=== PATIENT | male | born 1940 | race Caucasian/White ===

== ENCOUNTER 2022-11-16 09:33 | Outpatient (OUT) | payer MEDICARE, SELFPAY ==
[2022-11-16 10:12] LABS: Estimated Average Glucose 171 mg/dL; Glycohemoglobin A1C 7.6 % (4.5-6.2)
== END 2022-11-16 09:34 | disposition home or self-care (01) ==
PROVIDERS: PCP Internal Medicine; Visit Provider Internal Medicine
DX: E11.65 Type 2 diabetes mellitus with hyperglycemia (principal)
CPT/HCPCS: 36415; 83036

== ENCOUNTER 2023-03-05 09:07 | Outpatient (OUT) | payer MEDICARE, SELFPAY ==
[2023-03-05 09:36] LABS: Basophils Absolute Auto 0.1 10^3/uL (0.0-0.1); Basophils Percent Auto 2.6 % (0.2-2.0); Eosinophils Absolute Auto 0.4 10^3/uL (0.0-0.7); Eosinophils Percent Auto 7.9 % (0.9-7.0); Hematocrit 38.5 % (42.0-54.0); Hemoglobin 12.9 g/dL (14.0-18.0); Immature Granulocytes Abs Auto 0.01 10^3/uL (0.00-0.03); Immature Granulocytes Pct Auto 0.2 % (0.0-0.5); Mean Corpuscular HGB Conc 33.5 g/dL (29.9-35.2); Mean Corpuscular Hemoglobin 31.7 pg (25.9-34.0); Mean Corpuscular Volume 94.6 fL (80.0-94.0); Mean Platelet Volume 9.8 fL (9.5-13.5); Monocytes Absolute Auto 0.4 10^3/uL (0.3-0.8); Monocytes Percent Auto 8.8 % (1.7-12.0); Neutrophils Absolute Auto 2.7 10^3/uL (1.4-6.5); Neutrophils Percent Auto 58.5 % (43.0-75.0); Platelet Count 264 10^3/uL (150-450); Red Blood Count 4.07 10^6/uL (4.70-6.10); White Blood Count 4.5 10^3/uL (4.0-11.0)
[2023-03-05 10:00] LABS: Estimated Average Glucose 189 mg/dL; Glycohemoglobin A1C 8.2 % (4.5-6.2)
[2023-03-05 10:31] LABS: Anion Gap 10.5; BUN Creatinine Ratio 14.1; Calcium 8.7 mg/dL (8.5-10.1); Carbon Dioxide 29.2 mmol/L (21.0-32.0); Chloride 103 mmol/L (98-107); Chol HDL Ratio 6.1; Cholesterol 256 mg/dL (<=200); Estimated GFR (African America >60 (>=60); Estimated GFR (Non-African Ame >60 (>=60); Glucose 185 mg/dL (74-106); HDL Cholesterol 42 mg/dL (40-60); Potassium 3.7 mmol/L (3.5-5.1); Sodium 139 mmol/L (136-145); Triglycerides 156 mg/dL (<=150); VLDL CHOLESTEROL 31.2 mg/dL
[2023-03-05 10:38] LABS: Prostate Specific Antigen Scrn 1.05 ng/mL (<=4.00)
[2023-03-05 11:07] LABS: Microalbumin Urine Random 6.3 mg/dL (<=30.0)
== END 2023-03-05 09:08 | disposition home or self-care (01) ==
LOC: LAB 09:07
PROVIDERS: PCP Internal Medicine; Visit Provider Internal Medicine
DX: E11.65 Type 2 diabetes mellitus with hyperglycemia (principal); E78.01 Familial hypercholesterolemia; I25.10 Atherosclerotic heart disease of native coronary artery without angina pectoris; Z12.5 Encounter for screening for malignant neoplasm of prostate; I10 Essential (primary) hypertension
CPT/HCPCS: 36415; 80048; 80061; 82043; 83036; 85025; G0103

== ENCOUNTER 2023-07-06 08:55 | Outpatient (OUT) | payer MEDICARE, SELFPAY ==
--- OUTSIDE RECORDS SUMMARY | 2023-07-06 09:02 | XMS_ITS | CCD ---
Author Organization [facility] Care Team Providers Care Biomedical Electronics Technician Name Role Phone PHYSICIAN, DEFAULT Unavailable Unavailable PHYSICIAN, DEFAULT Unavailable Unavailable ANGY, JED Unavailable Unavailable Mega Travis DO Primary Care Provider RIC ARGUELLO Referring Unavailable MEGA TRAVIS Primary Care Unavailable JAMARCUS SHRESTHA Admitting Unavailable JAMARCUS SHRESTHA Attending Unavailable GUSTAVO MORROW I Consulting Unavailable WU MILES Consulting Unavailable Mega Travis Unavailable Mega Travis Primary Care Unavailable Asaad, Imad Attending Unavailable Asaad, Imad Admitting Unavailable Asaad, Imad Unavailable MAE ., MELVIN Procedure Practitioner Unavailab jaiml TRAVIS, DR SAEED Primary Care Unavailable FLORENCE, DR ODILON Juarez Consulting Unavailabl e MAE ., MELVIN Attending Unavailable MAE ., MELVIN Admitting Unavailable FCO FRY Consulting Unavailable SAMSA ., VARSHA Consulting Unavailable CHING, KAMINI Consulting Unavailable SISTER, CARLITOS Consulting Unavailable AME ., MELVIN Consulting Unavailable ANGY, DR SAEED Consulting Unavailable ANGY, DR SAEED Attending Unavailable ANGY, DR SAEED Admitting Unavailable ANGY, DR SAEED Primary Care Unavailable ANGY, DR SAEED Primary Care Unavailable ANGY, DR SAEED Attending Unavailable ANGY, DR SAEED Admitting Unavailable ANGY, DR SAEED Primary Care Unavailable PAY ., DR BETTS Attending Unavailable PAY ., DR BETTS Admitting Unavailable Jose Matthews Consulting Unavailable PAY ., DR BETTS Consulting Unavailable ANGY, DR SAEED Primary Care Unavailable AFUA ., OLINDA Attending Unavailable AFUA ., OLNIDA Admitting Unavailable AFUA ., OLINDA Consulting Unavailable NURIA GUILLEN Consulting Unavailable CHANDA CHA Consulting Unavailable ANGY, DR SAEED Primary Care Unavailable MARKER ., DR MOLINA Attending Unavailable MARKER ., DR MOLINA Admitting Unavailable MARKER ., DR MOLINA Consulting Unavailable LILIA HERNANDEZ Consulting Unavailable ANGY, DR SAEED Primary Care Unavailable SHAIKH Lv PALMA Attending Unavailable CHIP ., DR GARCIA Consulting Unavailable SHAIKH Lv PALMA Admitting Unavailable Nuria Webb Consulting Unavailable RIC ARGUELLO Consulting Unavailable FCO FRY Consulting Unavailable NURIA CLINE Consulting Unavailable SHAIKH Lv PALMA Consulting Unavailable GUNNAR, DR DONA Zarate Attending Unavailable GUNNAR, DR DONA Zarate Admitting Unavailable Jose Matthews Consulting Unavailable ANGY, DR SAEED Primary Care Unavailable GUNNAR, DR DONA Zarate Consulting Unavailable RIC ARGUELLO Consulting Unavailable FCO FRY Consulting Unavailable ROSALIND AMIN Consulting Unavailable CRISTIAN GRIER Consulting Unavailable ANGY, DR SAEED Primary Care Unavailable GUNNAR, DR DONA Zarate Attending Unavailable GUNNAR, DR DONA Zarate Admitting Unavailable CAM, DR NELL Metz Consulting Unavailable GUNNAR, DR DONA Zarate Consulting Unavailable GILMA NICK Consulting Unavailable Medications Current Medications Medication Drug Class(es) Dates Sig (Normalized) Sig (Original) Acetaminophen (1 source) Start: 03-06-2022 acetaminophen (TYLENOL) tablet 650 mg Albuterol (20 sources) beta2-Adrenergic Agonist Start: 05-10-2022 take 90 ug by inhalation every four hours Albuterol Active 90 MCG INHALATION Q4H May 10, 2022 1:00am Start: 03-06-2022 albuterol (PRO VENTIL) nebulizer solution 2.5 mg Albuterol Sulfat e (2.5 MG/3ML) 0.083% 3 mL Inhalation every 4 hours as needed Not-Taking/PRN Albuterol Sulfat e (2.5 MG/3ML) 0.083% 3 mL Inhalation every 4 hours as needed Not-Taking take 2 puff(s) by in halation every four hours as needed Albuterol Sulfate HFA 108 (90 Base) MCG/ACT 2 puffs Inhalation every 4 hrs PRN Active albuterol 0.833 mg/ml / ipratropium bromide 0.167 mg/ml inhalation solution (20 sources) Anticholinergic, beta2-Adrenergic Agonist Start: 07-04-2023 take 1 mL by inhalation twice daily Ipratropium-Albuterol Active 3 ML INHALATION Twice daily 180 90 July 04, 2023 9:54am Start: 05-10-2022 End: 07-04-2023 take 1 mL by inhalation four times daily Ipratropium-Albuterol Discontinued 3 ML INHALATION Four times daily May 10, 2022 1:00am July 04, 2023 9:55am take 1 dose by inhal ation four times daily Ipratropium-Albuterol 0.5-2.5 (3) MG/3ML INHALE 1 VIAL VIA NEBULIZER 4 TIMES A DAY Active atorvastatin 40 mg oral tablet (2 sources) HMG-CoA Reductase Inhibitor Start: 03-06-2023 take 1 tablet by mouth every twenty-four hours Atorvastatin Calcium 40 MG 1 tablet Orally Once a day for 30 days replacing simvastatin Feb, Active Start: 08-11-2018 End: 05-10-2022 take 40 mg by mouth once daily in the evening Atorvastatin Discontinued 40 MG PO Every evening August 11, 2018 12:00am May 10, 2022 1:27pm azithromycin 250 mg oral tablet (1 source) Macrolide Antimicrobial Start: 03-07-2022 End: 03-12-2022 azithromycin (ZITHROMAX) 250 MG tablet Indications: Bronchiectasis without complication (HCC) Take 1 tablet by mouth See Admin Instructions for 5 days 500mg on day 1 followed by 250mg on days 2 - 5 6 tablet 0 03/07/2022 03/12/2022 Active budesonide 0.25 mg/ml inhalation suspension (19 sources) Corticosteroid Start: 01-29-2023 take 1 mL by inhalation twice daily Budesonide 0.5 MG/2ML 1 mL Inhalation Twice a day Jan, Active Start: 05-10-2022 take 1 mL by inhalat ion twice daily Budesonide 0.5 MG/2ML 1 mL Inhalation Twice a day Jan, Active Budesonide 0.5 M G/2ML 1 Nebule Inhalation Twice a day Active clopidogrel 75 mg oral tablet (20 sources) P2Y12 Platelet Inhibitor Start: 03-09-2022 take 75 mg by mouth every other day 75 mg, Oral, EVERY OTHER DAY, First dose on Sat03/09/22 at 0900, Until Discontinued Start: 08-11-2018 take 75 mg by mouth once daily Clopidogrel Active 75 MG PO Daily August 11, 2018 12:00am take 0.5 tablet by m outh every other day clopidogrel (PLAVIX) 75 MG tablet Take 75 mg by mouth every other day Half tab 0 Active Contour Next Test - (2 sources) Contour Next Makenzie t - Use to test home BS In Vitro daily for 30 days Active Contour Next Makenzie t - USE 1 STRIP DAILY for 50 Active 0.4 ml enoxaparin sodium 100 mg/ml prefilled syringe (1 source) Low Molecular Weight Heparin Start: 03-07-2022 enoxaparin (LOVENOX) injection 40 mg glucagon (rdna) 1 mg injection (1 source) Antihypoglycemic Agent Start: 03-06-2022 glucago n (rDNA) injection 1 mg 1000 ml glucose 100 mg/ml injection (3 sources) Start: 03-06-2022 dextrose 10 % infusion Start: 03-06-2022 dextrose bolus 10% 125 mL Start: 03-06-2022 glucose chewab le tablet 16 g glyBURIDE 1.25 mg oral tablet (20 sources) Sulfonylurea Start: 07-03-2023 take 1.25 mg by mouth once daily Glyburide Active 1.25 MG PO Daily July 03, 2023 12:00am Start: 05-08-2022 take 1 tablet by malia th every twenty-four hours glyBURIDE 1.25 MG 1 tablet with breakfast or the first main meal of the day Orally Once a day Apr, Active Start: 05-08-2022 glyBURIDE 1.25 MG 2 Orally 30 minutes prior to bkfst for 30 days Apr, Active insulin lispro 100 unt/ml injectable solution (2 sources) Insulin Analog Start: 03-06-2022 insulin lispro (HUMALOG) injection vial 0-4 Units 100 ml magnesium sulfate 10 mg/ml injection (1 source) Start: 03-06-2022 magnesium sulf ate 1000 mg in dextrose 5% 100 mL IVPB omeprazole 40 mg delayed release oral capsule (3 sources) Proton Pump Inhibitor Start: 07-03-2023 take 40 mg by mouth once daily Omeprazole Active 40 MG PO Daily July 03, 2023 12:00am Omeprazole 40 MG TAKE 1 CAPSULE BY MOUTH 30 MINUTES BEFORE MORNING MEAL EVERY DAY FOR 30 DAYS for 90 Active End: 03-07-2022 take 1 capsule by mouth once daily omeprazole (PRILOSEC) 20 MG delayed release capsule Take 20 mg by mouth daily 0 03/07/2022 Discontinued (Stop Taking at Discharge) ondansetron (ZOFRAN-ODT) disintegrating tablet 4 mg (1 source) Start: 03-06-2022 ondansetron (ZOFRAN-ODT) disintegrating tablet 4 mg One Touch Glucometer (1 source) Start: 04-04-2023 One Touch Glucometer use as directed for 365 days Mar, Active pantoprazole 40 mg delayed release oral tablet (1 source) Proton Pump Inhibitor Start: 03-07-2022 take 1 tablet by mouth once daily before breakfast pantoprazole (PROTONIX) 40 MG tablet Take 1 tablet by mouth every morning (before breakfast) 30 tablet 5 03/07/2022 Active pantoprazole (PROTONIX) 40 mg in sodium chloride (PF) 0.9 % 10 mL injection (1 source) Start: 03-06-2022 pantoprazole (PROTONIX) 40 mg in sodium chloride (PF) 0.9 % 10 mL injection polyethylene glycol 3350 16958 mg powder for oral solution (1 source) Osmotic Laxative Start: 03-06-2022 polyethylene glycol (GLYCOLAX) packet 17 g Potassium Chloride (1 source) Start: 03-06-2022 potassium chloride (KLOR-CON M) extended release tablet 40 mEq predniSONE 10 mg oral tablet (14 sources) take 1 tablet by mouth every twenty-four hours predniSONE 10 MG 1 tablet Orally Once a day 40 mg daily for 5 days, 30 mgs for 5 days, 20 mg for 5 days, 10 mg for 5 days Active simvastatin 20 mg oral tablet (20 sources) HMG-CoA Reductase Inhibitor Start: 05-10-2022 take 20 mg by mouth once daily Simvastatin Active 20 MG PO Daily May 10, 2022 1:00am Start: 03-09-2022 Please Note: S imvastatin 80 mg is limited to patients that have been taking this dose for >12 consecutive months without evidence of myopathy and are not currently taking or beginning to take a simvastatin dose-limiting or contraindicated interacting medication. 10 mg, Oral, EVERY OTHER DAY, First dose on Sat03/09/22 at 0900, Until Discontinued Please select a reason the therapeutic interchange was not accepted: Okay for Pharmacy to Substitute take 10 mg by mouth every other day simvastatin (ZOCOR) 20 MG tablet Take 10 mg by mouth every other day 0 Active triamcinolone acetonide 0.001 mg/mg topical ointment (12 sources) Corticosteroid Start: 07-24-2022 Triamcinolone Acetonide 0.1 % 1 application Externally Twice a day for 30 days July, Active Start: 06-26-2022 Triamcinolone Acetonide 0.1 % 1 application Externally twice daily as needed for 30 days Jun, Not-Taking/PRN Start: 06-26-2022 Triamcinolone Acetonide 0.1 % 1 application Externally twice daily as needed for 30 days Jun, Not-Taking Completed/Discontinued Medications Medication Drug Class(es) Dates Sig (Normalized) Sig (Original) aspirin 81 mg chewable tablet (1 source) Platelet Aggregation Inhibitor, Nonsteroidal Anti-inflammatory Drug Start: 08-10-2018 End: 08-11-2018 take 81 mg by mouth once daily Aspirin Discontinued 81 MG PO Daily August 10, 2018 12:00am August 11, 2018 1:09pm metFORMIN hydrochloride 500 mg oral tablet (1 source) Biguanide Start: 08-11-2018 End: 05-10-2022 take 500 mg by mouth twice daily at mealtime Metformin Discontinued 500 MG PO Twice daily with meals 60 August 11, 2018 12:00am May 10, 2022 1:52pm 1000 ml sodium chloride 9 mg/ml injection (5 sources) Start: 03-06-2022 sodium chloride flush 0.9 % injection 5-40 mL Start: 03-06-2022 End: 03-07-2022 0.9 % sodium chloride infusi on Problems Active Problems Problem Classification Problem Date Documented Da te Episodic/Chronic Abdominal pain (14 sources) Epigastric pain; Translations: [Epigastric pain] Episodic Acute cerebrovascular disease (1 source) Ischemic stroke; Translations: [Cerebral infarction, unspecified] 02-27-2023 Chronic Anxiety disorders (2 sources) Generalized anxiety disorder; Translations: [Anxiety disorder, unspecified] Onset: 2 Chronic Asthma (1 source) Unspecified asthma, uncomplicated; Translations: [UNSPECIFIED ASTHMA UNCOMPLICATED] Onset: 2 Chronic Chronic obstructive pulmonary disease and bronchiectasis (20 sources) Bronchiectasis; Translations: [Bronchiectasis, uncomplicated] Onset: 2 Chronic Congestive heart failure; nonhypertensive (1 source) Heart failure, unspecified; Translations: [HEART FAILURE UNSPECIFIED] Onset: 2 Chronic Coronary atherosclerosis and other heart disease (20 sources) Coronary atherosclerosis; Translations: [Atherosclerotic heart disease of [place] coronary artery without angina pectoris] Onset: 2 Chronic Deficiency and other anemia (19 sources) Anemia of chronic disease; Translations: [Anemia in other chronic diseases classified elsewhere] Chronic Deficiency and other anemia (1 source) Anemia in other chronic diseases classified elsewhere Chronic Deficiency and other anemia (2 sources) Normocytic normochromic anemia; Translations: [Anemia, unspecified] Onset: 2 Episodic Delirium, dementia, and amnestic and other cognitive disorders (20 sources) Senile dementia; 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 Diabetes mellitus with complications (20 sources) Hyperglycemia due to type 2 diabetes mellitus; Translations: [Type 2 diabetes mellitus with hyperglycemia] Onset: 2 Chronic Diabetes mellitus without complication (3 sources) Type 2 diabetes mellitus without complication; Translations: [Type 2 diabetes mellitus without complications] Onset: 2 Chronic Diseases of white blood cells (1 source) Elevated white blood cell count, unspecified; Translations: [ELEVATED WHITE BLOOD CELL COUNT UNS] Onset: 2 Chronic Disorders of lipid metabolism (20 sources) Pure hypercholesterolemia; Translations: [Familial hypercholesterolemia] Onset: 2 Chronic Esophageal disorders (20 sources) Stricture of esophagus; Translations: [Esophageal obstruction] Onset: 2 Chronic Essential hypertension (20 sources) Essential hypertension; Translations: [Essential (primary) hypertension] Chronic Hyperplasia of prostate (20 sources) Lower urinary tract symptoms due to benign prostatic hypertrophy; Translations: [Benign prostatic hyperplasia with lower urinary tract symptoms] Onset: 2 07-03-2023 Chronic Hypertension with complications and secondary hypertension (1 source) Hypertensive heart disease with heart failure; Translations: [HTN HEART DISEASE W/HEART FAIL] Onset: 2 Chronic Mycoses (14 sources) Candidiasis of mouth; Translations: [Candidal stomatitis] Episodic Other and ill-defined cerebrovascular disease (20 sources) Cerebral atherosclerosis; Translations: [Cerebral atherosclerosis] 07-03-2023 Chronic Other and ill-defined cerebrovascular disease (1 source) Cerebral atherosclerosis; Translations: [Cerebral atherosclerosis] 07-04-2023 Chronic Other diseases of veins and lymphatics (20 sources) Peripheral venous insufficiency; Translations: [Venous insufficiency (chronic) (peripheral)] 07-03-2023 Episodic Other diseases of veins and lymphatics (3 sources) Venous insufficiency (chronic) (peripheral) Episodic Other diseases of veins and lymphatics (7 sources) Stasis dermatitis; Translations: [Venous insufficiency (chronic) (peripheral)] Episodic Other gastrointestinal disorders (14 sources) Dysphagia; Translations: [Dysphagia, unspecified] Episodic Other gastrointestinal disorders (14 sources) H/O: gastrointestinal disease; Translations: [Personal history of other diseases of the digestive system] Episodic Other hereditary and degenerative nervous system conditions (14 sources) Mild cognitive disorder ; Translations: [Mild cognitive impairment, so stated] Chronic Other hereditary and degenerative nervous system conditions (1 source) Impaired cognition; Translations: [Mild cognitive impairment, so stated] 07-03-2023 Chronic Other hereditary and degenerative nervous system conditions (1 source) Mild cognitive impairment, so stated; Translations: [Mild cognitive impairment, so stated] 07-04-2023 Chronic Other infections; including parasitic (2 sources) Personal history of other infectious and parasitic diseases; Translations: [History of COVID-19] Onset: 2 Episodic Other lower respiratory disease (3 sources) Pulmonary granuloma; Translations: [Pulmonary fibrosis, unspecified] Onset: 2 Chronic Other lower respiratory disease (1 source) Pulmonary fibrosis, unspecified; Translations: [Pulmonary fibrosis, unspecified] Onset: 2 Chronic Other lower respiratory disease (3 sources) Nodule of lung; Translations: [Solitary pulmonary nodule] Onset: 2 Episodic Other lower respiratory disease (14 sources) Hypoxemia; Translations: [Hypoxemia] Episodic Other lower respiratory disease (14 sources) Lung field abnormal; Translations: [Other nonspecific abnormal finding of lung field] Episodic Other lower respiratory disease (19 sources) Solitary nodule of lung; Translations: [Solitary pulmonary nodule] Episodic Other nervous system disorders (1 source) Numbness; Translations: [Anesthesia of skin] 02-27-2023 Episodic Other upper respiratory disease (1 source) Chronic rhinitis; Translations: [CHRONIC RHINITIS] Onset: 3 Chronic Other upper respiratory infections (1 source) Chronic sinusitis, unspecified; Translations: [CHRONIC SINUSITIS UNSPECIFIED] Onset: 2 Chronic Residual codes; unclassified (20 sources) Obstructive sleep apnea syndrome; Translations: [Obstructive sleep apnea (adult) (pediatric)] 07-03-2023 Chronic Residual codes; unclassified (8 sources) Obstructive sleep apnea (adult) (pediatric); Translations: [Obstructive sleep apnea (adult)(pediatric)] Onset: 3 Chronic Respiratory failure; insufficiency; arrest (adult) (2 sources) Chronic respiratory failure with hypoxia; Translations: [Dependence on supplemental oxygen] Onset: 3 Chronic Screening and history of mental health and substance abuse codes (20 sources) History of tobacco use; Translations: [Personal history of nicotine dependence] Onset: 3 Episodic Spondylosis; intervertebral disc disorders; other back problems (20 sources) Lumbosacral spondylosis with radiculopathy; Translations: [Other spondylosis with radiculopathy, lumbosacral region] Onset: 2 Chronic Unclassified (1 source) UNS DEMENTIA UNS SEVERITY W/ANXIETY; Translations: [UNS DEMENTIA UNS SEVERITY W/ANXIETY] Onset: 3 Unclassified (1 source) PT NONCOMP OTH MED TX/REG OTH REASN; Translations: [PT NONCOMP OTH MED TX/REG OTH REASN] Onset: 3 Unclassified (1 source) CONTACT W/AND (SUSP) EXPOS COVID-19; Translations: [CONTACT W/AND (SUSP) EXPOS COVID-19] Onset: 3 Unclassified (1 source) PERSONAL HISTORY OF COVID-19; Translations: [PERSONAL HISTORY OF COVID-19] Onset: 2 Unclassified (2 sources) COUGH, UNSPECIFIED; Translations: [COUGH, UNSPECIFIED] Onset: 2 Unclassified (1 source) POST COVID-19 CONDITION UNSPECIFIED; Translations: [POST COVID-19 CONDITION UNSPECIFIED] Onset: 2 Viral infection (1 source) COVID-19; Translations: [COVID-19] Onset: 2 Past or Other Problems Problem Classification Problem Date Documented Da te Episodic/Chronic Esophageal disorders (20 sources) Esophageal disorders; Translations: [Gastro-esophageal reflux disease with esophagitis, without bleeding] Onset: 05-10-2022 Fluid and electrolyte disorders (1 source) Dehydration; Translations: [DEHYDRATION] Onset: 01-11-2022 Episodic Inflammation; infection of eye (except that caused by tuberculosis or sexually transmitteddisease) (1 source) Unspecified conjunctivitis; Translations: [UNSPECIFIED CONJUNCTIVITIS] Onset: 04-03-2022 Episodic Malaise and fatigue (2 sources) Weakness; Translations: [Other malaise] Onset: 01-11-2022 Episodic Nausea and vomiting (4 sources) Nausea with vomiting, unspecified; Translations: [NAUSEA WITH VOMITING UNSPECIFIED] Onset: 12-11-2021 Episodic Other aftercare (1 source) buttermaker (current) use of antithrombotics/ant iplatelets; Translations: [PUMPMAN ANTITHROMBOT/ANTIPL ATLETS] Onset: 04-03-2022 Episodic Other aftercare (1 source) buttermaker (current) use of inhaled steroids; Translations: [ALF USE OF INHALED STEROIDS] Onset: 04-03-2022 Episodic Other aftercare (1 source) buttermaker (current) use of oral hypoglycemic drugs; Translations: [PUMPMAN USE ORAL HYPOGLYCEMIC DX] Onset: 04-03-2022 Episodic Other aftercare (1 source) Other terminal make up operator (current) drug therapy; Translations: [OTH PUMPMAN CURRENT DRUG THERAPY] Onset: 04-03-2022 Episodic Other aftercare (1 source) snf (current) use of insulin; Translations: [ALF CURRENT USE OF INSULIN] Onset: 03-13-2022 Episodic Other aftercare (1 source) buttermaker (current) use of aspirin; Translations: [ALF CURRENT USE OF ASPIRIN] Onset: 12-19-2021 Episodic Other connective tissue disease (1 source) Myalgia, unspecified site; Translations: [MYALGIA UNSPECIFIED SITE] Onset: 01-11-2022 Episodic Other gastrointestinal disorders (4 sources) Dysphagia, unspecified; Translations: [DYSPHAGIA UNSPECIFIED] Onset: 03-06-2022 Episodic Other lower respiratory disease (7 sources) Solitary pulmonary nodule; Translations: [Solitary pulmonary nodule] Onset: 12-19-2021 Episodic Other lower respiratory disease (2 sources) Hypoxemia; Translations: [HYPOXEMIA] Onset: 03-13-2022 Episodic Other lower respiratory disease (1 source) Other nonspecific abnormal finding of lung field; Translations: [OTH NONSPECIFIC ABN FIND LNG FIELD] Onset: 04-03-2022 Episodic Other lower respiratory disease (4 sources) Other forms of dyspnea; Translations: [OTHER FORMS OF DYSPNEA] Onset: 02-12-2022 Episodic Other lower respiratory disease (1 source) Dyspnea, unspecified; Translations: [DYSPNEA UNSPECIFIED] Onset: 01-11-2022 Episodic Other lower respiratory disease (4 sources) Shortness of breath; Translations: [SHORTNESS OF BREATH] Onset: 12-16-2021 Episodic Other upper respiratory infections (2 sources) Acute upper respiratory infection, unspecified; Translations: [ACUTE UP RESPIRATORY INFECTION UNS] Onset: 12-13-2021 Episodic Pneumonia (except that caused by tuberculosis or sexually transmitted disease) (1 source) Pneumonia, unspecified organism; Translations: [PNEUMONIA UNSPECIFIED ORGANISM] Onset: 12-19-2021 Episodic Residual codes; unclassified (1 source) Family history of diabetes mellitus; Translations: [FAMILY HISTORY OF DIABETES MELLITUS] Onset: 04-03-2022 Episodic Residual codes; unclassified (1 source) Family history of ischemic heart disease and other diseases of the circulatory system; Translations: [FAM HX ISCHEMIC HRT DZ OTH DZ CIRC] Onset: 04-03-2022 Episodic Respiratory failure; insufficiency; arrest (adult) (1 source) Acute respiratory failure with hypoxia; Translations: [ACUTE RESPIRATORY FAIL W/HYPOXIA] Onset: 01-18-2022 Episodic Unclassified (1 source) COUGH, UNSPECIFIED; Translations: [COUGH, UNSPECIFIED] Onset: 12-29-2021 Results Test Name Value Interpretation Reference Range Facility [facility] 05-10-2022 -- ---- Specimen: [id number] Received: 05/10/22 Status: KARAN Galeano Num: [id number] Spec Type: Surgical Subm Dr: Cara Hayden MD Tissues: A Esophagus Biopsy (ESOPHAGEAL NODULE BX) Procedures: HE/2, Gross/Micro L4 ---- Age/ Patient Sex Location Account Attending Physician ---- Tammy Millard 81/[facility] [id number] Cara Hayden MD ---- SPEC NUM: [id number] RECD: 05/10/22 STATUS: KARAN GALEANO NUM: [id number] DIONNE: 05/10/22- [facility] DR: Cara Hayden MD ENTERED: 05/10/[address] [facility] [address]: EDUAR TYPE: Surgical DEPT: S ORDERED: HE/2, Gross/Micro L4 ORDERED: HE/2, Gross/Micro L4 Pathological Diagnosis Esophagus, nodule in hiatal hernia, biopsy: - Polypoid gastric mucosa with inactive chronic inflammation and hyperplastic change. - Negative for intestinal metaplasia, dysplasia or malignancy. Clinical Information Dysphagia Gross Description Received in formalin labeled with the patient's name, number and esophageal nodule in hiatal hernia biopsy is one fragment of soft cardona tissue measuring 0.3 cm. Entirely submitted in one cassette labeled A1. Microscopic Description Two glass slides with H E stained material have been examined. The microscopic findings support the above pathologic diagnosis. CPT Codes 98668 ---- ---- Specimen: [id number] Received: 05/10/22 Status: KARAN Galeano Num: [id number] Spec Type: Surgical Subm Dr: Cara Hayden MD Tissues: A Esophagus Biopsy (ESOPHAGEAL NODULE BX) Procedures: HE/2, Gross/Micro L4 ---- Patient: Tammy Millard [id number] (Continued) ---- Signed (signature on file) Carmen Welch MD 05/11/22 1509 [facility] CBC AUTO DIFFon 03-30-2022 BASO # 0.0 103/ul Normal 0.0-0.1 [facility] Comment on above: Performed By: #### C GREG #### [facility] [address] [address] [address] Avni Aguillon Basophils/100 WBC (Bld) 0.1 % Critically low 0.2-2.0 [facility] Comment on above: Performed By: #### C GREG #### [facility] [address] [address] [address] Avni Aguillon EO # 0.0 103/ul Normal 0.0-0.7 [facility] Comment on above: Performed By: #### C GREG #### [facility] [address] [place] [address] Dr. Avni Aguillon Eosinophils/100 WBC (Bld) 0.0 % Critically low 0.9-7.0 [facility] Comment on above: Performed By: #### C GREG #### [facility] [address] [place] [address] Dr. Avni Aguillon Erythrocyte distribution width (RBC) [Ratio] 13.2 % Normal 11.0-15.0 [facility] Comment on above: Performed By: #### C GREG #### [facility] [address] [place] [address] Dr. Avni Aguillon Hematocrit (Bld) [Volume fraction] 34.3 % Critically low 42.0-54.0 [facility] Comment on above: Performed By: #### C GREG #### [facility] [address] [place] [address] Dr. Avni Aguillon Hemoglobin (Bld) [Mass/Vol] 11.1 g/dL Critically low 14.0-18.0 [facility] Comment on above: Performed By: #### C GREG #### [facility] [address] [place] [address] Dr. Avni Aguillon IG # 0.03 10e3/ul Normal 0.00-0.03 [facility] Comment on above: Performed By: #### C GREG #### [facility] [address] [address] [address] Avni Aguillon IG % 0.3 % Normal 0.0-0.5 [facility] Comment on above: Performed By: #### C GREG #### [facility] [address] [address] [address] Avni Aguillon LYMPH # 0.4 103/ul Critically low 1.2-3.8 [facility] Comment on above: Performed By: #### C GREG #### [facility] [address] [address] [address] Avni Aguillon Lymphocytes/100 WBC (Bld) 4.0 % Critically low 20.5-60.0 [facility] Comment on above: Performed By: #### C GREG #### [facility] [address] [place] [address] Dr. Avni Aguillon MANUAL DIFF REQ NO Normal [facility] Comment on above: Performed By: #### C GREG #### [facility] [address] [place] [address] Dr. Avni Aguillon MCH (RBC) [Entitic mass] 32.6 pg Normal 25.9-34.0 [facility] Comment on above: Performed By: #### C GREG #### [facility] [address] [place] [address] Dr. Avni Aguillon MCHC (RBC) [Mass/Vol] 32.4 g/dL Normal 29.9-35.2 [facility] Comment on above: Performed By: #### C GREG #### [facility] [address] [place] [address] Dr. Avni Aguillon MCV (RBC) [Entitic vol] 100.6 fL Critically high 80.0-94.0 [facility] Comment on above: Performed By: #### C GREG #### [facility] [address] [address] [address] Avni Aguillon MONO # 0.4 103/ul Normal 0.3-0.8 [facility] Comment on above: Performed By: #### C GREG #### [facility] [address] [address] [address] Avni Aguillon Monocytes/100 WBC (Bld) 4.2 % Normal 1.7-12.0 [facility] Comment on above: Performed By: #### C GREG #### [facility] [address] [address] [address] Avni Aguillon NEUT # 9.2 103/ul Critically high 1.4-6.5 [facility] Comment on above: Performed By: #### C GREG #### [facility] [address] [place] [address] Dr. Avni Aguillon Neutrophils/100 WBC (Bld) 91.4 % Critically high 43.0-75.0 [facility] Comment on above: Performed By: #### C GREG #### [facility] [address] [place] [address] Dr. Avni Aguillon Platelet mean volume (Bld) [Entitic vol] 10.2 fL Normal 9.5-13.5 [facility] Comment on above: Performed By: #### C GREG #### [facility] [address] [address] [address] Avni Aguillon PLT 295 103/ul Normal 150-450 [facility] Comment on above: Performed By: #### C GREG #### [facility] [address] [place] [address] Dr. Avni Aguillon RBC 3.41 106/ul Critically low 4.70-6.10 [facility] Comment on above: Performed By: #### C GREG #### [facility] [address] [place] [address] Dr. Avni Aguillon WBC 10.1 103/ul Normal 4.0-11.0 [facility] Comment on above: Performed By: #### C GREG #### [facility] [address] [place] [address] Dr. Avni Aguillon ER URINE PROFILEon 3 Bilirubin Ql (U) Negative Normal NEGATIVE [facility] Comment on above: Performed By: #### P OCGLUC #### [facility] [address] [address] [address] Avni Aguillon Clarity (U) CLEAR Normal CLEAR [facility] Comment on above: Performed By: #### P OCGLUC #### [facility] [address] [place] [address] Dr. Avni Aguillon Color (U) LT. YELLOW Normal YELLOW [facility] Comment on above: Performed By: #### P OCGLUC #### [facility] [address] [place] [address] Dr. Avni GUERIN A micrscopic examination will be performed if indicated. Normal [facility] Comment on above: Performed By: #### P OCGLUC #### [facility] [address] [place] [address] Dr. Avni Aguillon Glucose Ql (U) >1000 Abnormal NEGATIVE [facility] Comment on above: Performed By: #### P OCGLUC #### [facility] [address] [place] [address] Dr. Avni Aguillon Hemoglobin Ql (U) Negative Normal NEGATIVE [facility] Comment on above: Performed By: #### P OCGLUC #### [facility] [address] [place] [address] Dr. Avni Aguillon Ketones Ql (U) 15 mg/dl Abnormal NEGATIVE [facility] Comment on above: Performed By: #### P OCGLUC #### [facility] [address] [place] [address] Dr. Avni Aguillon LEUKOCYTES Negative Normal NEGATIVE [facility] Comment on above: Performed By: #### P OCGLUC #### [facility] [address] [place] [address] Dr. Avni Aguillon Nitrite Ql (U) Negative Normal NEGATIVE [facility] Comment on above: Performed By: #### P OCGLUC #### [facility] [address] [place] [address] Dr. Avni Aguillon pH (U) 5.0 [pH] Normal 5-9 [facility] Comment on above: Performed By: #### P OCGLUC #### [facility] [address] [place] [address] Dr. Avni Aguillon SPEC GRAVITY 1.010 Normal 1.005-<=1.02 5 [facility] Comment on above: Performed By: #### P OCGLUC #### [facility] [address] [place] [address] Dr. Avni Aguillon UA PROTEIN Negative Normal NEGATIVE/ TRACE [facility] Comment on above: Performed By: #### P OCGLUC #### [facility] [address] [place] [address] Dr. Avni Aguillon UR MICRO IND NOT INDICATED Normal [facility] Comment on above: Performed By: #### P OCGLUC #### [facility] [address] [place] [address] Dr. Avni Aguillon Urobilinogen Qn (U) 0.2 {Kesha'U}/dL Normal 0.2 - 1. 0 [facility] Comment on above: Performed By: #### P OCGLUC #### [facility] [address] [place] [address] Dr. Avni Aguillon POINT OF CARE GLUCOSEon 03-18 Glucose [Mass/Vol] 316 mg/dL Critically high 74-106 [facility] Comment on above: Performed By: #### P OCGLUC #### [facility] [address] [place] [address] Dr. Avni Aguillon Glucose [Mass/Vol] 374 mg/dL Critically high 74-106 [facility] Comment on above: Performed By: #### U RCX #### [facility] [address] [place] [address] Dr. Avni Aguillon PROF 14(COMP METB)on 023 Albumin [Mass/Vol] 2.9 g/dL Critically low 3.4-5.0 [facility] Comment on above: Performed By: #### P OCGLUC #### [facility] [address] [place] [address] Dr. Avni Aguillon Albumin/Globulin [Mass ratio] 0.9 {ratio} Normal [facility] Comment on above: Performed By: #### P OCGLUC #### [facility] [address] [address] [address] Avni Aguillon ALP [Catalytic activity/Vol] 93 U/L Normal 46-116 [facility] Comment on above: Performed By: #### P OCGLUC #### [facility] [address] [address] [address] Avni Aguillon ALT [Catalytic activity/Vol] 21 U/L Normal 16-63 [facility] Comment on above: Performed By: #### P OCGLUC #### [facility] [address] [address] [address] Avni Aguillon Anion gap [Moles/Vol] 15.4 mmol/L Normal [facility] Comment on above: Performed By: #### P OCGLUC #### [facility] [address] [address] [address] Avni Aguillon AST [Catalytic activity/Vol] 17 U/L Normal 15-37 [facility] Comment on above: Performed By: #### P OCGLUC #### [facility] [address] [place] [address] Dr. Avni Aguillon Bilirubin [Mass/Vol] 0.9 mg/dL Normal 0.2-1.0 [facility] Comment on above: Performed By: #### P OCGLUC #### [facility] [address] [place] [address] Dr. Avni Aguillon Calcium [Mass/Vol] 8.9 mg/dL Normal 8.5-10.1 [facility] Comment on above: Performed By: #### P OCGLUC #### [facility] [address] [place] [address] Dr. Avni Aguillon Chloride [Moles/Vol] 100 mmol/L Normal 98-107 [facility] Comment on above: Performed By: #### P OCGLUC #### [facility] [address] [place] [address] Dr. Avni Aguillon CO2 [Moles/Vol] 23.8 mmol/L Normal 21.0-32.0 [facility] Comment on above: Performed By: #### P OCGLUC #### [facility] [address] [place] [address] Dr. Avni Aguillon Creatinine [Mass/Vol] 1.31 mg/dL Critically high 0.70-1.30 [facility] Comment on above: Performed By: #### P OCGLUC #### [facility] [address] [address] [address] Avni Aguillon EGFR-AF LEBANESE >60 Normal >=60 [facility] Comment on above: Performed By: #### P OCGLUC #### [facility] [address] [address] [address] Avni Aguillon EGFR-NON AF LEBANESE 53 mL/min/1.73m2 Critically low >=60 [facility] Comment on above: Performed By: #### P OCGLUC #### [facility] [address] [address] [address] Avni Aguillon Globulin (S) [Mass/Vol] 3.4 g/dL Normal [facility] Comment on above: Performed By: #### P OCGLUC #### [facility] [address] [address] [address] Avni Aguillon Glucose [Mass/Vol] 368 mg/dL Critically high 74-106 [facility] Comment on above: Performed By: #### P OCGLUC #### [facility] [address] [address] [address] Avni Aguillon Potassium [Moles/Vol] 3.2 mmol/L Critically low 3.5-5.1 [facility] Comment on above: Performed By: #### P OCGLUC #### [facility] [address] [address] [address] Avni Aguillon Protein [Mass/Vol] 6.3 g/dL Critically low 6.4-8.2 [facility] Comment on above: Performed By: #### P OCGLUC #### [facility] [address] [address] [address] Avni Aguillon Sodium [Moles/Vol] 136 mmol/L Normal 136-145 [facility] Comment on above: Performed By: #### P OCGLUC #### [facility] [address] [address] [address] Avni Aguillon Urea nitrogen [Mass/Vol] 17.0 mg/dL Normal 7.0-18.0 [facility] Comment on above: Performed By: #### P OCGLUC #### [facility] [address] [place] [address] Dr. Avni Aguillon Urea nitrogen/Creatinine [Mass ratio] 13.0 mg/mg Normal [facility] Comment on above: Performed By: #### P OCGLUC #### [facility] [address] [place] [address] Dr. Avni Aguillon BNPon 03-29-2022 Natriuretic peptide B (Bld) [Mass/Vol] 684.0 pg/mL Normal <=1,800.0 [facility] Comment on above: Performed By: #### C VDTBH #### [facility] [address] [place] [address] Dr. Avni Aguillon CARDIAC NELL 3-6on 3 CK [Catalytic activity/Vol] 111 U/L Normal 39-308 [facility] Comment on above: Performed By: #### U RCX #### [facility] [address] [place] [address] Dr. Avni Aguillon CK.MB [Mass/Vol] 1.95 ng/mL Normal <=3.60 [facility] Comment on above: Performed By: #### U RCX #### [facility] [address] [place] [address] Dr. Avni Aguillon HSTROP 29.5 pg/mL Normal 4.0-76.1 [facility] Comment on above: Result Comment: CUT- OFF POINTS HAVE BEEN ESTABLISHED BASED ON THE FOURTH UNIVERSAL DEFINITIONS OF MYOCARDIAL INFARCTION. THE UPPER REFERENCE LIMIT (URL) OF TROPONIN, DEFINED THE 99TH PERCENTILE OF cTnI DISTRIBUTION IN A REFERENCE POPULATION, HAS BEEN CONFIRMED THE DECISION THRESHOLD FOR [place] DIAGNOSIS. Performed By: #### U RCX #### [facility] [address] [place] [address] Dr. Avni Aguillon CK [Catalytic activity/Vol] 103 U/L Normal 39-308 [facility] Comment on above: Performed By: #### B LARRY CAR OPERATOR #### [facility] [address] [place] [address] Dr. Avni Aguillon CK.MB [Mass/Vol] 1.94 ng/mL Normal <=3.60 [facility] Comment on above: Performed By: #### B LARRY CAR OPERATOR #### [facility] [address] [place] [address] Dr. Avni Aguillon HSTROP 35.9 pg/mL Normal 4.0-76.1 [facility] Comment on above: Result Comment: CUT- OFF POINTS HAVE BEEN ESTABLISHED BASED ON THE FOURTH UNIVERSAL DEFINITIONS OF MYOCARDIAL INFARCTION. THE UPPER REFERENCE LIMIT (URL) OF TROPONIN, DEFINED THE 99TH PERCENTILE OF cTnI DISTRIBUTION IN A REFERENCE POPULATION, HAS BEEN CONFIRMED THE DECISION THRESHOLD FOR [place] DIAGNOSIS. Performed By: #### B LARRY CAR OPERATOR #### [facility] [address] [place] [address] Dr. Avni Aguillon CARDIAC NELL ADMITon 023 CK [Catalytic activity/Vol] 84 U/L Normal 39-308 [facility] Comment on above: Performed By: #### U RCX #### [facility] [address] [place] [address] Dr. Avni Aguillon CK.MB [Mass/Vol] 1.08 ng/mL Normal <=3.60 [facility] Comment on above: Performed By: #### U RCX #### [facility] [address] [place] [address] Dr. Avni Aguillon HSTROP 34.5 pg/mL Normal 4.0-76.1 [facility] Comment on above: Result Comment: CUT- OFF POINTS HAVE BEEN ESTABLISHED BASED ON THE FOURTH UNIVERSAL DEFINITIONS OF MYOCARDIAL INFARCTION. THE UPPER REFERENCE LIMIT (URL) OF TROPONIN, DEFINED THE 99TH PERCENTILE OF cTnI DISTRIBUTION IN A REFERENCE POPULATION, HAS BEEN CONFIRMED THE DECISION THRESHOLD FOR KS DIAGNOSIS. Performed By: #### U RCX #### [facility] [address] [place] [address] Dr. Avni Aguillon MORGAN 296 ng/mL Critically high 16-96 [facility] Comment on above: Performed By: #### U RCX #### [facility] [address] [place] [address] Dr. Avni Aguillon CBC W MANUAL DIFFon 03-29-19 23 ATYPICAL LYMPH # Normal [facility] Comment on above: Performed By: #### C VDTBH #### [facility] [address] [place] [address] Dr. Avni Aguillon ATYPICAL LYMPH % Normal [facility] Comment on above: Performed By: #### C VDTBH #### [facility] [address] [place] [address] Dr. Avni Aguillon BAND # Normal 0.0-0.3 [facility] Comment on above: Performed By: #### C VDTBH #### [facility] [address] [place] [address] Dr. Avni Aguillon BAND % Normal 0-5 [facility] Comment on above: Performed By: #### C VDTBH #### [facility] [address] [place] [address] Dr. Avni Aguillon BASOM # 0.09 103/ul Normal 0.00-0.10 [facility] Comment on above: Performed By: #### C VDTBH #### [facility] [address] [place] [address] Dr. Avni Aguillon BASOM % 1.0 % Normal 0.2-2.0 [facility] Comment on above: Performed By: #### C VDTBH #### [facility] [address] [place] [address] Dr. Avni Aguillon BLAST # Normal [facility] Comment on above: Performed By: #### C VDTBH #### [facility] [address] [place] [address] Dr. Avni Aguillon BLAST % Normal [facility] Comment on above: Performed By: #### C VDTBH #### [facility] [address] [place] [address] Dr. Avni Aguillon CORRECTED WBC Normal 4.0-11.0 [facility] Comment on above: Performed By: #### C VDTBH #### [facility] [address] [place] [address] Dr. Avni Aguillon EOS # 0.00 103/ul Normal 0.00-0.70 [facility] Comment on above: Performed By: #### C VDTBH #### [facility] [address] [address] [address] Avni Aguillon EOS% 0.0 % Critically low 0.9-7.0 [facility] Comment on above: Performed By: #### C VDTBH #### [facility] [address] [address] [address] Avni Aguillon HCT 38.7 % Critically low 42.0-54.0 [facility] Comment on above: Performed By: #### C VDTBH #### [facility] [address] [address] [address] Avni Aguillon HGB 12.8 g/dl Critically low 14.0-18.0 [facility] Comment on above: Performed By: #### C VDTBH #### [facility] [address] [address] [address] Avni Aguillon LYMPHM # 0.84 103/ul Critically low 1.20-3.80 [facility] Comment on above: Performed By: #### C VDTBH #### [facility] [address] [address] [address] Avni Aguillon LYMPHM% 9.0 % Critically low 20.5-60.0 [facility] Comment on above: Performed By: #### C VDTBH #### [facility] [address] [address] [address] Avni Aguillon MCH 32.7 pg Normal 25.9-34.0 [facility] Comment on above: Performed By: #### C VDTBH #### [facility] [address] [address] [address] Avni Aguillon MCHC 33.1 g/dl Normal 29.9-35.2 [facility] Comment on above: Performed By: #### C VDTBH #### [facility] [address] [address] [address] Avni Aguillon MCV 99.0 fL Critically high 80.0-94.0 [facility] Comment on above: Performed By: #### C VDTBH #### [facility] [address] [place] [address] Dr. Avni Aguillon METAMYELOCYTE # Normal [facility] Comment on above: Performed By: #### C VDTBH #### [facility] [address] [place] [address] Dr. Anvi Aguillon METAMYELOCYTE % Normal [facility] Comment on above: Performed By: #### C VDTBH #### [facility] [address] [place] [address] Dr. Avni Aguillon MONOM# 0.56 103/ul Normal 0.30-0.80 [facility] Comment on above: Performed By: #### C VDTBH #### [facility] [address] [place] [address] Dr. Avni Aguillon MONOM% 6.0 % Normal 1.7-12.0 [facility] Comment on above: Performed By: #### C VDTBH #### [facility] [address] [place] [address] Dr. Avni Aguillon MPV 9.9 fL Normal 9.5-13.5 [facility] Comment on above: Performed By: #### C VDTBH #### [facility] [address] [place] [address] Dr. Avni Aguillon MYELOCYTE # Normal [facility] Comment on above: Performed By: #### C VDTBH #### [facility] [address] [place] [address] Dr. Avni Aguillon MYELOCYTE % Normal [facility] Comment on above: Performed By: #### C VDTBH #### [facility] [address] [place] [address] Dr. Avni Aguillon NRBC Normal [facility] Comment on above: Performed By: #### C VDTBH #### [facility] [address] [place] [address] Dr. Avni Aguillon PLT 301 103/ul Normal 150-450 [facility] Comment on above: Performed By: #### C VDTBH #### [facility] [address] [address] [address] Avni Aguillon RBC 3.91 106/ul Critically low 4.70-6.10 [facility] Comment on above: Performed By: #### C VDTBH #### [facility] [address] [place] [address] Dr. Avni Aguillon RDW 13.3 % Normal 11.0-15.0 [facility] Comment on above: Performed By: #### C VDTBH #### [facility] [address] [place] [address] Dr. Avni Aguillon SEG # 7.81 103/ul Critically high 1.40-6.50 [facility] Comment on above: Performed By: #### C VDTBH #### [facility] [address] [place] [address] Dr. Avni Aguillon SEG % 84.0 % Critically high 43.0-75.0 [facility] Comment on above: Performed By: #### C VDTBH #### [facility] [address] [place] [address] Dr. Avni Aguillon WBC 9.3 103/ul Normal 4.0-11.0 [facility] Comment on above: Performed By: #### C VDTBH #### [facility] [address] [place] [address] Dr. Avni Aguillon CULTURE SPUTUMon 03-29-2022 CULTURE SPUTUM Isolate 1 Haemophilus influenzae Moderate growth of Normal [facility] Comment on above: Result Comment: Beta Lactamase Negative Performed By: #### S PUTCX #### [facility] [address] [place] [address] Dr. Avni Aguillon Covid-19 PCR ([facility])on 03-18 SARS-CoV-2 (COVID-19) RNA DANILO+probe Ql (Unsp spec) Not detected Normal NOT DETECTED [facility] Comment on above: Result Comment: When diagnostic testing is negative, the possibility of a false negative should be considered in the context of a patient's recent exposures and the presence of clinical signs and symptoms consistent with SARS-CoV-2. This test is not yet approved or cleared by the [place] FDA. When there are no FDA-approved or cleared tests available, and other criteria are met, FDA can make tests available under an emergency access mechanism called an Emergency Use Authorization (EUA). The EUA for this test is supported by the [place] of Health and Human Service's declaration that circumstances exist to justify the emergency use of in vitro diagnostics for the detection and/or diagnosis of the virus that causes COVID-19. This EUA will remain in effect for the duration of the COVID-19 declaration justifying emergency of IVDs, unless it is terminated or revoked by the FDA (after which the test may no longer be used). Performed By: #### S PUTCX #### [facility] [address] [place] [address] Dr. Avni Aguillon LACTATE/LACTIC ACIDon 2022 Lactate [Moles/Vol] 1.4 mmol/L Normal 0.4-1.9 [facility] Comment on above: Performed By: #### B LARRY CAR OPERATOR #### [facility] [address] [place] [address] Dr. Avni Aguillon POINT OF CARE GLUCOSEon 03-18 Glucose [Mass/Vol] 388 mg/dL Critically high 74-106 [facility] Comment on above: Performed By: #### P OCGLUC #### [facility] [address] [place] [address] Dr. Avni Aguillon PROF CHEM 8 (BAS METB)on Anion gap [Moles/Vol] 11.4 mmol/L Normal [facility] Comment on above: Performed By: #### U RCX #### [facility] [address] [place] [address] Dr. Avni Aguillon Calcium [Mass/Vol] 8.9 mg/dL Normal 8.5-10.1 [facility] Comment on above: Performed By: #### U RCX #### [facility] [address] [place] [address] Dr. Avni Aguillon Chloride [Moles/Vol] 100 mmol/L Normal 98-107 [facility] Comment on above: Performed By: #### U RCX #### [facility] [address] [address] [address] Avni Aguillon CO2 [Moles/Vol] 27.2 mmol/L Normal 21.0-32.0 [facility] Comment on above: Performed By: #### U RCX #### [facility] [address] [address] [address] Avni Aguillon Creatinine [Mass/Vol] 1.09 mg/dL Normal 0.70-1.30 [facility] Comment on above: Performed By: #### U RCX #### [facility] [address] [address] [address] Avni Aguillon EGFR-AF LEBANESE >60 Normal >=60 [facility] Comment on above: Performed By: #### U RCX #### [facility] [address] [place] [address] Dr. Avni Aguillon EGFR-NON AF LEBANESE >60 Normal >=60 [facility] Comment on above: Performed By: #### U RCX #### [facility] [facility] [address] [address] [address] Avni Aguillon Glucose [Mass/Vol] 221 mg/dL Critically high 74-106 [facility] Comment on above: Performed By: #### U RCX #### [facility] [address] [address] [address] Avni Aguillon Potassium [Moles/Vol] 3.6 mmol/L Normal 3.5-5.1 [facility] Comment on above: Performed By: #### U RCX #### [facility] [address] [address] [address] Avni Aguillon Sodium [Moles/Vol] 135 mmol/L Critically low 136-145 [facility] Comment on above: Performed By: #### U RCX #### [facility] [address] [address] [address] Avni Aguillon Urea nitrogen [Mass/Vol] 14.0 mg/dL Normal 7.0-18.0 [facility] Comment on above: Performed By: #### U RCX #### [facility] [address] [address] [address] Avni Aguillon Urea nitrogen/Creatinine [Mass ratio] 12.8 mg/mg Normal [facility] Comment on above: Performed By: #### U RCX #### [facility] [address] [place] [address] Dr. Avni Aguillon SPUTUM GRAM STAINon 03-29-19 COMMENTS Normal [facility] Comment on above: Performed By: #### C BC #### [facility] [address] [place] [address] Dr. Avni Aguillon DIPHTHEROIDS Normal [facility] Comment on above: Performed By: #### C BC #### [facility] [address] [place] [address] Dr. Avni Augillon EPITHELIALS <25 [facility] Comment on above: Performed By: #### C BC #### [facility] [address] [place] [address] Dr. Avni Aguillon FUNGAL ELEMENTS Normal [facility] Comment on above: Performed By: #### C BC #### [facility] [address] [place] [address] Dr. Avni Aguillon GRAM NEG BACILLI [facility] Comment on above: Performed By: #### C BC #### [facility] [address] [place] [address] Dr. Avni Aguillon GRAM NEG DIPPLOCOCCI [facility] Comment on above: Performed By: #### C BC #### [facility] [address] [place] [address] Dr. Avni Aguillon GRAM POS BACILLI [facility] Comment on above: Performed By: #### C BC #### [facility] [address] [place] [address] Dr. Avni Aguillon GRAM POSITIVE COCCI MODERATE Normal [facility] Comment on above: Performed By: #### C BC #### [facility] [address] [place] [address] Dr. Avni Aguillon WBC (Bld) [#/Vol] 10*3/uL Normal [facility] Comment on above: Performed By: #### C BC #### [facility] [address], [place] [address] Dr. Avni Aguillon TROPONIN, HIGH SENSITIVITYon 03-29-2022 HSTROP 23.5 pg/mL Normal 4.0-76.1 [facility] Comment on above: Result Comment: CUT- OFF POINTS HAVE BEEN ESTABLISHED BASED ON THE FOURTH UNIVERSAL DEFINITIONS OF MYOCARDIAL INFARCTION. THE UPPER REFERENCE LIMIT (URL) OF TROPONIN, DEFINED THE 99TH PERCENTILE OF cTnI DISTRIBUTION IN A REFERENCE POPULATION, HAS BEEN CONFIRMED THE DECISION THRESHOLD FOR [place] DIAGNOSIS. Performed By: #### S PUTCX #### [facility] [address], [place] [address] Dr. Avni Aguillon XR CHEST 1 Von 03-29-2022 XR CHEST 1 V EXAM: XR CHEST 1 V, 03/29/2022 HISTORY: SHORTNESS OF BREATH COMPARISON: CT scan chest from 03/07/2022 TECHNIQUE: Portable AP upright x-ray of the chest. FINDINGS: Bilateral mild emphysema with chronic scarring in the upper lobes, left more than right, with architectural distortion. No focal consolidation pulmonary edema. Heart size within normal limits. No acute osseous findings. Costophrenic angles are clear. IMPRESSION: Mild COPD with chronic scarring. No focal consolidation or pulmonary edema. Electronically authenticated by: KAMINI CHING Date: 2022-03-29 07:07 Normal [facility] CT CHEST WO CONTRASTon 03-08 CT CHEST WO CONTRAST EXAMINATION: CT OF THE CHEST WITHOUT CONTRAST 03/07/2022 8:28 am TECHNIQUE: CT of the chest was performed without the administration of intravenous contrast. Multiplanar reformatted images are provided for review. Automated exposure control, iterative reconstruction, and/or weight based adjustment of the mA/kV was utilized to reduce the radiation dose to as low as reasonably achievable. COMPARISON: Chest x-ray from the same day. HISTORY: ORDERING SYSTEM PROVIDED HISTORY: pre-op; poss interstitial lung disease TECHNOLOGIST PROVIDED HISTORY: Pre-op; poss interstitial lung disease FINDINGS: Mediastinum: Cardiac chambers WNL in size/configuration; moderate 3-vessel coronary artery calcifications. Small mostly anterior pericardial effusion. Main PA caliber WNL. No acute abnormality thoracic aorta. Heavily calcified subcarinal/left hilar nodes; no pathologically enlarged nodes. Esophageal mural prominence. Unremarkable thyroid. Lungs/pleura: Justine/suprahilar predominant linear and ground-glass opacities extending to the pleural surface with mild cylindrical/traction bronchiectasis and mild bronchial wall thickening; mild pleural thickening also noted bilaterally. Localized JESSICA confluent density identified, along the major fissure with associated traction bronchiectasis and some bronchial narrowing. Scattered irregular peripheral and pleural based densities, best seen RLL near the diaphragm with a somewhat tree-in-bud pattern. Some mucus or other debris within bronchi noted, best appreciated RLL (slice 55, series 4). No consolidation, sizable pleural effusion, pneumothorax or pulmonary edema. Tiny tracheal diverticulum superiorly on the right 4 mm bronchial nodule bronchus intermedius distally. Upper Abdomen: Multiple hepatic and splenic calcifications. Surgical absence of gallbladder. Somewhat heterogeneous hepatic attenuation. Colonic diverticula with some residual high density within large bowel. Small hiatus hernia. Soft Tissues/Bones: Mild kyphoscoliosis, osteopenia and DJD thoracic spine. No acute bony or soft tissue abnormality. IMPRESSION: Perihilar predominant pleural-parenchymal abnormalities, including evidence of prior granulomatous disease, mild cylindrical/traction bronchiectasis, ground-glass/interstit ial opacities, scattered mucus plugging, and bronchitis/bronchiolit is. Right bronchus intermedius mural based endoluminal nodule (or mucous), left bronchial narrowing and JESSICA confluent opacity. Differential includes prior infectious granulomatous diseases, granulomatous reactions to occupational exposures, atypical sarcoidosis, other infections, connective tissue diseases, vasculitides and other causes. Additional findings, as above. RECOMMENDATIONS: Consider bronchoscopy for further assessment and diagnosis. Interpreted by: Greg Jacinto MD Signed by: Greg Jacinto MD 03/08/[address] [facility] CBC with Auto Differentialon 03-07-2022 Absolute Eos # 0.00 [facility] Absolute Immature Granulocyte 0.00 [facility] Absolute Lymph # 0.52 Low [facility] Absolute Lawrence # 0.26 [facility] Basophils (Bld) [#/Vol] 0.00 10*3/uL [facility] Basophils/100 WBC (Bld) 0 % 0 - 2 % [facility] Eosinophils/100 WBC (Bld) 0 % Low 1 - 4 % [facility] Hematocrit (Bld) [Volume fraction] 32.5 % Low 40.7 - 50.3 % [facility] Hemoglobin (Bld) [Mass/Vol] 10.8 g/dL Low 13.0 - 17.0 g/dL [facility] Immature granulocytes/100 WBC (Bld) 0 % 0 [facility] Interpretation and review of laboratory results Abnormal [facility] Lymphocytes/100 WBC (Bld) 4 % Low 24 - 43 % [facility] MCH (RBC) [Entitic mass] 32.9 pg 25.2 - 33.5 pg [facility] MCHC (RBC) [Mass/Vol] 33.2 g/dL 28.4 - 34.8 g/dL [facility] MCV (RBC) [Entitic vol] 99.1 fL 82.6 - 102.9 fL [facility] Monocytes/100 WBC (Bld) 2 % Low 3 - 12 % [facility] Morphology Missael (Bld) [Interp] Normal [facility] NRBC Automated 0.0 0.0 per 100 WBC [facility] Platelet distribution width (Bld) [Ratio] 13.4 % 11.8 - 14.4 % [facility] Platelet mean volume (Bld) [Entitic vol] 10.0 fL 8.1 - 13.5 fL [facility] Platelets (Bld) [#/Vol] 421 10*3/uL [facility] RBC (Bld) [#/Vol] 3.28 10*6/uL Low 4.21 - 5.7 7 m/uL [facility] Segmented neutrophils/100 WBC (Bld) 94 % High 36 - 65 % [facility] Segs Absolute 12.12 High [facility] WBC (Bld) [#/Vol] 12.9 10*3/uL High [facility] CBC with Diffon 03-07-2022 Abs. Basophil 0.00 k/uL Normal 0.00-0.[address] [facility] Comment on above: Performed By: #### C DP #### [id number] Realtime Court Reporter: Raheem Hardin MD Abs.Imm.Granulocyte 0.00 k/uL Normal 0.00-0.[address] [facility] Comment on above: Performed By: #### C DP #### [address] [address] [address] Reporter: Raheem Hardin MD Abs.Neutrophil (Seg) 12.12 k/uL High 1.50-8.[address] [facility] Comment on above: Performed By: #### C DP #### [address] [address] [address] Reporter: Raheem Hardin MD Basophils/100 WBC (Bld) 0 % Normal 0-[address] [facility] Comment on above: Performed By: #### C DP #### [place] [address] Reporter: Raheem Hardin MD Eosinophils (Bld) [#/Vol] 0.00 10*3/uL Normal 0.00-0.[address] [facility] Comment on above: Performed By: #### C DP #### [place] [address] Reporter: Raheem Hardin MD Eosinophils/100 WBC (Bld) 0 % Low 1-[address] [facility] Comment on above: Performed By: #### C DP #### [place] [address] [address] Reporter: Raheem Hardin MD Immature granulocytes/100 WBC (Bld) 0 % Normal [address] [facility] Comment on above: Performed By: #### C DP #### [address] [address] [address] Reporter: Raheem Hardin MD Lymphocytes (Bld) [#/Vol] 0.52 10*3/uL Low 1.10-3.[address] [facility] Comment on above: Performed By: #### C DP #### [address] [address] [address] Reporter: Raheem Hardin MD Lymphocytes/100 WBC (Bld) 4 % Low 24-[address] [facility] Comment on above: Performed By: #### C DP #### [address] [address] [address] Reporter: Raheem Hardin MD Monocytes (Bld) [#/Vol] 0.26 10*3/uL Normal 0.10-1.[address] [facility] Comment on above: Performed By: #### C DP #### [address] [address] [address] Reporter: Raheem Hardin MD Monocytes/100 WBC (Bld) 2 % Low 3-[address] [facility] Comment on above: Performed By: #### C DP #### [address] [address] [address] Reporter: Raheem Hardin MD Morphology Missael (Bld) [Interp] Normal Normal [facility] Comment on above: Performed By: #### C DP #### [address] [address] [address] Reporter: Raheem Hardin MD Neutrophil (Seg) 94 % High 36-65 [facility] Comment on above: Performed By: #### C DP #### [address] [address] [address] Reporter: Raheem Hardin MD Erythrocyte distribution width (RBC) [Ratio] 13.4 % Normal 11.8-14.[address] [facility] Comment on above: Performed By: #### C DP #### [address] [address] [address] Reporter: Raheem Hardin MD Hematocrit (Bld) [Volume fraction] 32.5 % Low 40.7-50.[address] [facility] Comment on above: Performed By: #### C DP #### [address] [address] [address] Reporter: Raheem Hardin MD Hemoglobin (Bld) [Mass/Vol] 10.8 g/dL Low 13.0-17.[address] [facility] Comment on above: Performed By: #### C DP #### [place] [address] Reporter: Raheem Hardin MD MCH (RBC) [Entitic mass] 32.9 pg Normal 25.2-33.[address] [facility] Comment on above: Performed By: #### C DP #### [place] [address] [address] Reporter: Raheem Hardin MD MCHC (RBC) [Mass/Vol] 33.2 g/dL Normal 28.4-34.[address] [facility] Comment on above: Performed By: #### C DP #### [place] [address] [address] Reporter: Raheem Hardin MD MCV (RBC) [Entitic vol] 99.1 fL Normal 82.6-102.[address] [facility] Comment on above: Performed By: #### C DP #### [place] [address] [address] Reporter: Raheem Hardin MD NRBC Automated 0.0 per [address] WBC Normal [address] [facility] Comment on above: Performed By: #### C DP #### [place] [address] [address] Reporter: Raheem Hardin MD Platelet mean volume (Bld) [Entitic vol] 10.0 fL Normal 8.1-13.[address] [facility] Comment on above: Performed By: #### C DP #### [place] [address] [address] Reporter: Raheem Hardin MD Platelets (Bld) [#/Vol] 421 10*3/uL Normal 138-[address] [facility] Comment on above: Performed By: #### C DP #### [address] [address] [address] Reporter: Raheem Hardin MD RBC (Bld) [#/Vol] 3.28 10*6/uL Low 4.21-5.[address] [facility] Comment on above: Performed By: #### C DP #### [address] [address] [address] Reporter: Raheem Hardin MD WBC (Bld) [#/Vol] 12.9 10*3/uL High 3.5-11.[address] [facility] Comment on above: Performed By: #### C DP #### [address] [address] [address] Reporter: Raheem Hardin MD Comp Metabolic Pr/rfx MGon 1 05-08-2021 Albumin [Mass/Vol] 3.5 g/dL Normal 3.5-5.[address] [facility] Comment on above: Performed By: #### C MPX, GLYHGB, LIP, DANE #### [address] [address] [address] Reporter: Raheem Hardin MD Albumin/Glob Ratio 1.3 Normal 1.0-2.[address] [facility] Comment on above: Performed By: #### C MPX, GLYHGB, LIP, DANE #### [address] [address] [address] Reporter: Raheem Hardin MD Alkaline Phos 97 U/L Normal 40-[address] [facility] Comment on above: Performed By: #### C MPX, GLYHGB, LIP, DANE #### [address] [address] [address] Reporter: Raheem Hardin MD ALT [Catalytic activity/Vol] 17 U/L Normal 5-[address] [facility] Comment on above: Performed By: #### C MPX, GLYHGB, LIP, DANE #### [facility] [address] [place] [address] [address] Reporter: Raheem Hardin MD Anion gap [Moles/Vol] 11 mmol/L Normal 9-[address] [facility] Comment on above: Performed By: #### C MPX, GLYHGB, LIP, DANE #### [facility] [address] [place] [address] [address] Reporter: Raheem Hardin MD AST [Catalytic activity/Vol] 20 U/L Normal <[address] [facility] Comment on above: Performed By: #### C MPX, GLYHGB, LIP, DANE #### [facility] [address] [place] [address] [address] Reporter: Raheem Hardin MD Bilirubin [Mass/Vol] 0.5 mg/dL Normal 0.3-1.[address] [facility] Comment on above: Performed By: #### C MPX, GLYHGB, LIP, DANE #### [facility] [address] [place] [address] [address] Reporter: Raheem Hardin MD Calcium [Mass/Vol] 8.9 mg/dL Normal 8.6-10.[address] [facility] Comment on above: Performed By: #### C MPX, GLYHGB, LIP, DANE #### [facility] [address] [place] [address] [address] Reporter: Raheem Hardin MD Chloride [Moles/Vol] 107 mmol/L Normal 98-[address] [facility] Comment on above: Performed By: #### C MPX, GLYHGB, LIP, DANE #### [facility] [address] [place] [address] [id number] Reporter: Raheem Hardin MD CO2 [Moles/Vol] 23 mmol/L Normal 20-[address] [facility] Comment on above: Performed By: #### C MPX, GLYHGB, LIP, DANE #### [address] [address] [address] Reporter: Raheem Hardin MD Creatinine [Mass/Vol] 0.82 mg/dL Normal 0.70-1.[address] [facility] Comment on above: Performed By: #### C MPX, GLYHGB, LIP, DANE #### [address] [address] [address] Reporter: Raheem Hardin MD GFR/1.73 sq M.predicted among non-blacks MDRD (S/P/Bld) [Vol rate/Area] mL/min/{1.73_m2} Normal >[address] [facility] Comment on above: Result Comment: Effective Dec 18, 2021 These results are not intended for use in patients <18 years of age. eGFR results are calculated without a race factor using the 2020 CKD-EPI equation. Careful clinical correlation is recommended, particularly when comparing to results calculated using previous equations. The CKD-EPI equation is less accurate in patients with extremes of muscle mass, extra-renal metabolism of creatine, excessive creatine ingestion, or following therapy that affects renal tubular secretion. Performed By: #### C MPX, GLYHGB, LIP, DANE #### [address] [address] [address] Reporter: Raheem Hardin MD Glucose [Mass/Vol] 147 mg/dL High 70-[address] [facility] Comment on above: Performed By: #### C MPX, GLYHGB, LIP, DANE #### [address] [address] [address] Reporter: Raheem Hardin MD Potassium [Moles/Vol] 4.1 mmol/L Normal 3.7-5.[address] [facility] Comment on above: Performed By: #### C MPX, GLYHGB, LIP, DANE #### [facility] [address] [place], [place] [id number] Realtime Court Reporter: Raheem Hardin MD Protein [Mass/Vol] 6.3 g/dL Low 6.4-8.[address] [facility] Comment on above: Performed By: #### C MPX, GLYHGB, LIP, DANE #### [facility] [address] [place] [address] [place], [place] [id number] Realtime Court Reporter: Raheem Hardin MD Sodium [Moles/Vol] 141 mmol/L Normal 135-[address] [facility] Comment on above: Performed By: #### C MPX, GLYHGB, LIP, DANE #### [facility] [address] [place], [place] [id number] Realtime Court Reporter: Raheem Hardin MD Urea nitrogen [Mass/Vol] 14 mg/dL Normal 8-[address] [facility] Comment on above: Performed By: #### C MPX, GLYHGB, LIP, DANE #### [facility] [address] [place] [address] [place], [place] [phone] Realtime Court Reporter: Raheem Hardin MD Comprehensive Metabolic Pane l w/ Reflex to MGon 03-07-2022 Albumin [Mass/Vol] 3.5 g/dL 3.5 - 5.2 g/dL [facility] Albumin/Globulin [Mass ratio] 1.3 {ratio} 1.0 - 2.5 [facility] ALP (Bld) [Catalytic activity/Vol] 97 U/L 40 - 129 U/L [facility] ALT [Catalytic activity/Vol] 17 U/L 5 - 41 U/L [facility] Anion gap [Moles/Vol] 11 mmol/L 9 - 17 mmol/L [facility] AST [Catalytic activity/Vol] 20 U/L NINF - 40 U/L [facility] Bilirubin [Mass/Vol] 0.5 mg/dL 0.3 - 1.2 mg/dL [facility] Calcium [Mass/Vol] 8.9 mg/dL 8.6 - 10. 4 mg/dL [facility] Chloride [Moles/Vol] 107 mmol/L 98 - 107 mmol/L [facility] CO2 [Moles/Vol] 23 mmol/L 20 - 31 mmol/L [facility] Creatinine [Mass/Vol] 0.82 mg/dL 0.70 - 1.20 mg/dL [facility] GFR/1.73 sq M.predicted MDRD (S/P/Bld) [Vol rate/Area] - PINF [facility] Comment on above: Effective Dec 18, 2021 These results are not intended for use in patients <18 years of age. eGFR results are calculated without a race factor using the 2020 CKD-EPI equation. Careful clinical correlation is recommended, particularly when comparing to results calculated using previous equations. The CKD-EPI equation is less accurate in patients with extremes of muscle mass, extra-renal metabolism of creatine, excessive creatine ingestion, or following therapy that affects renal tubular secretion. Glucose [Mass/Vol] 147 mg/dL High 70 - 99 mg/dL [facility] [employer] Potassium [Moles/Vol] 4.1 mmol/L 3.7 - 5.3 mmol/L [facility] [employer] Protein [Mass/Vol] 6.3 g/dL Low 6.4 - 8.3 g/dL [facility] Sodium [Moles/Vol] 141 mmol/L 135 - 144 mmol/L [facility] Urea nitrogen (BldV) [Mass/Vol] 14 mg/dL 8 - 23 mg/dL [facility] EKG 12 LeadOrdered By: Deep Mcguire on 03-07-2022 Atrial Rate 98 BPM [facility] [employer] Work Phone: P [place] 69 degrees [facility] [employer] Work Phone: P-R Interval 160 ms [facility] [employer] Work Phone: Q-T Interval 416 ms [facility] [employer] Work Phone: QRS Duration 138 ms [facility] [employer] Work Phone: QTc Calculation (Bazett) 531 ms [facility] [employer] Work Phone: R [place] -26 degrees [employer] Work Phone: T [place] 121 degrees [facility] Work Phone: Ventricular Rate 98 BPM [facility] RE[facility] [employer] Work Phone: [facility] [employer] Work Phone: EKG 12 Leadon 03-07-2022 Normal sinus rhythm Left bundle branch block Abnormal ECG No previous ECGs available [facility] eYsika Bassett MD - 03/07/2022 Normal sinus rhythm Left bundle branch block Abnormal ECG No previous ECGs available [facility] [employer] Work Phone: Hemoglobin A1Con 03-07-2022 Glucose [Mass/Vol] 192 mg/dL Normal [facility] Comment on above: Result Comment: The ADA and AACC recommend providing the estimated average glucose result to permit better patient understanding of their HBA1c result. Performed By: #### C MPX, GLYHGB, LIP, DANE #### [facility] [address] [place], [place] [id number] Realtime Court Reporter: Raheem Hardin MD HbA1c (Bld) [Mass fraction] 8.3 % High 4.0-6.[address] [facility] Comment on above: Performed By: #### C MPX, GLYHGB, LIP, DANE #### [facility] [address] [place], [place] [id number] Realtime Court Reporter: Raheem Hardin MD Hemoglobin A1con 03-07-2022 Glucose [Mass/Vol] 192 mg/dL [facility] [employer] Comment on above: The ADA and AACC rec ommend providing the estimated average glucose result to permit better patient understanding of their HBA1c result. HbA1c (Bld) [Mass fraction] 8.3 % High 4.0 - 6.0 % [facility] Interpretation and review of laboratory results Abnormal [facility] [employer] Lipaseon 12-21-2022 Lipase [Catalytic activity/Vol] 8 U/L Low 13-[address] [facility] Comment on above: Performed By: #### C MPX, GLYHGB, LIP, DANE #### [employer] [address] [place], [place] [id number] Realtime Court Reporter: Raheem Hardin MD Lipase [Catalytic activity/Vol] 8 U/L Low 13 - 60 U/L [facility] No Panel Informationon 03-07 Interpretation and review of laboratory results Abnormal [facility] POC Glucose Fingerstickon Glucose [Mass/Vol] 124 mg/dL High 75 - 110 mg/dL [facility] Interpretation and review of laboratory results Abnormal [facility] Glucose [Mass/Vol] 158 mg/dL High 75 - 110 mg/dL [facility] Interpretation and review of laboratory results Abnormal [facility] Glucose [Mass/Vol] 131 mg/dL High 75 - 110 mg/dL [facility] Interpretation and review of laboratory results Abnormal [facility] Phosphoruson 03-07-2022 Phosphate [Mass/Vol] 1.8 mg/dL Low 2.5 - 4.5 mg/dL [facility] Phosphorus, Inorg.on 022 Phosphorus, Inorg. 1.8 mg/dL Low 2.5-4.[address] [facility] Comment on above: Performed By: #### C MPX, GLYHGB, LIP, DANE #### [employer] [address] [place], [place] [id number] Realtime Court Reporter: Raheem Hardin MD TSH w/reflex to FT4on 2021 Thyroid Stim. Horm. 1.16 uIU/mL Normal 0.30-5.00 [facility] Comment on above: Performed By: #### T SHX #### [employer] [address] [place], [place] [id number] Realtime Court Reporter: Raheem Hardin MD TSH with Reflexon 03-07-2022 TSH Qn 1.16 m[IU]/L [facility] TYPE AND SCREENon 03-07-2022 ABO/Rh Positive [facility] Arm Band Number [id number] [facility] Expiration Date 03/10/2022,2359 [facility] HEALTH Type + Screenon 03-07-2022 Type + Screen Sample Expiration 03/10/2022,2359 Arm Band Number [id number] ABO/Rh(D) B POSITIVE Antibody Screen NEGATIVE Normal [facility] Comment on above: Performed By: #### T YS #### [employer] [address] [place] [address] [address] Reporter: Raheem Hardin MD XR CHEST PORTABLEon 03-07-20 XR CHEST PORTABLE EXAMINATION: ONE XRAY VIEW OF THE CHEST 03/07/2022 3:34 am COMPARISON: None. HISTORY: ORDERING SYSTEM PROVIDED HISTORY: pre op TECHNOLOGIST PROVIDED HISTORY: pre op Reason for Exam: upr,pre op,hx esoph stricture FINDINGS: Heart size is normal. Pulmonary vasculature appears normal. There is diffuse interstitial prominence and tenting of the left hemidiaphragm. There may be mild airspace opacity at the left suprahilar region. No pneumothorax or pleural effusion. Surrounding structures are unremarkable. IMPRESSION: Possible chronic interstitial lung disease. Follow-up noncontrast chest CT recommended for further evaluation preop. Interpreted by: Dawood Solano MD Signed by: Dawood Solano MD 03/07/[address] [facility] EXAMINATION: ONE XRAY VIEW OF THE CHEST 03/07/2022 3:34 am COMPARISON: None. HISTORY: ORDERING SYSTEM PROVIDED HISTORY: pre op TECHNOLOGIST PROVIDED HISTORY: pre op Reason for Exam: upr,pre op,hx esoph stricture FINDINGS: Heart size is normal. Pulmonary vasculature appears normal. There is diffuse interstitial prominence and tenting of the left hemidiaphragm. There may be mild airspace opacity at the left suprahilar region. No pneumothorax or pleural effusion. Surrounding structures are unremarkable. [facility] RIS CONSOLIDATED Dawood Solano MD - 03/07/2022 EXAMINATION: ONE XRAY VIEW OF THE CHEST 03/07/2022 3:34 am COMPARISON: None. HISTORY: ORDERING SYSTEM PROVIDED HISTORY: pre op TECHNOLOGIST PROVIDED HISTORY: pre op Reason for Exam: upr,pre op,hx esoph stricture FINDINGS: Heart size is normal. Pulmonary vasculature appears normal. There is diffuse interstitial prominence and tenting of the left hemidiaphragm. There may be mild airspace opacity at the left suprahilar region. No pneumothorax or pleural effusion. Surrounding structures are unremarkable. IMPRESSION: Possible chronic interstitial lung disease. Follow-up noncontrast chest CT recommended for further evaluation preop. [employer] Phone: Radiology Study observation (narrative) [employer] Phone: XR CHEST PORTABLEOrdered By: Dawood Solano on 03-07-2022 [facility]StreamSpec Phone: CBC AUTO DIFFon 03-06-2022 BASO # 0.1 103/ul Normal 0.0-0.1 [facility] Comment on above: Performed By: #### P OCGLUC #### [facility] [address] [address] [address] Avni Aguillon Basophils/100 WBC (Bld) 2.2 % Critically high 0.2-2.0 [facility] Comment on above: Performed By: #### P OCGLUC #### [facility] [address] [address] [address] Avni Aguillon EO # 0.4 103/ul Normal 0.0-0.7 [facility] Comment on above: Performed By: #### P OCGLUC #### [facility] [address] [address] [address] Avni Aguillon Eosinophils/100 WBC (Bld) 5.9 % Normal 0.9-7.0 [facility] Comment on above: Performed By: #### P OCGLUC #### [facility] [address] [place] [address] Dr. Avni Aguillon Erythrocyte distribution width (RBC) [Ratio] 13.3 % Normal 11.0-15.0 [facility] Comment on above: Performed By: #### P OCGLUC #### [facility] [address] [address] [address] Avni Aguillon Hematocrit (Bld) [Volume fraction] 32.5 % Critically low 42.0-54.0 [facility] Comment on above: Performed By: #### P OCGLUC #### [facility] [address] [address] [address] Avni Aguillon Hemoglobin (Bld) [Mass/Vol] 11.1 g/dL Critically low 14.0-18.0 [facility] Comment on above: Performed By: #### P OCGLUC #### [facility] [address] [place] [address] Dr. Avni Aguillon IG # 0.01 10e3/ul Normal 0.00-0.03 [facility] Comment on above: Performed By: #### P OCGLUC #### [facility] [address] [place] [address] Dr. Avni Aguillon IG % 0.2 % Normal 0.0-0.5 [facility] Comment on above: Performed By: #### P OCGLUC #### [facility] [address] [place] [address] Dr. Avni Aguillon LYMPH # 0.7 103/ul Critically low 1.2-3.8 [facility] Comment on above: Performed By: #### P OCGLUC #### [facility] [address] [place] [address] Dr. Avni Aguillon Lymphocytes/100 WBC (Bld) 12.1 % Critically low 20.5-60.0 [facility] Comment on above: Performed By: #### P OCGLUC #### [facility] [address] [place] [address] Dr. Avni Aguillon MANUAL DIFF REQ NO Normal [facility] Comment on above: Performed By: #### P OCGLUC #### [facility] [address] [place] [address] Dr. Avni Aguillon MCH (RBC) [Entitic mass] 32.8 pg Normal 25.9-34.0 [facility] Comment on above: Performed By: #### P OCGLUC #### [facility] [address] [address] [address] Avni Aguillon MCHC (RBC) [Mass/Vol] 34.2 g/dL Normal 29.9-35.2 [facility] Comment on above: Performed By: #### P OCGLUC #### [facility] [address] [address] [address] Avni Aguillon MCV (RBC) [Entitic vol] 96.2 fL Critically high 80.0-94.0 [facility] Comment on above: Performed By: #### P OCGLUC #### [facility] [address] [place] [address] Dr. Avni Aguillon MONO # 0.6 103/ul Normal 0.3-0.8 [facility] Comment on above: Performed By: #### P OCGLUC #### [facility] [address] [place] [address] Dr. Avni Aguillon Monocytes/100 WBC (Bld) 9.9 % Normal 1.7-12.0 [facility] Comment on above: Performed By: #### P OCGLUC #### [facility] [address] [place] [address] Dr. Avni Aguillon NEUT # 4.1 103/ul Normal 1.4-6.5 [facility] Comment on above: Performed By: #### P OCGLUC #### [facility] [address] [place] [address] Dr. Avni Aguillon Neutrophils/100 WBC (Bld) 69.7 % Normal 43.0-75.0 [facility] Comment on above: Performed By: #### P OCGLUC #### [facility] [address] [place] [address] Dr. Avni Aguillon Platelet mean volume (Bld) [Entitic vol] 9.8 fL Normal 9.5-13.5 [facility] Comment on above: Performed By: #### P OCGLUC #### [facility] [address] [place] [address] Dr. Avni Aguillon PLT 318 103/ul Normal 150-450 [facility] Comment on above: Performed By: #### P OCGLUC #### [facility] [address] [address] [address] Avni Aguillon RBC 3.38 106/ul Critically low 4.70-6.10 [facility] Comment on above: Performed By: #### P OCGLUC #### [facility] [address] [address] [address] Avni Aguillon WBC 5.9 103/ul Normal 4.0-11.0 [facility] Comment on above: Performed By: #### P OCGLUC #### [facility] [address] [address] [address] Avni Aguillon MAGNESIUMon 03-06-2022 Magnesium [Mass/Vol] 1.6 mg/dL Critically low 1.8-2.4 [facility] Comment on above: Performed By: #### U RCX #### [facility] [address] [address] [address] Avni Aguillon POC Glucose Fingerstickon Glucose [Mass/Vol] 131 mg/dL High 75 - 110 mg/dL [facility] Interpretation and review of laboratory results Abnormal [facility] POINT OF CARE GLUCOSEon 02-16 Glucose [Mass/Vol] 183 mg/dL Critically high 74-106 [facility] Comment on above: Performed By: #### P OCGLUC #### [facility] [address] [address] [address] Avni Aguillon Glucose [Mass/Vol] 252 mg/dL Critically high 74-106 [facility] Comment on above: Performed By: #### C BC #### [facility] [address] [address] [address] Avni Aguillon Glucose [Mass/Vol] 153 mg/dL Critically high 74-106 [facility] Comment on above: Performed By: #### B LARRY CAR OPERATOR #### [facility] [address] [address] [address] Avni Aguillon Glucose [Mass/Vol] 101 mg/dL Normal 74-106 [facility] Comment on above: Performed By: #### P OCGLUC #### [facility] [address] [address] [address] Avni Aguillon PROF CHEM 8 (BAS METB)on Anion gap [Moles/Vol] 13.7 mmol/L Normal [facility] Comment on above: Performed By: #### U RCX #### [facility] [address] [place] [address] Dr. Avni Aguillon Calcium [Mass/Vol] 8.6 mg/dL Normal 8.5-10.1 [facility] Comment on above: Performed By: #### U RCX #### [facility] [address] [place] [address] Dr. Avni Aguillon Chloride [Moles/Vol] 104 mmol/L Normal 98-107 [facility] Comment on above: Performed By: #### U RCX #### [facility] [address] [place] [address] Dr. Avni Aguillon CO2 [Moles/Vol] 24.9 mmol/L Normal 21.0-32.0 [facility] Comment on above: Performed By: #### U RCX #### [facility] [address] [place] [address] Dr. Avni Aguillon Creatinine [Mass/Vol] 0.97 mg/dL Normal 0.70-1.30 [facility] Comment on above: Performed By: #### U RCX #### [facility] [address] [place] [address] Dr. Avni Aguillon EGFR-AF LEBANESE >60 Normal >=60 [facility] Comment on above: Performed By: #### U RCX #### [facility] [address] [place] [address] Dr. Avni Aguillon EGFR-NON AF LEBANESE >60 Normal >=60 [facility] Comment on above: Performed By: #### U RCX #### [facility] [address] [place] [address] Dr. Avni Aguillon Glucose [Mass/Vol] 180 mg/dL Critically high 74-106 [facility] Comment on above: Performed By: #### U RCX #### [facility] [address] [address] [address] Avni Aguillon Potassium [Moles/Vol] 3.6 mmol/L Normal 3.5-5.1 [facility] Comment on above: Performed By: #### U RCX #### [facility] [address] [address] [address] Avni Aguillon Sodium [Moles/Vol] 139 mmol/L Normal 136-145 [facility] Comment on above: Performed By: #### U RCX #### [facility] [address] [place] [address] Dr. Avni Aguillon Urea nitrogen [Mass/Vol] 12.0 mg/dL Normal 7.0-18.0 [facility] Comment on above: Performed By: #### U RCX #### [facility] [address] [place] [address] Dr. Avni Aguillon Urea nitrogen/Creatinine [Mass ratio] 12.4 mg/mg Normal [facility] Comment on above: Performed By: #### U RCX #### [facility] [address] [place] [address] Dr. Avni Aguillon CBC AUTO DIFFon 03-05-2022 BASO # 0.1 103/ul Normal 0.0-0.1 [facility] Comment on above: Performed By: #### S PUTCX #### [facility] [address] [place] [address] Dr. Avni Aguillon Basophils/100 WBC (Bld) 1.4 % Normal 0.2-2.0 [facility] Comment on above: Performed By: #### S PUTCX #### [facility] [address] [place] [address] Dr. Avni Aguillon EO # 0.4 103/ul Normal 0.0-0.7 [facility] Comment on above: Performed By: #### S PUTCX #### [facility] [address] [place] [address] Dr. Avni Aguillon Eosinophils/100 WBC (Bld) 5.2 % Normal 0.9-7.0 [facility] Comment on above: Performed By: #### S PUTCX #### [facility] [address] [place] [address] Dr. Avni Aguillon Erythrocyte distribution width (RBC) [Ratio] 13.3 % Normal 11.0-15.0 [facility] Comment on above: Performed By: #### S PUTCX #### [facility] [address] [place] [address] Dr. Avni Aguillon Hematocrit (Bld) [Volume fraction] 36.1 % Critically low 42.0-54.0 [facility] Comment on above: Performed By: #### S PUTCX #### [facility] [address] [place] [address] Dr. Avni Aguillon Hemoglobin (Bld) [Mass/Vol] 12.3 g/dL Critically low 14.0-18.0 [facility] Comment on above: Performed By: #### S PUTCX #### [facility] [address] [place] [address] Dr. Avni Aguillon IG # 0.03 10e3/ul Normal 0.00-0.03 [facility] Comment on above: Performed By: #### S PUTCX #### [facility] [address] [place] [address] Dr. Avni Aguillon IG % 0.4 % Normal 0.0-0.5 [facility] Comment on above: Performed By: #### S PUTCX #### [facility] [address] [place] [address] Dr. Avni Aguillon LYMPH # 1.2 103/ul Normal 1.2-3.8 [facility] Comment on above: Performed By: #### S PUTCX #### [facility] [address] [place] [address] Dr. Avni Aguillon Lymphocytes/100 WBC (Bld) 14.5 % Critically low 20.5-60.0 [facility] Comment on above: Performed By: #### S PUTCX #### [facility] [address] [place] [address] Dr. Avni Aguillon MANUAL DIFF REQ NO Normal [facility] Comment on above: Performed By: #### S PUTCX #### [facility] [address] [place] [address] Dr. Avni Aguillon MCH (RBC) [Entitic mass] 32.2 pg Normal 25.9-34.0 [facility] Comment on above: Performed By: #### S PUTCX #### [facility] [address] [place] [address] Dr. Avni Aguillon MCHC (RBC) [Mass/Vol] 34.1 g/dL Normal 29.9-35.2 [facility] Comment on above: Performed By: #### S PUTCX #### [facility] [address] [place] [address] Dr. Avni Aguillon MCV (RBC) [Entitic vol] 94.5 fL Critically high 80.0-94.0 [facility] Comment on above: Performed By: #### S PUTCX #### [facility] [address] [place] [address] Dr. Avni Aguillon MONO # 0.7 103/ul Normal 0.3-0.8 [facility] Comment on above: Performed By: #### S PUTCX #### [facility] [address] [place] [address] Dr. Avni Aguillon Monocytes/100 WBC (Bld) 8.8 % Normal 1.7-12.0 [facility] Comment on above: Performed By: #### S PUTCX #### [facility] [address] [place] [address] Dr. Avni Aguillon NEUT # 5.9 103/ul Normal 1.4-6.5 [facility] Comment on above: Performed By: #### S PUTCX #### [facility] [address] [place] [address] Dr. Avni Aguillon Neutrophils/100 WBC (Bld) 69.7 % Normal 43.0-75.0 [facility] Comment on above: Performed By: #### S PUTCX #### [facility] [address] [place] [address] Dr. Avni Aguillon Platelet mean volume (Bld) [Entitic vol] 9.2 fL Critically low 9.5-13.5 [facility] Comment on above: Performed By: #### S PUTCX #### [facility] [address] [place] [address] Dr. Avni Aguillon PLT 430 103/ul Normal 150-450 [facility] Comment on above: Performed By: #### S PUTCX #### [facility] [address] [address] [address] Avni Aguillon RBC 3.82 106/ul Critically low 4.70-6.10 [facility] Comment on above: Performed By: #### S PUTCX #### [facility] [address] [place] [address] Dr. Avni Aguillon WBC 8.4 103/ul Normal 4.0-11.0 [facility] Comment on above: Performed By: #### S PUTCX #### [facility] [address] [place] [address] ABD/PELV W CONon 03-05-20 CT ABD/PELV W CON EXAMINATION: CT ABD/PELV W CON HISTORY: UNSPECIFIED ABDOMINAL PAIN COMPARISON: No relevant comparison available. TECHNIQUE: Axial, Coronal, and Sagittal images were obtained without and/or with IV contrast as indicated by examination type. Dose reduction techniques were achieved by using automated exposure control and/or adjustment of mA and/or kV according to patient size and/or use of iterative reconstruction technique. FINDINGS: LUNG BASES: No visible pulmonary or pleural disease. LIVER: No enlargement, atrophy, suspicious density, or significant focal lesion. BILIARY: Cholecystectomy. PANCREAS: No lesion, fluid collection, or abnormal duct dilatation. SPLEEN: No enlargement or focal lesion. ADRENALS: No mass or enlargement. KIDNEYS: Several tiny hypodensities within both kidneys, too small to characterize but favoring cysts. No mass, obstruction, or calcification. BOWEL/MESENTERY: Food or fluid within distal esophagus. Mild diverticulosis of the colon. No visible mass, obstruction, or bowel wall thickening. AORTA/VASCULAR: No aneurysm or dissection. RETROPERITONEUM: No mass or adenopathy. LYMPH NODES: No adenopathy. URINARY BLADDER: No visible focal wall thickening, lesion, or calculus. PELVIC ORGANS: Slightly prominent, heterogeneous prostate. ABDOMINAL WALL: Tiny fat filled umbilical hernia without strangulation. BONES: Degenerative disc disease of lumbar spine. Sclerotic focus within L3 favors a bone island. No bony lesion or fracture. OTHER: Negative. IMPRESSION: 1. No acute or suspicious findings to account for patient's symptoms. Electronically authenticated by: JOSE MATTHEWS Date: 2022-03-05 16:40 Normal [facility] CT CHEST W CONon 03-05-2022 CT CHEST W CON EXAMINATION: CT CHES T W CON HISTORY: UNSPECIFIED ABDOMINAL PAIN COMPARISON: 12/29/2021 TECHNIQUE: CT examination of the chest following the administration of intravenous contrast. Coronal and sagittal reformations were performed. Dose reduction techniques were achieved by using automated exposure control and/or adjustment of mA and/or kV according to patient size and/or use of iterative reconstruction technique. CHEST FINDINGS: Lungs/Pleura: Moderate emphysematous disease is present. There are perihilar reticular opacities present with associated volume loss and traction bronchiectasis in the lungs bilaterally. There is a patchy consolidation present in the left upper lobe with volume loss and increased traction bronchiectasis which appears stable from the previous exam. Scattered debris is noted in distal bronchials. No pleural effusion or pneumothorax. Cardiovascular: The heart is normal in size. The aorta and pulmonary arteries are unremarkable. Pericardium: No effusion. Mediastinum: Fluid is present throughout the esophagus. Lymph Nodes: No lymph node enlargement by CT size criteria. A few calcified mediastinal and hilar lymph nodes are present, likely due to remote granulomatous disease. Bones: No acute osseous abnormality. Soft tissues: Unremarkable. Upper Abdomen: Prior cholecystectomy. Multiple calcifications in the spleen are likely due to remote granulomatous disease. IMPRESSION: 1. Moderate emphysematous disease with chronic central fibrotic changes with associated bronchiectasis. 2. Stable consolidative opacity in the left upper lobe, likely due to scarring. 3. Scattered debris present throughout the distal bronchials, possibly due to mucus or aspiration. 4. Fluid throughout the esophagus, possibly due to dysmotility or reflux. Electronically authenticated by: ROSALIND AMIN Date: 2022-03-05 16:33 Normal [facility] Covid-19 PCR (CVDTBH)on 02-15 SARS-CoV-2 (COVID-19) RNA DANILO+probe Ql (Unsp spec) Not detected Normal NOT DETECTED [facility] Comment on above: Result Comment: When diagnostic testing is negative, the possibility of a false negative should be considered in the context of a patient's recent exposures and the presence of clinical signs and symptoms consistent with SARS-CoV-2. This test is not yet approved or cleared by the [place] FDA. When there are no FDA-approved or cleared tests available, and other criteria are met, FDA can make tests available under an emergency access mechanism called an Emergency Use Authorization (EUA). The EUA for this test is supported by the Seating [employer] Mobility Technologist of Health and Human Service's declaration that circumstances exist to justify the emergency use of in vitro diagnostics for the detection and/or diagnosis of the virus that causes COVID-19. This EUA will remain in effect for the duration of the COVID-19 declaration justifying emergency of IVDs, unless it is terminated or revoked by the FDA (after which the test may no longer be used). Performed By: #### C BC #### [facility] [address] [place] [address] Dr. Avni Aguillon PROF CHEM 8 (BAS METB)on Anion gap [Moles/Vol] 12.2 mmol/L Normal [facility] Comment on above: Performed By: #### P OCGLUC #### [facility] [address] [place] [address] Dr. Avni Aguillon Calcium [Mass/Vol] 9.3 mg/dL Normal 8.5-10.1 [facility] Comment on above: Performed By: #### P OCGLUC #### [facility] [address] [place] [address] Dr. Avni Aguillon Chloride [Moles/Vol] 103 mmol/L Normal 98-107 [facility] Comment on above: Performed By: #### P OCGLUC #### [facility] [address] [place] [address] Dr. Avni Aguillon CO2 [Moles/Vol] 28.4 mmol/L Normal 21.0-32.0 [facility] Comment on above: Performed By: #### P OCGLUC #### [facility] [address] [address] [address] Avni Aguillon Creatinine [Mass/Vol] 0.85 mg/dL Normal 0.70-1.30 [facility] Comment on above: Performed By: #### P OCGLUC #### [facility] [address] [address] [address] Avni Aguillon EGFR-AF LEBANESE >60 Normal >=60 [facility] Comment on above: Performed By: #### P OCGLUC #### [facility] [address] [address] [address] Avni Aguillon EGFR-NON AF LEBANESE >60 Normal >=60 [facility] Comment on above: Performed By: #### P OCGLUC #### [facility] [address] [address] [address] Avni Aguillon Glucose [Mass/Vol] 100 mg/dL Normal 74-106 [facility] Comment on above: Performed By: #### P OCGLUC #### [facility] [address] [address] [address] Avni Aguillon Potassium [Moles/Vol] 3.6 mmol/L Normal 3.5-5.1 [facility] Comment on above: Performed By: #### P OCGLUC #### [facility] [address] [address] [address] Avni Aguillon Sodium [Moles/Vol] 140 mmol/L Normal 136-145 [facility] Comment on above: Performed By: #### P OCGLUC #### [facility] [address] [address] [address] Avni Aguillon Urea nitrogen [Mass/Vol] 13.0 mg/dL Normal 7.0-18.0 [facility] Comment on above: Performed By: #### P OCGLUC #### [facility] [address] [address] [address] Avni Aguillon Urea nitrogen/Creatinine [Mass ratio] 15.3 mg/mg Normal [facility] Comment on above: Performed By: #### P OCGLUC #### [facility] [address] [address] [address] Avni Aguillon BNPon 02-12-2022 Natriuretic peptide B (Bld) [Mass/Vol] 385.0 pg/mL Normal <=1,800.0 [facility] Comment on above: Performed By: #### U RCX #### [facility] [address] [place] [address] Dr. Avni Aguillon CBC AUTO DIFFon 02-12-2022 BASO # 0.0 103/ul Normal 0.0-0.1 [facility] Comment on above: Performed By: #### C BCMAN #### [facility] [address] [place] [address] Dr. Avni Aguillon Basophils/100 WBC (Bld) 0.3 % Normal 0.2-2.0 [facility] Comment on above: Performed By: #### C BCMAN #### [facility] [address] [place] [address] Dr. Avni Aguillon EO # 0.1 103/ul Normal 0.0-0.7 [facility] Comment on above: Performed By: #### C BCMAN #### [facility] [address] [place] [address] Dr. Avni Aguillon Eosinophils/100 WBC (Bld) 1.3 % Normal 0.9-7.0 [facility] Comment on above: Performed By: #### C BCMAN #### [facility] [address] [place] [address] Dr. Avni Aguillon Erythrocyte distribution width (RBC) [Ratio] 13.3 % Normal 11.0-15.0 [facility] Comment on above: Performed By: #### C BCMAN #### [facility] [address] [place] [address] Dr. Avni Aguillon Hematocrit (Bld) [Volume fraction] 37.5 % Critically low 42.0-54.0 [facility] Comment on above: Performed By: #### C BCMAN #### [facility] [address] [place] [address] Dr. Avni Aguillon Hemoglobin (Bld) [Mass/Vol] 12.8 g/dL Critically low 14.0-18.0 [facility] Comment on above: Performed By: #### C BCMAN #### [facility] [address] [address] [address] Avni Aguillon IG # 0.12 10e3/ul Critically high 0.00-0.03 [facility] Comment on above: Performed By: #### C GREG #### [facility] [address] [address] [address] Avni Aguillon IG % 1.1 % Critically high 0.0-0.5 [facility] Comment on above: Performed By: #### C BCRAUL #### [facility] [address] [address] [address] Avni Aguillon LYMPH # 1.4 103/ul Normal 1.2-3.8 [facility] Comment on above: Performed By: #### C GREG #### [facility] [address] [address] [address] Avni Aguillon Lymphocytes/100 WBC (Bld) 13.2 % Critically low 20.5-60.0 [facility] Comment on above: Performed By: #### C GREG #### [facility] [address] [address] [address] Avni Aguillon MANUAL DIFF REQ NO Normal [facility] Comment on above: Performed By: #### C BCRAUL #### [facility] [address] [address] [address] Avni Aguillon MCH (RBC) [Entitic mass] 31.8 pg Normal 25.9-34.0 [facility] Comment on above: Performed By: #### C BCRAUL #### [facility] [address] [address] [address] Avni Aguillon MCHC (RBC) [Mass/Vol] 34.1 g/dL Normal 29.9-35.2 [facility] Comment on above: Performed By: #### C BCRAUL #### [facility] [address] [address] [address] Avni Aguillon MCV (RBC) [Entitic vol] 93.1 fL Normal 80.0-94.0 [facility] Comment on above: Performed By: #### C GREG #### [facility] [address] [address] [address] Avni Aguillon MONO # 0.9 103/ul Critically high 0.3-0.8 [facility] Comment on above: Performed By: #### C GREG #### [facility] [address] [address] [address] Avni Aguillon Monocytes/100 WBC (Bld) 8.8 % Normal 1.7-12.0 [facility] Comment on above: Performed By: #### C GREG #### [facility] [address] [address] [address] Avni Aguillon NEUT # 7.9 103/ul Critically high 1.4-6.5 [facility] Comment on above: Performed By: #### C GREG #### [facility] [address] [place] [address] Dr. Avni Aguillon Neutrophils/100 WBC (Bld) 75.3 % Critically high 43.0-75.0 [facility] Comment on above: Performed By: #### C GREG #### [facility] [address] [address] [address] Avni Aguillon Platelet mean volume (Bld) [Entitic vol] 9.5 fL Normal 9.5-13.5 [facility] Comment on above: Performed By: #### C GREG #### [facility] [address] [address] [address] Avni Aguillon PLT 305 103/ul Normal 150-450 [facility] Comment on above: Performed By: #### C GREG #### [facility] [address] [address] [address] Avni Aguillon RBC 4.03 106/ul Critically low 4.70-6.10 [facility] Comment on above: Performed By: #### C GREG #### [facility] [address] [address] [address] Avni Aguillon WBC 10.5 103/ul Normal 4.0-11.0 [facility] Comment on above: Performed By: #### C [facility] #### [facility] [address] [address] [address] Avni Aguillon ECHOCARDIO M/2D COMPLETEon 1 04-14-2021 ECHOCARDIO M/2D COMPLETE Patient: TAMMY MILLARD Exam Date: 02/12/2022 : 1940 Gender:M Ordering : DR MEGA TRAVIS D.O. Admission #: [id number] Family : Order #: [id number] CLICK HERE TO VIEW EXAM ECHOCARDIOGRAM REPORT PROCEDURE: CARDIO PULMONARY ECHOCARDIO M/2D COMP INDICATIONS: ASHD, CIFUENTES, Hypoxemia COMPARISON: None. DESCRIPTION: COMPLETE ECHOCARDIOGRAM Real-time transthoracic echocardiography with 2D, M-mode, spectral and color flow Doppler performed. QUALITY: Technical quality was good. LEFT VENTRICLE: Normal chamber size. Mild concentric left ventricular hypertrophy. LV EF: Global left ventricular systolic function is normal. Calculated left ventricular ejection fraction is 58%. DIASTOLIC: Normal diastolic function. ATRIAL SEPTUM: Inadequately seen. LEFT ATRIUM: Normal chamber size. RIGHT ATRIUM: Normal chamber size. RIGHT VENTRICLE: Normal chamber size. Normal right ventricular systolic function. TRICUSPID VALVE: Normal mobility and thickness. No stenosis with mild regurgitation. No evidence of pulmonary hypertension. RVSP 34mmHg MITRAL VALVE: Normal mobility and thickness. No mitral valve prolapse. No evidence of mitral valve stenosis. There is no mitral annular calcification. Mild mitral regurgitation. AORTIC VALVE: Normal trileaflet appearance. Thickened aortic valve. Normal leaflet mobility. No evidence of aortic valve stenosis. Mild aortic regurgitation. AORTIC ROOT: Normal diameter and appearance. PULMONIC VALVE: Normal thickness and mobility. No stenosis. No regurgitation. PERICARDIUM: Anterior free space; trivial effusion versus fat pad. IVC: Collapses with inspirations. Normal size. CONCLUSION: Global left ventricular systolic function is normal; visually estimated ejection fraction is 55 to 60%. Mild left ventricular hypertrophy. Normal diastolic function. The right ventricle is normal in size and systolic function. Mild tricuspid regurgitation. Mild mitral regurgitation. Mild aortic regurgitation. Anterior free space; trivial effusion versus fat pad. Adult Echocardiography Procedure Report Left Ventricle LVEDD (3.7 - 5.6 cm): 4.35 cm LVESD (2.2 - 4.0 cm): 3.19 cm LVIVS thickness (0.6 - 1.2 cm): 1.29 cm LVPW thickness (0.5 - 1.0 cm): 1.12 cm e': 0.06 m/s E - e': 10.65 LVOT Max Gradient: 2.74 mm[Hg] Peak Velocity (LVOT): 0.83 m/s Mean Velocity (LVOT): 0.55 m/s LVOT Diameter 2.10 cm Left Ventricular Ejection Fraction: 52.42 %, 52.42 % Left Atrium LA Volume Index (2D A2C): 57.27 ml, 57.27 ml Left Atrium Systolic Dimension: 3.20 cm Mitral Valve MV E to A Ratio: 0.46 Mitral Valve A-Wave Peak Velocity: 1.30 m/s Mitral Valve E-Wave Peak Velocity: 0.60 m/s Right Ventricle RV Internal Diastolic Dimension: 2.95 cm Aorta AO Root Diam: 3.16 cm Ascending Ao Diam: 3.01 cm Aortic Valve AoV Area (Peak Yimi): 1.87 cm2, 1.87 cm2 AoV Area (VTI): 1.81 cm2, 1.81 cm2 Deceleration [place]: 1.18 m/s2 Pressure Half-Time: 697.88 ms Peak Velocity(Antegrade Flow): 1.53 m/s Peak Gradient(Antegrade Flow): 9.33 mm[Hg] Mean Velocity(Antegrade Flow): 1.00 m/s Mean Gradient(Antegrade Flow): 4.67 mm[Hg] Velocity Time Integral: 32.63 cm Tricuspid Valve Peak Velocity (Regurgitant Flow): 2.32 m/s, 2.43 m/s, 2.78 m/s Pulmonic Valve Mean Gradient: 2.50 mm[Hg], 2.21 mm[Hg] Mean Velocity: 0.75 m/s, 0.66 m/s Peak Velocity: 1.05 m/s, 1.09 m/s Peak Gradient: 4.39 mm[Hg], 4.78 mm[Hg] Right Atrium Right Atrium Systolic Pressure: 44.23 ml, 44.23 ml Dictated by: Harman Mejia M.D. on 02/14/2022 at 13:46 Approved by: Harman Mejia M.D. on 02/14/2022 at 13:49 Normal [facility] PROF CHEM 8 (BAS METB)on Anion gap [Moles/Vol] 8.6 mmol/L Normal [facility] Comment on above: Performed By: #### C BC #### [facility] [address] [address] [address] Avni Aguillon Calcium [Mass/Vol] 8.9 mg/dL Normal 8.5-10.1 [facility] Comment on above: Performed By: #### C BC #### [facility] [address] [address] [address] Avni Aguillon Chloride [Moles/Vol] 101 mmol/L Normal 98-107 [facility] Comment on above: Performed By: #### C BC #### [facility] [address] [place] [address] Dr. Avni Aguillon CO2 [Moles/Vol] 33.7 mmol/L Critically high 21.0-32.0 [facility] Comment on above: Performed By: #### C BC #### [facility] [address] [place] [address] Dr. Avni Aguillon Creatinine [Mass/Vol] 1.00 mg/dL Normal 0.70-1.30 [facility] Comment on above: Performed By: #### C BC #### [facility] [address] [place] [address] Dr. Avni Aguillon EGFR-AF LEBANESE >60 Normal >=60 [facility] Comment on above: Performed By: #### C BC #### [facility] [address] [place] [address] Dr. Avni Aguillon EGFR-NON AF LEBANESE >60 Normal >=60 [facility] Comment on above: Performed By: #### C BC #### [facility] [address] [place] [address] Dr. Avni Aguillon Glucose [Mass/Vol] 245 mg/dL Critically high 74-106 [facility] Comment on above: Performed By: #### C BC #### [facility] [address] [place] [address] Dr. Avni Aguillon Potassium [Moles/Vol] 3.3 mmol/L Critically low 3.5-5.1 [facility] Comment on above: Performed By: #### C BC #### [facility] [address] [address] [address] Avni Aguillon Sodium [Moles/Vol] 140 mmol/L Normal 136-145 [facility] Comment on above: Performed By: #### C BC #### [facility] [address] [place] [address] Dr. Avni Aguillon Urea nitrogen [Mass/Vol] 25.0 mg/dL Critically high 7.0-18.0 [facility] Comment on above: Performed By: #### C BC #### [facility] [address] [place] [address] Dr. Avni Aguillon Urea nitrogen/Creatinine [Mass ratio] 25.0 mg/mg Normal [facility] Comment on above: Performed By: #### C BC #### [facility] [address] [place] [address] Dr. Avni Aguillon TSHon 02-12-2022 TSH 1.826 uIU/mL Normal 0.358-3.740 [facility] Comment on above: Performed By: #### U RCX #### [facility] [address] [place] [address] Dr. Avni Aguillon CBC W MANUAL DIFFon 01-17-20 22 ATYPICAL LYMPH # Normal [facility] Comment on above: Performed By: #### C BCMAN #### [facility] [address] [place] [address] Dr. Avni Aguillon ATYPICAL LYMPH % Normal [facility] Comment on above: Performed By: #### C BCMAN #### [facility] [address] [place] [address] Dr. Avni Aguillon BAND # 0.0 103/ul Normal 0.0-0.3 [facility] Comment on above: Performed By: #### C BCMAN #### [facility] [address] [place] [address] Dr. Avni Aguillon BAND % 0 % Normal 0-5 [facility] Comment on above: Performed By: #### C BCMAN #### [facility] [address] [address] [address] Avni Aguillon BASOM # 0.00 103/ul Normal 0.00-0.10 [facility] Comment on above: Performed By: #### C BCRAUL #### [facility] [address] [address] [address] Avni Aguillon BASOM % 0.0 % Critically low 0.2-2.0 [facility] Comment on above: Performed By: #### C BCMAN #### [facility] [address] [address] [address] Avni Aguillon BLAST # Normal [facility] Comment on above: Performed By: #### C GREG #### [facility] [address] [place] [address] Dr. Avni Aguillon BLAST % Normal [facility] Comment on above: Performed By: #### C GREG #### [facility] [address] [place] [address] Dr. Avni Aguillon CORRECTED WBC Normal 4.0-11.0 [facility] Comment on above: Performed By: #### C GREG #### [facility] [address] [place] [address] Dr. Avni Aguillon EOS # 0.00 103/ul Normal 0.00-0.70 [facility] Comment on above: Performed By: #### C GREG #### [facility] [address] [place] [address] Dr. Avni Aguillon EOS% 0.0 % Critically low 0.9-7.0 [facility] Comment on above: Performed By: #### C BCRAUL #### [facility] [address] [place] [address] Dr. Avni Aguillon HCT 35.0 % Critically low 42.0-54.0 [facility] Comment on above: Performed By: #### C GREG #### [facility] [address] [place] [address] Dr. Avni Aguillon HGB 11.8 g/dl Critically low 14.0-18.0 [facility] Comment on above: Performed By: #### C RGEG #### [facility] [address] [address] [address] Avni Aguillon LYMPHM # 0.00 103/ul Critically low 1.20-3.80 [facility] Comment on above: Performed By: #### C GREG #### [facility] [address] [address] [address] Avni Aguillon LYMPHM% 0.0 % Critically low 20.5-60.0 [facility] Comment on above: Performed By: #### C GREG #### [facility] [address] [address] [address] Avni Aguillon MCH 32.2 pg Normal 25.9-34.0 [facility] Comment on above: Performed By: #### C GREG #### [facility] [address] [place] [address] Dr. Avni Aguillon MCHC 33.7 g/dl Normal 29.9-35.2 [facility] Comment on above: Performed By: #### C GREG #### [facility] [address] [address] [address] Avni Aguillon MCV 95.4 fL Critically high 80.0-94.0 [facility] Comment on above: Performed By: #### C GREG #### [facility] [address] [place] [address] Dr. Avni Aguillon METAMYELOCYTE # Normal [facility] Comment on above: Performed By: #### C GREG #### [facility] [address] [address] [address] Avni Aguillon METAMYELOCYTE % Normal [facility] Comment on above: Performed By: #### C GREG #### [facility] [address] [address] [address] Avni Aguillon MONOM# 0.00 103/ul Critically low 0.30-0.80 [facility] Comment on above: Performed By: #### C GREG #### [facility] [address] [address] [address] Avni Aguillon MONOM% 0.0 % Critically low 1.7-12.0 [facility] Comment on above: Performed By: #### C GREG #### [facility] [address] [address] [address] Avni Aguillon MPV 9.6 fL Normal 9.5-13.5 [facility] Comment on above: Performed By: #### C GREG #### [facility] [address] [address] [address] Avni Aguillon MYELOCYTE # Normal [facility] Comment on above: Performed By: #### C GREG #### [facility] [address] [address] [address] Avni Aguillon MYELOCYTE % Normal [facility] Comment on above: Performed By: #### C GREG #### [facility] [address] [place] [address] Dr. Avni Aguillon NRBC Normal [facility] Comment on above: Performed By: #### C GREG #### [facility] [address] [address] [address] Avni Aguillon PLT 296 103/ul Normal 150-450 [facility] Comment on above: Performed By: #### C GREG #### [facility] [address] [place] [address] Dr. Avni Aguillon RBC 3.67 106/ul Critically low 4.70-6.10 [facility] Comment on above: Performed By: #### C GREG #### [facility] [address] [place] [address] Dr. Avni Aguillon RDW 13.5 % Normal 11.0-15.0 [facility] Comment on above: Performed By: #### C GREG #### [facility] [address] [address] [address] Avni Aguillon SEG # 18.70 103/ul Critically high 1.40-6.50 [facility] Comment on above: Performed By: #### C GREG #### [facility] [address] [place] [address] Dr. Avni Aguillon SEG % 100.0 % Critically high 43.0-75.0 [facility] Comment on above: Performed By: #### C BCMAN #### [facility] [address] [address] [address] Avni Aguillon WBC 18.7 103/ul Critically high 4.0-11.0 [facility] Comment on above: Performed By: #### C BCMAN #### [facility] [address] [place] [address] Dr. Avni Aguillon POINT OF CARE GLUCOSEon 110 Glucose [Mass/Vol] 186 mg/dL Critically high 74-106 [facility] Comment on above: Performed By: #### P OCGLUC #### [facility] [address] [place] [address] Dr. Avni Aguillon Glucose [Mass/Vol] 273 mg/dL Critically high 74-106 [facility] Comment on above: Performed By: #### C BC #### [facility] [address] [place] [address] Dr. Avni Aguillon PROF CHEM 8 (BAS METB)on Anion gap [Moles/Vol] 14.2 mmol/L Normal [facility] Comment on above: Performed By: #### S PUTCX #### [facility] [address] [place] [address] Dr. Avni Aguillon Calcium [Mass/Vol] 9.0 mg/dL Normal 8.5-10.1 [facility] Comment on above: Performed By: #### S PUTCX #### [facility] [address] [place] [address] Dr. Avni Aguillon Chloride [Moles/Vol] 100 mmol/L Normal 98-107 [facility] Comment on above: Performed By: #### S PUTCX #### [facility] [address] [place] [address] Dr. Avni Aguillon CO2 [Moles/Vol] 22.3 mmol/L Normal 21.0-32.0 [facility] Comment on above: Performed By: #### S PUTCX #### [facility] [address] [place] [address] Dr. Avni Aguillon Creatinine [Mass/Vol] 1.16 mg/dL Normal 0.70-1.30 [facility] Comment on above: Performed By: #### S PUTCX #### [facility] [address] [place] [address] Dr. Avni Aguillon EGFR-AF LEBANESE >60 Normal >=60 [facility] Comment on above: Performed By: #### S PUTCX #### [facility] [address] [place] [address] Dr. Avni Aguillon EGFR-NON AF LEBANESE >60 Normal >=60 [facility] Comment on above: Performed By: #### S PUTCX #### [facility] [address] [place] [address] Dr. Avni Aguillon Glucose [Mass/Vol] 233 mg/dL Critically high 74-106 [facility] Comment on above: Performed By: #### S PUTCX #### [facility] [address] [place] [address] Dr. Avni Aguillon Potassium [Moles/Vol] 3.5 mmol/L Normal 3.5-5.1 [facility] Comment on above: Performed By: #### S PUTCX #### [facility] [address] [place] [address] Dr. Avni Aguillon Sodium [Moles/Vol] 133 mmol/L Critically low 136-145 [facility] Comment on above: Performed By: #### S PUTCX #### [facility] [address] [place] [address] Dr. Avni Aguillon Urea nitrogen [Mass/Vol] 22.0 mg/dL Critically high 7.0-18.0 [facility] Comment on above: Performed By: #### S PUTCX #### [facility] [address] [place] [address] Dr. Avni Aguillon Urea nitrogen/Creatinine [Mass ratio] 19.0 mg/mg Normal [facility] Comment on above: Performed By: #### S PUTCX #### [facility] [address] [place] [address] Dr. Avni Aguillon BNPon 01-15-2022 Natriuretic peptide B (Bld) [Mass/Vol] 125.0 pg/mL Normal <=1,800.0 [facility] Comment on above: Performed By: #### B LARRY CAR OPERATOR #### [facility] [address] [place] [address] Dr. Avni Aguillon CBC AUTO DIFFon 01-15-2022 BASO # 0.1 103/ul Normal 0.0-0.1 [facility] Comment on above: Performed By: #### U RCX #### [facility] [address] [place] [address] Dr. Avni Aguillon Basophils/100 WBC (Bld) 1.3 % Normal 0.2-2.0 [facility] Comment on above: Performed By: #### U RCX #### [facility] [address] [place] [address] Dr. Avni Aguillon EO # 0.7 103/ul Normal 0.0-0.7 [facility] Comment on above: Performed By: #### U RCX #### [facility] [address] [place] [address] Dr. Avni Aguillon Eosinophils/100 WBC (Bld) 6.6 % Normal 0.9-7.0 [facility] Comment on above: Performed By: #### U RCX #### [facility] [address] [place] [address] Dr. Avni Aguillon Erythrocyte distribution width (RBC) [Ratio] 13.7 % Normal 11.0-15.0 [facility] Comment on above: Performed By: #### U RCX #### [facility] [address] [place] [address] Dr. Avni Aguillon Hematocrit (Bld) [Volume fraction] 41.2 % Critically low 42.0-54.0 [facility] Comment on above: Performed By: #### U RCX #### [facility] [address] [place] [address] Dr. Avni Aguillon Hemoglobin (Bld) [Mass/Vol] 13.7 g/dL Critically low 14.0-18.0 [facility] Comment on above: Performed By: #### U RCX #### [facility] [address] [address] [address] Avni Aguillon IG # 0.04 10e3/ul Critically high 0.00-0.03 [facility] Comment on above: Performed By: #### U RCX #### [facility] [address] [address] [address] Avni Aguillon IG % 0.4 % Normal 0.0-0.5 [facility] Comment on above: Performed By: #### U RCX #### [facility] [address] [address] [address] Avni Aguillon LYMPH # 3.3 103/ul Normal 1.2-3.8 [facility] Comment on above: Performed By: #### U RCX #### [facility] [address] [place] [address] Dr. Avni Aguillon Lymphocytes/100 WBC (Bld) 32.5 % Normal 20.5-60.0 [facility] Comment on above: Performed By: #### U RCX #### [facility] [address] [address] [address] Avni Aguillon MANUAL DIFF REQ NO Normal [facility] Comment on above: Performed By: #### U RCX #### [facility] [address] [place] [address] Dr. Avni Aguillon MCH (RBC) [Entitic mass] 32.5 pg Normal 25.9-34.0 [facility] Comment on above: Performed By: #### U RCX #### [facility] [address] [address] [address] Avni Aguillon MCHC (RBC) [Mass/Vol] 33.3 g/dL Normal 29.9-35.2 [facility] Comment on above: Performed By: #### U RCX #### [facility] [address] [place] [address] Dr. Avni Aguillon MCV (RBC) [Entitic vol] 97.9 fL Critically high 80.0-94.0 [facility] Comment on above: Performed By: #### U RCX #### [facility] [address] [address] [address] Avni Aguillon MONO # 1.1 103/ul Critically high 0.3-0.8 [facility] Comment on above: Performed By: #### U RCX #### [facility] [address] [address] [address] Avni Aguillon Monocytes/100 WBC (Bld) 10.9 % Normal 1.7-12.0 [facility] Comment on above: Performed By: #### U RCX #### [facility] [address] [address] [address] Avni Aguillon NEUT # 4.9 103/ul Normal 1.4-6.5 [facility] Comment on above: Performed By: #### U RCX #### [facility] [address] [place] [address] Dr. Avni Aguillon Neutrophils/100 WBC (Bld) 48.3 % Normal 43.0-75.0 [facility] Comment on above: Performed By: #### U RCX #### [facility] [address] [place] [address] Dr. Avni Aguillon Platelet mean volume (Bld) [Entitic vol] 9.8 fL Normal 9.5-13.5 [facility] Comment on above: Performed By: #### U RCX #### [facility] [address] [place] [address] Dr. Avni Aguillon PLT 371 103/ul Normal 150-450 [facility] Comment on above: Performed By: #### U RCX #### [facility] [address] [place] [address] Dr. Avni Aguillon RBC 4.21 106/ul Critically low 4.70-6.10 [facility] Comment on above: Performed By: #### U RCX #### [facility] [address] [place] [address] Dr. Avni Aguillon WBC 10.0 103/ul Normal 4.0-11.0 [facility] Comment on above: Performed By: #### U RCX #### [facility] [address] [place] [address] Dr. Avni Aguillon CULTURE SPUTUMon 01-15-2022 CULTURE SPUTUM Culture Observations : NORMAL RESPIRATORY ALLISON. Normal [facility] Comment on above: Performed By: #### C VDTBH #### [facility] [address] [place] [address] Dr. Avni Aguillon Covid-19 PCR ([facility])on 12-18 SARS-CoV-2 (COVID-19) RNA DANILO+probe Ql (Unsp spec) Not detected Normal NOT DETECTED [facility] Comment on above: Result Comment: When diagnostic testing is negative, the possibility of a false negative should be considered in the context of a patient's recent exposures and the presence of clinical signs and symptoms consistent with SARS-CoV-2. This test is not yet approved or cleared by the [place] FDA. When there are no FDA-approved or cleared tests available, and other criteria are met, FDA can make tests available under an emergency access mechanism called an Emergency Use Authorization (EUA). The EUA for this test is supported by the Seating And Mobility Technologist of Health and Human Service's declaration that circumstances exist to justify the emergency use of in vitro diagnostics for the detection and/or diagnosis of the virus that causes COVID-19. This EUA will remain in effect for the duration of the COVID-19 declaration justifying emergency of IVDs, unless it is terminated or revoked by the FDA (after which the test may no longer be used). Performed By: #### B LARRY CAR OPERATOR #### [facility] [address] [place] [address] Dr. Avni Aguillon POINT OF CARE GLUCOSEon 12-18 Glucose [Mass/Vol] 263 mg/dL Critically high 74-106 [facility] [place] Comment on above: Performed By: #### P OCGLUC #### [facility] [address] [place] [address] Dr. Avni Aguillon Glucose [Mass/Vol] 295 mg/dL Critically high 74-106 [facility] [place] Comment on above: Performed By: #### C BC #### [facility] [address] [place] [address] Dr. Avni Aguillon Glucose [Mass/Vol] 234 mg/dL Critically high 74-106 [facility] Comment on above: Performed By: #### C VDTB #### [facility] [address] [address] [address] Avni Aguillon PROF 14(COMP METB)on 022 Albumin [Mass/Vol] 3.7 g/dL Normal 3.4-5.0 [facility] Comment on above: Performed By: #### B LARRY CAR OPERATOR #### [facility] [address] [place] [address] Dr. Avni Aguillon Albumin/Globulin [Mass ratio] 1.1 {ratio} Normal [facility] Comment on above: Performed By: #### B LARRY CAR OPERATOR #### [facility] [address] [place] [address] Dr. Avni Aguillon ALP [Catalytic activity/Vol] 129 U/L Critically high 46-116 [facility] Comment on above: Performed By: #### B LARRY CAR OPERATOR #### [facility] [address] [place] [address] Dr. Avni Aguillon ALT [Catalytic activity/Vol] 30 U/L Normal 16-63 [facility] Comment on above: Performed By: #### B LARRY CAR OPERATOR #### [facility] [address] [place] [address] Dr. Avni Aguillon Anion gap [Moles/Vol] 11.0 mmol/L Normal [facility] Comment on above: Performed By: #### B LARRY CAR OPERATOR #### [facility] [address] [place] [address] Dr. Avni Aguillon AST [Catalytic activity/Vol] 24 U/L Normal 15-37 [facility] Comment on above: Performed By: #### B LARRY CAR OPERATOR #### [facility] [address] [place] [address] Dr. Avni Aguillon Bilirubin [Mass/Vol] 0.6 mg/dL Normal 0.2-1.0 [facility] Comment on above: Performed By: #### B LARRY CAR OPERATOR #### [facility] [address] [place] [address] Dr. Avni Aguillon Calcium [Mass/Vol] 8.9 mg/dL Normal 8.5-10.1 [facility] Comment on above: Performed By: #### B LARRY CAR OPERATOR #### [facility] [address] [address] [address] Avni Aguillon Chloride [Moles/Vol] 106 mmol/L Normal 98-107 [facility] Comment on above: Performed By: #### B LARRY CAR OPERATOR #### [facility] [address] [address] [address] Avni Aguillon CO2 [Moles/Vol] 27.6 mmol/L Normal 21.0-32.0 [facility] Comment on above: Performed By: #### B LARRY CAR OPERATOR #### [facility] [address] [place] [address] Dr. Avni Aguillon Creatinine [Mass/Vol] 1.16 mg/dL Normal 0.70-1.30 [facility] Comment on above: Performed By: #### B LARRY CAR OPERATOR #### [facility] [address] [place] [address] Dr. Avni Aguillon EGFR-AF LEBANESE >60 Normal >=60 [facility] Comment on above: Performed By: #### B LARRY CAR OPERATOR #### [facility] [address] [place] [address] Dr. Avni Aguillon EGFR-NON AF LEBANESE >60 Normal >=60 [facility] Comment on above: Performed By: #### B LARRY CAR OPERATOR #### [facility] [address] [place] [address] Dr. Avni Aguillon Globulin (S) [Mass/Vol] 3.5 g/dL Normal [facility] Comment on above: Performed By: #### B LARRY CAR OPERATOR #### [facility] [address] [place] [address] Dr. Avni Aguillon Glucose [Mass/Vol] 180 mg/dL Critically high 74-106 [facility] [place] Comment on above: Performed By: #### B LARRY CAR OPERATOR #### [facility] [address] [place] [address] Dr. Avni Aguillon Potassium [Moles/Vol] 3.6 mmol/L Normal 3.5-5.1 [facility] Comment on above: Performed By: #### B LARRY CAR OPERATOR #### [facility] [address] [address] [address] Avni Aguillon Protein [Mass/Vol] 7.2 g/dL Normal 6.4-8.2 [facility] Comment on above: Performed By: #### B LARRY CAR OPERATOR #### [facility] [address] [address] [address] Avni Aguillon Sodium [Moles/Vol] 141 mmol/L Normal 136-145 [facility] Comment on above: Performed By: #### B LARRY CAR OPERATOR #### [facility] [address] [address] [address] Avni Aguillon Urea nitrogen [Mass/Vol] 15.0 mg/dL Normal 7.0-18.0 [facility] Comment on above: Performed By: #### B LARRY CAR OPERATOR #### [facility] [address] [place] [address] Dr. Avni Aguillon Urea nitrogen/Creatinine [Mass ratio] 12.9 mg/mg Normal [facility] Comment on above: Performed By: #### B LARRY CAR OPERATOR #### [facility] [address] [address] [address] Avni Aguillon SPUTUM GRAM STAINon 01-16-20 COMMENTS Normal [facility] Comment on above: Performed By: #### B LARRY CAR OPERATOR #### [facility] [address] [place] [address] Dr. Avni Aguillon DIPHTHEROIDS Normal [facility] Comment on above: Performed By: #### B LARRY CAR OPERATOR #### [facility] [address] [address] [address] Avni Aguillon EPITHELIALS <25 Normal [facility] Comment on above: Performed By: #### B LARRY CAR OPERATOR #### [facility] [address] [address] [address] Avni Aguillon FUNGAL ELEMENTS Normal [facility] Comment on above: Performed By: #### B LARRY CAR OPERATOR #### [facility] [address] [place] [address] Dr. Avni Aguillon GRAM NEG BACILLI Normal [facility] Comment on above: Performed By: #### B LARRY CAR OPERATOR #### [facility] [address] [place] [address] Dr. Avni Aguillon GRAM NEG DIPPLOCOCCI Normal [facility] Comment on above: Performed By: #### B LARRY CAR OPERATOR #### [facility] [address] [address] [address] Avni Aguillon GRAM POS BACILLI FEW Normal [facility] Comment on above: Performed By: #### B LARRY CAR OPERATOR #### [facility] [address] [address] [address] Avni Aguillon GRAM POSITIVE COCCI RARE Normal [facility] Comment on above: Performed By: #### B LARRY CAR OPERATOR #### [facility] [address] [address] [address] Avni Aguillon WBC (Bld) [#/Vol] 10*3/uL Normal [facility] Comment on above: Performed By: #### B LARRY CAR OPERATOR #### [facility] [address] [place] [address] Dr. Avni Aguillon TROPONIN, HIGH SENSITIVITYon 01-15-2022 HSTROP 13.8 pg/mL Normal 4.0-76.1 [facility] Comment on above: Result Comment: CUT- OFF POINTS HAVE BEEN ESTABLISHED BASED ON THE FOURTH UNIVERSAL DEFINITIONS OF MYOCARDIAL INFARCTION. THE UPPER REFERENCE LIMIT (URL) OF TROPONIN, DEFINED THE 99TH PERCENTILE OF cTnI DISTRIBUTION IN A REFERENCE POPULATION, HAS BEEN CONFIRMED THE DECISION THRESHOLD FOR [place] DIAGNOSIS. Performed By: #### B LARRY CAR OPERATOR #### [facility] [address] [place] [address] Dr. Avni Aguillon XR CHEST 1 Von 01-15-2022 XR CHEST 1 V EXAM: XR CHEST 1 V HISTORY: SHORTNESS OF BREATH COMPARISON: Patient had a chest CT and radiograph on 12/29/2021. TECHNIQUE: Portable view of the chest obtained FINDINGS: Normal heart size. Increasing vascular cephalization. Chronic upper lobe predominant fibrosis left greater than right. No large effusion. No acute bony abnormality. IMPRESSION: 1. Worsening congestive pattern. 2. Chronic biapical fibrosis. Please see recent CT report. Electronically authenticated by: GILMA NICK Date: 2022-01-15 02:57 Normal [facility] CBC W MANUAL DIFFon 12-31-19 22 ATYPICAL LYMPH # Normal [facility] Comment on above: Performed By: #### C VDTBH #### [facility] [address] [place] [address] Dr. Avni Aguillon ATYPICAL LYMPH % Normal [facility] Comment on above: Performed By: #### C VDTBH #### [facility] [address] [place] [address] Dr. Avni Aguillon BAND # 0.0 103/ul Normal 0.0-0.3 [facility] Comment on above: Performed By: #### C VDTBH #### [facility] [address] [place] [address] Dr. Avni Aguillon BAND % 0 % Normal 0-5 [facility] Comment on above: Performed By: #### C VDTBH #### [facility] [address] [place] [address] Dr. Avni Aguillon BASOM # 0.00 103/ul Normal 0.00-0.10 [facility] Comment on above: Performed By: #### C VDTBH #### [facility] [address] [place] [address] Dr. Avni Aguillon BASOM % 0.0 % Critically low 0.2-2.0 [facility] Comment on above: Performed By: #### C VDTBH #### [facility] [address] [place] [address] Dr. Avni Aguillon BLAST # Normal [facility] Comment on above: Performed By: #### C VDTBH #### [facility] [address] [place] [address] Dr. Avni Aguillon BLAST % Normal [facility] Comment on above: Performed By: #### C VDTBH #### [facility] [address] [place] [address] Dr. Avni Aguillon CORRECTED WBC Normal 4.0-11.0 [facility] Comment on above: Performed By: #### C VDTBH #### [facility] [address] [place] [address] Dr. Avni Aguillon EOS # 0.00 103/ul Normal 0.00-0.70 [facility] Comment on above: Performed By: #### C VDTBH #### [facility] [address] [address] [address] Avni Aguillon EOS% 0.0 % Critically low 0.9-7.0 [facility] Comment on above: Performed By: #### C VDTBH #### [facility] [address] [address] [address] Avni Aguillon HCT 37.2 % Critically low 42.0-54.0 [facility] Comment on above: Performed By: #### C VDTBH #### [facility] [address] [address] [address] Avni Aguillon HGB 12.6 g/dl Critically low 14.0-18.0 [facility] Comment on above: Performed By: #### C VDTBH #### [facility] [address] [address] [address] Avni Aguillon LYMPHM # 0.39 103/ul Critically low 1.20-3.80 [facility] Comment on above: Performed By: #### C VDTBH #### [facility] [address] [address] [address] Avni Aguillon LYMPHM% 2.0 % Critically low 20.5-60.0 [facility] Comment on above: Performed By: #### C VDTBH #### [facility] [address] [address] [address] Avni Aguillon MCH 32.1 pg Normal 25.9-34.0 [facility] Comment on above: Performed By: #### C VDTBH #### [facility] [address] [address] [address] Avni Aguillon MCHC 33.9 g/dl Normal 29.9-35.2 [facility] Comment on above: Performed By: #### C VDTBH #### [facility] [address] [address] [address] Avni Aguillon MCV 94.9 fL Critically high 80.0-94.0 [facility] Comment on above: Performed By: #### C VDTBH #### [facility] [address] [place] [address] Dr. Avni Aguillon METAMYELOCYTE # Normal [facility] Comment on above: Performed By: #### C VDTBH #### [facility] [address] [place] [address] Dr. Avni Aguillon METAMYELOCYTE % Normal [facility] Comment on above: Performed By: #### C VDTBH #### [facility] [address] [place] [address] Dr. Avni Aguillon MONOM# 0.20 103/ul Critically low 0.30-0.80 [facility] Comment on above: Performed By: #### C VDTBH #### [facility] [address] [place] [address] Dr. Avni Aguillon MONOM% 1.0 % Critically low 1.7-12.0 [facility] Comment on above: Performed By: #### C VDTBH #### [facility] [address] [place] [address] Dr. Avni Aguillon MPV 9.5 fL Normal 9.5-13.5 [facility] Comment on above: Performed By: #### C VDTBH #### [facility] [address] [place] [address] Dr. Avni Aguillon MYELOCYTE # Normal [facility] Comment on above: Performed By: #### C VDTBH #### [facility] [address] [place] [address] Dr. Avni gAuillon MYELOCYTE % Normal [facility] Comment on above: Performed By: #### C VDTBH #### [facility] [address] [place] [address] Dr. Avni Aguillon NRBC Normal [facility] Comment on above: Performed By: #### C VDTBH #### [facility] [address] [place] [address] Dr. Avni Aguillon PLT 236 103/ul Normal 150-450 [facility] Comment on above: Performed By: #### C VDTBH #### [facility] [address] [place] [address] Dr. Avni Aguillon RBC 3.92 106/ul Critically low 4.70-6.10 [facility] Comment on above: Performed By: #### C VDTBH #### [facility] [address] [address] [address] Avni Aguillon RDW 13.6 % Normal 11.0-15.0 [facility] Comment on above: Performed By: #### C VDTBH #### [facility] [address] [address] [address] Avni Aguillon SEG # 18.91 103/ul Critically high 1.40-6.50 [facility] Comment on above: Performed By: #### C VDTBH #### [facility] [address] [address] [address] Avni Aguillon SEG % 97.0 % Critically high 43.0-75.0 [facility] Comment on above: Performed By: #### C VDTBH #### [facility] [address] [address] [address] Avni Aguillon WBC 19.5 103/ul Critically high 4.0-11.0 [facility] Comment on above: Performed By: #### C VDTBH #### [facility] [address] [place] [address] Dr. Avni Aguillon CULTURE URINEon 12-30-2021 CULTURE URINE Culture Observations : NO GROWTH. Normal [facility] Comment on above: Performed By: #### U RCX #### [facility] [address] [place] [address] Dr. Avni Aguillon PROF 14(COMP METB)on 022 Albumin [Mass/Vol] 3.1 g/dL Critically low 3.4-5.0 [facility] Comment on above: Performed By: #### P OCGLUC #### [facility] [address] [place] [address] Dr. Avni Aguillon Albumin/Globulin [Mass ratio] 1.0 {ratio} Normal [facility] Comment on above: Performed By: #### P OCGLUC #### [facility] [address] [place] [address] Dr. Avni Aguillon ALP [Catalytic activity/Vol] 94 U/L Normal 46-116 [facility] Comment on above: Performed By: #### P OCGLUC #### [facility] [address] [address] [address] Avni Aguillon ALT [Catalytic activity/Vol] 43 U/L Normal 16-63 [facility] Comment on above: Performed By: #### P OCGLUC #### [facility] [address] [address] [address] Avni Aguillon Anion gap [Moles/Vol] 12.4 mmol/L Normal [facility] Comment on above: Performed By: #### P OCGLUC #### [facility] [address] [address] [address] Avni Aguillon AST [Catalytic activity/Vol] 21 U/L Normal 15-37 [facility] Comment on above: Performed By: #### P OCGLUC #### [facility] [address] [address] [address] Avni Aguillon Bilirubin [Mass/Vol] 1.0 mg/dL Normal 0.2-1.0 [facility] Comment on above: Performed By: #### P OCGLUC #### [facility] [address] [address] [address] Avni Aguillon Calcium [Mass/Vol] 8.8 mg/dL Normal 8.5-10.1 [facility] Comment on above: Performed By: #### P OCGLUC #### [facility] [address] [address] [address] Avni Aguillon Chloride [Moles/Vol] 104 mmol/L Normal 98-107 [facility] Comment on above: Performed By: #### P OCGLUC #### [facility] [address] [address] [address] Avni Aguillon CO2 [Moles/Vol] 23.7 mmol/L Normal 21.0-32.0 [facility] Comment on above: Performed By: #### P OCGLUC #### [facility] [address] [address] [address] Avni Aguillon Creatinine [Mass/Vol] 0.90 mg/dL Normal 0.70-1.30 [facility] Comment on above: Performed By: #### P OCGLUC #### [facility] [address] [address] [address] Avni Aguillon EGFR-AF LEBANESE >60 Normal >=60 [facility] Comment on above: Performed By: #### P OCGLUC #### [facility] [address] [address] [address] Avni Aguillon EGFR-NON AF LEBANESE >60 Normal >=60 [facility] Comment on above: Performed By: #### P OCGLUC #### [facility] [address] [address] [address] Avni Aguillon Globulin (S) [Mass/Vol] 3.1 g/dL Normal [facility] Comment on above: Performed By: #### P OCGLUC #### [facility] [address] [address] [address] Avni Aguillon Glucose [Mass/Vol] 234 mg/dL Critically high 74-106 [facility] [place] Comment on above: Performed By: #### P OCGLUC #### [facility] [address] [address] [address] Avni Aguillon Potassium [Moles/Vol] 4.1 mmol/L Normal 3.5-5.1 [facility] Comment on above: Performed By: #### P OCGLUC #### [facility] [address] [address] [address] Avni Aguillon Protein [Mass/Vol] 6.2 g/dL Critically low 6.4-8.2 [facility] Comment on above: Performed By: #### P OCGLUC #### [facility] [address] [address] [address] Avni Aguillon Sodium [Moles/Vol] 136 mmol/L Normal 136-145 [facility] Comment on above: Performed By: #### P OCGLUC #### [facility] [address] [address] [address] Avni Aguillon Urea nitrogen [Mass/Vol] 15.0 mg/dL Normal 7.0-18.0 [facility] Comment on above: Performed By: #### P OCGLUC #### [facility] [address] [place] [address] Dr. Avni Aguillon Urea nitrogen/Creatinine [Mass ratio] 16.7 mg/mg Normal [facility] Comment on above: Performed By: #### P OCGLUC #### [facility] [address] [place] [address] Dr. Avni Aguillon UA RANDOM W/MICROSCOPICon BACTERIA NONE SEEN Normal NONE SEEN [facility] Comment on above: Performed By: #### C VDTBH #### [facility] [address] [place] [address] Dr. Avni Aguillon Bilirubin Ql (U) Negative Normal NEGATIVE [facility] Comment on above: Performed By: #### C VDTBH #### [facility] [address] [place] [address] Dr. Avni Aguillon CAST NONE SEEN Normal NONE SEEN [facility] Comment on above: Performed By: #### C VDTBH #### [facility] [address] [place] [address] Dr. Avni Aguillon Clarity (U) CLEAR Normal CLEAR [facility] Comment on above: Performed By: #### C VDTBH #### [facility] [address] [place] [address] Dr. Avni Aguillon Color (U) LT. YELLOW Normal YELLOW [facility] Comment on above: Performed By: #### C VDTBH #### [facility] [address] [place] [address] Dr. Avni Aguillon Crystals LM Nom (Urine sed) NONE SEEN Normal NONE SEEN [facility] Comment on above: Performed By: #### C VDTBH #### [facility] [address] [place] [address] Dr. Avni Aguillon Epithelial cells LM Ql (Urine sed) RARE Normal NONE SEEN /RARE [facility] Comment on above: Performed By: #### C VDTBH #### [facility] [address] [place] [address] Dr. Avni Aguillon Glucose Ql (U) 250 mg/dl Abnormal NEGATIVE [facility] Comment on above: Performed By: #### C VDTBH #### [facility] [address] [place] [address] Dr. Avni Aguillon Hemoglobin Ql (U) Negative Normal NEGATIVE [facility] Comment on above: Performed By: #### C VDTBH #### [facility] [address] [place] [address] Dr. Avni Aguillon Ketones Ql (U) 15 mg/dl Abnormal NEGATIVE [facility] Comment on above: Performed By: #### C VDTBH #### [facility] [address] [place] [address] Dr. Avni Aguillon LEUKOCYTES Negative Normal NEGATIVE [facility] Comment on above: Performed By: #### C VDTBH #### [facility] [address] [place] [address] Dr. Avni Aguillon MUCOUS NONE SEEN Normal NONE SEEN [facility] Comment on above: Performed By: #### C VDTBH #### [facility] [address] [place] [address] Dr. Avni Aguillon Nitrite Ql (U) Negative Normal NEGATIVE [facility] Comment on above: Performed By: #### C VDTBH #### [facility] [address] [place] [address] Dr. Avni Aguillon pH (U) 6.5 [pH] Normal 5-9 [facility] Comment on above: Performed By: #### C VDTBH #### [facility] [address] [place] [address] Dr. Avni Aguillon RBC 0-2 Normal 0-2 [facility] Comment on above: Performed By: #### C VDTBH #### [facility] [address] [place] [address] Dr. Avni Aguillon SPEC GRAVITY 1.020 Normal 1.005-<=1.02 5 [facility] Comment on above: Performed By: #### C VDTBH #### [facility] [address] [place] [address] Dr. Avni Aguillon UA PROTEIN Negative Normal NEGATIVE/ TRACE [facility] Comment on above: Performed By: #### C VDTBH #### [facility] [address] [place] [address] Dr. Avni Aguillon Urobilinogen Qn (U) 0.2 {Kesha'U}/dL Normal 0.2 - 1. 0 [facility] Comment on above: Performed By: #### C VDTBH #### [facility] [address] [place] [address] Dr. Avni Aguillon WBC 0-2 Abnormal NONE SEEN [facility] Comment on above: Performed By: #### C VDTBH #### [facility] [address] [place] [address] Dr. Avni Aguillon BNPon 12-29-2021 Natriuretic peptide B (Bld) [Mass/Vol] 434.0 pg/mL Normal <=1,800.0 [facility] Comment on above: Performed By: #### P OCGLUC #### [facility] [address] [place] [address] Dr. Avni Aguillon CBC AUTO DIFFon 12-29-2021 BASO # 0.1 103/ul Normal 0.0-0.1 [facility] Comment on above: Performed By: #### B LARRY CAR OPERATOR #### [facility] [address] [place] [address] Dr. Avni Aguillon Basophils/100 WBC (Bld) 1.0 % Normal 0.2-2.0 [facility] Comment on above: Performed By: #### B LARRY CAR OPERATOR #### [facility] [address] [place] [address] Dr. Avni Aguillon EO # 0.5 103/ul Normal 0.0-0.7 [facility] Comment on above: Performed By: #### B LARRY CAR OPERATOR #### [facility] [address] [place] [address] Dr. Avni Aguillon Eosinophils/100 WBC (Bld) 5.9 % Normal 0.9-7.0 [facility] Comment on above: Performed By: #### B LARRY CAR OPERATOR #### [facility] [address] [place] [address] Dr. Avni Aguillon Erythrocyte distribution width (RBC) [Ratio] 14.1 % Normal 11.0-15.0 [facility] Comment on above: Performed By: #### B LARRY CAR OPERATOR #### [facility] [address] [place] [address] Dr. Avni Aguillon Hematocrit (Bld) [Volume fraction] 37.5 % Critically low 42.0-54.0 [facility] Comment on above: Performed By: #### B LARRY CAR OPERATOR #### [facility] [address] [place] [address] Dr. Avni Aguillon Hemoglobin (Bld) [Mass/Vol] 12.5 g/dL Critically low 14.0-18.0 [facility] Comment on above: Performed By: #### B LARRY CAR OPERATOR #### [facility] [address] [place] [address] Dr. Avni Aguillon IG # 0.02 10e3/ul Normal 0.00-0.03 [facility] Comment on above: Performed By: #### B LARRY CAR OPERATOR #### [facility] [address] [place] [address] Dr. Avni Aguillon IG % 0.2 % Normal 0.0-0.5 [facility] Comment on above: Performed By: #### B LARRY CAR OPERATOR #### [facility] [address] [place] [address] Dr. Avni Aguillon LYMPH # 0.9 103/ul Critically low 1.2-3.8 [facility] Comment on above: Performed By: #### B LARRY CAR OPERATOR #### [facility] [address] [place] [address] Dr. Avni Aguillon Lymphocytes/100 WBC (Bld) 11.6 % Critically low 20.5-60.0 [facility] Comment on above: Performed By: #### B LARRY CAR OPERATOR #### [facility] [address] [place] [address] Dr. Avni Aguillon MANUAL DIFF REQ NO Normal [facility] Comment on above: Performed By: #### B LARRY CAR OPERATOR #### [facility] [address] [place] [address] Dr. Avni Aguillon MCH (RBC) [Entitic mass] 32.6 pg Normal 25.9-34.0 [facility] Comment on above: Performed By: #### B LARRY CAR OPERATOR #### [facility] [address] [place] [address] Dr. Avni Aguillon MCHC (RBC) [Mass/Vol] 33.3 g/dL Normal 29.9-35.2 [facility] Comment on above: Performed By: #### B LARRY CAR OPERATOR #### [facility] [address] [place] [address] Dr. Avni Aguillon MCV (RBC) [Entitic vol] 97.7 fL Critically high 80.0-94.0 [facility] Comment on above: Performed By: #### B LARRY CAR OPERATOR #### [facility] [address] [place] [address] Dr. Avni Aguillon MONO # 0.4 103/ul Normal 0.3-0.8 [facility] Comment on above: Performed By: #### B LARRY CAR OPERATOR #### [facility] [address] [place] [address] Dr. Avni Aguillon Monocytes/100 WBC (Bld) 5.2 % Normal 1.7-12.0 [facility] Comment on above: Performed By: #### B LARRY CAR OPERATOR #### [facility] [address] [place] [address] Dr. Avni Aguillon NEUT # 6.1 103/ul Normal 1.4-6.5 [facility] Comment on above: Performed By: #### B LARRY CAR OPERATOR #### [facility] [address] [place] [address] Dr. Avni Aguillon Neutrophils/100 WBC (Bld) 76.1 % Critically high 43.0-75.0 [facility] Comment on above: Performed By: #### B LARRY CAR OPERATOR #### [facility] [address] [place] [address] Dr. Avni Aguillon Platelet mean volume (Bld) [Entitic vol] 9.6 fL Normal 9.5-13.5 [facility] Comment on above: Performed By: #### B LARRY CAR OPERATOR #### [facility] [address] [place] [address] Dr. Avni Aguillon PLT 244 103/ul Normal 150-450 [facility] Comment on above: Performed By: #### B LARRY CAR OPERATOR #### [facility] [address], [place] [address] Dr. Avni Aguillon RBC 3.84 106/ul Critically low 4.70-6.10 [facility] Comment on above: Performed By: #### B LARRY CAR OPERATOR #### [facility] [address], [place] [address] Dr. Avni Aguillon WBC 8.1 103/ul Normal 4.0-11.0 [facility] Comment on above: Performed By: #### B LARRY CAR OPERATOR #### [facility] [address], [place] [address] Dr. Avni Aguillon CTA CHEST WO W CONon 022 CTA CHEST WO W CON EXAMINATION: CTA CHAYO ST WO W CON HISTORY: SHORTNESS OF BREATH , cough COMPARISON: 12/16/2021 TECHNIQUE: Axial, Coronal, and Sagittal images were created without and with IV contrast. Dose reduction techniques were achieved by using automated exposure control and/or adjustment of mA and/or kV according to patient size and/or use of iterative reconstruction technique. FINDINGS: LUNGS: Again demonstrated is a 3.1 x 1.2 cm area of soft tissue attenuation in the left upper lobe axial image 30 and 31, stable. Upper lobe bronchiectasis with mild peribronchial thickening, stable. Additional scattered patchy opacities with increase in interstitial lung markings posterior aspects of both upper lung zones, stable. No significant pulmonary nodule or mass is observed PLEURA: No mass, effusion, or pneumothorax. VASCULATURE: No filling defects demonstrated within the central pulmonary arterial tree JACLYN: Bilateral calcified hilar lymph nodes MEDIASTINUM: Calcified subcarinal lymph nodes CARDIAC: No enlargement or pericardial effusion. Heavy coronary atherosclerosis AORTA: No aneurysm or dissection. CHEST WALL: No mass or axillary adenopathy. BONES: No bone lesion or fracture. LIMITED ABDOMEN: Punctate liver and spleen calcifications, prior granulomatous process. Surgical clips from cholecystectomy OTHER: Negative. IMPRESSION: No central pulmonary thromboembolic disease Chronic interstitial changes Stable indeterminate 3 cm focal masslike density/infiltrate in the left upper lung zone Electronically authenticated by: NURIA WEBB Date: 2021-12-29 09:30 Normal [facility] Covid-19 PCR (CVDTBH)on 12-16 SARS-CoV-2 (COVID-19) RNA DANILO+probe Ql (Unsp spec) Detected Critically abnormal NOT DETECTED [facility] Comment on above: Result Comment: This test is not yet approved or cleared by the [place] FDA. When there are no FDA-approved or cleared tests available, and other criteria are met, FDA can make tests available under an emergency access mechanism called an Emergency Use Authorization (EUA). The EUA for this test is supported by the Seating [employer] Mobility Technologist of Health and Human Service's declaration that circumstances exist to justify the emergency use of in vitro diagnostics for the detection and/or diagnosis of the virus that causes COVID-19. This EUA will remain in effect for the duration of the COVID-19 declaration justifying emergency of IVDs, unless it is terminated or revoked by the FDA (after which the test may no longer be used). Performed By: #### C BC #### [facility] [address] [place] [address] Dr. Avni Aguillon PROF CHEM 8 (BAS METB)on Anion gap [Moles/Vol] 10.5 mmol/L Normal [facility] Comment on above: Performed By: #### P OCGLUC #### [facility] [address] [place] [address] Dr. Avni Aguillon Calcium [Mass/Vol] 8.1 mg/dL Critically low 8.5-10.1 [facility] Comment on above: Performed By: #### P OCGLUC #### [facility] [address] [place] [address] Dr. Avni Aguillon Chloride [Moles/Vol] 106 mmol/L Normal 98-107 [facility] Comment on above: Performed By: #### P OCGLUC #### [facility] [address] [place] [address] Dr. Avni Aguillon CO2 [Moles/Vol] 26.1 mmol/L Normal 21.0-32.0 [facility] Comment on above: Performed By: #### P OCGLUC #### [facility] [address] [place] [address] Dr. Avni Aguillon Creatinine [Mass/Vol] 0.95 mg/dL Normal 0.70-1.30 [facility] Comment on above: Performed By: #### P OCGLUC #### [facility] [address] [place] [address] [address] Avni Aguillon EGFR-AF LEBANESE >60 Normal >=60 [facility] Comment on above: Performed By: #### P OCGLUC #### [facility] [address] [place] [address] [address] Avni Aguillon EGFR-NON AF LEBANESE >60 Normal >=60 [facility] Comment on above: Performed By: #### P OCGLUC #### [facility] [address] [place] [address] [address] Avni Aguillon Glucose [Mass/Vol] 193 mg/dL Critically high 74-106 [facility] Comment on above: Performed By: #### P OCGLUC #### [facility] [address] [place] [address] [address] Avni Aguillon Potassium [Moles/Vol] 3.6 mmol/L Normal 3.5-5.1 [facility] Comment on above: Performed By: #### P OCGLUC #### [facility] [address] [place] [address] [address] Avni Aguillon Sodium [Moles/Vol] 139 mmol/L Normal 136-145 [facility] Comment on above: Performed By: #### P OCGLUC #### [facility] [address] [place] [address] [address] Avni Aguillon Urea nitrogen [Mass/Vol] 12.0 mg/dL Normal 7.0-18.0 [facility] Comment on above: Performed By: #### P OCGLUC #### [facility] [address] [place] [address] [address] Avni Aguillon Urea nitrogen/Creatinine [Mass ratio] 12.6 mg/mg Normal [facility] Comment on above: Performed By: #### P OCGLUC #### [facility] [address] [place] [address] [address] Avni Aguillon TROPONIN, HIGH SENSITIVITYon 12-29-2021 HSTROP 38.0 pg/mL Normal 4.0-76.1 [facility] Comment on above: Result Comment: CUT- OFF POINTS HAVE BEEN ESTABLISHED BASED ON THE FOURTH UNIVERSAL DEFINITIONS OF MYOCARDIAL INFARCTION. THE UPPER REFERENCE LIMIT (URL) OF TROPONIN, DEFINED THE 99TH PERCENTILE OF cTnI DISTRIBUTION IN A REFERENCE POPULATION, HAS BEEN CONFIRMED THE DECISION THRESHOLD FOR [place] DIAGNOSIS. Performed By: #### P OCGLUC #### [facility] [address] [place] [address] Dr. Avni Aguillon XR CHEST 1 Von 12-29-2021 XR CHEST 1 V EXAM: Chest x-ray. HISTORY: . SHORTNESS OF BREATH . COMPARISON: None. TECHNIQUE: Single view of the chest FINDINGS: Heart and vascularity are unremarkable. Lungs are free of focal infiltrates. The previously noted prominent interstitial markings in the mid lung mulligan has improved. EKG leads overlie the chest. IMPRESSION: Interval improvement in the prominent interstitial markings in both midlung mulligan. No consolidation noted. Electronically authenticated by: NURIA CLINE Date: 2021-12-29 07:54 Normal [facility] BNPon 12-27-2021 Natriuretic peptide B (Bld) [Mass/Vol] 94.0 pg/mL Normal <=1,800.0 [facility] Comment on above: Performed By: #### S PUTCX #### [facility] [address] [place] [address] Dr. Avni Aguillon CBC AUTO DIFFon 12-27-2021 BASO # 0.1 103/ul Normal 0.0-0.1 [facility] Comment on above: Performed By: #### C BC #### [facility] [address] [place] [address] Dr. Avni Aguillon Basophils/100 WBC (Bld) 0.8 % Normal 0.2-2.0 [facility] Comment on above: Performed By: #### C BC #### [facility] [address] [place] [address] Dr. Avni Aguillon EO # 1.0 103/ul Critically high 0.0-0.7 [facility] Comment on above: Performed By: #### C BC #### [facility] [address] [place] [address] Dr. Avni Aguillon Eosinophils/100 WBC (Bld) 12.3 % Critically high 0.9-7.0 [facility] Comment on above: Performed By: #### C BC #### [facility] [address] [place] [address] Dr. Avni Aguillon Erythrocyte distribution width (RBC) [Ratio] 13.5 % Normal 11.0-15.0 [facility] Comment on above: Performed By: #### C BC #### [facility] [address] [place] [address] Dr. Avni Aguillon Hematocrit (Bld) [Volume fraction] 39.2 % Critically low 42.0-54.0 [facility] Comment on above: Performed By: #### C BC #### [facility] [address] [place] [address] Dr. Avni Aguillon Hemoglobin (Bld) [Mass/Vol] 13.1 g/dL Critically low 14.0-18.0 [facility] Comment on above: Performed By: #### C BC #### [facility] [address] [place] [address] Dr. Avni Aguillon IG # 0.03 10e3/ul Normal 0.00-0.03 [facility] Comment on above: Performed By: #### C BC #### [facility] [address] [place] [address] Dr. Avni Aguillon IG % 0.4 % Normal 0.0-0.5 [facility] Comment on above: Performed By: #### C BC #### [facility] [address] [place] [address] Dr. Avni Aguillon LYMPH # 1.2 103/ul Normal 1.2-3.8 [facility] Comment on above: Performed By: #### C BC #### [facility] [address] [place] [address] Dr. Avni Aguillon Lymphocytes/100 WBC (Bld) 15.7 % Critically low 20.5-60.0 [facility] Comment on above: Performed By: #### C BC #### [facility] [address] [place] [address] Dr. Avni Aguillon MANUAL DIFF REQ NO Normal [facility] Comment on above: Performed By: #### C BC #### [facility] [address] [place] [address] Dr. Avni Aguillon MCH (RBC) [Entitic mass] 32.7 pg Normal 25.9-34.0 [facility] Comment on above: Performed By: #### C BC #### [facility] [address] [place] [address] Dr. Avni Aguillon MCHC (RBC) [Mass/Vol] 33.4 g/dL Normal 29.9-35.2 [facility] Comment on above: Performed By: #### C BC #### [facility] [address] [place] [address] Dr. Avni Aguillon MCV (RBC) [Entitic vol] 97.8 fL Critically high 80.0-94.0 [facility] Comment on above: Performed By: #### C BC #### [facility] [address] [place] [address] Dr. Avni Aguillon MONO # 0.6 103/ul Normal 0.3-0.8 [facility] Comment on above: Performed By: #### C BC #### [facility] [address] [place] [address] Dr. Avni Aguillon Monocytes/100 WBC (Bld) 7.8 % Normal 1.7-12.0 [facility] Comment on above: Performed By: #### C BC #### [facility] [address] [place] [address] Dr. Avni Aguillon NEUT # 4.9 103/ul Normal 1.4-6.5 [facility] Comment on above: Performed By: #### C BC #### [facility] [address] [place] [address] Dr. Avni Aguillon Neutrophils/100 WBC (Bld) 63.0 % Normal 43.0-75.0 [facility] Comment on above: Performed By: #### C BC #### [facility] [address] [place] [address] Dr. Avni Aguillon Platelet mean volume (Bld) [Entitic vol] 9.5 fL Normal 9.5-13.5 [facility] Comment on above: Performed By: #### C BC #### [facility] [address] [place] [address] Dr. Avni Aguillon PLT 273 103/ul Normal 150-450 [facility] Comment on above: Performed By: #### C BC #### [facility] [address] [place] [address] [address] Avni Aguillon RBC 4.01 106/ul Critically low 4.70-6.10 [facility] Comment on above: Performed By: #### C BC #### [facility] [address] [place] [address] Dr. Avni Aguillon WBC 7.8 103/ul Normal 4.0-11.0 [facility] Comment on above: Performed By: #### C BC #### [facility] [address] [place] [address] Dr. Avni Aguillon D-DIMERon 12-27-2021 D-DIMER 1.03 mg/L FEU Critically high <=0.59 [facility] Comment on above: Performed By: #### P OCGLUC #### [facility] [address] [place] [address] Dr. Avni Aguillon D-DIMER COMMENTS SEE BELOW Normal [facility] Comment on above: Result Comment: Incr eases in D-Dimer concentration observed with thromboembolic events can be variable due to localization, size, and age of the thrombus. Therefore, a thromboembolic event cannot be diagnosed with certainty on the basis of the reference range. D-Dimers may also be elevated for a variety of disorders including: advanced age, , coronary disease, cancer, liver disease, infection, inflammation, hematoma, DIC, trauma, post-surgery, diabetes, thrombolytic or anticoagulant therapy, stress, and generalized hospitalization. Performed By: #### P OCGLUC #### [facility] [address] [place] [address] Dr. Avni Aguillon LACTATE/LACTIC ACIDon 2021 Lactate [Moles/Vol] 1.3 mmol/L Normal 0.4-1.9 [facility] Comment on above: Performed By: #### P OCGLUC #### [facility] [address] [place] [address] [address] Avni Aguillon PROF 14(COMP METB)on 022 Albumin [Mass/Vol] 3.4 g/dL Normal 3.4-5.0 [facility] Comment on above: Performed By: #### S PUTCX #### [facility] [address] [place] [address] [address] Avni Aguillon Albumin/Globulin [Mass ratio] 1.0 {ratio} Normal [facility] Comment on above: Performed By: #### S PUTCX #### [facility] [address] [place] [address] [address] Avni Aguillon ALP [Catalytic activity/Vol] 101 U/L Normal 46-116 [facility] Comment on above: Performed By: #### S PUTCX #### [facility] [address] [place] [address] Dr. Avni Aguillon ALT [Catalytic activity/Vol] 36 U/L Normal 16-63 [facility] Comment on above: Performed By: #### S PUTCX #### [facility] [address] [place] [address] [address] Avni Aguillon Anion gap [Moles/Vol] 10.1 mmol/L Normal [facility] Comment on above: Performed By: #### S PUTCX #### [facility] [address] [place] [address] [address] Avni Aguillon AST [Catalytic activity/Vol] 19 U/L Normal 15-37 [facility] Comment on above: Performed By: #### S PUTCX #### [facility] [address] [place] [address] [address] Avni Aguillon Bilirubin [Mass/Vol] 0.8 mg/dL Normal 0.2-1.0 [facility] Comment on above: Performed By: #### S PUTCX #### [facility] [address] [place] [address] [address] Avni Aguillon Calcium [Mass/Vol] 8.4 mg/dL Critically low 8.5-10.1 [facility] Comment on above: Performed By: #### S PUTCX #### [facility] [address] [place] [address] [address] Avni Aguillon Chloride [Moles/Vol] 106 mmol/L Normal 98-107 [facility] Comment on above: Performed By: #### S PUTCX #### [facility] [address] [place] [address] [address] Avni Aguillon CO2 [Moles/Vol] 27.3 mmol/L Normal 21.0-32.0 [facility] Comment on above: Performed By: #### S PUTCX #### [facility] [address] [place] [address] [address] Avni Aguillon Creatinine [Mass/Vol] 1.04 mg/dL Normal 0.70-1.30 [facility] Comment on above: Performed By: #### S PUTCX #### [facility] [address] [place] [address] [address] Avni Aguillon EGFR-AF LEBANESE >60 Normal >=60 [facility] Comment on above: Performed By: #### S PUTCX #### [facility] [address] [place] [address] [address] Avni Aguillon EGFR-NON AF LEBANESE >60 Normal >=60 [facility] Comment on above: Performed By: #### S PUTCX #### [facility] [address] [place] [address] [address] Avni Aguillon Globulin (S) [Mass/Vol] 3.4 g/dL Normal [facility] Comment on above: Performed By: #### S PUTCX #### [facility] [address] [place] [address] [address] Avni Aguillon Glucose [Mass/Vol] 175 mg/dL Critically high 74-106 [facility] [place] Comment on above: Performed By: #### S PUTCX #### [facility] [address] [place] [address] [address] Avni Aguillon Potassium [Moles/Vol] 3.4 mmol/L Critically low 3.5-5.1 [facility] Comment on above: Performed By: #### S PUTCX #### [facility] [address] [place] [address] Dr. Avni Aguillon Protein [Mass/Vol] 6.8 g/dL Normal 6.4-8.2 [facility] Comment on above: Performed By: #### S PUTCX #### [facility] [address] [place] [address] Dr. Avni Aguillon Sodium [Moles/Vol] 140 mmol/L Normal 136-145 [facility] Comment on above: Performed By: #### S PUTCX #### [facility] [address] [place] [address] Dr. Avni Aguillon Urea nitrogen [Mass/Vol] 15.0 mg/dL Normal 7.0-18.0 [facility] Comment on above: Performed By: #### S PUTCX #### [facility] [address] [place] [address] Dr. Avni Aguillon Urea nitrogen/Creatinine [Mass ratio] 14.4 mg/mg Normal [facility] Comment on above: Performed By: #### S PUTCX #### [facility] [address] [place] [address] Dr. Avni Aguillon RESPIRATORY PANEL PLUSon Adenovirus Not detected Normal NOT DETECTED [facility] Comment on above: Performed By: #### C BC #### [facility] [address] [place] [address] Dr. Avni Aguillon B. Parapertusis Not detected Normal NOT DETECTED [facility] Comment on above: Performed By: #### C BC #### [facility] [address] [place] [address] Dr. Avni Aguillon B. Pertussis Not detected Normal NOT DETECTED [facility] Comment on above: Performed By: #### C BC #### [facility] [address] [place] [address] Dr. Avni Aguillon Chlamydia Pneumoniae Not detected Normal NOT DETECTED [facility] Comment on above: Performed By: #### C BC #### [facility] [address] [place] [address] Dr. Avni Aguillon Coronavirus 229E Not detected Normal NOT DETECTED [facility] Comment on above: Performed By: #### C BC #### [facility] [address] [place] [address] Dr. Avni Aguillon Coronavirus HKU1 Not detected Normal NOT DETECTED [facility] Comment on above: Performed By: #### C BC #### [facility] [address] [place] [address] Dr. Avni Aguillon Coronavirus NL63 Not detected Normal NOT DETECTED [facility] Comment on above: Performed By: #### C BC #### [facility] [address] [place] [address] Dr. Avni Aguillon Coronavirus OC43 Not detected Normal NOT DETECTED [facility] Comment on above: Performed By: #### C BC #### [facility] [address] [place] [address] Dr. Avni Aguillon Influenza A H1 2009 Not detected Normal NOT DETECTED [facility] [place] Comment on above: Performed By: #### C BC #### [facility] [address] [place] [address] Dr. Avni Aguillon Influenza A H3 Not detected Normal NOT DETECTED [facility] Comment on above: Performed By: #### C BC #### [facility] [address] [place] [address] Dr. Avni Aguillon Influenza B Not detected Normal NOT DETECTED [facility] Comment on above: Performed By: #### C BC #### [facility] [address] [place] [address] Dr. Avni Aguillon Metapneumovirus Not detected Normal NOT DETECTED [facility] Comment on above: Performed By: #### C BC #### [facility] [address] [place] [address] Dr. Avni Aguillon Mycoplas. Pneumoniae Not detected Normal NOT DETECTED [facility] Comment on above: Performed By: #### C BC #### [facility] [address] [place] [address] Dr. Avni Aguillon Parainfluenza 1 Not detected Normal NOT DETECTED [facility] Comment on above: Performed By: #### C BC #### [facility] [address] [place] [address] Dr. Avni Aguillon Parainfluenza 2 Not detected Normal NOT DETECTED [facility] Comment on above: Performed By: #### C BC #### [facility] [address] [place] [address] Dr. Avni Aguillon Parainfluenza 3 Not detected Normal NOT DETECTED [facility] Comment on above: Performed By: #### C BC #### [facility] [address] [place] [address] Dr. Avni Aguillon Parainfluenza 4 Not detected Normal NOT DETECTED [facility] Comment on above: Performed By: #### C BC #### [facility] [address] [place] [address] Dr. Avni Aguillon Rhino/Enterovirus Not detected Normal NOT DETECTED [facility] Comment on above: Performed By: #### C BC #### [facility] [address] [place] [address] Dr. Avni Aguillon RP2 Header 1 RESPIRATORY PANEL: VIRUSES Normal [facility] Comment on above: Performed By: #### C BC #### [facility] [facility] [address] [place] [address] Dr. Avni Aguillon RP2 Header 2 RESPIRATORY PANEL: BACTERIA Normal [facility] Comment on above: Performed By: #### C BC #### [facility] [address] [place] [address] Dr. Avni Aguillon RSV Not detected Normal NOT DETECTED [facility] Comment on above: Performed By: #### C BC #### [facility] [address] [place] [address] Dr. Avni Aguillon SARS-CoV-2 (COVID-19) RNA DANILO+probe Ql (Unsp spec) Detected Critically abnormal NOT DETECTED [facility] Comment on above: Performed By: #### C BC #### [facility] [address] [place] [address] Dr. Avni Aguillon TROPONIN, HIGH SENSITIVITYon 12-27-2021 HSTROP 12.5 pg/mL Normal 4.0-76.1 [facility] Comment on above: Result Comment: CUT- OFF POINTS HAVE BEEN ESTABLISHED BASED ON THE FOURTH UNIVERSAL DEFINITIONS OF MYOCARDIAL INFARCTION. THE UPPER REFERENCE LIMIT (URL) OF TROPONIN, DEFINED THE 99TH PERCENTILE OF cTnI DISTRIBUTION IN A REFERENCE POPULATION, HAS BEEN CONFIRMED THE DECISION THRESHOLD FOR [place] DIAGNOSIS. Performed By: #### S PUTCX #### [facility] [address] [address] [address] Avni Aguillon XR CHEST 1 Von 12-27-2021 XR CHEST 1 V EXAM: XR CHEST 1 V HISTORY: SHORTNESS OF BREATH COMPARISON: CT chest 12/16/2021 TECHNIQUE: Single frontal view chest x-ray FINDINGS: Moderate left greater than right perihilar lung opacities with architectural distortion, slightly increased compared to prior exam no large pleural effusions, pneumothorax, or acute bony abnormality. Cardiac size is unremarkable. IMPRESSION: Moderate left greater than right perihilar lung opacities with architectural distortion. This finding is slightly increased compared to prior exam and could reflect sequela of progressive massive fibrosis/scar or other underlying lung infiltrates. Correlate clinically. Electronically authenticated by: LILIA HERNANDEZ Date: 2021-12-27 05:28 Normal [facility] BNPon 12-16-2021 Natriuretic peptide B (Bld) [Mass/Vol] 62.0 pg/mL Normal <=1,800.0 [facility] Comment on above: Performed By: #### C BC #### [facility] [address] [place] [address] Dr. Avni Aguillon CARDIAC NELL ADMITon 022 CK [Catalytic activity/Vol] 80 U/L Normal 39-308 [facility] Comment on above: Performed By: #### C BC #### [facility] [address] [address] [address] Avni Aguillon CK.MB [Mass/Vol] 2.95 ng/mL Normal <=3.60 [facility] Comment on above: Performed By: #### C BC #### [facility] [address] [place] [address] Dr. Avni Aguillon HSTROP 9.4 pg/mL Normal 4.0-76.1 [facility] Comment on above: Result Comment: CUT- OFF POINTS HAVE BEEN ESTABLISHED BASED ON THE FOURTH UNIVERSAL DEFINITIONS OF MYOCARDIAL INFARCTION. THE UPPER REFERENCE LIMIT (URL) OF TROPONIN, DEFINED THE 99TH PERCENTILE OF cTnI DISTRIBUTION IN A REFERENCE POPULATION, HAS BEEN CONFIRMED THE DECISION THRESHOLD FOR [place] DIAGNOSIS. Performed By: #### C BC #### [facility] [address] [address] [address] Avni Aguillon MORGAN 82 ng/mL Normal 16-96 [facility] Comment on above: Performed By: #### C BC #### [facility] [address] [address] [address] Avni Aguillon CBC AUTO DIFFon 12-16-2021 BASO # 0.1 103/ul Normal 0.0-0.1 [facility] Comment on above: Performed By: #### P OCGLUC #### [facility] [address] [place] [address] Dr. Avni Aguillon Basophils/100 WBC (Bld) 1.0 % Normal 0.2-2.0 [facility] Comment on above: Performed By: #### P OCGLUC #### [facility] [address] [place] [address] Dr. Avni Aguillon EO # 0.3 103/ul Normal 0.0-0.7 [facility] Comment on above: Performed By: #### P OCGLUC #### [facility] [address] [place] [address] Dr. Avni Aguillon Eosinophils/100 WBC (Bld) 3.5 % Normal 0.9-7.0 [facility] Comment on above: Performed By: #### P OCGLUC #### [facility] [address] [place] [address] Dr. Avni Aguillon Erythrocyte distribution width (RBC) [Ratio] 13.4 % Normal 11.0-15.0 [facility] Comment on above: Performed By: #### P OCGLUC #### [facility] [address] [place] [address] Dr. Avni Aguillon Hematocrit (Bld) [Volume fraction] 40.2 % Critically low 42.0-54.0 [facility] Comment on above: Performed By: #### P OCGLUC #### [facility] [address] [address] [address] Avni Aguillon Hemoglobin (Bld) [Mass/Vol] 13.4 g/dL Critically low 14.0-18.0 [facility] Comment on above: Performed By: #### P OCGLUC #### [facility] [address] [address] [address] Avni Aguillon IG # 0.02 10e3/ul Normal 0.00-0.03 [facility] Comment on above: Performed By: #### P OCGLUC #### [facility] [address] [address] [address] Avni Aguillon IG % 0.2 % Normal 0.0-0.5 [facility] Comment on above: Performed By: #### P OCGLUC #### [facility] [address] [place] [address] Dr. Avni Aguillon LYMPH # 1.0 103/ul Critically low 1.2-3.8 [facility] Comment on above: Performed By: #### P OCGLUC #### [facility] [address] [place] [address] Dr. Avni Aguillon Lymphocytes/100 WBC (Bld) 11.3 % Critically low 20.5-60.0 [facility] Comment on above: Performed By: #### P OCGLUC #### [facility] [address] [place] [address] Dr. Avni Aguillon MANUAL DIFF REQ NO Normal [facility] Comment on above: Performed By: #### P OCGLUC #### [facility] [address] [address] [address] Avni Aguillon MCH (RBC) [Entitic mass] 32.1 pg Normal 25.9-34.0 [facility] Comment on above: Performed By: #### P OCGLUC #### [facility] [address] [place] [address] Dr. Avni Aguillon MCHC (RBC) [Mass/Vol] 33.3 g/dL Normal 29.9-35.2 [facility] Comment on above: Performed By: #### P OCGLUC #### [facility] [address] [address] [address] Avni Aguillon MCV (RBC) [Entitic vol] 96.2 fL Critically high 80.0-94.0 [facility] Comment on above: Performed By: #### P OCGLUC #### [facility] [address] [address] [address] Avni Aguillon MONO # 0.7 103/ul Normal 0.3-0.8 [facility] Comment on above: Performed By: #### P OCGLUC #### [facility] [address] [place] [address] Dr. Avni Aguillon Monocytes/100 WBC (Bld) 7.9 % Normal 1.7-12.0 [facility] Comment on above: Performed By: #### P OCGLUC #### [facility] [address] [place] [address] Dr. Avni Aguillon NEUT # 6.4 103/ul Normal 1.4-6.5 [facility] Comment on above: Performed By: #### P OCGLUC #### [facility] [address] [place] [address] Dr. Avni Aguillon Neutrophils/100 WBC (Bld) 76.1 % Critically high 43.0-75.0 [facility] Comment on above: Performed By: #### P OCGLUC #### [facility] [address] [place] [address] Dr. Avni Aguillon Platelet mean volume (Bld) [Entitic vol] 9.9 fL Normal 9.5-13.5 [facility] Comment on above: Performed By: #### P OCGLUC #### [facility] [address] [place] [address] Dr. Avni Aguillon PLT 296 103/ul Normal 150-450 [facility] Comment on above: Performed By: #### P OCGLUC #### [facility] [address] [place] [address] Dr. Avni Aguillon RBC 4.18 106/ul Critically low 4.70-6.10 [facility] Comment on above: Performed By: #### P OCGLUC #### [facility] [address] [place], [place] [address] Dr. Avni Aguillon WBC 8.4 103/ul Normal 4.0-11.0 [facility] Comment on above: Performed By: #### P OCGLUC #### [facility] [address] [place], [place] [address] Dr. Avni Aguillon CTA CHEST WO W CONon 022 CTA CHEST WO W CON CTA CHEST WO W CON CLINICAL: Shortness of breath, cough and congestion. Covid positive. COMPARISON: 06/26/2021, 12/23/2020, 07/15/2020, 08/21/2018. TECHNIQUE: Thin section axial images were obtained from thoracic inlet to the diaphragms following the administration of intravenous contrast. CT angiographic reconstructions of the pulmonary arteries including multiple intensity projections in coronal and sagittal planes were performed. Dose reduction: mA and/or kV are were adjusted by automated exposure control software based upon patients height and weight. FINDINGS: Thoracic inlet and axillary structures are grossly intact. No mediastinal or hilar adenopathy by CT criteria. No pericardial effusion. Coronary artery calcifications are present. Heart size is normal. Pulmonary arterial tree is opacified and does not show filling defect to indicate pulmonary embolism. Limited upper abdominal images show no acute findings. Lung windows show a crescentic consolidative mass like opacity in the left upper lobe posteriorly at the suprahilar level measuring approximately 3 x 1.2 cm, not significantly changed dating back to 08/21/2018, with associated regional parenchymal stranding and surrounding interstitial prominence. Additional right perihilar interstitial thickening and peribronchial cuffing also remains stable. No new or enlarging pulmonary mass, effusion or pneumothorax. Hazy groundglass opacification in the peribronchovascular region in the right lower lobe is slightly improved compared to 06/26/2021. Central airways are grossly patent. Osseous structures appear intact. IMPRESSION: 1. No evidence of pulmonary embolism. 2. Stable 3.1 x 1.2 cm consolidative masslike airspace opacity left upper lobe with comparison dating back to 2018, indeterminate but likely post inflammatory sequela. 3. Stable peribronchial cuffing in the hilar regions with surrounding subtle interstitial infiltrates, also present dating back to 2019. Mild groundglass parenchymal opacity right lower lobe is improved compared to 06/26/2021, which may reflect sequela of prior infectious/inflammator y process in light of clinical history. No new consolidation or effusion. Electronically authenticated by: NURIA GUILLEN Date: 2021-12-16 11:04 Normal [facility] CULTURE BLOODon 12-16-2021 Microscopic examination of blood, culture Culture Observations: NO GROWTH AT 5 DAYS. Normal [facility] Comment on above: Performed By: #### C VDTBH #### [facility] [address] [place] [address] Dr. Avni Aguillon Microscopic examination of blood, culture Culture Observations: NO GROWTH AT 5 DAYS. Normal [facility] Comment on above: Performed By: #### B [id number] #### [facility] [address] [place] [address] Dr. Avni Aguillon Covid-19 PCR ([facility])on SARS-CoV-2 (COVID-19) RNA DANILO+probe Ql (Unsp spec) Detected Critically abnormal NOT DETECTED [facility] Comment on above: Result Comment: This test is not yet approved or cleared by the [place] FDA. When there are no FDA-approved or cleared tests available, and other criteria are met, FDA can make tests available under an emergency access mechanism called an Emergency Use Authorization (EUA). The EUA for this test is supported by the [place] of Health and Human Service's declaration that circumstances exist to justify the emergency use of in vitro diagnostics for the detection and/or diagnosis of the virus that causes COVID-19. This EUA will remain in effect for the duration of the COVID-19 declaration justifying emergency of IVDs, unless it is terminated or revoked by the FDA (after which the test may no longer be used). Performed By: #### C VDTBH #### [facility] [address] [place] [address] Dr. Avni Aguillon LACTATE/LACTIC ACIDon 2021 Lactate [Moles/Vol] 1.3 mmol/L Normal 0.4-1.9 [facility] Comment on above: Performed By: #### C BCMAN #### [facility] [address] [place], [place] [id number] Dr. Avni Aguillon PROF 14(COMP METB)on 022 Albumin [Mass/Vol] 3.5 g/dL Normal 3.4-5.0 [facility] Comment on above: Performed By: #### C GREG #### [facility] [address] [place] [address] Dr. Avni Aguillon Albumin/Globulin [Mass ratio] 1.0 {ratio} Normal [facility] Comment on above: Performed By: #### C GREG #### [facility] [address] [place] [address] Dr. Avni Aguillon ALP [Catalytic activity/Vol] 88 U/L Normal 46-116 [facility] Comment on above: Performed By: #### C GREG #### [facility] [address] [place] [address] Dr. Avni Aguillon ALT [Catalytic activity/Vol] 25 U/L Normal 16-63 [facility] Comment on above: Performed By: #### C GREG #### [facility] [address] [place] [address] Dr. Avni Aguillon Anion gap [Moles/Vol] 8.8 mmol/L Normal [facility] Comment on above: Performed By: #### C GREG #### [facility] [address] [place] [address] Dr. Avni Aguillon AST [Catalytic activity/Vol] 22 U/L Normal 15-37 [facility] Comment on above: Performed By: #### C GREG #### [facility] [address] [place] [address] Dr. Avni Aguillon Bilirubin [Mass/Vol] 0.8 mg/dL Normal 0.2-1.0 [facility] Comment on above: Performed By: #### C GREG #### [facility] [address] [place] [address] Dr. Avni Aguillon Calcium [Mass/Vol] 8.5 mg/dL Normal 8.5-10.1 [facility] Comment on above: Performed By: #### C GREG #### [facility] [address] [place] [address] Dr. Avni Aguillon Chloride [Moles/Vol] 101 mmol/L Normal 98-107 [facility] Comment on above: Performed By: #### C BCMAN #### [facility] [address] [address] [address] Avni Aguillon CO2 [Moles/Vol] 27.6 mmol/L Normal 21.0-32.0 [facility] Comment on above: Performed By: #### C BCMAN #### [facility] [address] [address] [address] Avni Aguillon Creatinine [Mass/Vol] 0.94 mg/dL Normal 0.70-1.30 [facility] Comment on above: Performed By: #### C BCRAUL #### [facility] [address] [place] [address] Dr. Avni Aguillon EGFR-AF LEBANESE >60 Normal >=60 [facility] Comment on above: Performed By: #### C BCRAUL #### [facility] [address] [address] [address] Avni Aguillon EGFR-NON AF LEBANESE >60 Normal >=60 [facility] Comment on above: Performed By: #### C BCMAN #### [facility] [address] [address] [address] Avni Aguillon Globulin (S) [Mass/Vol] 3.4 g/dL Normal [facility] Comment on above: Performed By: #### C BCMAN #### [facility] [address] [address] [address] Avni Aguillon Glucose [Mass/Vol] 133 mg/dL Critically high 74-106 [facility] [place] Comment on above: Performed By: #### C BCMAN #### [facility] [address] [address] [address] Avni Aguillon Potassium [Moles/Vol] 3.4 mmol/L Critically low 3.5-5.1 [facility] Comment on above: Performed By: #### C BCMAN #### [facility] [address] [address] [address] Avni Aguillon Protein [Mass/Vol] 6.9 g/dL Normal 6.4-8.2 [facility] Comment on above: Performed By: #### C AZMAN #### [facility] [address] [place] [address] Dr. Avni Aguillon Sodium [Moles/Vol] 134 mmol/L Critically low 136-145 [facility] Comment on above: Performed By: #### C AZMAN #### [facility] [address] [place] [address] Dr. Avni Aguillon Urea nitrogen [Mass/Vol] 18.0 mg/dL Normal 7.0-18.0 [facility] Comment on above: Performed By: #### C AZMAN #### [facility] [address] [place] [address] Dr. Avni Aguillon Urea nitrogen/Creatinine [Mass ratio] 19.1 mg/mg Normal [facility] Comment on above: Performed By: #### C GREG #### [facility] [address] [place] [address] Dr. Avni Aguillon PROTIMEon 12-16-2021 INR Coag (PPP) [Relative time] 1.01 {INR} Normal [facility] Comment on above: Performed By: #### C MARIZATBH #### [facility] [address] [place] [address] Dr. Avni Aguillon INR GUIDELINES SEE BELOW Normal [facility] Comment on above: Result Comment: SHELBIE RED INR: 2.0 - 3.0 CONDITIONS NOT LISTED BELOW 2.5 - 3.5 FOR PROSTHETIC HEART VALVE REPLACEMENT 2.5 - 3.5 RECURRENT THROMBOSIS Performed By: #### C MARIZATBH #### [facility] [address] [place] [address] Dr. Avni Aguillon PT Coag (PPP) [Time] 10.9 s Normal 9.0-11.6 [facility] Comment on above: Performed By: #### C VDTBH #### [facility] [address] [place] [address] Dr. Avni Aguillon PTTon 12-16-2021 aPTT Coag (Bld) [Time] 27.3 s Normal 22.3-36.2 [facility] Comment on above: Performed By: #### C VDTBH #### [facility] [address] [address] [address] Avni Aguillon XR CHEST 1 Von 12-16-2021 XR CHEST 1 V EXAM: XR CHEST 1 V INDICATION: SHORTNESS OF BREATH. COMPARISON: Chest radiograph 12/11/2021 and 03/06/2019. TECHNIQUE: Single frontal view of the chest FINDINGS: Normal sized heart. Bilateral hilar elevation with stable chronic reticular perihilar opacities bilaterally. No acute infiltrate process, pleural effusion, or pneumothorax. No acute osseous abnormality. IMPRESSION: Stable appearance of the chest. No acute process. Electronically authenticated by: CHANDA CHA Date: 2021-12-16 09:32 Normal [facility] BNPon 12-11-2021 Natriuretic peptide B (Bld) [Mass/Vol] 105.0 pg/mL Normal <=1,800.0 [facility] Comment on above: Performed By: #### B LARRY CAR OPERATOR #### [facility] [address] [place] [address] Dr. Avni Aguillon CARDIAC NELL ADMITon 022 CK [Catalytic activity/Vol] 132 U/L Normal 39-308 [facility] Comment on above: Performed By: #### P OCGLUC #### [facility] [address] [place] [address] Dr. Avni Aguillon CK.MB [Mass/Vol] 4.16 ng/mL Critically high <=3.60 [facility] Comment on above: Performed By: #### P OCGLUC #### [facility] [address] [address] [address] Avni Aguillon HSTROP 8.8 pg/mL Normal 4.0-76.1 [facility] Comment on above: Result Comment: CUT- OFF POINTS HAVE BEEN ESTABLISHED BASED ON THE FOURTH UNIVERSAL DEFINITIONS OF MYOCARDIAL INFARCTION. THE UPPER REFERENCE LIMIT (URL) OF TROPONIN, DEFINED THE 99TH PERCENTILE OF cTnI DISTRIBUTION IN A REFERENCE POPULATION, HAS BEEN CONFIRMED THE DECISION THRESHOLD FOR [place] DIAGNOSIS. Performed By: #### P OCGLUC #### [facility] [address] [place] [address] Dr. Avni Aguillon MORGAN 97 ng/mL Critically high 16-96 [facility] Comment on above: Performed By: #### P OCGLUC #### [facility] [address] [place] [address] Dr. Avni Aguillon CBC AUTO DIFFon 12-11-2021 BASO # 0.1 103/ul Normal 0.0-0.1 [facility] Comment on above: Performed By: #### B LARRY CAR OPERATOR #### [facility] [address] [place] [address] Dr. Avni Aguillon Basophils/100 WBC (Bld) 1.1 % Normal 0.2-2.0 [facility] Comment on above: Performed By: #### B LARRY CAR OPERATOR #### [facility] [address] [place] [address] Dr. Avni Aguillon EO # 0.3 103/ul Normal 0.0-0.7 [facility] Comment on above: Performed By: #### B LARRY CAR OPERATOR #### [facility] [address] [place] [address] Dr. Avni Aguillon Eosinophils/100 WBC (Bld) 4.1 % Normal 0.9-7.0 [facility] Comment on above: Performed By: #### B LARRY CAR OPERATOR #### [facility] [address] [place] [address] Dr. Avni Aguillon Erythrocyte distribution width (RBC) [Ratio] 13.7 % Normal 11.0-15.0 [facility] Comment on above: Performed By: #### B LARRY CAR OPERATOR #### [facility] [address] [place] [address] Dr. Avni Aguillon Hematocrit (Bld) [Volume fraction] 38.7 % Critically low 42.0-54.0 [facility] Comment on above: Performed By: #### B LARRY CAR OPERATOR #### [facility] [address] [place] [address] Dr. Avni Aguillon Hemoglobin (Bld) [Mass/Vol] 13.0 g/dL Critically low 14.0-18.0 [facility] Comment on above: Performed By: #### B LARRY CAR OPERATOR #### [facility] [address] [place] [address] Dr. Avni Aguillon IG # 0.02 10e3/ul Normal 0.00-0.03 [facility] Comment on above: Performed By: #### B LARRY CAR OPERATOR #### [facility] [address] [place] [address] Dr. Avni Aguillon IG % 0.3 % Normal 0.0-0.5 [facility] Comment on above: Performed By: #### B LARRY CAR OPERATOR #### [facility] [address] [address] [address] Avni Aguillon LYMPH # 1.0 103/ul Critically low 1.2-3.8 [facility] Comment on above: Performed By: #### B LARRY CAR OPERATOR #### [facility] [address] [place] [address] Dr. Avni Aguillon Lymphocytes/100 WBC (Bld) 16.9 % Critically low 20.5-60.0 [facility] Comment on above: Performed By: #### B LARRY CAR OPERATOR #### [facility] [address] [place] [address] Dr. Avni Aguillon MANUAL DIFF REQ NO Normal [facility] Comment on above: Performed By: #### B LARRY CAR OPERATOR #### [facility] [address] [place] [address] Dr. Avni Aguillon MCH (RBC) [Entitic mass] 32.6 pg Normal 25.9-34.0 [facility] Comment on above: Performed By: #### B LARRY CAR OPERATOR #### [facility] [address] [place] [address] Dr. Avni Aguillon MCHC (RBC) [Mass/Vol] 33.6 g/dL Normal 29.9-35.2 [facility] Comment on above: Performed By: #### B LARRY CAR OPERATOR #### [facility] [address] [place] [address] Dr. Avni Aguillon MCV (RBC) [Entitic vol] 97.0 fL Critically high 80.0-94.0 [facility] Comment on above: Performed By: #### B LARRY CAR OPERATOR #### [facility] [address] [place] [address] Dr. Avni Aguillon MONO # 0.6 103/ul Normal 0.3-0.8 [facility] Comment on above: Performed By: #### B LARRY CAR OPERATOR #### [facility] [address] [address] [address] Avni Aguillon Monocytes/100 WBC (Bld) 10.2 % Normal 1.7-12.0 [facility] Comment on above: Performed By: #### B LARRY CAR OPERATOR #### [facility] [address] [address] [address] Avni Aguillon NEUT # 4.2 103/ul Normal 1.4-6.5 [facility] Comment on above: Performed By: #### B LARRY CAR OPERATOR #### [facility] [address] [place] [address] Dr. Avni Aguillon Neutrophils/100 WBC (Bld) 67.4 % Normal 43.0-75.0 [facility] Comment on above: Performed By: #### B LARRY CAR OPERATOR #### [facility] [address] [place] [address] Dr. Avni Aguillon Platelet mean volume (Bld) [Entitic vol] 9.7 fL Normal 9.5-13.5 [facility] Comment on above: Performed By: #### B LARRY CAR OPERATOR #### [facility] [address] [place] [address] Dr. Avni Aguillon PLT 247 103/ul Normal 150-450 [facility] Comment on above: Performed By: #### B LARRY CAR OPERATOR #### [facility] [address] [place] [address] Dr. Avni Aguillon RBC 3.99 106/ul Critically low 4.70-6.10 [facility] Comment on above: Performed By: #### B LARRY CAR OPERATOR #### [facility] [address] [place] [address] Dr. Avni Aguillon WBC 6.2 103/ul Normal 4.0-11.0 [facility] Comment on above: Performed By: #### B LARRY CAR OPERATOR #### [facility] [address] [place] [address] Dr. Avni Aguillon Covid-19 PCR ([facility])on 11-17 SARS-CoV-2 (COVID-19) RNA DANILO+probe Ql (Unsp spec) Not detected Normal NOT DETECTED [facility] Comment on above: Result Comment: When diagnostic testing is negative, the possibility of a false negative should be considered in the context of a patient's recent exposures and the presence of clinical signs and symptoms consistent with SARS-CoV-2. This test is not yet approved or cleared by the [place] FDA. When there are no FDA-approved or cleared tests available, and other criteria are met, FDA can make tests available under an emergency access mechanism called an Emergency Use Authorization (EUA). The EUA for this test is supported by the Seating And Mobility Technologist of Health and Human Service's declaration that circumstances exist to justify the emergency use of in vitro diagnostics for the detection and/or diagnosis of the virus that causes COVID-19. This EUA will remain in effect for the duration of the COVID-19 declaration justifying emergency of IVDs, unless it is terminated or revoked by the FDA (after which the test may no longer be used). Performed By: #### U RCX #### [facility] [address] [place] [address] Dr. Avni Aguillon PROF 14(COMP METB)on 022 Albumin [Mass/Vol] 3.9 g/dL Normal 3.4-5.0 [facility] Comment on above: Performed By: #### P OCGLUC #### [facility] [address] [place] [address] Dr. Avni Aguillon Albumin/Globulin [Mass ratio] 1.1 {ratio} Normal [facility] Comment on above: Performed By: #### P OCGLUC #### [facility] [address] [place] [address] Dr. Avni Aguillon ALP [Catalytic activity/Vol] 98 U/L Normal 46-116 [facility] Comment on above: Performed By: #### P OCGLUC #### [facility] [address] [place] [address] Dr. Avni Aguillon ALT [Catalytic activity/Vol] 28 U/L Normal 16-63 [facility] Comment on above: Performed By: #### P OCGLUC #### [facility] [address] [place] [address] Dr. Avni Aguillon Anion gap [Moles/Vol] 8.0 mmol/L Normal [facility] Comment on above: Performed By: #### P OCGLUC #### [facility] [address] [address] [address] Avni Aguillon AST [Catalytic activity/Vol] 25 U/L Normal 15-37 [facility] Comment on above: Performed By: #### P OCGLUC #### [facility] [address] [address] [address] Avni Aguillon Bilirubin [Mass/Vol] 1.1 mg/dL Critically high 0.2-1.0 [facility] Comment on above: Performed By: #### P OCGLUC #### [facility] [address] [address] [address] Avni Aguillon Calcium [Mass/Vol] 9.0 mg/dL Normal 8.5-10.1 [facility] Comment on above: Performed By: #### P OCGLUC #### [facility] [address] [address] [address] Avni Aguillon Chloride [Moles/Vol] 104 mmol/L Normal 98-107 [facility] Comment on above: Performed By: #### P OCGLUC #### [facility] [address] [address] [address] Avni Aguillon CO2 [Moles/Vol] 29.8 mmol/L Normal 21.0-32.0 [facility] Comment on above: Performed By: #### P OCGLUC #### [facility] [address] [address] [address] Avni Aguillon Creatinine [Mass/Vol] 1.00 mg/dL Normal 0.70-1.30 [facility] Comment on above: Performed By: #### P OCGLUC #### [facility] [address] [place] [address] Dr. Avni Aguillon EGFR-AF LEBANESE >60 Normal >=60 [facility] Comment on above: Performed By: #### P OCGLUC #### [facility] [address] [address] [address] Avni Aguillon EGFR-NON AF LEBANESE >60 Normal >=60 [facility] Comment on above: Performed By: #### P OCGLUC #### [facility] [address] [address] [address] Avni Aguillon Globulin (S) [Mass/Vol] 3.6 g/dL Normal [facility] Comment on above: Performed By: #### P OCGLUC #### [facility] [address] [address] [address] Avni Aguillon Glucose [Mass/Vol] 151 mg/dL Critically high 74-106 [facility] Comment on above: Performed By: #### P OCGLUC #### [facility] [address] [address] [address] Avni Aguillon Potassium [Moles/Vol] 3.8 mmol/L Normal 3.5-5.1 [facility] Comment on above: Performed By: #### P OCGLUC #### [facility] [address] [address] [address] Avni Aguillon Protein [Mass/Vol] 7.5 g/dL Normal 6.4-8.2 [facility] Comment on above: Performed By: #### P OCGLUC #### [facility] [address] [address] [address] Avni Aguillon Sodium [Moles/Vol] 138 mmol/L Normal 136-145 [facility] Comment on above: Performed By: #### P OCGLUC #### [facility] [address] [address] [address] Avni Aguillon Urea nitrogen [Mass/Vol] 15.0 mg/dL Normal 7.0-18.0 [facility] Comment on above: Performed By: #### P OCGLUC #### [facility] [address] [address] [address] Avni Aguillon Urea nitrogen/Creatinine [Mass ratio] 15.0 mg/mg Normal [facility] Comment on above: Performed By: #### P OCGLUC #### [facility] [address] [address] [address] Avni Aguillon XR CHEST 1 Von 12-11-2021 XR CHEST 1 V EXAMINATION: XR CHES T 1 V HISTORY: SHORTNESS OF BREATH , cough, nausea COMPARISON: No relevant comparison available. FINDINGS: LUNGS: Mild strandy opacities within the lateral right midlung and within the left mid and upper lung. VASCULATURE: No increased pulmonary vasculature. PLEURA: No pneumothorax, effusion, or pleural thickening. CARDIAC: No cardiomegaly or cardiac silhouette abnormality. MEDIASTINUM: No visible mass or adenopathy. BONES: No fracture or visible bone lesion. OTHER: Negative. IMPRESSION: 1. Mild multifocal infiltrates versus atelectasis. Mild pneumonia is favored. Electronically authenticated by: JOSE MATTHEWS Date: 2021-12-11 10:53 Normal [facility] Vital Signs Date Time Vital Sign Value Performing Clinician Faci lity 07-04-2023 09:43-0400 Body height 170.18 cm [facility] 07-04-2023 09:43-0400 Body mass index (BMI) [Ratio] 23.7 kg/m2 [facility] 07-04-2023 09:43-0400 Body weight 68.66 kg [facility] 07-04-2023 09:43-0400 Diastolic blood pressure 69 mm[Hg] [facility] 07-04-2023 09:43-0400 Heart rate 87 /min [facility] 07-04-2023 09:43-0400 Respiratory rate 12 /min [facility] 07-04-2023 09:43-0400 Systolic blood pressure 121 mm[Hg] [facility] 11-08-2022 08:30-0400 Body height 170.18 cm [facility] [employer] Other [facility] [employer] Other 11-08-2022 08:30-0400 Body mass index (BMI) [Ratio] 24.12 kg/m2 [facility] Other [facility] [employer] [facility] Other 11-08-2022 08:30-0400 Body weight 69.85 kg [facility] Other [facility] Other 11-08-2022 08:30-0400 Diastolic blood pressure 67 mm[Hg] [facility] Other [facility] Other 11-08-2022 08:30-0400 Respiratory rate 12 /min [facility] Other [facility] Other 11-08-2022 08:30-0400 Systolic blood pressure 126 mm[Hg] [facility] Other [facility] Other 07-24-2022 11:30-0400 Body height 170.18 cm [facility] Other [facility] Other 07-24-2022 11:30-0400 Body mass index (BMI) [Ratio] 24.74 kg/m2 [facility] Other [facility] Other 07-24-2022 11:30-0400 Body weight 71.67 kg [facility] Other [facility] Other 07-24-2022 11:30-0400 Diastolic blood pressure 74 mm[Hg] [facility] Other [facility] Other 07-24-2022 11:30-0400 Respiratory rate 20 /min [facility] Other [facility] Other 07-24-2022 11:30-0400 Systolic blood pressure 118 mm[Hg] [facility] Other [facility] Other 06-26-2022 10:30-0400 Body height 170.18 cm [facility] Other [facility] Other 06-26-2022 10:30-0400 Body mass index (BMI) [Ratio] 24.49 kg/m2 [facility] Other [facility] Other 06-26-2022 10:30-0400 Body weight 70.94 kg [facility] Other [facility] Other 06-26-2022 10:30-0400 Diastolic blood pressure 65 mm[Hg] [facility] Other [facility] Other 06-26-2022 10:30-0400 Respiratory rate 12 /min [facility] Other [facility] Other 06-26-2022 10:30-0400 SaO2% (BldA) [Mass fraction] 95 % [facility] Other [facility] Other 06-26-2022 10:30-0400 Systolic blood pressure 123 mm[Hg] [facility] Other [facility] Other 05-02-2022 14:30-0500 Body height 170.18 cm Imad Asaad Other [facility] Other 05-02-2022 14:30-0500 Body mass index (BMI) [Ratio] 24.27 kg/m2 Imad Asaad Other [facility] Other 05-02-2022 14:30-0500 Body weight 70.31 kg Imad Asaad Other [facility] Other 05-02-2022 14:30-0500 Diastolic blood pressure 84 mm[Hg] Imad Asaad Other [facility] Other 05-02-2022 14:30-0500 Systolic blood pressure 157 mm[Hg] Imad Asaad Other [facility] Other 04-26-2022 11:30-0500 Body height 170.18 cm [facility] Other [facility] Other 04-26-2022 11:30-0500 Body mass index (BMI) [Ratio] 23.99 kg/m2 [facility] Other [facility] Other 04-26-2022 11:30-0500 Body weight 69.49 kg [facility] Other [facility] Other 04-26-2022 11:30-0500 Diastolic blood pressure 52 mm[Hg] [facility] Other [facility] Other 04-26-2022 11:30-0500 Respiratory rate 12 /min [facility] Other [facility] Other 04-26-2022 11:30-0500 Systolic blood pressure 112 mm[Hg] [facility] Other [facility] Other 04-03-2022 15:30-0500 Body height 170.18 cm [facility] Other [facility] Other 04-03-2022 15:30-0500 Body mass index (BMI) [Ratio] 24.12 kg/m2 [employer] Other [facility] Other 04-03-2022 15:30-0500 Body weight 69.85 kg [facility] Other [facility] Other 04-03-2022 15:30-0500 Diastolic blood pressure 70 mm[Hg] [facility] Other [facility] Other 04-03-2022 15:30-0500 Respiratory rate 12 /min [facility] Other [facility] Other 04-03-2022 15:30-0500 SaO2% (BldA) [Mass fraction] 96 % [employer] Other [facility] Other 04-03-2022 15:30-0500 Systolic blood pressure 130 mm[Hg] [employer] Other [facility] Other 03-07-2022 13:21-0500 Body temperature 97.7 [degF] Yuri Welsh MD Work Phone: [employer] 03-07-2022 13:21-0500 Diastolic blood pressure 62 mm[Hg] Yuri Welsh MD Work Phone: [employer] 03-07-2022 13:21-0500 Heart rate 96 /min Yuri Welsh MD Work Phone: [employer] 03-07-2022 13:21-0500 Respiratory rate 26 /min Yuri Welsh MD Work Phone: [employer] 03-07-2022 13:21-0500 SaO2% (BldA) [Mass fraction] 95 % Yuri Welsh MD Work Phone: [employer] 03-07-2022 13:21-0500 Systolic blood pressure 113 mm[Hg] Yuri Welsh MD Work Phone: [employer] 03-07-2022 06:00-0500 Body weight 68.7 kg Yuri Welsh MD Work Phone: [employer] Encounters Encounter Date Encounter Type Care Provider Facility Start: 07-04-2023 End: 07-04-2023 ambulatory [facility] Work Phone: Start: 07-04-2023 End: 07-04-2023 Patient encounter procedure [facility] Work Phone: Start: 04-04-2023 End: 04-04-2023 ambulatory Mega [facility] Other [facility] Other Start: 04-04-2023 Telephone encounter [facility] Start: 01-29-2023 End: 01-29-2023 ambulatory Mega Travis Other [facility] Other Start: 01-29-2023 Telephone encounter Mega [facility] Start: 11-08-2022 End: 11-08-2022 ambulatory [facility] Other [facility] Other Start: 11-08-2022 Office outpatient visit 25 minutes Mega [facility] Start: 07-25-2022 End: 07-25-2022 ambulatory Emga Ball Other [facility] Other Start: 07-25-2022 Telephone encounter [facility] Start: 07-24-2022 End: 07-24-2022 ambulatory [facility] Other [facility] Other Start: 07-24-2022 Office outpatient visit 25 minutes Mega [facility] Start: 07-23-2022 End: 07-24-[address] MEGA TRAVIS Facility: Start: 07-05-2022 End: 07-05-2022 ambulatory Mega [facility] Other [facility] Other Start: 07-05-2022 Telephone encounter [facility] Start: 06-26-2022 End: 06-26-2022 ambulatory [facility] Other [facility] Other Start: 06-26-2022 Office outpatient visit 25 minutes Mega [facility] Start: 06-21-2022 End: 06-21-2022 ambulatory [facility] Other [facility] Other Start: 06-21-2022 Telephone encounter [facility] Start: 06-17-2022 End: 06-17-2022 ambulatory [facility] Other [facility] Other Start: 06-17-2022 Telephone encounter Mega Travis [facility] Start: 05-10-2022 End: 05-10-2022 ambulatory Mega Travis Facility:[facility] Start: 05-10-2022 Telephone encounter Mega G[facility] Start: 05-08-2022 End: 05-08-2022 ambulatory Mega Travis Other [facility] Other Start: 05-08-2022 Telephone encounter Mega [facility] Start: 05-02-2022 End: 05-02-2022 ambulatory Imad Asaad Other [facility] Other Start: 05-02-2022 Office consultation new/estab patient 60 min Imad Asaad [facility] Start: 04-26-2022 End: 04-26-2022 ambulatory Mega Travis Other [facility] Other Start: 04-26-2022 Office outpatient visit 25 minutes Mega Travis [facility] Start: 04-04-2022 End: 04-04-2022 ambulatory Mega Travis Other [facility] Other Start: 04-04-2022 Telephone encounter Mega [facility] Start: 04-03-2022 End: 04-03-2022 ambulatory Mega Travis Other [facility] Other Start: 04-03-2022 Transitional care manage srvc 7 day discharge Mega Travis [facility] Start: 04-02-2022 End: 04-02-2022 ambulatory Mega Travis Other [facility] Other Start: 04-02-2022 Telephone encounter Mega [facility] Start: 03-29-2022 End: 03-30-2022 Evaluation and management of inpatient MELVIN WEBERP . Facility: Start: 03-07-2022 End: 03-07-2022 Evaluation and management of inpatient RIC [facility] Start: 03-06-2022 End: 03-07-2022 Evaluation and management of inpatient Yuri Welsh MD Work Phone: [facility] Comment on above: Granulomatous lung d isease (HCC) (Primary Dx); Pulmonary nodule right bronchus intermedius; Bronchiectasis without complication (HCC) Start: 03-06-2022 End: 03-06-[address] DONA MAHER Facility:[facility] Start: 02-12-2022 End: 02-13-[address] MEGA TRAVIS Facility:[facility] Start: 01-15-2022 End: 01-16-2022 Evaluation and management of inpatient DR MEGA TRAVIS Facility:[facility] Start: 12-29-2021 End: 12-30-[address] MEGA TRAVIS Facility:[facility] Start: 12-27-2021 End: 12-27-[address] MEGA TRAVIS Facility:[facility] Start: 12-16-2021 End: 12-16-[address] MEGA TRAVIS Facility:[facility] Start: 12-11-2021 End: 12-11-[address] MEGA TRAVIS Facility:[facility] Start: 02-24-2016 End: 02-25-2016 Patient encounter DEFAULT PHYSICIAN Facility:[facility] Procedures Date Procedure Procedure Detail Performing Clinician Start: 03-29-2022 Assistance with Respiratory Ventilation, Less than 24 Consecutive Hours, Continuous Positive Airway Pressure MELVIN WALL . Start: 03-07-2022 Glucose blood reagen t strip Jamarcus Shrestha DO Work Phone: Start: 03-07-2022 Ct thorax w/o contra st material Analia Nasra Calfee INFORMATION SECURITY - DOCK COORDINATOR Work Phone: Start: 03-07-2022 Glucose blood reagen t strip Jamarcus Shrestha DO Work Phone: Start: 03-07-2022 Glucose blood reagen t strip Yuri Welsh MD Work Phone: Start: 03-07-2022 Radiologic exam ches t single view Enrique Omalley MD Start: 03-07-2022 Antibody screen Yuri eisenberg MD Work Phone: Start: 03-07-2022 Ecg routine ecg w/le ast 12 lds w/i&r Enrique Omalley MD Start: 03-07-2022 End: 03-07-2022 Blood count complete auto&auto difrntl wbc Enrique Omalley MD Start: 03-07-2022 Blood typing serologic abo Enrique Omalley MD Start: 03-07-2022 Speech and language therapy regime Rodrick Robles MD Work Phone: Start: 03-06-2022 End: 03-06-2022 Hemoglobin glycosylated a1c Enrique Omalley MD Plan of Treatment Date Care Activity Detail Author Start: 07-04-2023 Patient referral [facility] Work Phone: Start: 03-07-2022 End: 03-07-2022 Esophagogastroduodenoscopy transoral diagnostic EGD ESOPHAGOGASTRODUODENOSCOPY Esophageal stricture 03/07/2022 11:06 AM [facility] Start: 10-16-2021 Influenza vaccination Flu vaccine (#1) [facility] Start: 12-15-2007 Pneumococcal 65+ years Vaccine (1 - PCV) Pneumococcal 65+ years Vaccine (1 - PCV) [facility] Start: 1992 Shingles vaccine (1 of 2) Shingles vaccine (1 of 2) [facility] Start: 1961 DTaP/Tdap/Td vaccine (1 - Tdap) DTaP/Tdap/Td vaccine (1 - Tdap) [facility] Start: 1960 Hepatitis C screening Hepatitis C screen [facility] Start: 1954 Depression Screen Depression Screen [facility] Start: 1952 Lipid panel Lipids [facility] Start: 06-14-1943 COVID-19 Vaccine (#1) COVID-19 Vaccine (#1) [facility] End: 03-07-2022 Blood Bank Specimen Blood Bank Specimen Blood Ba nk Routine Once for 1 Occurrences starting 03/07/2022 until 03/07/2022 [facility] Work Phone: Comment on above: Once for 1 Occurrences starting 03/07/20 until 03/07/2022 BLOOD BANK SPECIMEN BLOOD BANK S PECIMEN Blood Bank Routine 03/07/2022 2:13 AM EST [employer] Phone: End: 03-06-2022 Blood Occult Stool Screen #1 Blood Occult Stool Screen #1 Lab Routine One Time for 1 Occurrences starting 03/06/2022 until 03/06/2022 [employer] Phone: Comment on above: One Time for 1 Occurrences starting 02/16 until 03/06/2022 CT CHEST WO CONTRAST CT CHEST WO CONTRAST Imaging Routine 03/07/2022 8:36 AM EST [employer] Phone: Glucose [Mass/volume ] in Serum or Plasma [employer] Phone: Comment on above: As Needed until discontinued starting Now Then Every 4hr u ntil discontinued starting 03/06/2022 End: 03-06-2022 Initiate RT Protocol Initiate RT Protocol Respiratory Care Routine Continuous until discontinued starting 03/06/2022 [employer] Phone: Comment on above: Continuous until discontinued starting 1 05/07/2021 Intermittent pulse oximetry Puls e Oximetry Spot Check Respiratory Care Routine As Needed until discontinued starting 03/06/2022 [employer] Phone: Comment on above: As Needed until discontinued starting Oxygen therapy [[facility] Data Set] Initiate Oxygen Therapy Protocol Respiratory Care Routine As Needed until discontinued starting 03/06/2022 [employer] Phone: Comment on above: As Needed until discontinued starting Patient referral [facility] Work Phone: Respiratory care shelton luation only Respiratory care evaluation only Respiratory Care Routine As Needed until discontinued starting 03/06/2022 [employer] Phone: Comment on above: As Needed until discontinued starting [facility] Immunizations Immunization Date Immunization Notes Care Provider Fa belle 11-08-2022 Prevnar 20 Mega Travis Other [facility] 02-07-2022 influenza virus vaccine, split virus (incl. purified surface antigen) Mega [facility] Other [facility] [employer] Other 02-07-2022 influenza virus vaccine, unspecified formulation [facility] 04-19-2020 COVID-19 Vaccine Pfi zer - Documentation Purposes Only Mega [facility] Other [facility] 12-28-2015 diphtheria, tetanus toxoids and acellular pertussis vaccine, unspecified formulation [facility] Other [facility] 12-22-2013 tetanus and diphther ia toxoids, adsorbed, preservative free, for adult use (5 Lf of tetanus toxoid and 2 Lf of diphtheria toxoid) [facility] Other [facility] 12-27-2012 tetanus and diphther ia toxoids, adsorbed, preservative free, for adult use (5 Lf of tetanus toxoid and 2 Lf of diphtheria toxoid) Mega [facility] Other [facility] 12-26-2012 tetanus and diphther ia toxoids, adsorbed, preservative free, for adult use (5 Lf of tetanus toxoid and 2 Lf of diphtheria toxoid) Mega [facility] Other [facility] Payers Date Payer Category Payer Self-pay 1957 Medicare [id number] 1959 Private Health Insurance AHL [id number] 1942 Unknown [id number] 2.16. [id number] 1942 Unknown [id number] 2.16.84 [id number] 1942 Unknown [id number] 2.16.84 [id number] 1942 Unknown [id number] 2.16.84 [id number] 1942 Unknown [id number] 2.16.84 [id number] 1942 Unknown [id number] 2.16.84 [id number] 1942 Unknown [id number] 2.16.84 [id number] 1942 Unknown [id number] 2.16.84 [id number] 1942 Unknown [id number] 2.16.84 [id number] 1942 Unknown [id number] 2.16.84 [id number] Unknown Unknown [id number] 2.16.8 [id number] Social History Date Type Detail Facility Start: 03-07-2022 End: 05-10-2022 Tobacco smoking status [facility] Ex-smoker [employer] Phone: End: 03-18-2011 History of tobacco use Current smoker [employer] Phone: End: 03-18-2011 History of tobacco use Cigarette Smoker [employer] Phone: Start: 1940 Sex Assigned At Not on file B ON [employer] Phone: Start: 02-24-2022 End: 03-07-2022 Exposure to SARS-CoV-2 (event) Not sure [employer] Phone: Sex Assigned At Sex Assigned At [facility] Other Start: 1940 Sex Assigned At Male F [facility] Medical Equipment Procedure Code Equipment Code Equipment Origin al Text Equipment Identifier Dates Start: 04-04-2023 Clinical Notes 05-03-2020 to 04-04-2023 Note Date & Type Note Facility 04-04-2023 Evaluation note Encounter Date Diagnosis Assessment Notes Mar, Controlled type 2 diabetes mellitus with hyperglycemia, without long-term current use of insulin (ICD-10 - E11.65) [facility] Other 08-24-2023 Evaluation note* Encounter Date Diagnosis Assessment Notes Treatment Notes Treatment Clinical Notes Oct, Controlled type 2 diabetes mellitus with hyperglycemia, without long-term current use of insulin (ICD-10 - E11.65) This patient is following a comprehensive diabetic treatment plan. They are checking their feet daily for calluses and nonhealing ulcers. They are being seen for yearly dilated eye examinations. Goals: SBP less than 130, LDL less than 100, FBS less than 140, AC and A1C less than 7%. They are checking their BS daily, will which are reviewed at the office visit. Continue regular routine monitoring of A1C,] Microalbumin, Dilated eye exam and Foot exam Oct, ASHD (arteriosclerotic heart disease) (ICD-10 - I25.10) This patient is stable without activity related CP, dyspnea or lightheadedness. They are instructed to continue exercise and AHA diet plan. Oct, Chronic bronchitis, mucopurulent (ICD-10 - J41.1) Instructed to use Duoneb bid for maintenance in clearing secretions but declines - instructed to restart use of inhalers for any change in cough or sputum production Oct, Obstructive sleep apnea (ICD-10 - G47.33) This patient is aware of the benefits associated with MARY: With continued use, the patient reduces the risk for KS, CVA, HTN, cardiac dysrhythmias and sudden cardiac deaths.The patient is also aware of the association between MARY and morning headaches, daytime somnolence, fatigue and obesity, which also has been improved with continued use.The patient is compliant with treatment, wearing the equipment every night for greater than 4 hours.The patient is instructed to continue use of the CPAP for MARY treatment. Oct, Primary hypertension (ICD-10 - I10) This patient is instructed to consume a healthy, low-fat, low-salt diet. They are also encouraged to continue exercise to achieve/maintain a normal BMI. Oct, Hyperlipidemia type II (ICD-10 - E78.01) Instructed on diet and exercise with continued statin therapy.Discussed the beneficial effects of lowering cholesterol in reducing the risk for cerebrovascular and cardiovascular disease. Oct, Gastro-esophageal reflux disease with esophagitis, without bleeding (ICD-10 - K21.00) Diet instructions: Smaller portions, avoid eating and laying flat, avoid eating or drinking prior to bedtime. Weight loss. He uses Pepcid as needed Oct, Bronchiectasis without complication (ICD-10 - J47.9) Oct, Alzheimer's disease with late onset (ICD-10 - G30.1) Remains functional, performs activities around the home w/o difficulty. Continues to drive, no hx of getting lost. Oct, Dementia in other diseases classified elsewhere, unspecified severity, without behavioral disturbance, psychotic disturbance, mood disturbance, and anxiety (ICD-10 - F02.80) No behavioral problems. Good appetite, sleeping well and follows directions w/o aggitation [facility] Other 05-10-2023 Evaluation note* Encounter Date Diagnosis Assessment Notes Treatment Notes Treatment Clinical Notes July, Controlled type 2 diabetes mellitus with hyperglycemia, without long-term current use of insulin (ICD-10 - E11.65) [facility] Other 05-09-2023 Evaluation note* Encounter Date Diagnosis Assessment Notes Treatment Notes Treatment Clinical Notes July, Controlled type 2 diabetes mellitus with hyperglycemia, without long-term current use of insulin (ICD-10 - E11.65) This patient is following a comprehensive diabetic treatment plan. They are checking their feet daily for calluses and nonhealing ulcers. They are being seen for yearly dilated eye examinations. Goals: SBP less than 130, LDL less than 100, FBS less than 140, AC and A1C less than 7%. They are checking their BS daily, will which are reviewed at the office visit. A1C: [ ] Microalbumin: [ ] Eye exam: [ ] Foot exam: [ ] Will adjust his DISLA - increase from 1.25 to 2.5 July, ASHD (arteriosclerotic heart disease) (ICD-10 - I25.10) This patient is stable without activity related CP, dyspnea or lightheadedness. They are instructed to continue exercise and AHA diet plan. July, Chronic bronchitis, mucopurulent (ICD-10 - J41.1) Required daily use of YAYA/JIMMIE to thin secretions and clear from airway/reduce cough. Discussed vaccine status, stressed importance on UTD vaccines for respiratory illnesses. July, Obstructive sleep apnea (ICD-10 - G47.33) This patient is aware of the benefits associated with MARY: With continued use, the patient reduces the risk for KS, CVA, HTN, cardiac dysrhythmias and sudden cardiac deaths.The patient is also aware of the association between MARY and morning headaches, daytime somnolence, fatigue and obesity, which also has been improved with continued use.The patient is compliant with treatment, wearing the equipment every night for greater than 4 hours.The patient is instructed to continue use of the CPAP for MARY treatment. July, Primary hypertension (ICD-10 - I10) This patient is instructed to consume a healthy, low-fat, low-salt diet. They are also encouraged to continue exercise to achieve/maintain a normal BMI. July, Hyperlipidemia type II (ICD-10 - E78.01) Instructed on diet and exercise with continued statin therapy.Discussed the beneficial effects of lowering cholesterol in reducing the risk for cerebrovascular and cardiovascular disease. July, Gastro-esophageal reflux disease with esophagitis, without bleeding (ICD-10 - K21.00) Diet instructions: Smaller portions, avoid eating and laying flat, avoid eating or drinking prior to bedtime. Weight loss. Continue PPI May require repeat esophageal dilatation July, Bronchiectasis without complication (ICD-10 - J47.9) Treatment w/ HHN as discussed under chronic bronchitis. Stressed importance of flutter to assist in pulmonary clearance of secretions Stressed importance of immunization against respiratory illness July, Alzheimer's disease with late onset (ICD-10 - G30.1) Remains functional and assists w ADL July, Dementia in other diseases classified elsewhere, unspecified severity, without behavioral disturbance, psychotic disturbance, mood disturbance, and anxiety (ICD-10 - F02.80) 09 May, 2023 Venous stasis dermatitis of both lower extremities (ICD-10 - I87.2) Avoid salt and elevate lower extremities, support stockings, inspect legs and feet daily for blisters and ulcerations. Switch to Steroid ointment and continued moisturizers July, Other Avoid salt and elevate lower extremities, support stockings, inspect legs and feet daily for blisters and ulcerations. [facility] Other 04-20-2023 Evaluation note* Encounter Date Diagnosis Assessment Notes Treatment Notes Treatment Clinical Notes Jun, Bronchiectasis without complication (ICD-10 - J47.9) [facility] Other 04-11-2023 Evaluation note* Encounter Date Diagnosis Assessment Notes Treatment Notes Treatment Clinical Notes Jun, Controlled type 2 diabetes mellitus with hyperglycemia, without long-term current use of insulin (ICD-10 - E11.65) This patient is following a comprehensive diabetic treatment plan. They are checking their feet daily for calluses and nonhealing ulcers. They are being seen for yearly dilated eye examinations. Goals: SBP less than 130, LDL less than 100, FBS less than 140, AC and A1C less than 7%. They are checking their BS daily, will which are reviewed at the office visit. A1C: Jun, ASHD (arteriosclerotic heart disease) (ICD-10 - I25.10) This patient is stable without activity related CP, dyspnea or lightheadedness. They are instructed to continue exercise and AHA diet plan. Jun, MARY (obstructive sleep apnea) (ICD-10 - G47.33) This patient is aware of the benefits associated with MARY: With continued use, the patient reduces the risk for KS, CVA, HTN, cardiac dysrhythmias and sudden cardiac deaths.The patient is also aware of the association between MARY and morning headaches, daytime somnolence, fatigue and obesity, which also has been improved with continued use.The patient is compliant with treatment, wearing the equipment every night for greater than 4 hours.The patient is instructed to continue use of the CPAP for MARY treatment. Jun, Bronchiectasis without complication (ICD-10 - J47.9) Continue HHN bid and increase to qid as needed. Continue flutter Keep active Schedule 6min walk and Nocturnal oxygen testing to see if requires continuous oxygen support Jun, Primary hypertension (ICD-10 - I10) This patient is instructed to consume a healthy, low-fat, low-salt diet. They are also encouraged to continue exercise to achieve/maintain a normal BMI. Jun, Lung nodule (ICD-10 - R91.1) Yearly LDCT w/ [facility], CT: spiculated b/l base, 4.4cm JESSICA nodule - 03/2019, PET/CT: negative - 04/2019, CT: 4.3cm JESSICA - 12/2020, CT: 4.3cm JESSICA - 12/[address] yearly Jun, Venous stasis dermatitis of both lower extremities (ICD-10 - I87.2) Moisturizers daily, elevate and topical steroids for itching Jun, History of tobacco abuse (ICD-10 - Z87.891) Jun, Other Diet instructio ns: Smaller portions, avoid eating and laying flat, avoid eating or drinking prior to bedtime. Weight loss. Pepcid prn Diet and exercise with continued statin therapy. assisting w/ ADL, remains functional and independent Avoid salt and elevate lower extremities, support stockings, inspect legs and feet daily for blisters and ulcerations. [facility] Other 04-06-2023 Evaluation note* Encounter Date Diagnosis Assessment Notes Treatment Notes Treatment Clinical Notes Jun, Lung nodule (ICD-10 - R91.1) Yearly LDCT w/ [facility], CT: spiculated b/l base, 4.4cm JESSICA nodule - 03/2019, PET/CT: negative - 04/2019, CT: 4.3cm JESSICA - 12/2020, CT: 4.3cm JESSICA - 12/2021 [facility] Other 04-06-2023 Evaluation note* Encounter Date Diagnosis Assessment Notes Treatment Notes Treatment Clinical Notes Jun, Lung nodule (ICD-10 - R91.1) Yearly LDCT w/ [facility] CT: spiculated b/l base, 4.4cm JESSICA nodule - 03/2019 PET/CT: negative - 04/2019 CT: 4.3cm JESSICA - 12/2020 CT: 4.3cm JESSICA - 12/[address]: negative - 04/2019 CT: 4.3cm JESSICA - 04/2020 CT: 4.3cm JESSICA - 04/2021 [facility] Other 04-02-2023 Evaluation note* Encounter Date Diagnosis Assessment Notes Treatment Notes Treatment Clinical Notes Jun, Lung nodule (ICD-10 - R91.1) Yearly LDCT w/ [facility] ([facility] j[facility]) [facility] Other 02-21-2023 Evaluation note* Encounter Date Diagnosis Assessment Notes Treatment Notes Treatment Clinical Notes Apr, Controlled type 2 diabetes mellitus with hyperglycemia, without long-term current use of insulin (ICD-10 - E11.65) [facility] Other 02-15-2023 Evaluation note* Encounter Date Diagnosis Assessment Notes Treatment Notes Treatment Clinical Notes Apr, GERD (gastroesophageal reflux disease) (ICD-10 - K21.9) Apr, Esophageal stricture (ICD-10 - K22.2) PATIENT HAD AN EGD DONE IN FEBRUARY AND WAS DIALATED IN [facility], THEY INSTRUCTED HIM TO HAVE ANOTHER EGD W/ DIL IN A FEW MONTHS TO HAVE IT STRETCHED FURTHER. PATIENT HAVING DYSPHAGIA WITH SOLID FOODS. PATIENT TO SIGN RELEASE FROM RECORDS FROM [facility]. PROCEED WITH EGD W/DIL- STOP PLAVIX FOR 5 DAYS. [facility] Other 02-09-2023 Evaluation note* Encounter Date Diagnosis Assessment Notes Treatment Notes Treatment Clinical Notes Apr, Controlled type 2 diabetes mellitus with hyperglycemia, without long-term current use of insulin (ICD-10 - E11.65) This patient is following a comprehensive diabetic treatment plan. They are checking their feet daily for calluses and nonhealing ulcers. They are being seen for yearly dilated eye examinations. Goals: SBP less than 130, LDL less than 100, FBS less than 140, AC and A1C less than 7%. They are checking their BS daily, will which are reviewed at the office visit. Apr, ASHD (arteriosclerotic heart disease) (ICD-10 - I25.10) This patient is stable without activity related CP, dyspnea or lightheadedness. They are instructed to continue exercise and AHA diet plan. Apr, Chronic bronchitis, mucopurulent (ICD-10 - J41.1) Mucinex as needed, push fluids. COntinue YAAY/JIMMIE HHN bid along w/ ICS. YAYA/JIMMIE as needed for cough. COntinue flutter as much as possible. Check oxygen saturations at night once using CPAP routinely Apr, MARY (obstructive sleep apnea) (ICD-10 - G47.33) This patient is aware of the benefits associated with MARY: With continued use, the patient reduces the risk for KS, CVA, HTN, cardiac dysrhythmias and sudden cardiac deaths.The patient is also aware of the association between MARY and morning headaches, daytime somnolence, fatigue and obesity, which also has been improved with continued use.The patient is compliant with treatment, wearing the equipment every night for greater than 4 hours.The patient is instructed to continue use of the CPAP for MARY treatment. Restart use, noncompliant while recovering from COVID, acute exacerbations of his bronchiectasis Apr, Primary hypertension (ICD-10 - I10) This patient is instructed to consume a healthy, low-fat, low-salt diet. They are also encouraged to continue exercise to achieve/maintain a normal BMI. Apr, Gastro-esophageal reflux disease with esophagitis, without bleeding (ICD-10 - K21.00) s/p dilatation of distal esophageal stricture. PPI daily before bkfst. Diet instructions Apr, Alzheimer's disease with late onset (ICD-10 - G30.1) Functional but requires assistance from spouse for ADL Apr, Chronic venous insufficiency (ICD-10 - I87.2) Avoid salt and elevate lower extremities, support stockings, inspect legs and feet daily for blisters and ulcerations. Apr, Hyperlipidemia type II (ICD-10 - E78.01) Diet and exercise with continued statin therapy. [facility] Other 01-17-2023 Evaluation note* Encounter Date Diagnosis Assessment Notes Treatment Notes Treatment Clinical Notes Mar, ASHD (arteriosclerot ic heart disease) (ICD-10 - I25.10) This patient is stable without activity related CP, dyspnea or lightheadedness. They are instructed to continue exercise and AHA diet plan. Mar, Bronchiectasis with acute exacerbation (ICD-10 - J47.1) HHN qid, PEP hourly, increase fluids and continue oxygen Mar, Hypoxemia (ICD-10 - R09.02) Desaturates w/ minimal activity, recommend continuous oxygen. Mar, Controlled type 2 diabetes mellitus with hyperglycemia, without long-term current use of insulin (ICD-10 - E11.65) This patient is following a comprehensive diabetic treatment plan. They are checking their feet daily for calluses and nonhealing ulcers. They are being seen for yearly dilated eye examinations. Goals: SBP less than 130, LDL less than 100, FBS less than 140, AC and A1C less than 7%. They are checking their BS daily, will which are reviewed at the office visit. Hyperglycemia worsened by persistent use of steroids for respiratory status. - recommend increasing DISLA to 2.5mg qd Mar, Primary hypertension (ICD-10 - I10) This patient is instructed to consume a healthy, low-fat, low-salt diet. They are also encouraged to continue exercise to achieve/maintain a normal BMI. Mar, MARY (obstructive sle ep apnea) (ICD-10 - G47.33) This patient is aware of the benefits associated with MARY: With continued use, the patient reduces the risk for KS, CVA, HTN, cardiac dysrhythmias and sudden cardiac deaths. The patient is also aware of the association between MARY and morning headaches, daytime somnolence, fatigue and obesity, which also has been improved with continued use. The patient is compliant with treatment, wearing the equipment every night for greater than 4 hours. The patient is instructed to continue use of the CPAP for MARY treatment. He had stopped several weeks ago due to increase phlegm. Instructed to retry as he would benefit greatly from use. Mar, Pure hypercholesterolemia, unspecified (ICD-10 - E78.00) Diet and exercise with continued statin therapy. Mar, Gastroesophageal reflux disease with esophagitis without hemorrhage (ICD-10 - K21.00) Diet instructions: Smaller portions, avoid eating and laying flat, avoid eating or drinking prior to bedtime. Weight loss. Continue PPI, instructed on proper use Mar, Anemia in chronic illness (ICD-10 - D63.8) No s/s bleeding, continue to monitor. Mar, Alzheimer's disease with late onset (ICD-10 - G30.1) assisting w/ ADL. Mar, Dementia in other diseases classified elsewhere, unspecified severity, without behavioral disturbance, psychotic disturbance, mood disturbance, and anxiety (ICD-10 - F02.80) [facility] Other 12-21-2022 History of Present illness Narrative* Cesar Mayberry RN - 03/07/2022 5:35 PM EST Pt discharged with proper paperwork, all questions answered, going home with and daughters, IVremoved, belongings with pt. Taken to lobby in wheelchair. * Rosetta Jacobs - 03/07/2022 4:36 PM EST CLINICAL PHARMACY NOTE: MEDS TO BEDS Total # of Prescriptions Filled: 2 The following medications were delivered to the patient: PROTONIX 40 AZITHROMYCIN 250 Additional Documentation: * BEATRIZ Pride - 03/07/2022 2:20 PM EST Speech Language Pathology [facility] Speech Language Pathology Date: 03/07/2022 Patient Name: Tammy Millard Date of : 1940 AGE: 81 y.o. Patient Not Available for Speech Therapy Due to: [] Testing [] Hemodialysis [] Cancelled by RN [] Surgery [] Intubation/Sedation/Pain Medication [] Medical instability [x] Other: Spoke with RN, pt. Eating and drinking without difficulty. No need for ST bedside swallow study at this time. Next scheduled treatment: re-consult if necessary Completed by: BEATRIZ PRIDE, M.A. [facility]-HOME STAGING SPECIALIST * Jamarcus Shrestha DO - 03/07/2022 1:15 PM EST Images from the original note were not included. [facility] Office: [phone] Miller Elder DO, Jamarcus Shrestha DO, Raymond Gaspar DO, Meir Whitmore DO, Juan Jose Nash MD, Laurel العراقي MD, Liz Walker MD, Carole Peterson MD, Ajit Erickson MD, Geo Arzola MD, Baljinder GomezDO, Kat Haq MD, Gustavo Morrow DO, Liliane Benitez MD, Jonas Malone MD, Tanner Elder DO, Jossie Schafer MD, Yuri Welsh MD, Jewel Fournier DO, Aminah Padgett MD, Zamzam Plummer MD, Christine Rodriguez MD, Fawn Elias MD, Anjel Milligan DO, Dayton Talley MD, Enrique Omalley MD, Fatimah Antonio, DOCK COORDINATOR, Ashia Hope, DOCK COORDINATOR, Irena Curtis, DOCK COORDINATOR, Ariel Ardon, DOCK COORDINATOR, Maranda Whalen, MARTI, Maru Roblero, DOCK COORDINATOR, Yolanda Alcantar, DOCK COORDINATOR, Ashlee Ordaz, DOCK COORDINATOR, Ivory Jain, DOCK COORDINATOR, Trista Little, DOCK COORDINATOR, POLO Rossi-Macey, Kena Cotto, DIRECTOR OF PARTNER MARKETING, Abby Cobian, DOCK COORDINATOR, Analia Rodríguez, DOCK COORDINATOR IN-PATIENT SERVICE [facility] Progress Note 03/07/2022 1:37 PM Name: Tammy Millard Acct: [id number] Room: [address] [place] [address]-[facility] Day: 1 Admit Date: 03/06/2022 10:33 PM PCP: Mega Travis DO Code Status: Full Code Subjective: C/C: Dysphagia Esophageal stricture Interval History Status: Postop EGD Feels good Doing okay with diet Hopes to go home Data Base Updates: WBC12.9 High k/uL RBC3.28 Low m/uL [id number] scan revealed: Perihilar predominant pleural-parenchymal abnormalities, including evidence of prior granulomatous disease, mild cylindrical/traction bronchiectasis, ground-glass/interstitial opacities, scattered mucus plugging, and bronchitis/bronchiolitis. Right bronchus intermedius mural based nodule, and some bronchial narrowing on the left/JESSICA confluent opacity. Differential includes prior infectious granulomatous diseases, granulomatous reactions to occupational exposures, atypical sarcoidosis, other infections, connective tissue diseases and vasculitides. Consider bronchoscopy. Brief History: As documented in the medical record: Tammy Millard is a 81 y.o. tor[place] with Hx of esophageal stricture s/p dilitation 6 years ago, chronic gerd with intermittent ppi compliance, nighly 02 dependence post covid infection lastyear, mary on cpap, cad on plavix, HLD who presents with progressive dysphagia over past few months.Reports feeling like food stuck in his chest. Intermittent coughing after eating. Recently noticed symptoms with liquid. Denies aspiration, Sob, pleuritic cp, angina symptoms, fever chills, diarrhea or constipation, Nausea or vomit, leg pain or swelling, pnd or orthopnea. Patient became concerned as wanted him checked out, he went to outside facility who performed a CT scan and did a bedsideeval and reported concern for stricture formation. Sent here for GI specialty services and further eval. The intitial assessment and plan included: #Dysphagia #Esophageal stricture -Patient reports having a nasopharyngeal laryngoscopy done at [facility] -Imaging/Diagnostics:? -Patient has plans for surgical intervention as per notes ,surgery unable to perform it at [facility] and being transferred. -Reports inability to swallow solids and liquids without pain. Started as Solids and now liquids intermittently. No neuro deficits. -Hx of esophageal stricture 6 years s/p dilatation which helped significantly -CT scan at [facility]: -Npo, hold IVF concern for over hydration as hes been on continuous fluids for 2 days. -currently hasnt taken his plavix or home meds in 2 days, will resume after egd -MGT as per gi, consider egd for dx and therapeutic vs barium study #GERD -chronic heart burn he reports, reduces to take ppi daily. Says he only takes it when he thinks he really needs it. -counseled on taking it as directed. While inpatient will administer Iv BID -as per GI #CAD -stable no chest pain, -On plavix at home , intermittent statin use -obtain ekg and tele monitoring -on plavix at home, no aspirin reported--has been off for 2 days given npo status -hgb, plt at baseline, euvolemic, resume plavix after GI eval #DM2 -on oral agent at home, overall controlled, denies neuropathy, has been NPO for 2 days. -sliding scale, glucose goal 140-180 while in patient -accuchecks, hypoglycemia protocol #Nocturnal o2 -denies any copd, asthma hx, reports covid infection last year and DC home with o2, weaned down tronocturnal 02. Intermittent use. Denies SOB, pleuritic cp. Reports prn albuterol and nocturnal 02 recs by his doc, they are hoping to wean off nocturnal o2 in near future -resume NC at night VTE ppx: on lovenox 40mg subQ The patient reports a chronic cough since COVID last year CT scam revealed: Perihilar predominant pleural-parenchymal abnormalities, including evidence of prior granulomatous disease, mild cylindrical/traction bronchiectasis, ground-glass/interstitial opacities, scattered mucus plugging, and bronchitis/bronchiolitis. Right bronchus intermedius mural based nodule, and some bronchial narrowing on the left/JESSICA confluent opacity. Differential includes prior infectious granulomatous diseases, granulomatous reactions to occupational exposures, atypical sarcoidosis, other infections, connective tissue diseases and vasculitides. Additional findings, as above. RECOMMENDATIONS: Consider bronchoscopy. GI was consulted EGD revealed: Findings: The GE junction was noted at 38 cm from the incisors. A partially obstructive Schatzki ring measuring approximately 12 to 13 mm in diameter was noted at the GE junction. A TTS -CRE balloon measuring 12 to 15 mm and then 15 to 18 mm were inserted. Sequential dilations were performed up to 16.5 mm. Post dilation inspection revealed a superficial mucosaltear at the Schatzki ring. A 3-4 cm hiatal hernia was noted without evidence of Issa lesions. Remainder of the stomach appeared normal on forward and retroflexed views. The examined duodenum appeared normal. Recommendations: Continue high-dose PPI such as pantoprazole or omeprazole 40 mg once daily for 8 weeks. Follow an antireflux lifestyle and GERD prevention diet. Assess response to today's dilation. If patient continues to have recurrence of symptoms, will needEGD with repeat dilation in about 3 to 4 weeks. Okay to discharge home from GI standpoint after tolerating soft diet. Okay to resume Plavix tomorrow. Patient to follow-up in GI clinic in 3-4 weeks. GI will sign off. Please call for any questions or concerns. The patient's condition was stabilized Discharge planning initiated Past Medical History: has no past medical history on file. Social History: reports that he quit smoking about 10 years ago. His smoking use included cigarettes. He does not have any smokeless tobacco history on file. Family History: No family history on file. Review of Systems: Review of Systems Constitutional: Positive for appetite change (Improved). HENT: Positive for trouble swallowing (Much improved). Negative for sore throat. Respiratory: Positive for cough (Persistent since COVID last year) and shortness of breath (Mild dyspnea on exertion). Cardiovascular: Negative for chest pain and palpitations. Gastrointestinal: Negative for abdominal pain, nausea and vomiting. Genitourinary: Negative for flank pain and hematuria. Physical Examination: Vitals BP (!) 88/47 Pulse 92 Temp 97.2 F (36.2 C) (Temporal) Resp 22 Wt 151 lb 7.3 oz (68.7 kg) SpO2 95% Temp (24hrs), Av.7 F (36.5 C), Min:96.8 F (36 C), Max:98.4 F (36.9 C) Recent Labs 03/06/22 2339 03/07/22 0430 03/07/22 0719 POCGLU 131* 131* 158* Physical Exam Vitals reviewed. Constitutional: General: He is not in acute distress. Appearance: He is not diaphoretic. HENT: Head: Normocephalic. Nose: Nose normal. Eyes: General: No scleral icterus. Conjunctiva/sclera: Conjunctivae normal. Neck: Trachea: No tracheal deviation. Cardiovascular: Rate and Rhythm: Normal rate and regular rhythm. Pulmonary: Effort: Pulmonary effort is normal. No respiratory distress. Breath sounds: Normal breath sounds. No wheezing or rales. Chest: Chest wall: No tenderness. Abdominal: General: There is no distension. Palpations: Abdomen is soft. Tenderness: There is no abdominal tenderness. Musculoskeletal: General: No tenderness. Cervical back: Neck supple. Skin: General: Skin is warm and dry. Medications: Allergies: No Known Allergies Current Meds: Scheduled Meds: [START ON 03/09/2022] simvastatin 10 mg Oral Every Other Day [START ON 03/09/2022] clopidogrel 75 mg Oral Every Other Day sodium chloride flush 5-40 mL IntraVENous 2 times per day enoxaparin 40 mg SubCUTAneous Daily insulin lispro 0-4 Units SubCUTAneous TID WC insulin lispro 0-4 Units SubCUTAneous Nightly pantoprazole (PROTONIX) 40 mg injection 40 mg IntraVENous Q12H Continuous Infusions: sodium chloride sodium chloride dextrose PRN Meds: sodium chloride flush, sodium chloride, potassium chloride OR potassium alternative oral replacement OR potassium chloride, magnesium sulfate, ondansetron OR ondansetron, acetaminophen OR acetaminophen, polyethylene glycol, glucose, dextrose bolus OR dextrose bolus, glucagon (rDNA), dextrose, albuterol Data: I/O (24Hr): Intake/Output Summary (Last 24 hours) at 03/07/2022 1337 Last data filed at 03/07/2022 1126 Gross per 24 hour Intake 300 ml Output -- Net 300 ml Labs: Hematology: Recent Labs 03/07/22 0213 WBC 12.9* RBC 3.28* HGB 10.8* HCT 32.5* MCV 99.1 MCH 32.9 MCHC 33.2 RDW 13.4 PLT 421 MPV 10.0 Chemistry: Recent Labs 03/06/22 2334 NA 141 K 4.1 CL 107 CO2 23 GLUCOSE 147* BUN 14 CREATININE 0.82 ANIONGAP 11 LABGLOM >60 CALCIUM 8.9 PHOS 1.8* Recent Labs 03/06/22 2334 03/06/22 2339 03/07/22 0430 03/07/22 0719 03/07/22 0800 PROT 6.3* -- -- -- -- LABALBU 3.5 -- -- -- -- LABA1C 8.3* -- -- -- -- TSH -- -- -- -- 1.16 AST 20 -- -- -- -- ALT 17 -- -- -- -- ALKPHOS 97 -- -- -- -- BILITOT 0.5 -- -- -- -- LIPASE 8* -- -- -- -- POCGLU -- 131* 131* 158* -- ABG:No results found for: POCPH, PHART, PH, POCPCO2, GKF3GPK, PCO2, POCPO2, PO2ART, PO2, POCHCO3, HMD7ZHY, HCO3, NBEA, PBEA, BEART, BE, THGBART, THB, ZWK2SUF, GDCM8RBK, Q7JYVSDB, O2SAT, FIO2 No results found for: SPECIAL No results found for: CULTURE Radiology: CT CHEST WO CONTRAST Result Date: 03/07/2022 Perihilar predominant pleural-parenchymal abnormalities, including evidence of prior granulomatous disease, mild cylindrical/traction bronchiectasis, ground- glass/interstitial opacities, scattered mucus plugging, and bronchitis/bronchiolitis. Right bronchus intermedius mural based nodule, and some bronchial narrowing on the left/JESSICA confluent opacity. Differential includes prior infectious granulomatous diseases, granulomatous reactions to occupational exposures, atypical sarcoidosis, other infections, connective tissue diseases and vasculitides. Additional findings, as above. RECOMMENDATIONS: Consider bronchoscopy. XR CHEST PORTABLE Result Date: 03/07/2022 Possible chronic interstitial lung disease. Follow-up noncontrast chest CT recommended for further evaluation preop. 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] 03/07/2022 Priority: Medium History of COVID-19 [Z86.16] 03/07/2022 Priority: Medium Anemia, normocytic normochromic [D64.9] 03/07/2022 Priority: Medium Controlled type 2 diabetes mellitus without complication, without long-term current use of insulin (HCC) [E11.9] 03/07/2022 Priority: Medium Coronary artery of [place] heart without angina pectoris [I25.10] 03/07/2022 Priority: Medium Esophageal stricture [K22.2] 03/06/2022 Priority: Medium Plan: Status post EGD and successful esophageal dilation Reflux precautions Protonix GI eval & f/u as scheduled Outpatient pulmonary consultation for abnormal CT Suggest outpatient bronchoscopy Trial of Zithromax DVT prophylaxis The patient's status and plan have been discussed with the patient and at the bedside They are anxious for discharge Will discharge when arrangements complete and ok with other services. Follow-up with PCP in one week, Mega Travis DO Notify PCP of discharge IP CONSULT TO HANK Shrestha DO 03/07/2022 1:37 PM * Cesar Mayberry RN - 03/07/2022 1:[address] Shrestha notified about pt BP. Will continue to monitor. * Dayami Cervantes RN - 03/07/2022 12:20 PM EST Patient transferred back to [facility] via bed. in waiting room. * Dayami Cervantes RN - 03/07/2022 12:12 PM EST Report called to Cesar RAMIREZ. * BEATRIZ Monson - 03/07/2022 8:30 AM EST Speech Language Pathology [facility] Speech Language Pathology Date: 03/07/2022 Patient Name: Tammy Millard Date of : 1940 AGE: 81 y.o. Patient Not Available for Speech Therapy Due to: [] Testing [] Hemodialysis [] Cancelled by RN [] Surgery [] Intubation/Sedation/Pain Medication [] Medical instability [x] Other: RN tanesha- ST ordered for swallowing. Pt NPO at this time for procedure Next scheduled treatment: 03/08/22 Completed by: BEATRIZ Monson, M.S. [facility]AG[facility] SPECIALIST [facility] [employer] Phone: 1(695) 351-226612-21-2022 NotePossible chronic interstitial lung disease. Follow-up noncontrast chest CT recommended for further evaluation preop. [facility] RIS [id number] NotePatient Outreach (COVAMN) CKTAMMY ([id number]) 1940 M Date Time Provider Department 05/03/20 BELTRAN MCCARTHY During your visit today, we recorded the following information about you: Allergies As of Date: 05/03/2020 (Not on File) Date Reviewed: Never Reviewed Order(s):SARS-COVID VACCINE 1ST DOSE APPT [[id number]] Order #: [id number] FUTURE Problem List As Of Date: 05/03/2020 (None) Letter Text Encounter Status:Closed by AppsperseR on 05/06/20[facility] Evaluation note* Diagnosis Esophageal stricture- Primary Stricture and stenosis of esophagus Granulomatous lung disease (HCC) Other diseases of lung, not elsewhere classified Pulmonary nodule right bronchus intermedius Solitary pulmonary nodule Bronchiectasis without complication (HCC) Bronchiectasis without acute exacerbation Bronchiectasis (HCC) Bronchiectasis without acute exacerbation Pulmonary nodule right bronchus intermedius Solitary pulmonary nodule Granulomatous lung disease (HCC) Other diseases of lung, not elsewhere classified History of COVID-19 Anemia, normocytic normochromic Anemia, unspecified Controlled type 2 diabetes mellitus without complication, without long-term current use of insulin (HCC) Coronary artery of [place] heart without angina pectoris documented in this encounter [facility] Work Phone: evaluation noteNo [employer] Other Evaluation note* Diagnosis Onset Date Resolution Status ASHD (arteriosclerotic heart disease) acute Bronchiectasis acute Cerebral atherosclerosis acu te Elevated cholesterol acute GERD (gastroesophageal reflux disease) acute Hypertension acute MCI (mild cognitive impairment) acute MARY (obstructive sleep apnea) acute Type 2 diabetes mellitus with hyperglycemia acute [facility] Work Phone: History general Narrative - Reported* Type Description Date Medical History Ground glass opacity present on imaging of lung Medical History Mild cognitive impairment Medical History Lung nodule Medical History Chronic obstructive pulmonary di sease Medical History Hyperlipidemia type II Medical History Chronic bronchitis, mucopurulent Medical History Benign prostatic hyp erplasia with lower urinary tract symptoms Medical History Epigastric abdominal pain Medical History Lumbosacral spondylosis with rad iculopathy Medical History Obstructive sleep apnea Medical History Chronic venous insufficiency Medical History ASHD (arteriosclerotic heart dis ease) Medical History Bronchiectasis without complicat ion Medical History Cerebral atherosclerosis Medical History Controlled type 2 di abetes mellitus with hyperglycemia, without long-term current use of insulin Medical History History of tobacco abuse Medical History Oral thrush Medical History Gastro-esophageal re flux disease with esophagitis, without bleeding Medical History H/O esophageal spasm Medical History Hypoxemia Surgical History EGD 03/07/2022 Surgical History LHC-PTCA/Athrectomy/Stent LAD 1 Surgical History Appendectomy 03/20/2022 Surgical History Cholecystectomy 03/20/2022 Surgical History EGD w/ dilatation 04/2022 Hospitalization History see surgical history Hospitalization History [facility] for esophageal dilation 01/2022 [place] [facility] Other Hospital Discharge instructionsAmbulatory Orders* Referral to Gastroenterology Location: None [facility] Work Phone: Summary Purpose Family History Relationship Condition Age at Onset Recorded Date/T jessenia family member Coronary artery disease Unknown father Unknown Advance Directives Latest Code Status on File Code Status Date Activated Date Inactivated Comments Full Code 03/06/2022 11:03 PM Advance Directive Response Recorded Date/ Time Advance Directives No August 10 9 12:31pm Reason for Referral Specialty Diagnoses / Procedures Referred By Contderek t Referred To Contact Pulmonology Diagnoses Granulomatous lung disease (HCC) Pulmonary nodule Bronchiectasis without complication (HCC) Jamarcsu Shrestha DO [address] [place] [address] Dawood Guerrier DO [address] [address] Referral ID Status Reason Start Date Expiration Date V isits Requested Visits Authorized [id number] Open Specialty Services Required 03/07/2022 03/07/2023 1 1 Scheduling Instructions [facility] - Dawood Guerrier DO [address] [facility] [address] [place] [address] Comments For more efficient patient care with the Realtime Court Reporter, consider ordering a chest X-ray and PFT if clinically appropriate. Chief Complaint and Reason for Visit Chief Complaint 4 month follow up Reason for Visit ASHD (arteriosclerot ic heart disease) Bronchiectasis Cerebral atherosclerosis Elevated cholesterol GERD (gastroesophageal reflux disease) Hypertension MCI (mild cognitive impairment) MARY (obstructive sleep apnea) Type 2 diabetes mellitus with hyperglycemia Additional Source Comments (unrecognized sect ion and content) No Status Records FoundNo Status Records FoundNo Status Records FoundNo Status Records FoundNo Status Records Found INFORMATION SOURCE (unrecogn ized section and content) DATE CREATED AUTHOR 10/03/2017 [facility] DATE CREATED AUTHOR AUTHOR'S ORGANIZ ATION 05/01/2021 [facility] DATE CREATED AUTHOR AUTHOR'S ORGANIZ ATION 03/10/2022 [facility] DATE CREATED AUTHOR AUTHOR'S ORGANIZ ATION 05/18/2022 [facility] DATE CREATED AUTHOR AUTHOR'S ORGANIZ ATION 07/27/2022 [facility] Ordered Prescriptions (unrec ognized section and content) Prescription Sig Dispensed Refills Start Date End Da te azithromycin (ZITHROMAX) 250 MG tabletIndications:Bron chiectasis without complication (HCC) Take 1 tablet by mouth See Admin Instructions for 5 days 500mg on day 1 followed by 250mg on days 2 - 5 6 tablet 0 03/07/2022 03/12/2022 pantoprazole (PROTONIX) 40 MG tablet Take 1 tablet by mouth every morning (before breakfast) 30 tablet 5 03/07/2022 Scheduled Active and Recently Administ ered Medications (unrecognized section and content) Medication Order 03/05/2022 03/06/2022 03/07/2022 clopidogrel (PLAVIX) tablet 75 mg 75 mg, Oral, EVERY OTHER DAY, First dose on Sat03/09/22 at 0900, Until Discontinued 0946 (MAR Hold - Provider: Mar Autohold - Reason: Unreviewed Transfer Orders)1250 (MAR Unhold - Provider: Maria Isabel Bradley RN) enoxaparin (LOVENOX) injection 40 mg 40 mg, SubCUTAneous, DAILY, First dose on Sat03/07/22 at 0900, Until Discontinued, Indication of Use: Prophylaxis-DVT/PE 08 (Given - Provid er: Cesar Mayberry RN)0946 (MAR Hold - Provider: Nannette Autohold - Reason: Unreviewed Transfer Orders)1250 ([facility] Unhold - Provider: Maria Isabel Bradley, JAMES) insulin lispro (HUMALOG) injection vial 0-4 Units 0-4 Units, SubCUTAneous, 3 TIMES DAILY WITH MEALS, First dose on Sat03/07/22 at 0800, Until Discontinued, Corrective Low Dose Algorithm Glucose: Dose: 70-199 No Insulin 200-249 1 Unit 250-299 2 Units 300-349 3 Units Over 349 4 Units and notify physician 0806 (Not Given - Provider: Cesar Mayberry RN - Reason: Order parameters not met)0946 ([facility] Hold - Provider: [facility] [employer] - Reason: Unreviewed Transfer Orders)1200 (Automatically Held - Provider: [facility] [employer])1250 (MAR Unhold - Provider: Maria Isabel Bradley RN)1700 (Due) insulin lispro (HUMALOG) injection vial 0-4 Units 0-4 Units, SubCUTAneous, NIGHTLY, First dose on Sat03/06/22 at 2330, Until Discontinued, If continuous tube feedings/TPN/NPO, give correction dose based on result, no reduction in dose. If eating or bolus tube feeding: Corrective Bedtime Algorithm Glucose: Dose: 70-299 No Insulin 300-349 4 Units Over 349 4 Units and notify physician 2340 (Not Given - Provider: Caridad Salvador RN - Reason: Order parameters not met) 0946 (MAR Hold - Provider: Nannette Autohold - Reason: Unreviewed Transfer Orders)1250 ([facility] Unhold - Provider: Maria Isabel Bradley RN)2100 (Due) pantoprazole (PROTONIX) 40 mg in sodium chloride (PF) 0.9 % 10 mL injection 40 mg, IntraVENous, EVERY 12 HOURS, First dose on Sat03/06/22 at 2330, Reconstitute with 10 mL 0.9 % sodium chloride and administer over at least 2 minutes. 2341 (Given - Provider: Caridad Salvador RN) 0946 (MAR Hold - Provider: Nannette Autohold - Reason: Unreviewed Transfer Orders)1130 (Automatically Held - Provider: Nannette Autohold)1250 ([facility] Unhold - Provider: Maria Isabel Bradley RN)2330 (Due) simvastatin (ZOCOR) tablet 10 mg Please Note: Simvastatin 80 mg is limited to patients that have been taking this dose for >12 consecutive months without evidence of myopathy and are not currently taking or beginning to take a simvastatin dose-limiting or contraindicated interacting medication., 10 mg, Oral, EVERY OTHER DAY, First dose on Sat03/09/22 at 0900, Until Discontinued, Please select a reason the therapeutic interchange was not accepted: Okay for Pharmacy to Substitute 0946 (MAY Hold - Provider: Nannette Autohold - Reason: Unreviewed Transfer Orders)1250 ([facility] Unhold - Provider: Maria Isabel Bradley RN) sodium chloride flush 0.9 % injection 5-40 mL 5-40 mL, IntraVENous, EVERY 12 HOURS SCHEDULED (2 times per day), First dose on Sat03/06/22 at 2330, Until Discontinued, For Line Patency: Peripheral IV = 5 mL; Midline or Central Line = 10 mL/lumen. If following IV push medication, administer flush at same rate as the IV push. Flush volume is determined by type of infusion therapy being given. For non-viscous solutions use: Peripheral IV = 5 mL Midline or Central Line = 10 mL/lumen For viscous solutions (i.e. blood components, parenteral nutrition, contrast media, or after obtaining blood sample) use: Peripheral IV = 10 mL Midline or Central Line = 20 mL/lumen 0053 (Not Given - Provider: Caridad Salvador RN - Reason: IV Fluid Infusing)0946 (MAR Hold - Provider: Nannette Autohold - Reason: Unreviewed Transfer Orders)1250 ([facility] Unhold - Provider: Maria Isabel Bradley RN)1301 (Given - Provider: Cesar Mayberry RN)2100 (Due) Continuous Medication Order 03/05/2022 03/06/2022 03/07/2022 0.9 % sodium chloride infusion (CANCELED) IntraVENous, at 75 mL/hr, CONTINUOUS, Starting on Sat03/07/22 at 0030 0051 (New Bag - Prov ider: Caridad Salvador RN)0115 (Stopped - Provider: Caridad Salvador RN)0121 (Held by provider - Provider: Enrique Omalley MD - Reason: Other)1050 (New Bag - Provider: Saira Sommers INFORMATION SECURITY - SENIOR CENTER DIRECTOR)1106 (NoRateChange - Provider: Saira Sommers APRN - SENIOR CENTER DIRECTOR)1126 (Anesthesia Volume Adjustment - Provider: Irena Saab APRN - SENIOR CENTER DIRECTOR)1250 (Unheld by provider - Provider: Rodrick Robles MD) 0.9 % sodium chloride infusion IntraVENous, at 75 mL/hr, CONTINUOUS, Starting on Sat03/07/22 at 1315 1352 (Not Given - Pr ovider: Maria Isabel Bradley RN - Reason: Other - Comment: discharge order placed) PRN Medication Order 03/05/2022 03/06/2022 03/07/2022 0.9 % sodium chloride infusion IntraVENous, at 5-250 mL/hr, PRN, if patient receiving piggyback infusions and maintenance fluids are not ordered OR KVO fluids to protect IV site / prevent frequent line interruptions/ long duration, Starting on Sat03/06/22 at 2303, For piggyback infusion, administer at same rate as piggyback for a total of 25 mL. Enter 25 mL into dose field and piggyback rate into rate field of order. If piggyback is infusing at a rate less than 100 mL/hr, enter 25 mL into dose field and 100 mL/hr into rate field of order. For KVO fluids, enter rate of 20 mL/hr or less into rate field of order. 0946 (MAY Hold - Pro vider: [facility] [employer] - Reason: Unreviewed Transfer Orders)1250 (MAY Unhold - Provider: Maria Isabel Bradley RN) acetaminophen (TYLENOL) suppository 650 mg(Linked Group 1) 650 mg, Rectal, EVERY 6 HOURS PRN, Starting on Sat03/06/22 at 2303, Until Discontinued, Pain Mild (1-3), Fever, For temp greater than 100.4 F (38 C), Administer if oral route cannot be used. 0946 (MAY Hold - Pro vider: [facility] [employer] - Reason: Unreviewed Transfer Orders)1250 ([facility] Unhold - Provider: Maria Isabel Bradley RN) acetaminophen (TYLENOL) tablet 650 mg(Linked Group 1) 650 mg, Oral, EVERY 6 HOURS PRN, Starting on Sat03/06/22 at 2303, Until Discontinued, Pain Mild (1-3), Fever, For temp greater than 100.4 F (38 C), Maximum dose of acetaminophen is 4000 mg from all sources in 24 hours. 0946 (MAY Hold - Pro vider: [facility] [employer] - Reason: Unreviewed Transfer Orders)1250 ([facility] Unhold - Provider: Maria Isabel Bradley, JAMES) albuterol (PROVENTIL) nebulizer solution 2.5 mg 2.5 mg, Nebulization, As Directed - RT (PRN), Starting on Sat03/06/22 at 2303, Until Discontinued, Wheezing, Initiate RT Bronchodilator Protocol: Yes - Inpatient Protocol 0156 (Given - Provid er: [facility])0946 ([facility] Hold - Provider: Nannette Autohold - Reason: Unreviewed Transfer Orders)1250 ([facility] Unhold - Provider: Maria Isabel Bradley RN) dextrose 10 % infusion IntraVENous, at 100 mL/hr, CONTINUOUS PRN, if blood glucose remains LESS THAN 70 mg/dL after 2 dextrose 10% intravenous boluses or administration of glucagon, Starting on Sat03/06/22 at 2303, If blood glucose fails to stabilize after 2 dextrose 10% intravenous boluses or glucagon administration, start dextrose 10% infusion at 100 mL/hour and repeat blood glucose at 30 and 60 minutes. If blood glucose is GREATER THAN 70 mg/dL after 60 minutes, discontinue dextrose 10% infusion. 0946 ([facility] Hold - Pro vider: [facility] [employer] - Reason: Unreviewed Transfer Orders)1250 ([facility] Unhold - Provider: Maria Isabel Bradley RN) dextrose bolus 10% 125 mL(Linked Group 2) 125 mL, IntraVENous, at 937.5 mL/hr, Administer over 8 Minutes, PRN, Other, Blood glucose 40 - 69 mg/dL and patient NOT ALERT or NPO, Starting on Sat03/06/22 at 2303, Repeat blood glucose in 15 minutes. If blood glucose remains LESS THAN 70 mg/dL, repeat treatment and recheck blood glucose in 15 minutes x 2. If using glycemic management system, dose as instructed per system. If blood glucose remains LESS THAN 70 mg/dL after 2 intravenous boluses start dextrose 10% at 100 mL/hour and notify provider. 0946 ([facility] Hold - Pro vider: [facility] [employer] - Reason: Unreviewed Transfer Orders)1250 ([facility] Unhold - Provider: Maria Isabel Bradley RN) dextrose bolus 10% 250 mL(Linked Group 2) 250 mL, IntraVENous, at 937.5 mL/hr, Administer over 16 Minutes, PRN, Other, Blood glucose LESS THAN 40 mg/dL and patient NOT ALERT or NPO, Starting on Sat03/06/22 at 2303, Repeat blood glucose in 15 minutes. If blood glucose remains LESS THAN 70 mg/dL, repeat treatment and recheck blood glucose in 15 minutes x 2. If using glycemic management system, dose as instructed per system. If blood glucose remains LESS THAN 70 mg/dL after 2 intravenous boluses start dextrose 10% at 100 mL/hour and notify provider. 0946 ([facility] Hold - Pro vider: [facility] [employer] - Reason: Unreviewed Transfer Orders)1250 ([facility] Unhold - Provider: Maria Isabel Bradley RN) glucagon (rDNA) injection 1 mg 1 mg, SubCUTAneous, PRN, Starting on Sat03/06/22 at 2303, Until Discontinued, Low blood sugar, Blood glucose LESS THAN 70 mg/dL and patient NOT ALERT or NPO and does not have IV access., After administration, attempt intravenous access and start dextrose 10% at 100 mL/hr. Repeat blood glucose in 15 minutes x 2 and notify provider. 0946 ([facility] Hold - Pro vider: [facility] [employer] - Reason: Unreviewed Transfer Orders)1250 ([facility] Unhold - Provider: Maria Isabel Bradley RN) glucose chewable tablet 16 g 16 g (4 tablet), Oral, PRN, Starting on Sat03/06/22 at 2303, Until Discontinued, Low blood sugar, If blood glucose is LESS THAN 70 mg/dL and patient is alert and tolerating oral. Give 4 tablets (16g) Repeat blood glucose in 15 minutes. If blood glucose is LESS THAN 70 mg/dL, repeat treatment and recheck blood glucose in 15 minutes x 2. If blood glucose remains LESS THAN 70 mg/dL, notify provider. 0946 ([facility] Hold - Pro vider: [facility] [employer] - Reason: Unreviewed Transfer Orders)1250 ([facility] Unhold - Provider: Maria Isabel Bradley RN) magnesium sulfate 1000 mg in dextrose 5% 100 mL IVPB 1,000 mg, IntraVENous, at 100 mL/hr, Administer over 1 Hours, PRN, Other, Per IV Magnesium Replacement Protocol, Starting on Sat03/06/22 at 2303, Mg Lab Replacement Action 1.4-1.6 1 gram IVPB x 2 doses (2 gram Total) 1.0-1.3 1 gram IVPB x 4 doses (4 gram Total) <1.0 CALL PHYSICIAN and 1 gram IVPB x 4 doses (4 gram Total) Infuse at 1 gram/hr. Repeat Mag level next AM. Protocol not for use in patients with CrCl less than 30 mL/min. 0946 ([facility] Hold - Pro vider: [facility] [employer] - Reason: Unreviewed Transfer Orders)1250 ([facility] Unhold - Provider: Maria Isabel Bradley RN) ondansetron (ZOFRAN) injection 4 mg(Linked Group 3) 4 mg, IntraVENous, EVERY 6 HOURS PRN, Starting on Sat03/06/22 at 2303, Until Discontinued, Nausea, Vomiting, Administer if oral route cannot be used. 0946 ([facility] Hold - Pro vider: [facility] [employer] - Reason: Unreviewed Transfer Orders)1250 ([facility] Unhold - Provider: Maria Isabel Bradley RN) ondansetron (ZOFRAN-ODT) disintegrating tablet 4 mg(Linked Group 3) 4 mg, Oral, EVERY 8 HOURS PRN, Starting on Sat03/06/22 at 2303, Until Discontinued, Nausea, Vomiting 0946 ([facility] Hold - Pro vider: [facility] [employer] - Reason: Unreviewed Transfer Orders)1250 ([facility] Unhold - Provider: Maria Isabel Bradley RN) polyethylene glycol (GLYCOLAX) packet 17 g 17 g, Oral, DAILY PRN, Starting on Sat03/06/22 at 2303, Until Discontinued, Constipation, First line therapy for constipation 0946 ([facility] Hold - Pro vider: [facility] [employer] - Reason: Unreviewed Transfer Orders)1250 ([facility] Unhold - Provider: Maria Isabel Bradley RN) potassium bicarb-citric acid (EFFER-K) effervescent tablet 40 mEq(Linked Group 4) 40 mEq, Oral, PRN, Starting on Sat03/06/22 at 2303, Until Discontinued, Per Potassium Replacement Protocol, Administer as alternative if patient unable to tolerate oral tablet. K Lab Replacement Action 3.1 to 3.5 40 mEq ORAL x 1 Under 3.1 Refer to IV replacement protocol Recheck K level in AM. Protocol not for use in patients with CrCl less than 30 mL/min. Do not chew or crush. Dissolve flavored tablets completely in 3 to 4 ounces of cold water; unflavored tablets may be dissolved in 3 to 4 ounces of cold juice. Patient to sip slowly over a 5 to 10 minute period. May further dilute if GI adverse effects occur. 0946 ([facility] Hold - Pro vider: [facility] [employer] - Reason: Unreviewed Transfer Orders)1250 ([facility] Unhold - Provider: Maria Isabel Bradley RN) potassium chloride (KLOR-CON M) extended release tablet 40 mEq(Linked Group 4) 40 mEq, Oral, PRN, Starting on Sat03/06/22 at 2303, Until Discontinued, Per Potassium Replacement Protocol, May give oral solution if patient unable to tolerate tablet K Lab Replacement Action 3.1-3.5 40 mEq ORAL x 1 2.7-3.0 Refer to IV replacement protocol <2.7 Refer to IV replacement protocol Recheck potassium level in AM. Protocol not for use in patients with CrCl less than 30 mL/min. 0946 ([facility] Hold - Pro vider: [facility] [employer] - Reason: Unreviewed Transfer Orders)1250 ([facility] Unhold - Provider: Maria Isabel Bradley RN) potassium chloride 10 mEq/100 mL IVPB (Peripheral Line)(Linked Group 4) For doses greater than 10 mEq, change frequency to every one hour for x number of doses., 10 mEq, IntraVENous, PRN, Starting on Sat03/06/22 at 2303, Until Discontinued, at 100 mL/hr, Per Potassium Replacement Protocol, K Lab Replacement Action 2.7-3.0 10 mEeq IVPB x 6 doses (60 mEq Total) <2.7 CALL PHYSICIAN and 10 mEq IVPB x 6 doses (60 mEq Total) Infuse at 10 mEq/hr. Repeat potassium lab 1 hour after final administration. Protocol not for use in patients with CrCl less than 30 mL/min. 0946 ([facility] Hold - Pro vider: [facility] [employer] - Reason: Unreviewed Transfer Orders)1250 ([facility] Unhold - Provider: Maria Isabel Bradley RN) sodium chloride flush 0.9 % injection 10 mL 10 mL, IntraVENous, PRN, Starting on Sat03/06/22 at 2303, Until Discontinued, Line Care, After every IV line use 0946 ([facility] Hold - Pro vider: [facility] [employer] - Reason: Unreviewed Transfer Orders)1250 ([facility] Unhold - Provider: Maria Isabel Bradley RN) Linked Groups Order Group 1: acetaminophen (TYLENOL) tablet 650 mgJump to med 650 mg, Oral, EVERY 6 HOURS PRN, Starting on Sat03/06/22 at 2303, Until Discontinued, Pain Mild (1-3), Fever, For temp greater than 100.4 F (38 C)
Maximum dose of acetaminophen is 4000 mg from all sources in 24 hours.
Or acetaminophen (TYLENOL) suppository 650 mgJump to med 650 mg, Rectal, EVERY 6 HOURS PRN, Starting on Sat03/06/22 at 2303, Until Discontinued, Pain Mild (1-3), Fever, For temp greater than 100.4 F (38 C)
Administer if oral route cannot be used.
Group 2: dextrose bolus 10% 125 mLJump to med 125 mL, IntraVENous, at 937.5 mL/hr, Administer over 8 Minutes, PRN, Other, Blood glucose 40 - 69 mg/dL and patient NOT ALERT or NPO, Starting on Sat03/06/22 at 2303
Repeat blood glucose in 15 minutes. If blood glucose remains LESS THAN 70 mg/dL, repeat treatment and recheck blood glucose in 15 minutes x 2. If using glycemic management system, dose as instructed per system. If blood glucose remains LESS THAN 70 mg/dL after 2 intravenous boluses start dextrose 10% at 100 mL/hour and notify provider.
Or dextrose bolus 10% 250 mLJump to med 250 mL, IntraVENous, at 937.5 mL/hr, Administer over 16 Minutes, PRN, Other, Blood glucose LESS THAN 40 mg/dL and patient NOT ALERT or NPO, Starting on Sat03/06/22 at 2303
Repeat blood glucose in 15 minutes. If blood glucose remains LESS THAN 70 mg/dL, repeat treatment and recheck blood glucose in 15 minutes x 2. If using glycemic management system, dose as instructed per system. If blood glucose remains LESS THAN 70 mg/dL after 2 intravenous boluses start dextrose 10% at 100 mL/hour and notify provider.
Group 3: ondansetron (ZOFRAN-ODT) disintegrating tablet 4 mgJump to med 4 mg, Oral, EVERY 8 HOURS PRN, Starting on Sat03/06/22 at 2303, Until Discontinued, Nausea, Vomiting Or ondansetron (ZOFRAN) injection 4 mgJump to med 4 mg, IntraVENous, EVERY 6 HOURS PRN, Starting on Sat03/06/22 at 2303, Until Discontinued, Nausea, Vomiting
Administer if oral route cannot be used.
Group 4: potassium chloride (KLOR-CON M) extended release tablet 40 mEqJump to med 40 mEq, Oral, PRN, Starting on Sat03/06/22 at 2303, Until Discontinued, Per Potassium Replacement Protocol
May give oral solution if patient unable to tolerate tablet K Lab Replacement Action 3.1-3.5 40 mEq ORAL x 1 &n bsp;& nbsp; 2.7-3.0 Refer to IV replacement protocol &nbs p;&nb sp; <2.7 Refer to IV replacement protocol &n bsp;& nbsp; Recheck potassium level in AM. Protocol not for use in patients with CrCl less than 30 mL/min.
Or potassium bicarb-citric acid (EFFER-K) effervescent tablet 40 mEqJump to med 40 mEq, Oral, PRN, Starting on Sat03/06/22 at 2303, Until Discontinued, Per Potassium Replacement Protocol
Administer as alternative if patient unable to tolerate oral tablet. K Lab Repla cemen t Action 3.1 to 3.5 40 mEq ORAL x 1 Under 3.1 Refer to IV replacement protocol Recheck K level in AM. Protocol not for use in patients with CrCl less than 30 mL/min. Do not chew or crush. Dissolve flavored tablets completely in 3 to 4 ounces of cold water; unflavored tablets may be dissolved in 3 to 4 ounces of cold juice. Patient to sip slowly over a 5 to 10 minute period. May further dilute if GI adverse effects occur.
Or potassium chloride 10 mEq/100 mL IVPB (Peripheral Line)Jump to med For doses greater than 10 mEq, change frequency to every one hour for x number of doses.
10 mEq, IntraVENous, PRN, Starting on Sat03/06/22 at 2303, Until Discontinued, at 100 mL/hr, Per Potassium Replacement Protocol
K Lab Replacement Action 2.7-3.0 10 mEeq IVPB x 6 doses &n bsp;& nbsp; (60 mEq Total) <2.7 CALL PHYSICIAN and &n bsp;& nbsp; 10 mEq IVPB x 6 doses &nbs p;&nb sp; (60 mEq Total) Infuse at 10 mEq/hr. Repeat potassium lab 1 hour after final administration. Protocol not for use in patients with CrCl less than 30 mL/min.
Care Teams (unrecognized sec tion and content) Biomedical Electronics Technician Relationship Specialty Start Date End Date Mega Travis DO [address] [place] [address] PCP - General Internal Medicine 03/07/22 Team Status: Active Member Role Status Dates Mega Travis DO Primary Care Provider Active Team Status: Inactive Member Role Status Dates Mega Travis DO Primary Care Provide r, Attending Provider Active Start: July 04, 2023 End: July 04, 2023 REASON FOR VISIT (unrecogniz ed section and content) 3 month Follow upoxygen rece rtificationRefillPATIENT HERE AT THE REQUEST OF DR. TRAVIS FOR GERDFOLLOW [id number] Goals (unrecognized section and content) Goals may be documented in a n alternate section FOR RECORDS PERTAINING TO PATIENTS WHO ARE OR HAVE BEEN ENROLLED IN A CHEMICAL DEPENDENCY/SUBSTANCEABUSE PROGRAM, SOME INFORMATION MAY BE OMITTED. This clinical summary was aggregated from multiple sources. Caution should be exercised in using it in the provision of clinical care. This summary normalizes information from multiple sources, and as a consequence, information in this document may materially change the coding, format and clinical context of patient data. In addition, data may be omitted in some cases. CLINICAL DECISIONS SHOULD BE BASED ON THE PRIMARY CLINICAL RECORDS. [facility] [employer] [facility]. provides no warranty or guarantee of the accuracy or completeness of information in this document.
[2023-07-06 10:47] LABS: Estimated Average Glucose 163 mg/dL; Glycohemoglobin A1C 7.3 % (4.5-6.2)
== END 2023-07-06 08:56 | disposition home or self-care (01) ==
PROVIDERS: PCP Internal Medicine; Visit Provider Internal Medicine
DX: E11.65 Type 2 diabetes mellitus with hyperglycemia (principal)
CPT/HCPCS: 36415; 83036

== ENCOUNTER 2023-08-13 09:35 | Outpatient (OUT) | payer MEDICARE, SELFPAY ==
--- NOTE | 2023-08-13 09:52 | CT_ITS ---
[address] [address] Patient Name: TAMMY STOVER MRN: [id number] date: 1940 Sex: M Assigned Patient Location: CT Current Patient Location: CT Accession/Order Number: [id number] Exam Date: 08/13/2023 09:45 Report Date: 08/13/2023 13:43 At the request of: VARSHA LAST Procedure: CT chest wo con EXAMINATION: CT chest wo con HISTORY: Solitary pulmonary nodule R911 COMPARISON: CT chest 03/07/2022, 03/05/2022 TECHNIQUE: Multi-planar CT images were obtained without and/or with IV contrast as indicated by examination type. Axial, Coronal, and Sagittal images. Dose reduction techniques were achieved by using automated exposure control and/or adjustment of mA and/or kV according to patient size and/or use of iterative reconstruction technique. FINDINGS: LUNGS: Mild/moderate emphysematous changes and bronchiectasis. Curvilinear stranding opacities within right upper lobe and left upper lobe extending from the hilum towards the lateral chest wall. Stable opacities/scarring within this region. PLEURA: No mass, effusion, or pneumothorax. VASCULATURE: No abnormality. JACLYN: Calcified lymph nodes compatible with chronic granulomatous disease. MEDIASTINUM: Calcified lymph nodes. CARDIAC: No enlargement, pericardial thickening, or significant calcification. Coronary artery calcifications: Marked. AORTA: No aneurysm or dissection. CHEST WALL: No mass or axillary adenopathy. BONES: No bone lesion or fracture. LIMITED ABDOMEN: No suspicious findings Limited images of the upper abdomen. OTHER: Negative. CT/CT chest wo con IMPRESSION: 1. Stable chronic left upper lobe opacity likely representing residual scarring. 2. Stable emphysematous and fibrotic changes. Electronically authenticated by: JOSE MATTHEWS Date: 08/13/2023 13:43
== END 2023-08-13 09:36 | disposition home or self-care (01) ==
LOC: CT 09:35
PROVIDERS: PCP Internal Medicine; Visit Provider Internal Medicine
DX: R91.1 Solitary pulmonary nodule (principal)
CPT/HCPCS: 71250

== ENCOUNTER 2024-03-16 09:41 | Outpatient (OUT) | payer MEDICARE, SELFPAY ==
[2024-03-16 10:18] LABS: Basophils Absolute Auto 0.1 10^3/uL (0.0-0.1); Basophils Percent Auto 1.9 % (0.2-2.0); Eosinophils Absolute Auto 0.4 10^3/uL (0.0-0.7); Eosinophils Percent Auto 6.1 % (0.9-7.0); Hematocrit 38.8 % (42.0-54.0); Hemoglobin 13.5 g/dL (14.0-18.0); Immature Granulocytes Abs Auto 0.01 10^3/uL (0.00-0.03); Immature Granulocytes Pct Auto 0.2 % (0.0-0.5); Lymphocytes Absolute Auto 1.1 10^3/uL (1.2-3.8); Lymphocytes Percent Auto 19.2 % (20.5-60.0); Mean Corpuscular HGB Conc 34.8 g/dL (29.9-35.2); Mean Corpuscular Hemoglobin 32.8 pg (25.9-34.0); Mean Corpuscular Volume 94.4 fL (80.0-94.0); Monocytes Absolute Auto 0.7 10^3/uL (0.3-0.8); Monocytes Percent Auto 11.8 % (1.7-12.0); Neutrophils Absolute Auto 3.5 10^3/uL (1.4-6.5); Neutrophils Percent Auto 60.8 % (43.0-75.0); Platelet Count 252 10^3/uL (150-450); Red Blood Count 4.11 10^6/uL (4.70-6.10); Red Cell Distribution Width 12.8 % (11.0-15.0); White Blood Count 5.7 10^3/uL (4.0-11.0)
[2024-03-16 10:28] LABS: Microalbum Creatinine Ratio Ur 33.7 mg/g (0.0-29.9); Microalbumin Urine Random 10.5 mg/dL (<=30.0)
[2024-03-16 10:51] LABS: Estimated Average Glucose 169 mg/dL; Glycohemoglobin A1C 7.5 % (4.5-6.2)
[2024-03-16 11:04] LABS: Alanine Aminotransferase 30 U/L (16-63); Albumin Globulin Ratio 1.1; Albumin Level 3.6 g/dL (3.4-5.0); Alkaline Phosphatase 109 U/L (46-116); Anion Gap 9.2; Aspartate Amino Transferase 26 U/L (15-37); BUN Creatinine Ratio 12.8; Calcium 9.3 mg/dL (8.5-10.1); Carbon Dioxide 30.3 mmol/L (21.0-32.0); Chloride 107 mmol/L (98-107); Chol HDL Ratio 4.1; Cholesterol 180 mg/dL (<=200); Estimated GFR (African America >60 (>=60 mL/min/1.73m^2); Estimated GFR (Non-African Ame 60 (>=60 mL/min/1.73m^2); Globulin 3.4 g/dL; Glucose 151 mg/dL (74-106); HDL Cholesterol 44 mg/dL (40-60); LDL Cholesterol Calculated 115.8 mg/dL; Potassium 4.5 mmol/L (3.5-5.1); Sodium 142 mmol/L (136-145); Triglycerides 101 mg/dL (<=150); VLDL CHOLESTEROL 20.2 mg/dL
[2024-03-16 11:20] LABS: Prostate Specific Antigen Scrn 0.78 ng/mL (<=4.00)
== END 2024-03-16 09:42 | disposition home or self-care (01) ==
LOC: LAB 09:43
PROVIDERS: PCP Internal Medicine; Visit Provider Internal Medicine
DX: E78.00 Pure hypercholesterolemia, unspecified (principal); E11.65 Type 2 diabetes mellitus with hyperglycemia; I25.10 Atherosclerotic heart disease of native coronary artery without angina pectoris; I10 Essential (primary) hypertension; Z12.5 Encounter for screening for malignant neoplasm of prostate
CPT/HCPCS: 36415; 80053; 80061; 82043; 82570; 83036; 85025; G0103

== ENCOUNTER 2024-07-07 08:55 | Outpatient (OUT) | payer MEDICARE, SELFPAY ==
[2024-07-07 09:28] LABS: Basophils Absolute Auto 0.1 10^3/uL (0.0-0.1); Basophils Percent Auto 1.3 % (0.2-2.0); Eosinophils Absolute Auto 0.4 10^3/uL (0.0-0.7); Eosinophils Percent Auto 7.4 % (0.9-7.0); Hemoglobin 12.7 g/dL (14.0-18.0); Immature Granulocytes Abs Auto 0.01 10^3/uL (0.00-0.03); Immature Granulocytes Pct Auto 0.2 % (0.0-0.5); Lymphocytes Percent Auto 18.8 % (20.5-60.0); Mean Corpuscular HGB Conc 34.3 g/dL (29.9-35.2); Mean Corpuscular Hemoglobin 32.2 pg (25.9-34.0); Mean Corpuscular Volume 93.9 fL (80.0-94.0); Mean Platelet Volume 9.4 fL (9.5-13.5); Monocytes Absolute Auto 0.7 10^3/uL (0.3-0.8); Monocytes Percent Auto 12.7 % (1.7-12.0); Neutrophils Absolute Auto 3.1 10^3/uL (1.4-6.5); Neutrophils Percent Auto 59.6 % (43.0-75.0); Platelet Count 252 10^3/uL (150-450); Red Blood Count 3.94 10^6/uL (4.70-6.10); Red Cell Distribution Width 13.2 % (11.0-15.0); White Blood Count 5.3 10^3/uL (4.0-11.0)
[2024-07-07 09:38] LABS: Estimated Average Glucose 192 mg/dL; Glycohemoglobin A1C 8.3 % (4.5-6.2)
== END 2024-07-07 08:56 | disposition home or self-care (01) ==
LOC: LAB 08:57
PROVIDERS: PCP Internal Medicine; Visit Provider Internal Medicine
DX: E11.65 Type 2 diabetes mellitus with hyperglycemia (principal); D64.9 Anemia, unspecified
CPT/HCPCS: 36415; 83036; 85025

== ENCOUNTER 2024-10-19 08:14 | Outpatient (OUT) | payer MEDICARE, SELFPAY ==
--- OUTSIDE RECORDS SUMMARY | 2024-10-19 08:32 | XMS_ITS | CCD ---
Author Organization [facility] Care Team Providers Care Wire Bound Box Machine Helper Name Role Phone PHYSICIAN, DEFAULT Unavailable Unavailable [...] Unavailable MAE ., MELVIN Procedure Practitioner Unavailab jamil TRAVIS, DR SAEED Primary Care Unavailable FLORENCE, DR ODILON Juarez Consulting Unavailabl e MAE ., MELVIN Attending Unavailable MAE ., MELVIN Admitting Unavailable FCO FRY Consulting Unavailable SAMSA ., VARSHA Consulting Unavailable HUMZA, KAMINI Consulting Unavailable SISTER, CARLITOS Consulting Unavailable MAE ., MELVIN Consulting Unavailable ANGY, DR SAEED [...] AFUA ., OLINDA Attending Unavailable AFUA ., OLINDA Admitting Unavailable AFUA ., OLINDA Consulting Unavailable NURIA GUILLEN Consulting Unavailable CHANDA CHA Consulting Unavailable ANGY, DR SAEED Primary Care Unavailable MARKER ., DR MOLINA Attending Unavailable MARKER ., DR MOLINA Admitting Unavailable MARKER ., DR MOLINA Consulting Unavailable LILIA HERNANDEZ Consulting Unavailable ANGY, DR SAEED Primary Care Unavailable SHAIKH Lv PALMA Attending Unavailable CHIP Bhagat, DR GARCIA Consulting Unavailable SHAIKH Lv PALMA [...] solution (20 sources) Anticholinergic, beta2-Adrenergic Agonist Start: 09-30-2023 take 1 dose by inhalation twice daily Ipratropium-Albuterol 0.5 mg-3 mg(2.5 mg base)/3 mL solution for nebulization Active 0 .ROUTE .COMPLEX 540 September 30, 2023 1:32pm INHALE 1 VIAL VIA NEBULIZER TWICE A DAY FOR 90 DAYS Start: 07-04-2023 End: 09-30-2023 take 1 mL by inhalation twice daily Ipratropium-Albuterol 0.5 mg-3 mg(2.5 mg base)/3 mL solution for nebulization Discontinued 3 ML INHALATION Twice daily 180 90 July 04, 2023 9:54am September 30, 2023 1:32pm Start: 05-10-2022 End: 07-04-2023 take 1 mL by inhalation four times daily Ipratropium-Albuterol 0.5 mg-3 mg(2.5 mg base)/3 mL solution for nebulization Discontinued 3 ML INHALATION Four times daily May 10, 2022 1:00am July 04, 2023 9:55am take 1 dose by inhal ation four times daily Ipratropium-Albuterol 0.5-2.5 (3) MG/3ML INHALE 1 VIAL VIA NEBULIZER 4 TIMES A DAY Active Albuterol 90 mcg/actuation Aerosol (2 sources) Start: 05-10-2022 take 90 ug by inhalation every four hours as needed Albuterol 90 mcg/actuation Aerosol Active 90 MCG INHALATION Q4H as needed for Shortness Of Breath May 10, 2022 1:00am atorvastatin 40 mg oral tablet (11 sources) HMG-CoA Reductase Inhibitor Start: 12-18-2023 End: 01-10-2024 take 1 tablet by mouth once daily Atorvastatin 40 mg tablet Active 0 .ROUTE .COMPLEX 90 January 10, 2024 4:21pm TAKE 1 TABLET BY MOUTH EVERY DAY FOR 30 DAYS*REPLACES SIMVASTATIN* Start: 12-18-2023 End: 12-18-2023 take 1 tablet by mouth once daily Atorvastatin 40 mg tablet Discontinued 40 MG PO Daily December 18, 2023 12:00am December 18, 2023 6:27pm Start: 03-06-2023 take 1 tablet by malia th every twenty-four hours Atorvastatin Calcium 40 MG 1 tablet Orally Once a day for 30 days replacing simvastatin Feb, Active Start: 08-11-2018 End: 05-10-2022 take 1 tablet by mouth once daily in the evening Atorvastatin 40 mg Tablet Discontinued 40 MG PO Every evening August [...] 03/12/2022 Active budesonide 0.25 mg/ml inhalation suspension (20 sources) Corticosteroid Start: 01-29-2023 take 1 mL by inhalation twice daily Budesonide 0.5 MG/2ML 1 mL Inhalation Twice a day Jan, Active Start: 05-10-2022 take 0.5 mg by inhal ation twice daily Budesonide 0.5 mg/2 mL Suspension For Nebulization Active 0.5 MG INHALATION Twice daily May 10, 2022 1:00am Budesonide 0.5 M G/2ML 1 Nebule Inhalation Twice a day Active Contour Next Test - (2 sources) [...] mg oral tablet (20 sources) Sulfonylurea Start: 06-01-2024 Glyburide 1.25 mg tablet Active 1.25 MG PO Daily 90 June 01, 2024 4:43pm take 30 minutes prior to bkfst Start: 08-19-2023 End: 06-01-2024 take 1 tablet by mouth once daily at breakfast Glyburide 1.25 mg tablet Discontinued 0 .ROUTE .COMPLEX August 19, 2023 3:42pm June 01, 2024 4:44pm TAKE 1 TABLET BY MOUTH EVERY DAY WITH BREAKFAST OR THE FIRST MAIN MEAL OF THE DAY FOR 90 DAYS Start: 07-03-2023 End: 08-19-2023 take 1 tablet by mouth once daily Glyburide 1.25 mg tablet Discontinued 1.25 MG PO Daily July 03, 2023 12:00am August 19, 2023 3:42pm Start: 05-08-2022 take 1 tablet by malia [...] mg/ml injection (1 source) Start: 03-06-2022 magnesium sulfate 1000 mg in dextrose 5% 100 mL IVPB ondansetron (ZOFRAN-ODT) disintegrating tablet 4 mg (1 source) Start: 03-06-2022 ondansetron (ZOFRAN-ODT) disintegrating tablet 4 mg One Touch Glucometer (1 source) Start: 04-04-2023 One Touch Glucometer use as directed for 365 days Mar, Active pantoprazole 40 mg delayed release oral tablet (8 sources) Proton Pump Inhibitor Start: 08-19-2023 End: 06-29-2024 take 1 tablet by mouth once daily Pantoprazole 40 mg tablet,delayed release (DR/EC) Active 40 MG PO Daily 30 June 29, 2024 10:10am Start: 03-07-2022 take 1 tablet by malia th once daily before breakfast pantoprazole (PROTONIX) 40 MG tablet Take 1 tablet by mouth every morning (before breakfast) 30 tablet 5 03/07/2022 Active pantoprazole (PROTONIX) 40 mg in sodium chloride (PF) 0.9 % 10 mL injection (1 source) Start: 03-06-2022 pantoprazole (PROTONIX) 40 mg in sodium chloride (PF) 0.9 % 10 mL injection polyethylene glycol [id number] [id number] mg powder for oral solution (1 source) [...] days, 10 mg for 5 days Active telmisartan 20 mg oral tablet (2 sources) Angiotensin 2 Receptor Hilario Start: 03-16-2024 take 1 tablet by mouth once daily Telmisartan 20 mg tablet Active 20 MG PO Daily March 16, 2024 1:00am triamcinolone acetonide 0.001 mg/mg topical ointment (12 [...] Sig (Original) aspirin 81 mg chewable tablet (4 sources) Platelet Aggregation Inhibitor, Nonsteroidal Anti-inflammatory Drug Start: 08-10-2018 End: 08-11-2018 take 1 tablet by mouth once daily Aspirin 81 mg Tablet,Chewable Discontinued 81 MG PO Daily August 10, 2018 12:00am August 11, 2018 1:09pm clopidogrel 75 mg oral tablet (20 sources) P2Y12 Platelet Inhibitor Start: 03-09-2022 take 75 mg by mouth every other day 75 mg, Oral, EVERY OTHER DAY, First dose on Sat03/09/22 at 0900, Until Discontinued Start: 08-11-2018 End: 08-26-2023 take 1 tablet by mouth once daily Clopidogrel 75 mg tablet Discontinued 75 MG PO Daily August 19, 2023 4:43pm August 26, 2023 6:04pm take 0.5 tablet by m outh every other day clopidogrel (PLAVIX) 75 MG tablet Take 75 mg by mouth every other day Half tab 0 Active metFORMIN hydrochloride 500 mg oral tablet (4 sources) Biguanide Start: 08-11-2018 End: 05-10-2022 take 1 tablet by mouth twice daily at mealtime Metformin 500 mg Tablet Discontinued 500 MG PO Twice daily with meals 60 August 11, 2018 12:00am May 10, 2022 1:52pm omeprazole 40 mg delayed release oral capsule (6 sources) Proton Pump Inhibitor Start: 07-03-2023 End: 08-19-2023 take 1 capsule by mouth once daily Omeprazole 40 mg capsule,delayed release(DR/EC) Discontinued 40 MG PO Daily July 03, 2023 12:00am August 19, 2023 4:45pm Omeprazole 40 MG TAKE 1 CAPSULE BY MOUTH 30 MINUTES BEFORE MORNING MEAL EVERY DAY FOR 30 DAYS for 90 Active End: 03-07-2022 take 1 capsule by mouth once daily omeprazole (PRILOSEC) 20 MG delayed release capsule Take 20 mg by mouth daily 0 03/07/2022 Discontinued (Stop Taking at Discharge) simvastatin 20 mg oral tablet (20 sources) HMG-CoA Reductase Inhibitor Start: 05-10-2022 End: 12-18-2023 take 1 tablet by mouth once daily Simvastatin 20 mg Tablet Discontinued 20 MG PO Daily May 10, 2022 1:00am December 18, 2023 5:10pm Start: 03-09-2022 Please Note: S imvastatin 80 [...] by mouth every other day 0 Active 1000 ml sodium chloride 9 mg /ml injection (5 sources) Start: 03-06-2022 sodium chlorid e flush 0.9 % injection 5-40 mL Start: 03-06-2022 End: 03-07-2022 0.9 % sodium chloride infusi on Problems Active Problems Problem Classification Problem Date Documented Da te Episodic/Chronic Abdominal pain (14 sources) Epigastric pain; Translations: [Epigastric pain] Episodic Acute cerebrovascular disease (4 sources) Ischemic stroke; Translations: [Cerebral infarction, unspecified] 02-27-2023 Chronic Comment on above: Problem List clean-u p per request of Phys. EHR Cmte Anxiety disorders (2 sources) Generalized anxiety disorder; Translations: [Anxiety disorder, unspecified] Onset: 2 Chronic Asthma (1 source) Unspecified asthma, uncomplicated; Translations: [UNSPECIFIED ASTHMA UNCOMPLICATED] Onset: 2 Chronic Chronic obstructive pulmonary disease and bronchiectasis (20 sources) Bronchiectasis; Translations: [Bronchiectasis, uncomplicated] Onset: 2 Chronic Comment on above: CT: chronic scarring JESSICA 07/2023 Congestive heart failure; nonhypertensive (1 source) Heart failure, unspecified; Translations: [HEART FAILURE UNSPECIFIED] Onset: 2 Chronic Coronary atherosclerosis and other heart disease (20 sources) Coronary atherosclerosis; Translations: [Atherosclerotic heart disease of ramona coronary artery without angina pectoris] Onset: 2 Chronic Deficiency and other anemia (19 sources) Anemia of chronic disease; Translations: [Anemia in other chronic diseases classified elsewhere] Chronic Deficiency and other anemia (1 source) Anemia in other chronic diseases classified elsewhere Chronic Deficiency and other anemia (2 sources) Normocytic normochromic anemia; Translations: [Anemia, unspecified] Onset: 2 Episodic Deficiency and other anemia (1 source) Anemia; Translations: [Anemia, unspecified] 06-29-2024 Episodic Deficiency and other anemia (1 source) Anemia, unspecified; Translations: [Anemia, unspecified] 06-29-2024 Episodic Delirium, dementia, and amnestic and other [...] without complications] Onset: 2 Chronic Diseases of mouth; excluding dental (2 sources) Burning mouth syndrome ; 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 Episodic Diseases of white blood cells (1 source) [...] 07-03-2023 Chronic Other and ill-defined cerebrovascular disease (4 sources) Cerebral atherosclerosis; Translations: [Cerebral atherosclerosis] 07-04-2023 Chronic [...] Other hereditary and degenerative nervous system conditions (4 sources) Impaired cognition; Translations: [Mild cognitive impairment, so stated] 07-03-2023 Chronic Other hereditary and degenerative nervous system conditions (4 sources) Mild cognitive impairment, so stated; Translations: [Mild [...] pulmonary nodule] Episodic Other nervous system disorders (4 sources) Numbness; Translations: [Anesthesia of skin] 02-27-2023 Episodic Comment on above: Problem List clean-u p per request of Phys. EHR Cmte Other screening for suspected conditions (not mental disorders or infectious disease) (2 sources) Patient encounter status; Translations: [Encounter for screening for malignant neoplasm of prostate] 03-16-2024 Episodic Comment on above: PSA: 0.78 - 02/2024 Other skin disorders (1 source) Dyshidrosis [pompholyx]; Translations: [Dyshidrosis] 05-27-2024 Episodic Other upper respiratory disease (1 source) Chronic rhinitis; Translations: [CHRONIC RHINITIS] Onset: 3 Chronic Other upper respiratory infections (1 source) Chronic sinusitis, unspecified; Translations: [CHRONIC SINUSITIS UNSPECIFIED] Onset: 2 Chronic Residual codes; unclassified (20 sources) Obstructive sleep apnea syndrome; Translations: [Obstructive sleep apnea (adult) (pediatric)] 07-03-2023 Chronic Residual codes; unclassified (11 sources) Obstructive sleep apnea (adult) (pediatric); Translations: [...] Onset: 12-11-2021 Episodic Other aftercare (1 source) detention (current) use of antithrombotics/ant iplatelets; Translations: [LONGTERM ANTITHROMBOT/ANTIPL ATLETS] Onset: 04-03-2022 Episodic Other aftercare (1 source) detention (current) use of inhaled steroids; Translations: [LONGTERM USE OF INHALED STEROIDS] Onset: 04-03-2022 Episodic Other aftercare (1 source) terminal operator (current) use of oral hypoglycemic drugs; Translations: [LONGTERM USE ORAL HYPOGLYCEMIC DX] Onset: 04-03-2022 Episodic Other aftercare (1 source) 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; Translations: [OTH LONGTERM CURRENT DRUG THERAPY] Onset: 04-03-2022 Episodic Other aftercare (1 source) detention (current) use of insulin; Translations: [LONGTERM CURRENT USE OF INSULIN] Onset: 03-13-2022 Episodic Other aftercare (1 source) terminal operator (current) use of aspirin; Translations: [STRUCTURES ASSEMBLER CURRENT USE OF ASPIRIN] Onset: 12-19-2021 Episodic [...] Test Name Value Interpretation Reference Range Facility Basophils Auto (Bld) [#/Vol] on 03-16-2024 Basophils (Bld) [#/Vol] Automated basophil count 0.0-0.1 [facility] Basophils/100 WBC Auto (Bld) on 03-16-2024 Basophils/100 WBC (Bld) Automated basophil % 0.2-2.0 [facility] Cholesterol in LDL Calc [Mas s/Vol]on 03-16-2024 Cholesterol in LDL [Mass/Vol] Cholesterol in LDL [Mass/volume] in Serum or Plasma by calculation [facility] Comment on above: <100 mg/dl [id number] 0-129 mg/dl NEAR OR ABOVE [id number] mg/dl BORDERLINE [id number] mg/dl HIGH>190 mg/dl VERY HIGH Cholesterol in VLDL Calc [Ma ss/Vol]on 03-16-2024 Cholesterol in VLDL [Mass/Vol] Cholesterol in VLDL [Mass/volume] in Serum or Plasma by calculation [facility] Eosinophils/100 WBC Auto (Bl d)on 03-16-2024 Eosinophils/100 WBC (Bld) Automated eosinophil % 0.9-7.0 [facility] Erythrocyte distribution wid th Auto (RBC) [Ratio]on 03-16-2024 Erythrocyte distribution width (RBC) [Ratio] Erythrocyte distribution width [Ratio] by Automated count 11.0-15.0 [facility] Estimated glomerular filtrat ion rate (GFR) non- Americanon 03-16-2024 GFR/1.73 sq M.predicted among non-blacks MDRD (S/P/Bld) [Vol rate/Area] Estimated glomerular filtration rate (GFR) non- >=60 mL/min/1.73m 2 [facility] Globulin Calc (S) [Mass/Vol] on 03-16-2024 Globulin (S) [Mass/Vol] Serum globulin measurement by calculation (mass/volume) [facility] Glucose mean value [Mass/vol ume] in Blood Estimated from glycated hemoglobinon 03-16-2024 Average glucose Estimated from glycated hemoglobin (Bld) [Mass/Vol] Glucose mean value [Mass/volume] in Blood Estimated from glycated hemoglobin [facility] Hematocrit Auto (Bld) [Volum e fraction]on 03-16-2024 Hematocrit (Bld) [Volume fraction] Hematocrit [Volume Fraction] of Blood by Automated count Low 42.0-54.0 [facility] Hemoglobin [Mass/volume] in Bloodon 03-16-2024 Hemoglobin (Bld) [Mass/Vol] Hemoglobin [Mass/volume] in Blood Low 14.0-18.0 [facility] - Chemistry and C hemistry - challengeon 03-16-2024 Albumin [Mass/Vol] 3.6 g/dL 3.4-5.0 [facility] ALP [Catalytic activity/Vol] 109 U/L 46-116 [facility] ALT [Catalytic activity/Vol] 30 U/L 16-63 [facility] AST [Catalytic activity/Vol] 26 U/L 15-37 [facility] Bilirubin [Mass/Vol] 1.0 mg/dL 0.2-1.0 [facility] Calcium [Mass/Vol] 9.3 mg/dL 8.5-10.1 [facility] Chloride [Moles/Vol] 107 mmol/L 98-107 [facility] Cholesterol [Mass/Vol] 180 mg/dL <=200 [facility] Cholesterol in HDL [Mass/Vol] 44 mg/dL 40-60 [facility] Comment on above: > or =60 mg/dl - LOW CARDIOVASCULAR RISK<40 mg/dl - HIGH CARDIOVASCULAR RISK CO2 [Moles/Vol] 30.3 mmol/L 21.0-32.0 [facility] Creatinine [Mass/Vol] 1.17 mg/dL 0.70-1.30 [facility] GFR/1.73 sq M.predicted MDRD (S/P/Bld) [Vol rate/Area] mL/min/{1.73_m2} >=60 mL/min/1.73m 2 [facility] Glucose [Mass/Vol] 151 mg/dL High 74-106 [facility] Potassium [Moles/Vol] 4.5 mmol/L 3.5-5.1 [facility] Protein [Mass/Vol] 7.0 g/dL 6.4-8.2 [facility] Sodium [Moles/Vol] 142 mmol/L 136-145 [facility] Triglyceride [Mass/Vol] 101 mg/dL <=150 [facility] Urea nitrogen [Mass/Vol] 15.0 mg/dL 7.0-18.0 [facility] Urea nitrogen/Creatinine [Mass ratio] 12.8 mg/mg [facility] - Hematology and Cell countson 03-16-2024 HbA1c (Bld) [Mass fraction] 7.5 % High 4.5-6.2 [facility] Comment on above: ADA RECOMMENDED LIMI T 4.0 - 6.0ADA THERAPEUTIC TARGET < 7.0ACTION SUGGESTED> 7.0 Immature granulocytes/100 WBC (Bld) 0.2 % 0.0-0.5 [facility] Leukocytes [#/volume] correc floresita for nucleated erythrocytes in Blood by Automated counon 03-16-2024 WBC corrected for nucl RBC Auto (Bld) [#/Vol] Leukocytes [#/volume] corrected for nucleated erythrocytes in Blood by Automated coun 4.0-11.0 [facility] Lymphocytes Auto (Bld) [#/Vo l]on 03-16-2024 Lymphocytes (Bld) [#/Vol] Lymphocytes [#/volume] in Blood by Automated count Low 1.2-3.8 [facility] Lymphocytes/100 WBC Auto (Bl d)on 03-16-2024 Lymphocytes/100 WBC (Bld) Lymphocytes/100 leukocytes in Blood by Automated count Low 20.5-60.0 [facility] MCH Auto (RBC) [Entitic mass ]on 03-16-2024 MCH (RBC) [Entitic mass] MCH [Entitic mass] by Automated count 25.9-34.0 [facility] MCHC Auto (RBC) [Mass/Vol]on 03-16-2024 MCHC (RBC) [Mass/Vol] MCHC [Mass/volume] by Automated count 29.9-35.2 [facility] MCV Auto (RBC) [Entitic vol] on 03-16-2024 MCV (RBC) [Entitic vol] MCV [Entitic volume] by Automated count High 80.0-94.0 [facility] Microalbumin [Mass/volume] i n Urineon 03-16-2024 Albumin DL <= 20 mg/L (U) [Mass/Vol] Microalbumin [Mass/volume] in Urine <=30.0 [facility] Monocytes Auto (Bld) [#/Vol] on 03-16-2024 Monocytes (Bld) [#/Vol] Automated blood monocyte count 0.3-0.8 [facility] Monocytes/100 WBC Auto (Bld) on 03-16-2024 Monocytes/100 WBC (Bld) Automated monocyte % 1.7-12.0 [facility] Neutrophils Auto (Bld) [#/Vo l]on 03-16-2024 Neutrophils (Bld) [#/Vol] Neutrophils [#/volume] in Blood by Automated count 1.4-6.5 [facility] Neutrophils/100 WBC Auto (Bl d)on 03-16-2024 Neutrophils/100 WBC (Bld) Automated neutrophil % 43.0-75.0 [facility] No Panel Informationon 03-16 Eosinophils # (Auto) 0.4 10 3/uL 0.0-0.7 [facility] Immature Granulocyte # (Auto) 0.01 10 3/uL 0.00-0.03 [facility] Prostate Specific Antigen Screen 0.78 ng/mL <=4.00 [facility] Urine Random Creatinine 310.90 mg/dL High 20.00-300.00 [facility] Platelet mean volume Auto (B ld) [Entitic vol]on 03-16-2024 Platelet mean volume (Bld) [Entitic vol] Platelet mean volume [Entitic volume] in Blood by Automated count 9.5-13.5 [facility] Platelets Auto (Bld) [#/Vol] on 03-16-2024 Platelets (Bld) [#/Vol] Platelets [#/volume] in Blood by Automated count 150-450 [facility] RBC Auto (Bld) [#/Vol]on RBC (Bld) [#/Vol] Erythrocytes [#/volume] in Blood by Automated count Low 4.70-6.10 [facility] Serum or plasma albumin/glob ulin mass ratioon 03-16-2024 Albumin/Globulin [Mass ratio] Serum or plasma albumin/globulin mass ratio [facility] Serum or plasma anion gap de terminationon 03-16-2024 Anion gap [Moles/Vol] Serum or plasma anion gap determination [facility] Serum or plasma total choles terol/high density lipoprotein (HDL) cholesterol mass radha 03-16-2024 Cholesterol.total/C holesterol in HDL [Mass ratio] Serum or plasma total cholesterol/high density lipoprotein (HDL) cholesterol mass rat [facility] Comment on above: 3.3 - 4.4 LOW RISK4. 4 - 7.1 AVERAGE RISK7.1 - 11.0 MODERATE RISK>11.0 HIGH RISK Urine microalbumin/creatinin e mass ratioon 03-16-2024 Albumin/Creatinine DL <= 20 mg/L (U) [Mass ratio] Urine microalbumin/creatinin e mass ratio High 0.0-29.9 [facility] Comment on above: NO MICROALBUMINURIA 0-29 MG/GCLINICAL MICROALBUMINURIA 30-300 MG/GMACROALBUMINURIA >300 MG/G Dada 05-10-2022 L -- ---- Specimen: [id number] Received: 05/10/22 Status: KARAN Mcdaniel Num: [id number] Spec Type: Surgical Subm Dr: Cara Hayden MD Tissues: A Esophagus Biopsy (ESOPHAGEAL NODULE BX) Procedures: HE/2, Gross/Micro L4 ---- Age/ Patient Sex Location Account Attending Physician ---- Tammy Millard/Chandana [id number] Cara Hayden MD ---- SPEC NUM: [id number] RECD: 05/10/22 STATUS: KARAN MONTANOTamiko NUM: [id number] DIONNE: 05/10/22- SUBM DR: Cara Hayden MD ENTERED: 05/10/22 BARB TORRES: SPEC TYPE: Surgical DEPT: S ORDERED: HE/2, Gross/Micro [...] support the above pathologic diagnosis. CPT Codes 52659 ---- ---- Specimen: [id number] Received: 05/10/22 Status: KARAN Jonas Num: [id number] Spec Type: Surgical Subm Dr: Cara Hayden MD Tissues: A Esophagus Biopsy (ESOPHAGEAL NODULE BX) Procedures: BIGG/Oriana, Gross/Micro L4 ---- Patient: Tammy Millard [id number] (Continued) ---- Signed (signature on file) Carmen Welch MD 05/11/22 1509 [facility] CBC AUTO DIFFon 03-30-2022 BASO # 0.0 103/ul Normal 0.0-0.1 [facility] Comment on above: Performed By: #### C GREG #### [facility] [address] [place] [address] Dr. Avni Aguillon Basophils/100 WBC (Bld) 0.1 % Critically low 0.2-2.0 [facility] Comment on above: Performed By: #### C GREG #### [facility] [address] [place] [address] Dr. Avni Aguillon EO # 0.0 103/ul Normal 0.0-0.7 [facility] Comment on above: Performed By: #### C GREG #### [facility] [address] [place] [address] Dr. Avni Aguillon Eosinophils/100 WBC (Bld) 0.0 % Critically low 0.9-7.0 [facility] Comment on above: Performed By: #### C GREG #### [facility] [address] [place] [address] Dr. Avni Aguillon Erythrocyte distribution width (RBC) [Ratio] 13.2 % Normal 11.0-15.0 [facility] Comment on above: Performed By: #### C GREG #### [facility] [address] [place] [address] Dr. Avni Aguillon Hematocrit (Bld) [Volume fraction] 34.3 % Critically low 42.0-54.0 [facility] Comment on above: Performed By: #### C GREG #### [facility] [address] [place] [address] Dr. Avni Aguillon Hemoglobin (Bld) [Mass/Vol] 11.1 g/dL Critically low 14.0-18.0 [facility] Comment on above: Performed By: #### C GREG #### [facility] [address] [address] [address] Avni Aguillon IG # 0.03 10e3/ul Normal 0.00-0.03 [facility] Comment on above: Performed By: #### C GREG #### [facility] [address] [address] [address] Avni Aguillon IG % 0.3 % Normal 0.0-0.5 [facility] Comment on above: Performed By: #### C GREG #### [facility] [address] [address] [address] Avni Aguillon LYMPH # 0.4 103/ul Critically low 1.2-3.8 [facility] Comment on above: Performed By: #### C GREG #### [facility] [address] [address] [address] Avni Aguillon Lymphocytes/100 WBC (Bld) 4.0 % Critically low 20.5-60.0 [facility] Comment on above: Performed By: #### C GREG #### [facility] [address] [address] [address] Avni Aguillon MANUAL DIFF REQ NO Normal [facility] Comment on above: Performed By: #### C GREG #### [facility] [address] [address] [address] Avni Aguillon MCH (RBC) [Entitic mass] 32.6 pg Normal 25.9-34.0 [facility] Comment on above: Performed By: #### C GREG #### [facility] [address] [address] [address] Avni Aguillon MCHC (RBC) [Mass/Vol] 32.4 g/dL Normal 29.9-35.2 [facility] Comment on above: Performed By: #### C GREG #### [facility] [address] [address] [address] Avni Aguillon MCV (RBC) [Entitic vol] 100.6 fL Critically high 80.0-94.0 [facility] Comment on above: Performed By: #### C GREG #### [facility] [address] [address] [address] Avni Aguillon MONO # 0.4 103/ul Normal 0.3-0.8 [facility] Comment on above: Performed By: #### C GREG #### [facility] [address] [address] [address] Avni Aguillon Monocytes/100 WBC (Bld) 4.2 % Normal 1.7-12.0 [facility] Comment on above: Performed By: #### C GREG #### [facility] [address] [address] [address] Avni Aguillon NEUT # 9.2 103/ul Critically high 1.4-6.5 [facility] Comment on above: Performed By: #### C GREG #### [facility] [address] [place] [address] Dr. Avni Aguillon Neutrophils/100 WBC (Bld) 91.4 % Critically high 43.0-75.0 [facility] Comment on above: Performed By: #### C GREG #### [facility] [address] [address] [address] Avni Aguillon Platelet mean volume (Bld) [Entitic vol] 10.2 fL Normal 9.5-13.5 [facility] Comment on above: Performed By: #### Macey GARZA #### [facility] [address] [place] [address] Dr. Avni Aguillon PLT 295 103/ul Normal 150-450 [facility] Comment on above: Performed By: #### C GREG #### [facility] [address] [place] [address] Dr. Avni Aguillon RBC 3.41 106/ul Critically low 4.70-6.10 [facility] Comment on above: Performed By: #### C GREG #### [facility] [address] [address] [address] Avni Aguillon WBC 10.1 103/ul Normal 4.0-11.0 [facility] Comment on above: Performed By: #### C GREG #### [facility] [address] [address] [address] Avni Aguillon ER URINE PROFILEon 3 Bilirubin Ql (U) Negative Normal NEGATIVE [facility] Comment on above: Performed By: #### P OCGLUC #### [facility] [address] [address] [address] Avni Aguillon Clarity (U) CLEAR Normal CLEAR [facility] Comment on above: Performed By: #### P OCGLUC #### [facility] [address] [address] [address] Avni Aguillon Color (U) LT. YELLOW Normal YELLOW [facility] Comment on above: Performed By: #### P OCGLUC #### [facility] [address] [place] [address] Dr. Avni GUERIN A micrscopic examination will be performed if indicated. Normal [facility] Comment on above: Performed By: #### P OCGLUC #### [facility] [address] [address] [address] Avni Aguillon Glucose Ql (U) >1000 Abnormal NEGATIVE [facility] Comment on above: Performed By: #### P OCGLUC #### [facility] [address] [address] [address] Avni Aguillon Hemoglobin Ql (U) Negative Normal NEGATIVE [facility] Comment on above: Performed By: #### P OCGLUC #### [facility] [address] [address] [address] Avni Aguillon Ketones Ql (U) 15 mg/dl Abnormal NEGATIVE [facility] Comment on above: Performed By: #### P OCGLUC #### [facility] [address] [address] [address] Avni Aguillon LEUKOCYTES Negative Normal NEGATIVE [facility] Comment on above: Performed By: #### P OCGLUC #### [facility] [address] [address] [address] Avni Aguillon Nitrite Ql (U) Negative Normal NEGATIVE [facility] Comment on above: Performed By: #### P OCGLUC #### [facility] [address] [address] [address] Avni Aguillon pH (U) 5.0 [pH] Normal 5-9 [facility] Comment on above: Performed By: #### P OCGLUC #### [facility] [address] [place] [address] Dr. Avni Agiullon SPEC GRAVITY 1.010 Normal 1.005-<=1.02 5 [facility] Comment on above: Performed By: #### P OCGLUC #### [facility] [address] [address] [address] Avni Aguillon UA PROTEIN Negative Normal NEGATIVE/ TRACE [facility] Comment on above: Performed By: #### P OCGLUC #### [facility] [address] [address] [address] Avni Aguillon UR MICRO IND NOT INDICATED Normal [facility] Comment on above: Performed By: #### P OCGLUC #### [facility] [address] [address] [address] Avni Aguillon Urobilinogen Qn (U) 0.2 {Kesha'U}/dL Normal 0.2 - 1. 0 [facility] Comment on above: Performed By: #### P OCGLUC #### [facility] [address] [place] [address] Dr. Avni Aguillon POINT OF CARE GLUCOSEon 03-18 Glucose [Mass/Vol] 316 mg/dL Critically high 74-106 [facility] Comment on above: Performed By: #### P OCGLUC #### [facility] [address] [place] [address] Dr. Avni Aguillon Glucose [Mass/Vol] 374 mg/dL Critically high 74-106 [facility] Comment on above: Performed By: #### U RCX #### [facility] [address] [place] [address] Dr. Avni Aguillon PROF 14(COMP METB)on 023 Albumin [Mass/Vol] 2.9 g/dL Critically low 3.4-5.0 [facility] Comment on above: Performed By: #### P OCGLUC #### [facility] [address] [address] [address] Avni Aguillon Albumin/Globulin [Mass ratio] 0.9 {ratio} Normal [facility] Comment on above: Performed By: #### P OCGLUC #### [facility] [address] [address] [address] Avni Aguillon ALP [Catalytic activity/Vol] 93 U/L Normal 46-116 [facility] Comment on above: Performed By: #### P OCGLUC #### [facility] [address] [address] [address] Avni Aguillon ALT [Catalytic activity/Vol] 21 U/L Normal 16-63 [facility] Comment on above: Performed By: #### P OCGLUC #### [facility] [address] [place] [address] Dr. Avni Aguillon Anion gap [Moles/Vol] 15.4 mmol/L Normal [facility] Comment on above: Performed By: #### P OCGLUC #### [facility] [address] [place] [address] Dr. Avni Aguillon AST [Catalytic activity/Vol] 17 U/L Normal 15-37 [facility] Comment on above: Performed By: #### P OCGLUC #### [facility] [address] [place] [address] Dr. Avni Aguillon Bilirubin [Mass/Vol] 0.9 mg/dL Normal 0.2-1.0 [facility] Comment on above: Performed By: #### P OCGLUC #### [facility] [address] [address] [address] Avni Aguillon Calcium [Mass/Vol] 8.9 mg/dL Normal 8.5-10.1 [facility] Comment on above: Performed By: #### P OCGLUC #### [facility] [address] [address] [address] Avni Aguillon Chloride [Moles/Vol] 100 mmol/L Normal 98-107 [facility] Comment on above: Performed By: #### P OCGLUC #### [facility] [address] [place] [address] Dr. Avni Aguillon CO2 [Moles/Vol] 23.8 mmol/L Normal 21.0-32.0 [facility] Comment on above: Performed By: #### P OCGLUC #### [facility] [address] [address] [address] Avni Aguillon Creatinine [Mass/Vol] 1.31 mg/dL Critically high 0.70-1.30 [facility] Comment on above: Performed By: #### P OCGLUC #### [facility] [address] [address] [address] Avni Aguillon EGFR-AF MEXICAN >60 Normal >=60 [facility] Comment on above: Performed By: #### P OCGLUC #### [facility] [address] [address] [address] Avni Aguillon EGFR-NON AF MEXICAN 53 mL/min/1.73m2 Critically low >=60 [facility] Comment on above: Performed By: #### P OCGLUC #### [facility] [address] [address] [address] Avni Aguillon Globulin (S) [Mass/Vol] 3.4 g/dL Normal [facility] Comment on above: Performed By: #### P OCGLUC #### [facility] [address] [address] [address] Avni Aguillon Glucose [Mass/Vol] 368 mg/dL Critically high 74-106 [facility] Comment on above: Performed By: #### P OCGLUC #### [facility] [address] [address] [address] Avni Aguillon Potassium [Moles/Vol] 3.2 mmol/L Critically low 3.5-5.1 [facility] Comment on above: Performed By: #### P OCGLUC #### [facility] [address] [address] [address] Avni Aguillon Protein [Mass/Vol] 6.3 g/dL Critically low 6.4-8.2 [facility] Comment on above: Performed By: #### P OCGLUC #### [facility] [address] [address] [address] Avni Aguillon Sodium [Moles/Vol] 136 mmol/L Normal 136-145 [facility] Comment on above: Performed By: #### P OCGLUC #### [facility] [address] [address] [address] Avni Aguillon Urea nitrogen [Mass/Vol] 17.0 mg/dL Normal 7.0-18.0 [facility] Comment on above: Performed By: #### P OCGLUC #### [facility] [address] [address] [address] Avni Aguillon Urea nitrogen/Creatinine [Mass ratio] 13.0 mg/mg Normal [facility] Comment on above: Performed By: #### P OCGLUC #### [facility] [address] [place] [address] Dr. Avni Aguillon BNPon 03-29-2022 Natriuretic peptide B (Bld) [Mass/Vol] 684.0 pg/mL Normal <=1,800.0 [facility] Comment on above: Performed By: #### C VDTBH #### [facility] [address] [place] [address] Dr. Avni Aguillon CARDIAC NELL 3-6on 3 CK [Catalytic activity/Vol] 111 U/L Normal 39-308 [facility] Comment on above: Performed By: #### U RCX #### [facility] [address] [place] [address] Dr. Avni Aguillon CK.MB [Mass/Vol] 1.95 ng/mL Normal <=3.60 [facility] Comment on above: Performed By: #### U RCX #### [facility] [address] [place] [address] Dr. Avni Aguillon HSTROP 29.5 pg/mL Normal 4.0-76.1 [facility] Comment on above: Result Comment: CUT- OFF POINTS HAVE BEEN ESTABLISHED BASED ON THE FOURTH UNIVERSAL DEFINITIONS OF MYOCARDIAL INFARCTION. THE UPPER REFERENCE LIMIT (URL) OF TROPONIN, DEFINED THE 99TH PERCENTILE OF cTnI DISTRIBUTION IN A REFERENCE POPULATION, HAS BEEN CONFIRMED THE DECISION THRESHOLD FOR UT DIAGNOSIS. Performed By: #### U RCX #### [facility] [address] [address] [address] Avni Aguillon CK [Catalytic activity/Vol] 103 U/L Normal 39-308 [facility] Comment on above: Performed By: #### B [employer] #### [facility] [address] [place] [address] Dr. Avni Aguillon CK.MB [Mass/Vol] 1.94 ng/mL Normal <=3.60 [facility] Comment on above: Performed By: #### B [employer] #### [facility] [address] [place] [address] Dr. Avni Aguillon HSTROP 35.9 pg/mL Normal 4.0-76.1 [facility] Comment on above: Result Comment: CUT- OFF POINTS HAVE BEEN ESTABLISHED BASED ON THE FOURTH UNIVERSAL DEFINITIONS OF MYOCARDIAL INFARCTION. THE UPPER REFERENCE LIMIT (URL) OF TROPONIN, DEFINED THE 99TH PERCENTILE OF cTnI DISTRIBUTION IN A REFERENCE POPULATION, HAS BEEN CONFIRMED THE DECISION THRESHOLD FOR UT DIAGNOSIS. Performed By: #### B [employer] #### [facility] [address] [place] [address] Dr. Avni Aguillon CARDIAC NELL ADMITon 023 CK [Catalytic activity/Vol] 84 U/L Normal 39-308 [facility] Comment on above: Performed By: #### U RCX #### [facility] [address] [place] [address] Dr. Avni Aguillon CK.MB [Mass/Vol] 1.08 ng/mL Normal <=3.60 [facility] Comment on above: Performed By: #### U RCX #### [facility] [address] [place] [address] Dr. Avni Aguillon HSTROP 34.5 pg/mL Normal 4.0-76.1 [facility] Comment on above: Result Comment: CUT- OFF POINTS HAVE BEEN ESTABLISHED BASED ON THE FOURTH UNIVERSAL DEFINITIONS OF MYOCARDIAL INFARCTION. THE UPPER REFERENCE LIMIT (URL) OF TROPONIN, DEFINED THE 99TH PERCENTILE OF cTnI DISTRIBUTION IN A REFERENCE POPULATION, HAS BEEN CONFIRMED THE DECISION THRESHOLD FOR UT DIAGNOSIS. Performed By: #### U RCX #### [facility] [address] [place] [address] Dr. Avni Aguillon MORGAN 296 ng/mL Critically high 16-96 [facility] Comment on above: Performed By: #### U RCX #### [facility] [address] [place] [address] Dr. Avni Aguillon CBC W MANUAL DIFFon 03-29-19 23 ATYPICAL LYMPH # Normal [facility] Comment on above: Performed By: #### C VDTBH #### [facility] [address] [place] [address] Dr. Avni Aguillon ATYPICAL LYMPH % Normal [facility] Comment on above: Performed By: #### C VDTBH #### [facility] [address] [place] [address] Dr. Avni Aguillon BAND # Normal 0.0-0.3 [facility] Comment on above: Performed By: #### C VDTBH #### [facility] [address] [place] [address] Dr. Avni Aguillon BAND % Normal 0-5 [facility] Comment on above: Performed By: #### C VDTBH #### [facility] [address] [place] [address] Dr. Avni Aguillon BASOM # 0.09 103/ul Normal 0.00-0.10 [facility] Comment on above: Performed By: #### C VDTBH #### [facility] [address] [place] [address] Dr. Avni Aguillon BASOM % 1.0 % Normal 0.2-2.0 [facility] Comment on above: Performed By: #### C VDTBH #### [facility] [address] [place] [address] Dr. Avni Aguillon BLAST # Normal [facility] Comment on above: Performed By: #### C VDTBH #### [facility] [address] [place] [address] Dr. Avni Aguillon BLAST % Normal [facility] Comment on above: Performed By: #### C VDTBH #### [facility] [address] [place] [address] Dr. Avni Aguillon CORRECTED WBC Normal 4.0-11.[address] [facility] Comment on above: Performed By: #### C VDTBH #### [facility] [address] [address] [address] Avni Aguillon EOS # 0.00 103/ul Normal 0.00-0.70 [facility] Comment on above: Performed By: #### C VDTBH #### [facility] [address] [address] [address] Avni Aguillon EOS% 0.0 % Critically low 0.9-7.0 [facility] Comment on above: Performed By: #### C VDTBH #### [facility] [address] [address] [address] Avni Aguillon HCT 38.7 % Critically low 42.0-54.0 [facility] Comment on above: Performed By: #### C VDTBH #### [facility] [address] [address] [address] Avni Aguillon HGB 12.8 g/dl Critically low 14.0-18.0 [facility] Comment on above: Performed By: #### C VDTBH #### [facility] [address] [address] [address] Avni Aguillon LYMPHM # 0.84 103/ul Critically low 1.20-3.80 [facility] Comment on above: Performed By: #### C VDTBH #### [facility] [address] [address] [address] Avni Aguillon LYMPHM% 9.0 % Critically low 20.5-60.0 [facility] Comment on above: Performed By: #### C VDTBH #### [facility] [address] [address] [address] Avni Aguillon MCH 32.7 pg Normal 25.9-34.0 [facility] Comment on above: Performed By: #### C VDTBH #### [facility] [address] [address] [address] Avni Aguillon MCHC 33.1 g/dl Normal 29.9-35.2 [facility] Comment on above: Performed By: #### C VDTBH #### [facility] [address] [place] [address] Dr. Avni Aguillon MCV 99.0 fL Critically high 80.0-94.0 [facility] Comment on above: Performed By: #### C VDTBH #### [facility] [address] [place] [address] Dr. Avni Aguillon METAMYELOCYTE # Normal [facility] Comment on above: Performed By: #### C VDTBH #### [facility] [address] [place] [address] Dr. Avni Aguillon METAMYELOCYTE % Normal [facility] Comment on above: Performed By: #### C VDTBH #### [facility] [address] [place] [address] Dr. Avni Aguillon MONOM# 0.56 103/ul Normal 0.30-0.80 [facility] Comment on above: Performed By: #### C VDTBH #### [facility] [address] [place] [address] Dr. Avni Aguillon MONOM% 6.0 % Normal 1.7-12.0 [facility] Comment on above: Performed By: #### C VDTBH #### [facility] [address] [place] [address] Dr. Avni Aguillon MPV 9.9 fL Normal 9.5-13.5 [facility] Comment on above: Performed By: #### C VDTBH #### [facility] [address] [place] [address] Dr. Avni Aguillon MYELOCYTE # Normal [facility] Comment on above: Performed By: #### C VDTBH #### [facility] [address] [place] [address] Dr. Avni Aguillon MYELOCYTE % Normal [facility] Comment on above: Performed By: #### C VDTBH #### [facility] [address] [place] [address] Dr. Avni Aguillon NRBC Normal [facility] Comment on above: Performed By: #### C VDTBH #### [facility] [address] [address] [address] Avni Aguillon PLT 301 103/ul Normal 150-450 [facility] Comment on above: Performed By: #### C VDTBH #### [facility] [address] [address] [address] Avni Aguillon RBC 3.91 106/ul Critically low 4.70-6.10 [facility] Comment on above: Performed By: #### C VDTBH #### [facility] [address] [address] [address] Avni Aguillon RDW 13.3 % Normal 11.0-15.0 [facility] Comment on above: Performed By: #### C VDTBH #### [facility] [address] [place] [address] Dr. Avni Aguillon SEG # 7.81 103/ul Critically high 1.40-6.50 [facility] Comment on above: Performed By: #### C VDTBH #### [facility] [address] [place] [address] Dr. Avni Aguillon SEG % 84.0 % Critically high 43.0-75.0 [facility] Comment on above: Performed By: #### C VDTBH #### [facility] [address] [place] [address] Dr. Avni Aguillon WBC 9.3 103/ul Normal 4.0-11.0 [facility] Comment on above: Performed By: #### C VDTBH #### [facility] [address] [place] [address] Dr. Avni Aguillon CULTURE SPUTUMon 03-29-2022 CULTURE SPUTUM Isolate 1 Haemophilus influenzae Moderate growth of Normal [facility] Comment on above: Result Comment: Beta Lactamase Negative Performed By: #### S PUTCX #### [facility] [address] [place] [address] Dr. Avni Aguillon [facility] SARS-CoV-2 (COVID-19) RNA DANILO+probe Ql (Unsp spec) Not detected Normal NOT DETECTED [facility] Comment on above: Result Comment: When diagnostic [...] for this test is supported by the Furniture Mechanic of Health and Human Service's declaration that [...] used). Performed By: #### S PUTCX #### [facility] [address] [place] [address] Dr. Avni Aguillon LACTATE/LACTIC ACIDon 2022 Lactate [Moles/Vol] 1.4 mmol/L Normal 0.4-1.9 [facility] Comment on above: Performed By: #### B [employer] #### [facility] [address] [place] [address] Dr. Avni Aguillon POINT OF CARE GLUCOSEon 03-18 Glucose [Mass/Vol] 388 mg/dL Critically high 74-106 [facility] Comment on above: Performed By: #### P OCGLUC #### [facility] [address] [place] [address] Dr. Avni Aguillon PROF CHEM 8 (BAS METB)on Anion gap [Moles/Vol] 11.4 mmol/L Normal [facility] Comment on above: Performed By: #### U RCX #### [facility] [address] [place] [address] Dr. Avni Aguillon Calcium [Mass/Vol] 8.9 mg/dL Normal 8.5-10.1 [facility] Comment on above: Performed By: #### U RCX #### [facility] [address] [address] [address] Avni Aguillon Chloride [Moles/Vol] 100 mmol/L Normal 98-107 [facility] Comment on above: Performed By: #### U RCX #### [facility] [address] [address] [address] Avni Aguillon CO2 [Moles/Vol] 27.2 mmol/L Normal 21.0-32.0 [facility] Comment on above: Performed By: #### U RCX #### [facility] [address] [address] [address] Avni Aguillon Creatinine [Mass/Vol] 1.09 mg/dL Normal 0.70-1.30 [facility] Comment on above: Performed By: #### U RCX #### [facility] [address] [address] [address] Avni Aguillon EGFR-AF MEXICAN >60 Normal >=60 [facility] Comment on above: Performed By: #### U RCX #### [facility] [address] [address] [address] Avni Aguillon EGFR-NON AF MEXICAN >60 Normal >=60 [facility] Comment on above: Performed By: #### U RCX #### [facility] [address] [place] [address] Dr. Avni Aguillon Glucose [Mass/Vol] 221 mg/dL Critically high 74-106 [facility] Comment on above: Performed By: #### U RCX #### [facility] [address] [address] [address] Avni Aguillon Potassium [Moles/Vol] 3.6 mmol/L Normal 3.5-5.1 [facility] Comment on above: Performed By: #### U RCX #### [facility] [address] [address] [address] Avni Aguillon Sodium [Moles/Vol] 135 mmol/L Critically low 136-145 [facility] Comment on above: Performed By: #### U RCX #### [facility] [address] [address] [address] Avni Aguillon Urea nitrogen [Mass/Vol] 14.0 mg/dL Normal 7.0-18.0 [facility] Comment on above: Performed By: #### U RCX #### [facility] [address] [address] [address] Avni Aguillon Urea nitrogen/Creatinine [Mass ratio] 12.8 mg/mg Normal [facility] Comment on above: Performed By: #### U RCX #### [facility] [address] [address] [address] Avni Aguillon SPUTUM GRAM STAINon 03-29-19 COMMENTS Normal [facility] Comment on above: Performed By: #### C BC #### [facility] [address] [address] [address] Avni Aguillon DIPHTHEROIDS Normal [facility] Comment on above: Performed By: #### C BC #### [facility] [address] [address] [address] Avni Aguillon EPITHELIALS <25 Normal [facility] Comment on above: Performed By: #### C BC #### [facility] [address] [address] [address] Avni Aguillon FUNGAL ELEMENTS Normal [facility] Comment on above: Performed By: #### C BC #### [facility] [address] [address] [address] Avni Aguillon GRAM NEG BACILLI Normal [facility] Comment on above: Performed By: #### C BC #### [facility] [address] [address] [address] Avni MARTIN NEG DIPPLOCOCCI Normal [facility] Comment on above: Performed By: #### C BC #### [facility] [address] [address] [address] Avni Aguillon GRAM POS BACILLI Normal [facility] Comment on above: Performed By: #### C BC #### [facility] [address] [address] [address] Avni Aguillon GRAM POSITIVE COCCI MODERATE Normal [facility] Comment on above: Performed By: #### C BC #### [facility] [address] [place], [place] [address] Dr. Avni Aguillon WBC (Bld) [#/Vol] 10*3/uL Normal [facility] Comment on above: Performed By: #### C BC #### [facility] [address] [place], [place] [address] Dr. Avni Aguillon TROPONIN, HIGH SENSITIVITYon 03-29-2022 HSTROP 23.5 pg/mL Normal 4.0-76.1 [facility] Comment on above: Result Comment: CUT- OFF POINTS HAVE BEEN ESTABLISHED BASED ON THE FOURTH UNIVERSAL DEFINITIONS OF MYOCARDIAL INFARCTION. THE UPPER REFERENCE LIMIT (URL) OF TROPONIN, DEFINED THE 99TH PERCENTILE OF cTnI DISTRIBUTION IN A REFERENCE POPULATION, HAS BEEN CONFIRMED THE DECISION THRESHOLD FOR [place] DIAGNOSIS. Performed By: #### S PUTCX #### [facility] [address] [place], [place] [address] Dr. Avni Aguillon XR CHEST 1 Von [...] by: KAMINI CHING Date: 2022-03-29 07:[address] [facility] [address] CHEST WO CONTRASTon 03-08 CT CHEST [...] Greg Jacinto MD 03/08/22 Final result Normal [facility] CBC with Auto Differentialon 03-07-2022 Absolute Eos # 0.00 [facility] Absolute Immature Granulocyte 0.00 [facility] Absolute Lymph # 0.52 Low [facility] Absolute [place] # 0.26 [facility] Basophils (Bld) [#/Vol] 0.00 10*3/uL [facility] HEALTH Basophils/100 WBC (Bld) 0 % 0 - 2 % [facility] Eosinophils/100 WBC (Bld) 0 % Low 1 - 4 % [facility] Hematocrit (Bld) [Volume fraction] 32.5 % Low 40.7 - 50.3 % [facility] Hemoglobin (Bld) [Mass/Vol] 10.8 g/dL Low 13.0 - 17.0 g/dL [facility] Immature granulocytes/100 WBC (Bld) 0 % 0 [facility] Interpretation and review of laboratory results Abnormal [facility] Lymphocytes/100 WBC (Bld) 4 % Low 24 - 43 % [facility] MCH (RBC) [Entitic mass] 32.9 pg 25.2 - 33.5 pg [facility] MCHC (RBC) [Mass/Vol] 33.2 g/dL 28.4 - 34.8 g/dL [facility] MCV (RBC) [Entitic vol] 99.1 fL 82.6 - 102.9 fL [facility] Monocytes/100 WBC (Bld) 2 % Low 3 - 12 % [facility] Morphology Missael (Bld) [Interp] Normal [facility] NRBC Automated 0.0 0.0 per 100 WBC [facility] Platelet distribution width (Bld) [Ratio] 13.4 % 11.8 - 14.4 % [facility] Platelet mean volume (Bld) [Entitic vol] 10.0 fL 8.1 - 13.5 fL [facility] Platelets (Bld) [#/Vol] 421 10*3/uL [facility] RBC (Bld) [#/Vol] 3.28 10*6/uL Low 4.21 - 5.7 7 m/uL [facility] Segmented neutrophils/100 WBC (Bld) 94 % High 36 - 65 % [facility] Segs Absolute 12.12 High [facility] WBC (Bld) [#/Vol] 12.9 10*3/uL High [facility] CBC with Diffon 03-07-2022 Abs. Basophil 0.00 k/uL Normal 0.00-0.20 [facility] Comment on above: Performed By: #### C DP #### [address] [address] [employer]: Raheem Hardin MD Abs.Imm.Granulocyte 0.00 k/uL Normal 0.00-0.30 [facility] Comment on above: Performed By: #### C DP #### [place] [address] [employer]: Raheem Hardin MD Abs.Neutrophil (Seg) 12.12 k/uL High 1.50-8.10 [facility] Comment on above: Performed By: #### C DP #### [place] [address] [employer]: Raheem Hardin MD Basophils/100 WBC (Bld) 0 % Normal 0-2 [facility] Comment on above: Performed By: #### C DP #### [place] [address] [employer]: Raheem Hardin MD Eosinophils (Bld) [#/Vol] 0.00 10*3/uL Normal 0.00-0.44 [facility] Comment on above: Performed By: #### C DP #### [address] [address] [employer]: Raheem Hardin MD Eosinophils/100 WBC (Bld) 0 % Low 1-4 [facility] Comment on above: Performed By: #### C DP #### [address] [address] [employer]: Raheem Hardin MD Immature granulocytes/100 WBC (Bld) 0 % Normal 0 [facility] Comment on above: Performed By: #### C DP #### [address] [address] [employer]: Raheem Hardin MD Lymphocytes (Bld) [#/Vol] 0.52 10*3/uL Low 1.10-3.70 [facility] Comment on above: Performed By: #### C DP #### [address] [address] [employer]: Raheem Hardin MD Lymphocytes/100 WBC (Bld) 4 % Low 24-43 [facility] Comment on above: Performed By: #### C DP #### [address] [address] [employer]: Raheem Hardin MD Monocytes (Bld) [#/Vol] 0.26 10*3/uL Normal 0.10-1.20 [facility] Comment on above: Performed By: #### C DP #### [address] [address] [employer]: Raheem Hardin MD Monocytes/100 WBC (Bld) 2 % Low 3-12 [facility] Comment on above: Performed By: #### C DP #### [address] [address] [employer]: Raheem Hardin MD Morphology Missael (Bld) [Interp] Normal Normal [facility] Comment on above: Performed By: #### C DP #### [address] [address] [employer]: Raheem Hardin MD Neutrophil (Seg) 94 % High 36-65 [facility] Comment on above: Performed By: #### C DP #### [address] [address] [employer]: Raheem Hardin MD Erythrocyte distribution width (RBC) [Ratio] 13.4 % Normal 11.8-14.4 [facility] Comment on above: Performed By: #### C DP #### [address] [address] [employer]: Raheem Hardin MD Hematocrit (Bld) [Volume fraction] 32.5 % Low 40.7-50.3 [facility] Comment on above: Performed By: #### C DP #### [address] [address] [employer]: Raheem Hardin MD Hemoglobin (Bld) [Mass/Vol] 10.8 g/dL Low 13.0-17.0 [facility] Comment on above: Performed By: #### C DP #### [address] [address] [employer]: Raheem Hardin MD MCH (RBC) [Entitic mass] 32.9 pg Normal 25.2-33.5 [facility] Comment on above: Performed By: #### C DP #### [address] [address] [employer]: Raheem Hardin MD MCHC (RBC) [Mass/Vol] 33.2 g/dL Normal 28.4-34.8 [facility] Comment on above: Performed By: #### C DP #### [address] [address] [employer]: Raheem Hardin MD MCV (RBC) [Entitic vol] 99.1 fL Normal 82.6-102.9 [facility] Comment on above: Performed By: #### C DP #### [address] [address] [employer]: Raheem Hardin MD NRBC Automated 0.0 per 100 WBC Normal 0.0 [facility] Comment on above: Performed By: #### C DP #### [address] [address] [employer]: Raheem Hardin MD Platelet mean volume (Bld) [Entitic vol] 10.0 fL Normal 8.1-13.5 [facility] Comment on above: Performed By: #### C DP #### [address] [address] [employer]: Raheem Hardin MD Platelets (Bld) [#/Vol] 421 10*3/uL Normal 138-453 [facility] Comment on above: Performed By: #### C DP #### [address] [address] [employer]: Raheem Hardin MD RBC (Bld) [#/Vol] 3.28 10*6/uL Low 4.21-5.77 [facility] Comment on above: Performed By: #### C DP #### [address] [address] [employer]: Raheem Hardin MD WBC (Bld) [#/Vol] 12.9 10*3/uL High 3.5-11.3 [facility] Comment on above: Performed By: #### C DP #### [address] [address] [employer]: Raheem Hardin MD Comp Metabolic Pr/rfx MGon 1 05-08-2021 Albumin [Mass/Vol] 3.5 g/dL Normal 3.5-5.2 [facility] Comment on above: Performed By: #### C MPX, GLYHGB, LIP, DANE #### [address] [address] [employer]: Raheem Hardin MD Albumin/Glob Ratio 1.3 Normal 1.0-2.5 [facility] Comment on above: Performed By: #### C MPX, GLYHGB, LIP, DANE #### [address] [address] [employer]: Raheem Hardin MD Alkaline Phos 97 U/L Normal 40-129 [facility] Comment on above: Performed By: #### C MPX, GLYHGB, LIP, DANE #### [facility] [address] [place] [address] [employer]: Raheem Hardin MD ALT [Catalytic activity/Vol] 17 U/L Normal 5-41 [facility] Comment on above: Performed By: #### C MPX, GLYHGB, LIP, DANE #### [facility] [address] [place] [address] [employer]: Raheem Hardin MD Anion gap [Moles/Vol] 11 mmol/L Normal 9-17 [facility] Comment on above: Performed By: #### C MPX, GLYHGB, LIP, DANE #### [address] [address] [employer]: Raheem Hardin MD AST [Catalytic activity/Vol] 20 U/L Normal <40 [facility] Comment on above: Performed By: #### C MPX, GLYHGB, LIP, DANE #### [address] [address] [employer]: Raheem Hardin MD Bilirubin [Mass/Vol] 0.5 mg/dL Normal 0.3-1.2 [facility] Comment on above: Performed By: #### C MPX, GLYHGB, LIP, DANE #### [facility] [address] [place] [address] [employer]: Raheem Hardin MD Calcium [Mass/Vol] 8.9 mg/dL Normal 8.6-10.4 [facility] Comment on above: Performed By: #### C MPX, GLYHGB, LIP, DANE #### [facility] [address] [place] [address] [employer]: Raheem Hardin MD Chloride [Moles/Vol] 107 mmol/L Normal 98-107 [facility] Comment on above: Performed By: #### C MPX, GLYHGB, LIP, DANE #### [facility] [address] [place] [address] [employer]: Raheem Hardin MD CO2 [Moles/Vol] 23 mmol/L Normal 20-31 [facility] Comment on above: Performed By: #### C MPX, GLYHGB, LIP, DANE #### [facility] [address] [place] [address] [employer]: Raheem Hardin MD Creatinine [Mass/Vol] 0.82 mg/dL Normal 0.70-1.20 [facility] Comment on above: Performed By: #### C MPX, GLYHGB, LIP, DANE #### [address] [address] [employer]: Raheem Hardin MD GFR/1.73 sq M.predicted among non-blacks MDRD (S/P/Bld) [Vol rate/Area] mL/min/{1.73_m2} Normal >60 [facility] Comment on above: Result Comment: Effective [...] #### C MPX, GLYHGB, LIP, DANE #### [facility] [address] [place] [address] [employer]: Raheem Hardin MD Glucose [Mass/Vol] 147 mg/dL High 70-99 [facility] Comment on above: Performed By: #### C MPX, GLYHGB, LIP, DANE #### [facility] [place] [address] [employer]: Raheem Hardin MD Potassium [Moles/Vol] 4.1 mmol/L Normal 3.7-5.3 [facility] Comment on above: Performed By: #### C MPX, GLYHGB, LIP, DANE #### [facility] [address] [place] [address] [employer]: Raheem Hardin MD Protein [Mass/Vol] 6.3 g/dL Low 6.4-8.3 [facility] Comment on above: Performed By: #### C MPX, GLYHGB, LIP, DANE #### [facility] [address] [place] [address] [employer]: Raheem Hardin MD Sodium [Moles/Vol] 141 mmol/L Normal 135-144 [facility] Comment on above: Performed By: #### C MPX, GLYHGB, LIP, DANE #### [facility] [place] [address] [employer]: Raheem Hardin MD Urea nitrogen [Mass/Vol] 14 mg/dL Normal 8-23 [facility] Comment on above: Performed By: #### C MPX, GLYHGB, LIP, DANE #### [facility] [address] [place] [address] [employer]: Raheem Hardin MD Comprehensive Metabolic Pane l w/ Reflex to MGon 03-07-2022 Albumin [Mass/Vol] 3.5 g/dL 3.5 - 5.2 g/dL [facility] Albumin/Globulin [Mass ratio] 1.3 {ratio} 1.0 - 2.5 [facility] ALP (Bld) [Catalytic activity/Vol] 97 U/L 40 - 129 U/L [facility] ALT [Catalytic activity/Vol] 17 U/L 5 - 41 U/L [facility] Anion gap [Moles/Vol] 11 mmol/L 9 - 17 mmol/L [facility] AST [Catalytic activity/Vol] 20 U/L NINF - 40 U/L [facility] Bilirubin [Mass/Vol] 0.5 mg/dL 0.3 - 1.2 mg/dL [facility] Calcium [Mass/Vol] 8.9 mg/dL 8.6 - 10. 4 mg/dL [facility] Chloride [Moles/Vol] 107 mmol/L 98 - 107 mmol/L [facility] CO2 [Moles/Vol] 23 mmol/L 20 - 31 mmol/L [facility] Creatinine [Mass/Vol] 0.82 mg/dL 0.70 - 1.20 mg/dL [facility] GFR/1.73 sq M.predicted MDRD (S/P/Bld) [Vol rate/Area] - PINF [facility] Comment on above: Effective Dec 18, 2021 [...] 147 mg/dL High 70 - 99 mg/dL [facility] Potassium [Moles/Vol] 4.1 mmol/L 3.7 - 5.3 mmol/L [facility] Protein [Mass/Vol] 6.3 g/dL Low 6.4 - 8.3 g/dL [facility] Sodium [Moles/Vol] 141 mmol/L 135 - 144 mmol/L [facility] Urea nitrogen (BldV) [Mass/Vol] 14 mg/dL 8 - 23 mg/dL [facility] EKG 12 LeadOrdered By: Deep Mcguire on 03-07-2022 Atrial Rate 98 BPM [facility] [employer] Work Phone: P [place] 69 degrees [facility] [employer] Work Phone: P-R Interval 160 ms [employer] Work Phone: Q-T Interval 416 ms [employer] Work Phone: QRS Duration 138 ms [employer] Work Phone: QTc Calculation (Bazett) 531 ms [employer] Work Phone: R [place] -26 degrees [employer] Work Phone: T [place] 121 degrees [employer] Work Phone: Ventricular Rate 98 BPM [employer] Work Phone: [employer] Work Phone: EKG 12 Leadon 03-07-2022 Normal sinus rhythm Left bundle branch block Abnormal ECG No previous ECGs available [facility] Yesika Solis MD - 03/07/2022 Normal sinus rhythm Left bundle branch block Abnormal ECG No previous ECGs available [employer] Work Phone: Hemoglobin A1Con 03-07-2022 Glucose [Mass/Vol] 192 mg/dL Normal [facility] Comment on above: Result Comment: The ADA and AACC recommend providing the estimated average glucose result to permit better patient understanding of their HBA1c result. Performed By: #### C MPX, GLYHGB, LIP, DANE #### [employer] [address] [place], [place] [phone] [employer]: Raheem Hardin MD HbA1c (Bld) [Mass fraction] 8.3 % High 4.0-6.0 [facility] Comment on above: Performed By: #### C MPX, GLYHGB, LIP, DANE #### [employer] [address] [place], [place] [id number] [employer]: Raheem Hardin MD Hemoglobin A1con 9 Glucose [Mass/Vol] 192 mg/dL [facility] [employer] Comment on above: The ADA and AACC rec ommend providing the estimated average glucose result to permit better patient understanding of their HBA1c result. HbA1c (Bld) [Mass fraction] 8.3 % High 4.0 - 6.0 % [facility] Interpretation and review of laboratory results Abnormal [facility] Lipaseon 03-07-2022 Lipase [Catalytic activity/Vol] 8 U/L Low 13-60 [facility] Comment on above: Performed By: #### C MPX, GLYHGB, LIP, DANE #### [employer] [address] [place], [place] [id number] [employer]: Raheem Hardin MD Lipase [Catalytic activity/Vol] 8 U/L Low 13 - 60 U/L [facility] No Panel Informationon 03-07 Interpretation and review of laboratory results Abnormal [facility] POC Glucose Fingerstickon Glucose [Mass/Vol] 124 mg/dL High 75 - 110 mg/dL [facility] Interpretation and review of laboratory results Abnormal [facility] Glucose [Mass/Vol] 158 mg/dL High 75 - 110 mg/dL [facility] Interpretation and review of laboratory results Abnormal [facility] Glucose [Mass/Vol] 131 mg/dL High 75 - 110 mg/dL [facility] Interpretation and review of laboratory results Abnormal [facility] Phosphoruson 03-07-2022 Phosphate [Mass/Vol] 1.8 mg/dL Low 2.5 - 4.5 mg/dL [facility] Phosphorus, Inorg.on 022 Phosphorus, Inorg. 1.8 mg/dL Low 2.5-4.5 [facility] Comment on above: Performed By: #### C MPX, GLYHGB, LIP, DANE #### [facility] [address] [place] [address] [employer]: Raheem Hardin MD TSH w/reflex to FT4on 2021 Thyroid Stim. Horm. 1.16 uIU/mL Normal 0.30-5.00 [facility] Comment on above: Performed By: #### T SHX #### [facility] [address] [place] [address] [employer]: Raheem Hardin MD TSH with Reflexon 03-07-2022 TSH Qn 1.16 m[IU]/L [facility] TYPE AND SCREENon 03-07-2022 ABO/Rh Positive [facility] Arm Band Number BE [id number] [facility] Expiration Date 03/10/2022,2359 [facility] Type + Screenon 03-07-2022 Type + Screen Sample Expiration 03/10/2022,2359 Arm Band Number BE [id number] ABO/Rh(D) B POSITIVE Antibody Screen NEGATIVE Normal [facility] Comment on above: Performed By: #### T YS #### [facility] [address] [place] [address] [employer]: Raheem Hardin MD XR CHEST PORTABLEon 03-07-20 [...] Dawood Solano MD 03/07/22 Final result Normal [facility] EXAMINATION: ONE XRAY VIEW OF THE [...] or pleural effusion. Surrounding structures are unremarkable. [facility] Dawood Esparza MD - 03/07/2022 EXAMINATION: ONE XRAY VIEW [...] chest CT recommended for further evaluation preop. [employer] Phone: Radiology Study observation (narrative) [employer] Phone: XR CHEST PORTABLEOrdered By: Dawood Solano on 03-07-2022 [employer] Phone: CBC AUTO DIFFon 03-06-2022 BASO # 0.1 103/ul Normal 0.0-0.1 [facility] Comment on above: Performed By: #### P OCGLUC #### [facility] [address] [address] [address] Avni Aguillon Basophils/100 WBC (Bld) 2.2 % Critically high 0.2-2.0 [facility] Comment on above: Performed By: #### P OCGLUC #### [facility] [address] [address] [address] Avni Aguillon EO # 0.4 103/ul Normal 0.0-0.7 [facility] Comment on above: Performed By: #### P OCGLUC #### [facility] [address] [address] [address] Avni Aguillon Eosinophils/100 WBC (Bld) 5.9 % Normal 0.9-7.0 [facility] Comment on above: Performed By: #### P OCGLUC #### [facility] [address] [place] [address] Dr. Avni Aguillon Erythrocyte distribution width (RBC) [Ratio] 13.3 % Normal 11.0-15.0 [facility] Comment on above: Performed By: #### P OCGLUC #### [facility] [address] [place] [address] Dr. Avni Aguillon Hematocrit (Bld) [Volume fraction] 32.5 % Critically low 42.0-54.0 [facility] Comment on above: Performed By: #### P OCGLUC #### [facility] [address] [place] [address] Dr. Avni Aguillon Hemoglobin (Bld) [Mass/Vol] 11.1 g/dL Critically low 14.0-18.0 [facility] Comment on above: Performed By: #### P OCGLUC #### [facility] [address] [place] [address] Dr. Avni Aguillon IG # 0.01 10e3/ul Normal 0.00-0.03 [facility] Comment on above: Performed By: #### P OCGLUC #### [facility] [address] [place] [address] Dr. Avni Aguillon IG % 0.2 % Normal 0.0-0.5 [facility] Comment on above: Performed By: #### P OCGLUC #### [facility] [address] [place] [address] Dr. Avni Aguillon LYMPH # 0.7 103/ul Critically low 1.2-3.8 [facility] Comment on above: Performed By: #### P OCGLUC #### [facility] [address] [place] [address] Dr. Avni Aguillon Lymphocytes/100 WBC (Bld) 12.1 % Critically low 20.5-60.0 [facility] Comment on above: Performed By: #### P OCGLUC #### [facility] [address] [place] [address] Dr. Avni Aguillon MANUAL DIFF REQ NO Normal [facility] Comment on above: Performed By: #### P OCGLUC #### [facility] [address] [address] [address] Avni Aguillon MCH (RBC) [Entitic mass] 32.8 pg Normal 25.9-34.0 [facility] Comment on above: Performed By: #### P OCGLUC #### [facility] [address] [place] [address] Dr. Avni Aguillon MCHC (RBC) [Mass/Vol] 34.2 g/dL Normal 29.9-35.2 [facility] Comment on above: Performed By: #### P OCGLUC #### [facility] [address] [place] [address] Dr. Avni Aguillon MCV (RBC) [Entitic vol] 96.2 fL Critically high 80.0-94.0 [facility] Comment on above: Performed By: #### P OCGLUC #### [facility] [address] [place] [address] Dr. Avni Aguillon MONO # 0.6 103/ul Normal 0.3-0.8 [facility] Comment on above: Performed By: #### P OCGLUC #### [facility] [address] [place] [address] Dr. Avni Aguillon Monocytes/100 WBC (Bld) 9.9 % Normal 1.7-12.0 [facility] Comment on above: Performed By: #### P OCGLUC #### [facility] [address] [place] [address] Dr. Avni Aguillon NEUT # 4.1 103/ul Normal 1.4-6.5 [facility] Comment on above: Performed By: #### P OCGLUC #### [facility] [address] [place] [address] Dr. Avni Aguillon Neutrophils/100 WBC (Bld) 69.7 % Normal 43.0-75.0 [facility] Comment on above: Performed By: #### P OCGLUC #### [facility] [address] [place] [address] Dr. Avni Aguillon Platelet mean volume (Bld) [Entitic vol] 9.8 fL Normal 9.5-13.5 [facility] Comment on above: Performed By: #### P OCGLUC #### [facility] [address] [address] [address] Avni Aguillon PLT 318 103/ul Normal 150-450 [facility] Comment on above: Performed By: #### P OCGLUC #### [facility] [address] [address] [address] Avni Aguillon RBC 3.38 106/ul Critically low 4.70-6.10 [facility] Comment on above: Performed By: #### P OCGLUC #### [facility] [address] [address] [address] Avni Aguillon WBC 5.9 103/ul Normal 4.0-11.0 [facility] Comment on above: Performed By: #### P OCGLUC #### [facility] [address] [address] [address] Avni Aguillon MAGNESIUMon 03-06-2022 Magnesium [Mass/Vol] 1.6 mg/dL Critically low 1.8-2.4 [facility] Comment on above: Performed By: #### U RCX #### [facility] [address] [place] [address] Dr. Avni Aguillon POC Glucose Fingerstickon Glucose [Mass/Vol] 131 mg/dL High 75 - 110 mg/dL [facility] Interpretation and review of laboratory results Abnormal [facility] POINT OF CARE GLUCOSEon 02-16 Glucose [Mass/Vol] 183 mg/dL Critically high 74-106 [facility] Comment on above: Performed By: #### P OCGLUC #### [facility] [address] [place] [address] Dr. Avni Aguillon Glucose [Mass/Vol] 252 mg/dL Critically high 74-106 [facility] Comment on above: Performed By: #### C BC #### [facility] [address] [address] [address] Avni Aguillon Glucose [Mass/Vol] 153 mg/dL Critically high 74-106 [facility] Comment on above: Performed By: #### B [employer] #### [facility] [address] [place] [address] Dr. Avni Aguillon Glucose [Mass/Vol] 101 mg/dL Normal 74-[address] [facility] Comment on above: Performed By: #### P OCGLUC #### [facility] [address] [place] [address] Dr. Avni Aguillon PROF CHEM 8 (BAS METB)on Anion gap [Moles/Vol] 13.7 mmol/L Normal [facility] Comment on above: Performed By: #### U RCX #### [facility] [address] [place] [address] Dr. Avni Aguillon Calcium [Mass/Vol] 8.6 mg/dL Normal 8.5-10.1 [facility] Comment on above: Performed By: #### U RCX #### [facility] [address] [place] [address] Dr. Avni Aguillon Chloride [Moles/Vol] 104 mmol/L Normal 98-107 [facility] Comment on above: Performed By: #### U RCX #### [facility] [address] [place] [address] Dr. Avni Aguillon CO2 [Moles/Vol] 24.9 mmol/L Normal 21.0-32.0 [facility] Comment on above: Performed By: #### U RCX #### [facility] [address] [place] [address] Dr. Avni Aguillon Creatinine [Mass/Vol] 0.97 mg/dL Normal 0.70-1.30 [facility] Comment on above: Performed By: #### U RCX #### [facility] [address] [place] [address] Dr. Avni Aguillon EGFR-AF MEXICAN >60 Normal >=60 [facility] Comment on above: Performed By: #### U RCX #### [facility] [address] [place] [address] Dr. Avni Aguillon EGFR-NON AF MEXICAN >60 Normal >=60 [facility] Comment on above: Performed By: #### U RCX #### [facility] [address] [address] [address] Avni Aguillon Glucose [Mass/Vol] 180 mg/dL Critically high 74-106 [facility] Comment on above: Performed By: #### U RCX #### [facility] [address] [address] [address] Avni Aguillon Potassium [Moles/Vol] 3.6 mmol/L Normal 3.5-5.1 [facility] Comment on above: Performed By: #### U RCX #### [facility] [address] [place] [address] Dr. Avni Aguillon Sodium [Moles/Vol] 139 mmol/L Normal 136-145 [facility] Comment on above: Performed By: #### U RCX #### [facility] [address] [place] [address] Dr. Avni Aguillon Urea nitrogen [Mass/Vol] 12.0 mg/dL Normal 7.0-18.0 [facility] Comment on above: Performed By: #### U RCX #### [facility] [address] [place] [address] Dr. Avni Aguillon Urea nitrogen/Creatinine [Mass ratio] 12.4 mg/mg Normal [facility] Comment on above: Performed By: #### U RCX #### [facility] [address] [place] [address] Dr. Anvi Aguillon CBC AUTO DIFFon 03-05-2022 BASO # 0.1 103/ul Normal 0.0-0.1 [facility] Comment on above: Performed By: #### S PUTCX #### [facility] [address] [place] [address] Dr. Avni Aguillon Basophils/100 WBC (Bld) 1.4 % Normal 0.2-2.0 [facility] Comment on above: Performed By: #### S PUTCX #### [facility] [address] [place] [address] Dr. Avni Aguillon EO # 0.4 103/ul Normal 0.0-0.7 [facility] Comment on above: Performed By: #### S PUTCX #### [facility] [address] [place] [address] Dr. Avni Aguillon Eosinophils/100 WBC (Bld) 5.2 % Normal 0.9-7.0 [facility] Comment on above: Performed By: #### S PUTCX #### [facility] [address] [place] [address] Dr. Avni Aguillon Erythrocyte distribution width (RBC) [Ratio] 13.3 % Normal 11.0-15.0 [facility] Comment on above: Performed By: #### S PUTCX #### [facility] [address] [place] [address] Dr. Avni Aguillon Hematocrit (Bld) [Volume fraction] 36.1 % Critically low 42.0-54.0 [facility] Comment on above: Performed By: #### S PUTCX #### [facility] [address] [place] [address] Dr. Avni Aguillon Hemoglobin (Bld) [Mass/Vol] 12.3 g/dL Critically low 14.0-18.0 [facility] Comment on above: Performed By: #### S PUTCX #### [facility] [address] [place] [address] Dr. Avni Aguillon IG # 0.03 10e3/ul Normal 0.00-0.03 [facility] Comment on above: Performed By: #### S PUTCX #### [facility] [address] [place] [address] Dr. Avni Aguillon IG % 0.4 % Normal 0.0-0.5 [facility] Comment on above: Performed By: #### S PUTCX #### [facility] [address] [place] [address] Dr. Avni Aguillon LYMPH # 1.2 103/ul Normal 1.2-3.8 [facility] Comment on above: Performed By: #### S PUTCX #### [facility] [address] [place] [address] Dr. Avni Aguillon Lymphocytes/100 WBC (Bld) 14.5 % Critically low 20.5-60.0 [facility] Comment on above: Performed By: #### S PUTCX #### [facility] [address] [place] [address] Dr. Avni Aguillon MANUAL DIFF REQ NO Normal [facility] Comment on above: Performed By: #### S PUTCX #### [facility] [address] [place] [address] Dr. Avni Aguillon MCH (RBC) [Entitic mass] 32.2 pg Normal 25.9-34.0 [facility] Comment on above: Performed By: #### S PUTCX #### [facility] [address] [place] [address] Dr. Avni Aguillon MCHC (RBC) [Mass/Vol] 34.1 g/dL Normal 29.9-35.2 [facility] Comment on above: Performed By: #### S PUTCX #### [facility] [address] [place] [address] Dr. Avni Aguillon MCV (RBC) [Entitic vol] 94.5 fL Critically high 80.0-94.0 [facility] Comment on above: Performed By: #### S PUTCX #### [facility] [address] [place] [address] Dr. Avni Aguillon MONO # 0.7 103/ul Normal 0.3-0.8 [facility] Comment on above: Performed By: #### S PUTCX #### [facility] [address] [place] [address] Dr. Avni Aguillon Monocytes/100 WBC (Bld) 8.8 % Normal 1.7-12.0 [facility] Comment on above: Performed By: #### S PUTCX #### [facility] [address] [place] [address] Dr. Avni Aguillon NEUT # 5.9 103/ul Normal 1.4-6.5 [facility] Comment on above: Performed By: #### S PUTCX #### [facility] [address] [place] [address] Dr. Avni Aguillon Neutrophils/100 WBC (Bld) 69.7 % Normal 43.0-75.0 [facility] Comment on above: Performed By: #### S PUTCX #### [facility] [address] [place] [address] Dr. Avni Aguillon Platelet mean volume (Bld) [Entitic vol] 9.2 fL Critically low 9.5-13.5 [facility] Comment on above: Performed By: #### S PUTCX #### [facility] [address] [place] [address] Dr. Avni Aguillon PLT 430 103/ul Normal 150-450 [facility] Comment on above: Performed By: #### S PUTCX #### [facility] [address] [place] [address] Dr. Avni Aguillon RBC 3.82 106/ul Critically low 4.70-6.10 [facility] Comment on above: Performed By: #### S PUTCX #### [facility] [address] [place] [address] Dr. Avni Aguillon WBC 8.4 103/ul Normal 4.0-11.0 [facility] Comment on above: Performed By: #### S PUTCX #### [facility] [address] [place] [address] ABD/PELV W CONon [...] by: JOSE MATTHEWS Date: 2022-03-05 16:[address] [facility] [address] CHEST W CONon 03-05-2022 CT CHEST [...] dysmotility or reflux. Electronically authenticated by: ROSALIND BRENNAN Date: 2022-03-05 16:33 Normal [facility] Covid-19 PCR (CVDTB)on 02-15 SARS-CoV-2 (COVID-19) RNA DANILO+probe Ql (Unsp spec) Not detected Normal NOT DETECTED [facility] Comment on above: Result Comment: When diagnostic [...] for this test is supported by the [place] of Health and Human Service's declaration that [...] used). Performed By: #### C BC #### [facility] [address] [place] [address] Dr. Avni Aguillon PROF CHEM 8 (BAS METB)on Anion gap [Moles/Vol] 12.2 mmol/L Normal [facility] Comment on above: Performed By: #### P OCGLUC #### [facility] [address] [address] [address] Avni Aguillon Calcium [Mass/Vol] 9.3 mg/dL Normal 8.5-10.[address] [facility] Comment on above: Performed By: #### P OCGLUC #### [facility] [address] [place] [address] Dr. Avni Aguillon Chloride [Moles/Vol] 103 mmol/L Normal 98-107 [facility] Comment on above: Performed By: #### P OCGLUC #### [facility] [address] [address] [address] Avni Aguillon CO2 [Moles/Vol] 28.4 mmol/L Normal 21.0-32.0 [facility] Comment on above: Performed By: #### P OCGLUC #### [facility] [address] [address] [address] Avni Aguillon Creatinine [Mass/Vol] 0.85 mg/dL Normal 0.70-1.30 [facility] Comment on above: Performed By: #### P OCGLUC #### [facility] [address] [address] [address] Avni Aguillon EGFR-AF MEXICAN >60 Normal >=60 [facility] Comment on above: Performed By: #### P OCGLUC #### [facility] [address] [address] [address] Avni Aguillon EGFR-NON AF MEXICAN >60 Normal >=60 [facility] Comment on above: Performed By: #### P OCGLUC #### [facility] [address] [address] [address] Avni Aguillon Glucose [Mass/Vol] 100 mg/dL Normal 74-[address] [facility] Comment on above: Performed By: #### P OCGLUC #### [facility] [address] [address] [address] Avni Aguillon Potassium [Moles/Vol] 3.6 mmol/L Normal 3.5-5.1 [facility] Comment on above: Performed By: #### P OCGLUC #### [facility] [address] [address] [address] Avni Aguillon Sodium [Moles/Vol] 140 mmol/L Normal 136-[address] [facility] Comment on above: Performed By: #### P OCGLUC #### [facility] [address] [address] [address] Avni Aguillon Urea nitrogen [Mass/Vol] 13.0 mg/dL Normal 7.0-18.0 [facility] Comment on above: Performed By: #### P OCGLUC #### [facility] [address] [place] [address] Dr. Avni Aguillon Urea nitrogen/Creatinine [Mass ratio] 15.3 mg/mg Normal [facility] Comment on above: Performed By: #### P OCGLUC #### [facility] [address] [place] [address] Dr. Avni Aguillon BNPon 02-12-2022 Natriuretic peptide B (Bld) [Mass/Vol] 385.0 pg/mL Normal <=1,800.0 [facility] Comment on above: Performed By: #### U RCX #### [facility] [address] [place] [address] Dr. Avni Aguillon CBC AUTO DIFFon 02-12-2022 BASO # 0.0 103/ul Normal 0.0-0.1 [facility] Comment on above: Performed By: #### C BCMAN #### [facility] [address] [place] [address] Dr. Avni Aguillon Basophils/100 WBC (Bld) 0.3 % Normal 0.2-2.0 [facility] Comment on above: Performed By: #### C BCMAN #### [facility] [address] [place] [address] Dr. Avni Aguillon EO # 0.1 103/ul Normal 0.0-0.7 [facility] Comment on above: Performed By: #### C BCMAN #### [facility] [address] [place] [address] Dr. Avni Aguillon Eosinophils/100 WBC (Bld) 1.3 % Normal 0.9-7.0 [facility] Comment on above: Performed By: #### C BCMAN #### [facility] [address] [place] [address] Dr. Avni Aguillon Erythrocyte distribution width (RBC) [Ratio] 13.3 % Normal 11.0-15.0 [facility] Comment on above: Performed By: #### C BCMAN #### [facility] [address] [place] [address] Dr. Avni Aguillon Hematocrit (Bld) [Volume fraction] 37.5 % Critically low 42.0-54.0 [facility] Comment on above: Performed By: #### C BCMAN #### [facility] [address] [address] [address] Avni Aguillon Hemoglobin (Bld) [Mass/Vol] 12.8 g/dL Critically low 14.0-18.0 [facility] Comment on above: Performed By: #### C BCMAN #### [facility] [address] [address] [address] Avni Aguillon IG # 0.12 10e3/ul Critically high 0.00-0.03 [facility] Comment on above: Performed By: #### C BCMAN #### [facility] [address] [address] [address] Avni Aguillon IG % 1.1 % Critically high 0.0-0.5 [facility] Comment on above: Performed By: #### C BCMAN #### [facility] [address] [place] [address] Dr. Avni Aguillon LYMPH # 1.4 103/ul Normal 1.2-3.8 [facility] Comment on above: Performed By: #### C BCMAN #### [facility] [address] [address] [address] Avni Aguillon Lymphocytes/100 WBC (Bld) 13.2 % Critically low 20.5-60.0 [facility] Comment on above: Performed By: #### C BCMAN #### [facility] [address] [address] [address] Avni Aguillon MANUAL DIFF REQ NO Normal [facility] Comment on above: Performed By: #### C BCMAN #### [facility] [address] [address] [address] Avni Aguillon MCH (RBC) [Entitic mass] 31.8 pg Normal 25.9-34.0 [facility] Comment on above: Performed By: #### C BCMAN #### [facility] [address] [address] [address] Avni Aguillon MCHC (RBC) [Mass/Vol] 34.1 g/dL Normal 29.9-35.2 [facility] Comment on above: Performed By: #### C BCRAUL #### [facility] [address] [address] [address] Avni Aguillon MCV (RBC) [Entitic vol] 93.1 fL Normal 80.0-94.0 [facility] Comment on above: Performed By: #### C BCMAN #### [facility] [address] [address] [address] Avni Aguillon MONO # 0.9 103/ul Critically high 0.3-0.8 [facility] Comment on above: Performed By: #### C GREG #### [facility] [address] [address] [address] Avni Aguillon Monocytes/100 WBC (Bld) 8.8 % Normal 1.7-12.0 [facility] Comment on above: Performed By: #### C GREG #### [facility] [address] [place] [address] Dr. Avni Aguillon NEUT # 7.9 103/ul Critically high 1.4-6.5 [facility] Comment on above: Performed By: #### C GREG #### [facility] [address] [place] [address] Dr. Avni Aguillon Neutrophils/100 WBC (Bld) 75.3 % Critically high 43.0-75.0 [facility] Comment on above: Performed By: #### C GREG #### [facility] [address] [place] [address] Dr. Avni Aguillon Platelet mean volume (Bld) [Entitic vol] 9.5 fL Normal 9.5-13.5 [facility] Comment on above: Performed By: #### C BCRAUL #### [facility] [address] [place] [address] Dr. Avni Aguillon PLT 305 103/ul Normal 150-450 [facility] Comment on above: Performed By: #### C GREG #### [facility] [address] [place] [address] Dr. Avni Aguillon RBC 4.03 106/ul Critically low 4.70-6.10 [facility] Comment on above: Performed By: #### C BCMAN #### [facility] [address] [place], [place] [address] Dr. Avni Aguillon WBC 10.5 103/ul Normal 4.0-11.0 [facility] Comment on above: Performed By: #### C BCMAN #### [facility] [address] [place], [place] [address] Dr. Avni Aguillon ECHOCARDIO M/2D COMPLETEon 1 04-14-2021 ECHOCARDIO M/2D COMPLETE Patient: TAMMY MILLARD Exam Date: 02/12/2022 : 1940 Gender:M Ordering : DR MEGA TRAVIS D.O. Admission #: [id number] Family : Order #: [id number] CLICK HERE TO VIEW EXAM ECHOCARDIOGRAM REPORT [...] Area (VTI): 1.81 cm2, 1.81 cm2 Deceleration [place]: 1.18 m/s2 Pressure Half-Time: 697.88 ms Peak [...] M.D. on 02/14/2022 at 13:49 Normal [facility] PROF CHEM 8 (BAS METB)on Anion gap [Moles/Vol] 8.6 mmol/L Normal [facility] Comment on above: Performed By: #### C BC #### [facility] [address] [address] [address] Avni Aguillon Calcium [Mass/Vol] 8.9 mg/dL Normal 8.5-10.1 [facility] Comment on above: Performed By: #### C BC #### [facility] [address] [address] [address] Avni Aguillon Chloride [Moles/Vol] 101 mmol/L Normal 98-107 [facility] Comment on above: Performed By: #### C BC #### [facility] [address] [address] [address] Avni Aguillon CO2 [Moles/Vol] 33.7 mmol/L Critically high 21.0-32.0 [facility] Comment on above: Performed By: #### C BC #### [facility] [address] [place] [address] Dr. Avni Aguillon Creatinine [Mass/Vol] 1.00 mg/dL Normal 0.70-1.30 [facility] Comment on above: Performed By: #### C BC #### [facility] [address] [address] [address] Avni Aguillon EGFR-AF MEXICAN >60 Normal >=60 [facility] Comment on above: Performed By: #### C BC #### [facility] [address] [address] [address] Avni Aguillon EGFR-NON AF MEXICAN >60 Normal >=60 [facility] Comment on above: Performed By: #### C BC #### [facility] [address] [place] [address] Dr. Avni Aguillon Glucose [Mass/Vol] 245 mg/dL Critically high 74-106 [facility] Comment on above: Performed By: #### C BC #### [facility] [address] [address] [address] Avni Aguillon Potassium [Moles/Vol] 3.3 mmol/L Critically low 3.5-5.1 [facility] Comment on above: Performed By: #### C BC #### [facility] [address] [address] [address] Avni Aguillon Sodium [Moles/Vol] 140 mmol/L Normal 136-145 [facility] Comment on above: Performed By: #### C BC #### [facility] [address] [address] [address] Avni Aguillon Urea nitrogen [Mass/Vol] 25.0 mg/dL Critically high 7.0-18.0 [facility] Comment on above: Performed By: #### C BC #### [facility] [address] [place] [address] Dr. Avni Aguillon Urea nitrogen/Creatinine [Mass ratio] 25.0 mg/mg [facility] Comment on above: Performed By: #### C BC #### [facility] [address] [place] [address] Dr. Avni Aguillon TSHon 02-12-2022 TSH 1.826 uIU/mL Normal 0.358-3.[address] [facility] Comment on above: Performed By: #### U RCX #### [facility] [address] [place] [address] Dr. Avni Aguillon CBC W MANUAL DIFFon 01-17-20 22 ATYPICAL LYMPH # Normal [facility] Comment on above: Performed By: #### C BCMAN #### [facility] [address] [place] [address] Dr. Avni Aguillon ATYPICAL LYMPH % Normal [facility] Comment on above: Performed By: #### C BCMAN #### [facility] [address] [place] [address] Dr. Avni Aguillon BAND # 0.0 103/ul Normal 0.0-0.3 [facility] Comment on above: Performed By: #### C BCMAN #### [facility] [address] [address] [address] Avni Aguillon BAND % 0 % Normal 0-5 [facility] Comment on above: Performed By: #### C GREG #### [facility] [address] [place] [address] Dr. Avni Aguillon BASOM # 0.00 103/ul Normal 0.00-0.10 [facility] Comment on above: Performed By: #### C GREG #### [facility] [address] [place] [address] Dr. Avni Aguillon BASOM % 0.0 % Critically low 0.2-2.0 [facility] Comment on above: Performed By: #### C GREG #### [facility] [address] [place] [address] Dr. Avni Aguillon BLAST # Normal [facility] Comment on above: Performed By: #### C GREG #### [facility] [address] [place] [address] Dr. Avni Aguillon BLAST % Normal [facility] Comment on above: Performed By: #### C GREG #### [facility] [address] [place] [address] Dr. Avni Aguillon CORRECTED WBC Normal 4.0-11.[address] [facility] Comment on above: Performed By: #### C GREG #### [facility] [address] [place] [address] Dr. Avni Aguillon EOS # 0.00 103/ul Normal 0.00-0.70 [facility] Comment on above: Performed By: #### C GREG #### [facility] [address] [place] [address] Dr. Avni Aguillon EOS% 0.0 % Critically low 0.9-7.0 [facility] Comment on above: Performed By: #### C GREG #### [facility] [address] [place] [address] Dr. Avni Aguillon HCT 35.0 % Critically low 42.0-54.0 [facility] Comment on above: Performed By: #### C GREG #### [facility] [address] [address] [address] Avni Aguillon HGB 11.8 g/dl Critically low 14.0-18.0 [facility] Comment on above: Performed By: #### C GREG #### [facility] [address] [address] [address] Avni Aguillon LYMPHM # 0.00 103/ul Critically low 1.20-3.80 [facility] Comment on above: Performed By: #### C GREG #### [facility] [address] [address] [address] Avni Aguillon LYMPHM% 0.0 % Critically low 20.5-60.0 [facility] Comment on above: Performed By: #### C GREG #### [facility] [address] [place] [address] Dr. Avni Aguillon MCH 32.2 pg Normal 25.9-34.0 [facility] Comment on above: Performed By: #### C GREG #### [facility] [address] [address] [address] Avni Aguillon MCHC 33.7 g/dl Normal 29.9-35.2 [facility] Comment on above: Performed By: #### C GREG #### [facility] [address] [place] [address] Dr. Avni Aguillon MCV 95.4 fL Critically high 80.0-94.0 [facility] Comment on above: Performed By: #### C GREG #### [facility] [address] [place] [address] Dr. Avni Aguillon METAMYELOCYTE # Normal [facility] Comment on above: Performed By: #### C GREG #### [facility] [address] [place] [address] Dr. Avni Aguillon METAMYELOCYTE % Normal [facility] Comment on above: Performed By: #### C GREG #### [facility] [address] [address] [address] Avni Aguillon MONOM# 0.00 103/ul Critically low 0.30-0.80 [facility] Comment on above: Performed By: #### C GREG #### [facility] [address] [place] [address] Dr. Avni Aguillon MONOM% 0.0 % Critically low 1.7-12.0 [facility] Comment on above: Performed By: #### C BCRAUL #### [facility] [address] [place] [address] Dr. Avni Aguillon MPV 9.6 fL Normal 9.5-13.5 [facility] Comment on above: Performed By: #### C BCMAN #### [facility] [address] [place] [address] Dr. Avni Aguillon MYELOCYTE # Normal [facility] Comment on above: Performed By: #### C GREG #### [facility] [address] [place] [address] Dr. Avni Aguillon MYELOCYTE % Normal [facility] Comment on above: Performed By: #### C GREG #### [facility] [address] [place] [address] Dr. Avni Aguillon NRBC Normal [facility] Comment on above: Performed By: #### C GREG #### [facility] [address] [place] [address] Dr. Avni Aguillon PLT 296 103/ul Normal 150-450 [facility] Comment on above: Performed By: #### C GREG #### [facility] [address] [place] [address] Dr. Avni Aguillon RBC 3.67 106/ul Critically low 4.70-6.10 [facility] Comment on above: Performed By: #### C GREG #### [facility] [address] [place] [address] Dr. Avni Aguillon RDW 13.5 % Normal 11.0-15.0 [facility] Comment on above: Performed By: #### C GREG #### [facility] [address] [place] [address] Dr. Avni Aguillon SEG # 18.70 103/ul Critically high 1.40-6.50 [facility] Comment on above: Performed By: #### C BCMAN #### [facility] [address] [address] [address] Avni Aguillon SEG % 100.0 % Critically high 43.0-75.0 [facility] Comment on above: Performed By: #### C BCMAN #### [facility] [address] [address] [address] Avni Aguillon WBC 18.7 103/ul Critically high 4.0-11.0 [facility] Comment on above: Performed By: #### C BCMAN #### [facility] Laboratory [address] [place] [address] Dr. Avni Aguillon POINT OF CARE GLUCOSEon 11-0 Glucose [Mass/Vol] 186 mg/dL Critically high 74-106 [facility] Comment on above: Performed By: #### P OCGLUC #### [facility] [address] [place] [address] Dr. Avni Aguillon Glucose [Mass/Vol] 273 mg/dL Critically high 74-106 [facility] Comment on above: Performed By: #### C BC #### [facility] [address] [place] [address] Dr. Avni Aguillon PROF CHEM 8 (BAS METB)on Anion gap [Moles/Vol] 14.2 mmol/L Normal [facility] Comment on above: Performed By: #### S PUTCX #### [facility] [address] [place] [address] Dr. Avni Aguillon Calcium [Mass/Vol] 9.0 mg/dL Normal 8.5-10.1 [facility] Comment on above: Performed By: #### S PUTCX #### [facility] [address] [place] [address] Dr. Avni Aguillon Chloride [Moles/Vol] 100 mmol/L Normal 98-107 [facility] Comment on above: Performed By: #### S PUTCX #### [facility] [address] [place] [address] Dr. Avni Aguillon CO2 [Moles/Vol] 22.3 mmol/L Normal 21.0-32.0 [facility] Comment on above: Performed By: #### S PUTCX #### [facility] [address] [place] [address] Dr. Avni Aguillon Creatinine [Mass/Vol] 1.16 mg/dL Normal 0.70-1.30 [facility] Comment on above: Performed By: #### S PUTCX #### [facility] [address] [place] [address] Dr. Avni Aguillon EGFR-AF MEXICAN >60 Normal >=60 [facility] Comment on above: Performed By: #### S PUTCX #### [facility] [address] [place] [address] Dr. Avni Aguillon EGFR-NON AF MEXICAN >60 Normal >=60 [facility] Comment on above: Performed By: #### S PUTCX #### [facility] [address] [place] [address] Dr. Avni Aguillon Glucose [Mass/Vol] 233 mg/dL Critically high 74-106 [facility] Comment on above: Performed By: #### S PUTCX #### [facility] [address] [place] [address] Dr. Avni Aguillon Potassium [Moles/Vol] 3.5 mmol/L Normal 3.5-5.1 [facility] Comment on above: Performed By: #### S PUTCX #### [facility] [address] [place] [address] Dr. Avni Aguillon Sodium [Moles/Vol] 133 mmol/L Critically low 136-145 [facility] Comment on above: Performed By: #### S PUTCX #### [facility] [address] [place] [address] Dr. Avni Aguillon Urea nitrogen [Mass/Vol] 22.0 mg/dL Critically high 7.0-18.0 [facility] Comment on above: Performed By: #### S PUTCX #### [facility] [address] [place] [address] Dr. Avni Aguillon Urea nitrogen/Creatinine [Mass ratio] 19.0 mg/mg Normal [facility] Comment on above: Performed By: #### S PUTCX #### [facility] [address] [place] [address] Dr. Avni Aguillon BNPon 01-15-2022 Natriuretic peptide B (Bld) [Mass/Vol] 125.0 pg/mL Normal <=1,800.0 [facility] Comment on above: Performed By: #### B [employer] #### [facility] [address] [place] [address] Dr. Avni Aguillon CBC AUTO DIFFon 01-15-2022 BASO # 0.1 103/ul Normal 0.0-0.1 [facility] Comment on above: Performed By: #### U RCX #### [facility] [address] [place] [address] Dr. Avni Aguillon Basophils/100 WBC (Bld) 1.3 % Normal 0.2-2.0 [facility] Comment on above: Performed By: #### U RCX #### [facility] [address] [place] [address] Dr. Avni Aguillon EO # 0.7 103/ul Normal 0.0-0.7 [facility] Comment on above: Performed By: #### U RCX #### [facility] [address] [place] [address] Dr. Avni Aguillon Eosinophils/100 WBC (Bld) 6.6 % Normal 0.9-7.0 [facility] Comment on above: Performed By: #### U RCX #### [facility] [address] [place] [address] Dr. Avni Aguillon Erythrocyte distribution width (RBC) [Ratio] 13.7 % Normal 11.0-15.0 [facility] Comment on above: Performed By: #### U RCX #### [facility] [address] [place] [address] Dr. Avni Aguillon Hematocrit (Bld) [Volume fraction] 41.2 % Critically low 42.0-54.0 [facility] Comment on above: Performed By: #### U RCX #### [facility] [address] [place] [address] Dr. Avni Aguillon Hemoglobin (Bld) [Mass/Vol] 13.7 g/dL Critically low 14.0-18.0 [facility] Comment on above: Performed By: #### U RCX #### [facility] [address] [place] [address] Dr. Avni Aguillon IG # 0.04 10e3/ul Critically high 0.00-0.03 [facility] Comment on above: Performed By: #### U RCX #### [facility] [address] [place] [address] Dr. Avni Aguillon IG % 0.4 % Normal 0.0-0.5 [facility] Comment on above: Performed By: #### U RCX #### [facility] [address] [place] [address] Dr. Avni Aguillon LYMPH # 3.3 103/ul Normal 1.2-3.8 [facility] Comment on above: Performed By: #### U RCX #### [facility] [address] [place] [address] Dr. Avni Aguillon Lymphocytes/100 WBC (Bld) 32.5 % Normal 20.5-60.0 [facility] Comment on above: Performed By: #### U RCX #### [facility] [address] [place] [address] Dr. Avni Aguillon MANUAL DIFF REQ NO Normal [facility] Comment on above: Performed By: #### U RCX #### [facility] [address] [place] [address] Dr. Avni Aguillon MCH (RBC) [Entitic mass] 32.5 pg Normal 25.9-34.0 [facility] Comment on above: Performed By: #### U RCX #### [facility] [address] [place] [address] Dr. Avni Aguillon MCHC (RBC) [Mass/Vol] 33.3 g/dL Normal 29.9-35.2 [facility] Comment on above: Performed By: #### U RCX #### [facility] [address] [address] [address] Avni Aguillon MCV (RBC) [Entitic vol] 97.9 fL Critically high 80.0-94.0 [facility] Comment on above: Performed By: #### U RCX #### [facility] [address] [place] [address] Dr. Avni Aguillon MONO # 1.1 103/ul Critically high 0.3-0.8 [facility] Comment on above: Performed By: #### U RCX #### [facility] [address] [place] [address] Dr. Avni Aguillon Monocytes/100 WBC (Bld) 10.9 % Normal 1.7-12.0 [facility] Comment on above: Performed By: #### U RCX #### [facility] [address] [place] [address] Dr. Avni Aguillon NEUT # 4.9 103/ul Normal 1.4-6.5 [facility] Comment on above: Performed By: #### U RCX #### [facility] [address] [place] [address] Dr. Avni Aguillon Neutrophils/100 WBC (Bld) 48.3 % Normal 43.0-75.0 [facility] Comment on above: Performed By: #### U RCX #### [facility] [address] [place] [address] Dr. Avni Aguillon Platelet mean volume (Bld) [Entitic vol] 9.8 fL Normal 9.5-13.5 [facility] Comment on above: Performed By: #### U RCX #### [facility] [address] [place] [address] Dr. Avni Aguillon PLT 371 103/ul Normal 150-450 [facility] Comment on above: Performed By: #### U RCX #### [facility] [address] [place] [address] Dr. Avni Aguillon RBC 4.21 106/ul Critically low 4.70-6.10 [facility] Comment on above: Performed By: #### U RCX #### [facility] [address] [place] [address] Dr. Avni Aguillon WBC 10.0 103/ul Normal 4.0-11.0 [facility] Comment on above: Performed By: #### U RCX #### [facility] [address] [place] [address] Dr. Avni Aguillon CULTURE SPUTUMon 01-15-2022 CULTURE SPUTUM Culture Observations : NORMAL RESPIRATORY ALLISON. Normal [facility] Comment on above: Performed By: #### C VDTBH #### [facility] [address] [place] [address] Dr. Avni Aguillon Covid-19 PCR ([facility])on 12-18 SARS-CoV-2 (COVID-19) RNA DANILO+probe Ql (Unsp spec) Not detected Normal NOT DETECTED [facility] Comment on above: Result Comment: When diagnostic [...] for this test is supported by the [employer] of Health and Human Service's declaration that [...] longer be used). Performed By: #### B [employer] #### [facility] [address] [place] [address] Dr. Avni Aguillon POINT OF CARE GLUCOSEon 12-18 Glucose [Mass/Vol] 263 mg/dL Critically high 74-106 [facility] Comment on above: Performed By: #### P OCGLUC #### [facility] [address] [place] [address] Dr. Avni Aguillon Glucose [Mass/Vol] 295 mg/dL Critically high 74-106 [facility] Comment on above: Performed By: #### C BC #### [facility] [address] [place] [address] Dr. Avni Aguillon Glucose [Mass/Vol] 234 mg/dL Critically high 74-106 [facility] Comment on above: Performed By: #### C VDTB #### [facility] [address] [place] [address] Dr. Avni Aguillon PROF 14(COMP METB)on 022 Albumin [Mass/Vol] 3.7 g/dL Normal 3.4-5.0 [facility] Comment on above: Performed By: #### B [employer] #### [facility] [address] [place] [address] Dr. Avni Aguillon Albumin/Globulin [Mass ratio] 1.1 {ratio} Normal [facility] Comment on above: Performed By: #### B [employer] #### [facility] [address] [place] [address] Dr. Avni Aguillon ALP [Catalytic activity/Vol] 129 U/L Critically high 46-116 [facility] Comment on above: Performed By: #### B [employer] #### [facility] [address] [place] [address] Dr. Avni Aguillon ALT [Catalytic activity/Vol] 30 U/L Normal 16-63 [facility] Comment on above: Performed By: #### B [employer] #### [facility] [address] [place] [address] Dr. Avni Aguillon Anion gap [Moles/Vol] 11.0 mmol/L Normal [facility] Comment on above: Performed By: #### B [employer] #### [facility] [address] [place] [address] Dr. Avni Aguillon AST [Catalytic activity/Vol] 24 U/L Normal 15-37 [facility] Comment on above: Performed By: #### B [employer] #### [facility] [address] [place] [address] Dr. Avni Aguillon Bilirubin [Mass/Vol] 0.6 mg/dL Normal 0.2-1.0 [facility] Comment on above: Performed By: #### B [employer] #### [facility] [address] [address] [address] Avni Aguillon Calcium [Mass/Vol] 8.9 mg/dL Normal 8.5-10.1 [facility] Comment on above: Performed By: #### B [employer] #### [facility] [address] [address] [address] Avni Aguillon Chloride [Moles/Vol] 106 mmol/L Normal 98-107 [facility] Comment on above: Performed By: #### B [employer] #### [facility] [address] [address] [address] Avni Aguillon CO2 [Moles/Vol] 27.6 mmol/L Normal 21.0-32.0 [facility] Comment on above: Performed By: #### B [employer] #### [facility] [address] [place] [address] Dr. Avni Aguillon Creatinine [Mass/Vol] 1.16 mg/dL Normal 0.70-1.30 [facility] Comment on above: Performed By: #### B [employer] #### [facility] [address] [place] [address] Dr. Avni Aguillon EGFR-AF MEXICAN >60 Normal >=60 [facility] Comment on above: Performed By: #### B [employer] #### [facility] [address] [place] [address] Dr. Avni Aguillon EGFR-NON AF MEXICAN >60 Normal >=60 [facility] Comment on above: Performed By: #### B [employer] #### [facility] [address] [place] [address] Dr. Avni Aguillon Globulin (S) [Mass/Vol] 3.5 g/dL Normal [facility] Comment on above: Performed By: #### B [employer] WORK[employer] #### [facility] [address] [place] [address] Dr. Avni Aguillon Glucose [Mass/Vol] 180 mg/dL Critically high 74-106 [facility] Comment on above: Performed By: #### B [employer] #### [facility] [address] [address] [address] Avni Aguillon Potassium [Moles/Vol] 3.6 mmol/L Normal 3.5-5.1 [facility] Comment on above: Performed By: #### B [employer] #### [facility] [address] [address] [address] Avni Aguillon Protein [Mass/Vol] 7.2 g/dL Normal 6.4-8.[address] [facility] Comment on above: Performed By: #### B [employer] #### [facility] [address] [address] [address] Avni Aguillon Sodium [Moles/Vol] 141 mmol/L Normal 136-145 [facility] Comment on above: Performed By: #### B [employer] #### [facility] [address] [place] [address] Dr. Avni Aguillon Urea nitrogen [Mass/Vol] 15.0 mg/dL Normal 7.0-18.0 [facility] Comment on above: Performed By: #### B [employer] #### [facility] [address] [place] [address] Dr. Avni Aguillon Urea nitrogen/Creatinine [Mass ratio] 12.9 mg/mg Normal [facility] Comment on above: Performed By: #### B [employer] WORK[employer] #### [facility] [address] [place] [address] Dr. Avni Aguillon SPUTUM GRAM STAINon 01-16-20 COMMENTS Normal [facility] Comment on above: Performed By: #### B [employer] #### [facility] [address] [place] [address] Dr. Avni Aguillon DIPHTHEROIDS Normal [facility] Comment on above: Performed By: #### B [employer] #### [facility] [address] [place] [address] Dr. Avni Aguillon EPITHELIALS <25 Normal [facility] Comment on above: Performed By: #### B [employer] #### [facility] [address] [place] [address] Dr. Avni Aguillon FUNGAL ELEMENTS Normal [facility] Comment on above: Performed By: #### B [employer] WORK[employer] #### [facility] [address] [address] [address] Avni Aguillon GRAM NEG BACILLI Normal [facility] Comment on above: Performed By: #### B [employer] WORK[employer] #### [facility] [address] [address] [address] Avni Aguillon GRAM NEG DIPPLOCOCCI Normal [facility] Comment on above: Performed By: #### B [employer] WORK[employer] #### [facility] [address] [address] [address] Avni Aguillon GRAM POS BACILLI FEW Normal [facility] Comment on above: Performed By: #### B [employer] WORK[employer] #### [facility] [address] [address] [address] Avni Aguillon GRAM POSITIVE COCCI RARE Normal [facility] Comment on above: Performed By: #### B [employer] WORK[employer] #### [facility] [address] [address] [address] Avni Aguillon WBC (Bld) [#/Vol] 10*3/uL Normal [facility] Comment on above: Performed By: #### B [employer] WORK[employer] #### [facility] [address] [address] [address] Avni Aguillon TROPONIN, HIGH SENSITIVITYon 01-15-2022 HSTROP 13.8 pg/mL Normal 4.0-76.1 [facility] Comment on above: Result Comment: CUT- OFF POINTS HAVE BEEN ESTABLISHED BASED ON THE FOURTH UNIVERSAL DEFINITIONS OF MYOCARDIAL INFARCTION. THE UPPER REFERENCE LIMIT (URL) OF TROPONIN, DEFINED THE 99TH PERCENTILE OF cTnI DISTRIBUTION IN A REFERENCE POPULATION, HAS BEEN CONFIRMED THE DECISION THRESHOLD FOR UT DIAGNOSIS. Performed By: #### B [employer] #### [facility] [address] [address] [address] Avni Aguillon XR CHEST 1 Von [...] GILMA NICK Date: 2022-01-15 02:57 Normal [facility] CBC W MANUAL DIFFon 12-31-19 22 ATYPICAL LYMPH # Normal [facility] Comment on above: Performed By: #### C VDTBH #### [facility] [address] [place] [address] Dr. Avni Aguillon ATYPICAL LYMPH % Normal [facility] Comment on above: Performed By: #### C VDTBH #### [facility] [address] [place] [address] Dr. Avni Aguillon BAND # 0.0 103/ul Normal 0.0-0.3 [facility] Comment on above: Performed By: #### C VDTBH #### [facility] [address] [place] [address] Dr. Avni Aguillon BAND % 0 % Normal 0-5 [facility] Comment on above: Performed By: #### C VDTBH #### [facility] [address] [place] [address] Dr. Avni Aguillon BASOM # 0.00 103/ul Normal 0.00-0.10 [facility] Comment on above: Performed By: #### C VDTBH #### [facility] [address] [place] [address] Dr. Avni Aguillon BASOM % 0.0 % Critically low 0.2-2.0 [facility] Comment on above: Performed By: #### C VDTBH #### [facility] [address] [place] [address] Dr. Avni Aguillon BLAST # Normal [facility] Comment on above: Performed By: #### C VDTBH #### [facility] [address] [place] [address] Dr. Avni Aguillon BLAST % Normal [facility] Comment on above: Performed By: #### C VDTBH #### [facility] [address] [place] [address] Dr. Avni Aguillon CORRECTED WBC Normal 4.0-11.0 [facility] Comment on above: Performed By: #### C VDTBH #### [facility] [address] [address] [address] Avni Aguillon EOS # 0.00 103/ul Normal 0.00-0.70 [facility] Comment on above: Performed By: #### C VDTBH #### [facility] [address] [address] [address] Avni Aguillon EOS% 0.0 % Critically low 0.9-7.0 [facility] Comment on above: Performed By: #### C VDTBH #### [facility] [address] [address] [address] Avni Aguillon HCT 37.2 % Critically low 42.0-54.0 [facility] Comment on above: Performed By: #### C VDTBH #### [facility] [address] [place] [address] Dr. Avni Aguillon HGB 12.6 g/dl Critically low 14.0-18.0 [facility] Comment on above: Performed By: #### C VDTBH #### [facility] [address] [place] [address] Dr. Avni Aguillon LYMPHM # 0.39 103/ul Critically low 1.20-3.80 [facility] Comment on above: Performed By: #### C VDTBH #### [facility] [address] [place] [address] Dr. Avni Aguillon LYMPHM% 2.0 % Critically low 20.5-60.0 [facility] Comment on above: Performed By: #### C VDTBH #### [facility] [address] [address] [address] Avni Aguillon MCH 32.1 pg Normal 25.9-34.0 [facility] Comment on above: Performed By: #### C VDTBH #### [facility] [address] [address] [address] Avni Aguillon MCHC 33.9 g/dl Normal 29.9-35.2 [facility] Comment on above: Performed By: #### C VDTBH #### [facility] [address] [address] [address] Avni Aguillon MCV 94.9 fL Critically high 80.0-94.0 [facility] Comment on above: Performed By: #### C VDTBH #### [facility] [address] [place] [address] Dr. Avni Aguillon METAMYELOCYTE # Normal [facility] Comment on above: Performed By: #### C VDTBH #### [facility] [address] [place] [address] Dr. Avni Aguillon METAMYELOCYTE % Normal [facility] Comment on above: Performed By: #### C VDTBH #### [facility] [address] [place] [address] Dr. Avni Aguillon MONOM# 0.20 103/ul Critically low 0.30-0.80 [facility] Comment on above: Performed By: #### C VDTBH #### [facility] [address] [place] [address] Dr. Avni Aguillon MONOM% 1.0 % Critically low 1.7-12.0 [facility] Comment on above: Performed By: #### C VDTBH #### [facility] [address] [place] [address] Dr. Avni Aguillon MPV 9.5 fL Normal 9.5-13.5 [facility] Comment on above: Performed By: #### C VDTBH #### [facility] [address] [place] [address] Dr. Avni Aguillon MYELOCYTE # Normal [facility] Comment on above: Performed By: #### C VDTBH #### [facility] [address] [place] [address] Dr. Avni Aguillon MYELOCYTE % Normal [facility] Comment on above: Performed By: #### C VDTBH #### [facility] [address] [place] [address] Dr. Avni Aguillon NRBC Normal [facility] Comment on above: Performed By: #### C VDTBH #### [facility] [address] [address] [address] Avni Aguillon PLT 236 103/ul Normal 150-450 [facility] Comment on above: Performed By: #### C VDTBH #### [facility] [address] [address] [address] Avni Aguillon RBC 3.92 106/ul Critically low 4.70-6.10 [facility] Comment on above: Performed By: #### C VDTBH #### [facility] [address] [address] [address] Avni Aguillon RDW 13.6 % Normal 11.0-15.0 [facility] Comment on above: Performed By: #### C VDTBH #### [facility] [address] [address] [address] Avni Aguillon SEG # 18.91 103/ul Critically high 1.40-6.50 [facility] Comment on above: Performed By: #### C VDTBH #### [facility] [address] [place] [address] Dr. Avni Aguillon SEG % 97.0 % Critically high 43.0-75.0 [facility] Comment on above: Performed By: #### C VDTBH #### [facility] [address] [address] [address] Avni Aguillon WBC 19.5 103/ul Critically high 4.0-11.0 [facility] Comment on above: Performed By: #### C VDTBH #### [facility] [address] [address] [address] Avni Aguillon CULTURE URINEon 12-30-2021 CULTURE URINE Culture Observations : NO GROWTH. Normal [facility] Comment on above: Performed By: #### U RCX #### [facility] [address] [place] [address] Dr. Avni Aguillon PROF 14(COMP METB)on 022 Albumin [Mass/Vol] 3.1 g/dL Critically low 3.4-5.0 [facility] Comment on above: Performed By: #### P OCGLUC #### [facility] [address] [place] [address] Dr. Avni Aguillon Albumin/Globulin [Mass ratio] 1.0 {ratio} Normal [facility] Comment on above: Performed By: #### P OCGLUC #### [facility] [address] [place] [address] Dr. Avni Aguillon ALP [Catalytic activity/Vol] 94 U/L Normal 46-116 [facility] Comment on above: Performed By: #### P OCGLUC #### [facility] [address] [place] [address] Dr. Avni Aguillon ALT [Catalytic activity/Vol] 43 U/L Normal 16-63 [facility] Comment on above: Performed By: #### P OCGLUC #### [facility] [address] [place] [address] Dr. Avni Aguillon Anion gap [Moles/Vol] 12.4 mmol/L Normal [facility] Comment on above: Performed By: #### P OCGLUC #### [facility] [address] [place] [address] Dr. Avni Aguillon AST [Catalytic activity/Vol] 21 U/L Normal 15-37 [facility] Comment on above: Performed By: #### P OCGLUC #### [facility] [address] [place] [address] Dr. Avni Aguillon Bilirubin [Mass/Vol] 1.0 mg/dL Normal 0.2-1.0 [facility] Comment on above: Performed By: #### P OCGLUC #### [facility] [address] [place] [address] Dr. Avni Aguillon Calcium [Mass/Vol] 8.8 mg/dL Normal 8.5-10.1 [facility] Comment on above: Performed By: #### P OCGLUC #### [facility] [address] [place] [address] Dr. Avni Aguillon Chloride [Moles/Vol] 104 mmol/L Normal 98-107 [facility] Comment on above: Performed By: #### P OCGLUC #### [facility] [address] [place] [address] Dr. Avni Aguillon CO2 [Moles/Vol] 23.7 mmol/L Normal 21.0-32.0 [facility] Comment on above: Performed By: #### P OCGLUC #### [facility] [address] [address] [address] Avni Aguillon Creatinine [Mass/Vol] 0.90 mg/dL Normal 0.70-1.30 [facility] Comment on above: Performed By: #### P OCGLUC #### [facility] [address] [address] [address] Avni Aguillon EGFR-AF MEXICAN >60 Normal >=60 [facility] Comment on above: Performed By: #### P OCGLUC #### [facility] [address] [address] [address] Avni Aguillon EGFR-NON AF MEXICAN >60 Normal >=60 [facility] Comment on above: Performed By: #### P OCGLUC #### [facility] [address] [place] [address] Dr. Avni Aguillon Globulin (S) [Mass/Vol] 3.1 g/dL Normal [facility] Comment on above: Performed By: #### P OCGLUC #### [facility] [address] [place] [address] Dr. Avni Aguillon Glucose [Mass/Vol] 234 mg/dL Critically high 74-106 [facility] Comment on above: Performed By: #### P OCGLUC #### [facility] [address] [place] [address] Dr. Avni Aguillon Potassium [Moles/Vol] 4.1 mmol/L Normal 3.5-5.1 [facility] Comment on above: Performed By: #### P OCGLUC #### [facility] [address] [address] [address] Avni Aguillon Protein [Mass/Vol] 6.2 g/dL Critically low 6.4-8.2 [facility] Comment on above: Performed By: #### P OCGLUC #### [facility] [address] [place] [address] Dr. Avni Aguillon Sodium [Moles/Vol] 136 mmol/L Normal 136-145 [facility] Comment on above: Performed By: #### P OCGLUC #### [facility] [address] [place] [address] Dr. Avni Aguillon Urea nitrogen [Mass/Vol] 15.0 mg/dL Normal 7.0-18.0 [facility] Comment on above: Performed By: #### P OCGLUC #### [facility] [address] [place] [address] Dr. Avni Aguillon Urea nitrogen/Creatinine [Mass ratio] 16.7 mg/mg Normal [facility] Comment on above: Performed By: #### P OCGLUC #### [facility] [address] [place] [address] Dr. Avni Aguillon UA RANDOM W/MICROSCOPICon BACTERIA NONE SEEN Normal NONE SEEN [facility] Comment on above: Performed By: #### C VDTBH #### [facility] [address] [place] [address] Dr. Avni Aguillon Bilirubin Ql (U) Negative Normal NEGATIVE [facility] Comment on above: Performed By: #### C VDTBH #### [facility] [address] [place] [address] Dr. Avni Aguillon CAST NONE SEEN Normal NONE SEEN [facility] Comment on above: Performed By: #### C VDTBH #### [facility] [address] [place] [address] Dr. Avni Aguillon Clarity (U) CLEAR Normal CLEAR [facility] Comment on above: Performed By: #### C VDTBH #### [facility] [address] [place] [address] Dr. Avni Aguillon Color (U) LT. YELLOW Normal YELLOW [facility] Comment on above: Performed By: #### C VDTBH #### [facility] [address] [place] [address] Dr. Avni Aguillon Crystals LM Nom (Urine sed) NONE SEEN Normal NONE SEEN [facility] Comment on above: Performed By: #### C VDTBH #### [facility] [address] [place] [address] Dr. Avni Aguillon Epithelial cells LM Ql (Urine sed) RARE Normal NONE SEEN /RARE [facility] Comment on above: Performed By: #### C VDTBH #### [facility] [address] [place] [address] Dr. Avni Aguillon Glucose Ql (U) 250 mg/dl Abnormal NEGATIVE [facility] Comment on above: Performed By: #### C VDTBH #### [facility] [address] [place] [address] Dr. Avni Aguillon Hemoglobin Ql (U) Negative Normal NEGATIVE [facility] Comment on above: Performed By: #### C VDTBH #### [facility] [address] [place] [address] Dr. Avni Aguillon Ketones Ql (U) 15 mg/dl Abnormal NEGATIVE [facility] Comment on above: Performed By: #### C VDTBH #### [facility] [address] [place] [address] Dr. Avni Aguillon LEUKOCYTES Negative Normal NEGATIVE [facility] Comment on above: Performed By: #### C VDTBH #### [facility] [address] [place] [address] Dr. Avni Aguillon MUCOUS NONE SEEN Normal NONE SEEN [facility] Comment on above: Performed By: #### C VDTBH #### [facility] [address] [place] [address] Dr. Avni Aguillon Nitrite Ql (U) Negative Normal NEGATIVE [facility] Comment on above: Performed By: #### C VDTBH #### [facility] [address] [place] [address] Dr. Avni Aguillon pH (U) 6.5 [pH] Normal 5-9 [facility] Comment on above: Performed By: #### C VDTBH #### [facility] [address] [place] [address] Dr. Avni Aguillon RBC 0-2 Normal 0-2 [facility] Comment on above: Performed By: #### C VDTBH #### [facility] [address] [place] [address] Dr. Avni Aguillon SPEC GRAVITY 1.020 Normal 1.005-<=1.02 5 [facility] Comment on above: Performed By: #### C VDTBH #### [facility] [address] [place] [address] Dr. Avni Aguillon UA PROTEIN Negative Normal NEGATIVE/ TRACE [facility] Comment on above: Performed By: #### C VDTBH #### [facility] [address] [place] [address] Dr. Avni Aguillon Urobilinogen Qn (U) 0.2 {Kesha'U}/dL Normal 0.2 - 1. 0 [facility] Comment on above: Performed By: #### C VDTBH #### [facility] [address] [place] [address] Dr. Avni Aguillon WBC 0-2 Abnormal NONE SEEN [facility] Comment on above: Performed By: #### C VDTBH #### [facility] [address] [place] [address] Dr. Avni Aguillon BNPon 12-29-2021 Natriuretic peptide B (Bld) [Mass/Vol] 434.0 pg/mL Normal <=1,800.0 [facility] Comment on above: Performed By: #### P OCGLUC #### [facility] [address] [place] [address] Dr. Avni Aguillon CBC AUTO DIFFon 12-29-2021 BASO # 0.1 103/ul Normal 0.0-0.1 [facility] Comment on above: Performed By: #### B [employer] #### [facility] [address] [place] [address] Dr. Avni Aguillon Basophils/100 WBC (Bld) 1.0 % Normal 0.2-2.0 [facility] Comment on above: Performed By: #### B [employer] #### [facility] [address] [place] [address] Dr. Avni Aguillon EO # 0.5 103/ul Normal 0.0-0.7 [facility] Comment on above: Performed By: #### B [employer] #### [facility] [address] [place] [address] Dr. Avni Aguillon Eosinophils/100 WBC (Bld) 5.9 % Normal 0.9-7.0 [facility] Comment on above: Performed By: #### B [employer] #### [facility] [address] [place] [address] Dr. Avni Aguillon Erythrocyte distribution width (RBC) [Ratio] 14.1 % Normal 11.0-15.0 [facility] Comment on above: Performed By: #### B [employer] #### [facility] [address] [place] [address] Dr. Avni Aguillon Hematocrit (Bld) [Volume fraction] 37.5 % Critically low 42.0-54.0 [facility] Comment on above: Performed By: #### B [employer] #### [facility] [address] [place] [address] Dr. Avni Aguillon Hemoglobin (Bld) [Mass/Vol] 12.5 g/dL Critically low 14.0-18.0 [facility] Comment on above: Performed By: #### B [employer] #### [facility] [address] [place] [address] Dr. Avni Aguillon IG # 0.02 10e3/ul Normal 0.00-0.03 [facility] Comment on above: Performed By: #### B [employer] #### [facility] [address] [place] [address] Dr. Avni Aguillon IG % 0.2 % Normal 0.0-0.5 [facility] Comment on above: Performed By: #### B [employer] #### [facility] [address] [place] [address] Dr. Avni Aguillon LYMPH # 0.9 103/ul Critically low 1.2-3.8 [facility] Comment on above: Performed By: #### B [employer] #### [facility] [address] [place] [address] Dr. Avni Aguillon Lymphocytes/100 WBC (Bld) 11.6 % Critically low 20.5-60.0 [facility] Comment on above: Performed By: #### B [employer] #### [facility] [address] [place] [address] Dr. Avni Aguillon MANUAL DIFF REQ NO Normal [facility] Comment on above: Performed By: #### B [employer] #### [facility] [address] [place] [address] Dr. Avni Aguillon MCH (RBC) [Entitic mass] 32.6 pg Normal 25.9-34.0 [facility] Comment on above: Performed By: #### B [employer] #### [facility] [address] [place] [address] Dr. Avni Aguillon MCHC (RBC) [Mass/Vol] 33.3 g/dL Normal 29.9-35.2 [facility] Comment on above: Performed By: #### B [employer] #### [facility] [address] [place] [address] Dr. Avni Aguillon MCV (RBC) [Entitic vol] 97.7 fL Critically high 80.0-94.0 [facility] Comment on above: Performed By: #### B [employer] #### [facility] [address] [place] [address] Dr. Avni Aguillon MONO # 0.4 103/ul Normal 0.3-0.8 [facility] Comment on above: Performed By: #### B [employer] #### [facility] [address] [place] [address] Dr. Avni Aguillon Monocytes/100 WBC (Bld) 5.2 % Normal 1.7-12.0 [facility] Comment on above: Performed By: #### B [employer] #### [facility] [address] [place] [address] Dr. Avni Aguillon NEUT # 6.1 103/ul Normal 1.4-6.5 [facility] Comment on above: Performed By: #### B [employer] #### [facility] [address] [place] [address] Dr. Avni Aguillon Neutrophils/100 WBC (Bld) 76.1 % Critically high 43.0-75.0 [facility] Comment on above: Performed By: #### B [employer] #### [facility] [address] [place] [address] Dr. Avni Aguillon Platelet mean volume (Bld) [Entitic vol] 9.6 fL Normal 9.5-13.5 [facility] Comment on above: Performed By: #### B [employer] #### [facility] [address] [address] [address] Avni Aguillon PLT 244 103/ul Normal 150-450 [facility] Comment on above: Performed By: #### B [employer] #### [facility] [address] [address] [address] Avni Aguillon RBC 3.84 106/ul Critically low 4.70-6.10 [facility] Comment on above: Performed By: #### B [employer] #### [facility] [address] [address] [address] Avni Aguillon WBC 8.1 103/ul Normal 4.0-11.0 [facility] Comment on above: Performed By: #### B [employer] #### [facility] [address] [place] [address] Dr. Avni Aguillon CTA CHEST WO W CONon -14-2 022 CTA CHEST WO W CON EXAMINATION: [...] by: NURIA WEBB Date: 2021-12-29 09:30 Normal [facility] Covid-19 PCR (CVDTBH)on 12-16 SARS-CoV-2 (COVID-19) RNA DANILO+probe Ql (Unsp spec) Detected Critically abnormal NOT DETECTED [facility] Comment on above: Result Comment: This test is not yet approved or cleared by the [place] FDA. When there are no FDA-approved or cleared tests available, and other criteria are met, FDA can make tests available under an emergency access mechanism called an Emergency Use Authorization (EUA). The EUA for this test is supported by the Furniture Mechanic of Health and Human Service's declaration that [...] used). Performed By: #### C BC #### [facility] [address] [place] [address] Dr. Avni Aguillon PROF CHEM 8 (BAS METB)on Anion gap [Moles/Vol] 10.5 mmol/L Normal [facility] Comment on above: Performed By: #### P OCGLUC #### [facility] [address] [place] [address] Dr. Avni Aguillon Calcium [Mass/Vol] 8.1 mg/dL Critically low 8.5-10.1 [facility] Comment on above: Performed By: #### P OCGLUC #### [facility] [address] [place] [address] Dr. Avni Aguillon Chloride [Moles/Vol] 106 mmol/L Normal 98-107 [facility] Comment on above: Performed By: #### P OCGLUC #### [facility] [address] [place] [address] Dr. Avni Aguillon CO2 [Moles/Vol] 26.1 mmol/L Normal 21.0-32.0 [facility] Comment on above: Performed By: #### P OCGLUC #### [facility] [address] [address] [address] Avni Aguillon Creatinine [Mass/Vol] 0.95 mg/dL Normal 0.70-1.30 [facility] Comment on above: Performed By: #### P OCGLUC #### [facility] [address] [address] [address] Avni Aguillon EGFR-AF MEXICAN >60 Normal >=60 [facility] Comment on above: Performed By: #### P OCGLUC #### [facility] [address] [address] [address] Avin Aguillon EGFR-NON AF MEXICAN >60 Normal >=60 [facility] Comment on above: Performed By: #### P OCGLUC #### [facility] [address] [address] [address] Avni Aguillon Glucose [Mass/Vol] 193 mg/dL Critically high 74-106 [facility] Comment on above: Performed By: #### P OCGLUC #### [facility] [address] [address] [address] Avni Aguillon Potassium [Moles/Vol] 3.6 mmol/L Normal 3.5-5.1 [facility] Comment on above: Performed By: #### P OCGLUC #### [facility] [address] [address] [address] Avni Aguillon Sodium [Moles/Vol] 139 mmol/L Normal 136-145 [facility] Comment on above: Performed By: #### P OCGLUC #### [facility] [address] [address] [address] Avni Aguillon Urea nitrogen [Mass/Vol] 12.0 mg/dL Normal 7.0-18.0 [facility] Comment on above: Performed By: #### P OCGLUC #### [facility] [address] [address] [address] Avni Aguillon Urea nitrogen/Creatinine [Mass ratio] 12.6 mg/mg Normal [facility] Comment on above: Performed By: #### P OCGLUC #### [facility] [address] [address] [address] Avni Aguillon TROPONIN, HIGH SENSITIVITYon 12-29-2021 HSTROP 38.0 pg/mL Normal 4.0-76.1 [facility] Comment on above: Result Comment: CUT- OFF POINTS HAVE BEEN ESTABLISHED BASED ON THE FOURTH UNIVERSAL DEFINITIONS OF MYOCARDIAL INFARCTION. THE UPPER REFERENCE LIMIT (URL) OF TROPONIN, DEFINED THE 99TH PERCENTILE OF cTnI DISTRIBUTION IN A REFERENCE POPULATION, HAS BEEN CONFIRMED THE DECISION THRESHOLD FOR UT DIAGNOSIS. Performed By: #### P OCGLUC #### [facility] [address] [place] [address] Dr. Avni Aguillon XR CHEST 1 Von [...] NURIA CLINE Date: 2021-12-29 07:54 Normal [facility] BNPon 12-27-2021 Natriuretic peptide B (Bld) [Mass/Vol] 94.0 pg/mL Normal <=1,800.0 [facility] Comment on above: Performed By: #### S PUTCX #### [facility] [address] [place] [address] Dr. Avni Aguillon CBC AUTO DIFFon 12-27-2021 BASO # 0.1 103/ul Normal 0.0-0.1 [facility] Comment on above: Performed By: #### C BC #### [facility] [address] [place] [address] Dr. Avni Aguillon Basophils/100 WBC (Bld) 0.8 % Normal 0.2-2.0 [facility] Comment on above: Performed By: #### C BC #### [facility] [address] [place] [address] Dr. Avni Aguillon EO # 1.0 103/ul Critically high 0.0-0.7 [facility] Comment on above: Performed By: #### C BC #### [facility] [address] [place] [address] Dr. Avni Aguillon Eosinophils/100 WBC (Bld) 12.3 % Critically high 0.9-7.0 [facility] Comment on above: Performed By: #### C BC #### [facility] [address] [place] [address] Dr. Avni Aguillon Erythrocyte distribution width (RBC) [Ratio] 13.5 % Normal 11.0-15.0 [facility] Comment on above: Performed By: #### C BC #### [facility] [address] [place] [address] Dr. Avni Aguillon Hematocrit (Bld) [Volume fraction] 39.2 % Critically low 42.0-54.0 [facility] Comment on above: Performed By: #### C BC #### [facility] [address] [place] [address] Dr. Avni Aguillon Hemoglobin (Bld) [Mass/Vol] 13.1 g/dL Critically low 14.0-18.0 [facility] Comment on above: Performed By: #### C BC #### [facility] [address] [place] [address] Dr. Avni Aguillon IG # 0.03 10e3/ul Normal 0.00-0.03 [facility] Comment on above: Performed By: #### C BC #### [facility] [address] [place] [address] Dr. Avni Aguillon IG % 0.4 % Normal 0.0-0.5 [facility] Comment on above: Performed By: #### C BC #### [facility] [address] [place] [address] Dr. Avni Aguillon LYMPH # 1.2 103/ul Normal 1.2-3.8 [facility] Comment on above: Performed By: #### C BC #### [facility] [address] [place] [address] Dr. Avni Aguillon Lymphocytes/100 WBC (Bld) 15.7 % Critically low 20.5-60.0 [facility] Comment on above: Performed By: #### C BC #### [facility] [address] [place] [address] Dr. Avni Aguillon MANUAL DIFF REQ NO Normal [facility] Comment on above: Performed By: #### C BC #### [facility] [address] [place] [address] Dr. Avni Aguillon MCH (RBC) [Entitic mass] 32.7 pg Normal 25.9-34.0 [facility] Comment on above: Performed By: #### C BC #### [facility] [address] [place] [address] Dr. Avni Aguillon MCHC (RBC) [Mass/Vol] 33.4 g/dL Normal 29.9-35.2 [facility] Comment on above: Performed By: #### C BC #### [facility] [address] [place] [address] Dr. Avni Aguillon MCV (RBC) [Entitic vol] 97.8 fL Critically high 80.0-94.0 [facility] Comment on above: Performed By: #### C BC #### [facility] [address] [place] [address] Dr. Avni Aguillon MONO # 0.6 103/ul Normal 0.3-0.8 [facility] Comment on above: Performed By: #### C BC #### [facility] [address] [place] [address] Dr. Avni Aguillon Monocytes/100 WBC (Bld) 7.8 % Normal 1.7-12.0 [facility] Comment on above: Performed By: #### C BC #### [facility] [address] [place] [address] Dr. Avni Aguillon NEUT # 4.9 103/ul Normal 1.4-6.5 [facility] Comment on above: Performed By: #### C BC #### [facility] [address] [place] [address] Dr. Avni Aguillon Neutrophils/100 WBC (Bld) 63.0 % Normal 43.0-75.0 [facility] Comment on above: Performed By: #### C BC #### [facility] [address] [place] [address] Dr. Avni Aguillon Platelet mean volume (Bld) [Entitic vol] 9.5 fL Normal 9.5-13.5 [facility] Comment on above: Performed By: #### C BC #### [facility] [address] [place] [address] Dr. Avni Aguillon PLT 273 103/ul Normal 150-450 [facility] Comment on above: Performed By: #### C BC #### [facility] [address] [place] [address] Dr. Avni Aguillon RBC 4.01 106/ul Critically low 4.70-6.10 [facility] Comment on above: Performed By: #### C BC #### [facility] [address] [place] [address] Dr. Avni Aguillon WBC 7.8 103/ul Normal 4.0-11.0 [facility] Comment on above: Performed By: #### C BC #### [facility] [address] [place] [address] Dr. Avni Aguillon D-DIMERon 12-27-2021 D-DIMER 1.03 mg/L FEU Critically high <=0.59 [facility] Comment on above: Performed By: #### P OCGLUC #### [facility] [address] [place] [address] Dr. Avni Aguillon D-DIMER COMMENTS SEE BELOW Normal [facility] Comment on above: Result Comment: Incr eases [...] hospitalization. Performed By: #### P OCGLUC #### [facility] [address] [place] [address] Dr. Avni Aguillon LACTATE/LACTIC ACIDon 2021 Lactate [Moles/Vol] 1.3 mmol/L Normal 0.4-1.9 [facility] Comment on above: Performed By: #### P OCGLUC #### [facility] [address] [place] [address] Dr. Avni Aguillon PROF 14(COMP METB)on 022 Albumin [Mass/Vol] 3.4 g/dL Normal 3.4-5.0 [facility] Comment on above: Performed By: #### S PUTCX #### [facility] [address] [place] [address] Dr. Avni Aguillon Albumin/Globulin [Mass ratio] 1.0 {ratio} Normal [facility] Comment on above: Performed By: #### S PUTCX #### [facility] [address] [place] [address] Dr. Avni Aguillon ALP [Catalytic activity/Vol] 101 U/L Normal 46-116 [facility] Comment on above: Performed By: #### S PUTCX #### [facility] [address] [place] [address] Dr. Avni Aguillon ALT [Catalytic activity/Vol] 36 U/L Normal 16-63 [facility] Comment on above: Performed By: #### S PUTCX #### [facility] [address] [place] [address] Dr. Avni Aguillon Anion gap [Moles/Vol] 10.1 mmol/L Normal [facility] Comment on above: Performed By: #### S PUTCX #### [facility] [address] [place] [address] Dr. Avni Aguillon AST [Catalytic activity/Vol] 19 U/L Normal 15-37 [facility] Comment on above: Performed By: #### S PUTCX #### [facility] [address] [place] [address] Dr. Avni Aguillon Bilirubin [Mass/Vol] 0.8 mg/dL Normal 0.2-1.0 [facility] Comment on above: Performed By: #### S PUTCX #### [facility] [address] [address] [address] Avni Aguillon Calcium [Mass/Vol] 8.4 mg/dL Critically low 8.5-10.1 Th [facility] Comment on above: Performed By: #### S PUTCX #### [facility] [address] [address] [address] Avni Aguillon Chloride [Moles/Vol] 106 mmol/L Normal 98-107 [facility] Comment on above: Performed By: #### S PUTCX #### [facility] [address] [address] [address] Avni Augillon CO2 [Moles/Vol] 27.3 mmol/L Normal 21.0-32.0 [facility] Comment on above: Performed By: #### S PUTCX #### [facility] [address] [place] [address] Dr. Avni Aguillon Creatinine [Mass/Vol] 1.04 mg/dL Normal 0.70-1.30 [facility] Comment on above: Performed By: #### S PUTCX #### [facility] [address] [place] [address] Dr. Avni Aguillon EGFR-AF MEXICAN >60 Normal >=60 [facility] Comment on above: Performed By: #### S PUTCX #### [facility] [address] [place] [address] Dr. Avni Aguillon EGFR-NON AF MEXICAN >60 Normal >=60 [facility] Comment on above: Performed By: #### S PUTCX #### [facility] [address] [place] [address] Dr. Avni Aguillon Globulin (S) [Mass/Vol] 3.4 g/dL Normal [facility] Comment on above: Performed By: #### S PUTCX #### [facility] [address] [place] [address] Dr. Avni Aguillon Glucose [Mass/Vol] 175 mg/dL Critically high 74-106 [facility] Comment on above: Performed By: #### S PUTCX #### [facility] [address] [address] [address] Avni Aguillon Potassium [Moles/Vol] 3.4 mmol/L Critically low 3.5-5.1 [facility] Comment on above: Performed By: #### S PUTCX #### [facility] [address] [place] [address] Dr. Avni Aguillon Protein [Mass/Vol] 6.8 g/dL Normal 6.4-8.[address] [facility] Comment on above: Performed By: #### S PUTCX #### [facility] [address] [place] [address] Dr. Avni Aguillon Sodium [Moles/Vol] 140 mmol/L Normal 136-145 [facility] Comment on above: Performed By: #### S PUTCX #### [facility] [address] [place] [address] Dr. Avni Aguillon Urea nitrogen [Mass/Vol] 15.0 mg/dL Normal 7.0-18.0 [facility] Comment on above: Performed By: #### S PUTCX #### [facility] [address] [place] [address] Dr. Avni Aguillon Urea nitrogen/Creatinine [Mass ratio] 14.4 mg/mg Normal [facility] Comment on above: Performed By: #### S PUTCX #### [facility] [address] [place] [address] Dr. Avni Aguillon RESPIRATORY PANEL PLUSon Adenovirus Not detected Normal NOT DETECTED [facility] Comment on above: Performed By: #### C BC #### [facility] [address] [place] [address] Dr. Avni Aguillon B. Parapertusis Not detected Normal NOT DETECTED [facility] Comment on above: Performed By: #### C BC #### [facility] [address] [place] [address] Dr. Avni Hawkins. Pertussis Not detected Normal NOT DETECTED [facility] Comment on above: Performed By: #### C BC #### [facility] [address] [place] [address] Dr. Avni Aguillon Chlamydia Pneumoniae Not detected Normal NOT DETECTED [facility] Comment on above: Performed By: #### C BC #### [facility] [address] [address] [address] Avni Aguillon Coronavirus 229E Not detected Normal NOT DETECTED [facility] Comment on above: Performed By: #### C BC #### [facility] [address] [place] [address] Dr. Avni Aguillon Coronavirus HKU1 Not detected Normal NOT DETECTED [facility] Comment on above: Performed By: #### C BC #### [facility] [address] [place] [address] Dr. Avni Aguillon Coronavirus NL63 Not detected Normal NOT DETECTED [facility] Comment on above: Performed By: #### C BC #### [facility] [address] [place] [address] Dr. Avni Aguillon Coronavirus OC43 Not detected Normal NOT DETECTED [facility] Comment on above: Performed By: #### C BC #### [facility] [address] [place] [address] Dr. Avni Aguillon Influenza A H1 2009 Not detected Normal NOT DETECTED [facility] Comment on above: Performed By: #### C BC #### [facility] [address] [place] [address] Dr. Avni Aguillon Influenza A H3 Not detected Normal NOT DETECTED [facility] Comment on above: Performed By: #### C BC #### [facility] [address] [place] [address] Dr. Avni Aguillon Influenza B Not detected Normal NOT DETECTED [facility] Comment on above: Performed By: #### C BC #### [facility] [address] [place] [address] Dr. Avin Aguillon Metapneumovirus Not detected Normal NOT DETECTED [facility] Comment on above: Performed By: #### C BC #### [facility] [address] [place] [address] Dr. Avni Aguillon Mycoplas. Pneumoniae Not detected Normal NOT DETECTED [facility] Comment on above: Performed By: #### C BC #### [facility] [address] [place] [address] Dr. Avni Aguillon Parainfluenza 1 Not detected Normal NOT DETECTED [facility] Comment on above: Performed By: #### C BC #### [facility] [address] [place] [address] Dr. Avni Aguillon Parainfluenza 2 Not detected Normal NOT DETECTED [facility] Comment on above: Performed By: #### C BC #### [facility] [address] [place] [address] Dr. Avni Aguillon Parainfluenza 3 Not detected Normal NOT DETECTED [facility] Comment on above: Performed By: #### C BC #### [facility] [address] [place] [address] Dr. Avni Aguillon Parainfluengianfranco 4 Not detected Normal NOT DETECTED [facility] Comment on above: Performed By: #### C BC #### [facility] [address] [place] [address] Dr. Avni Aguillon Rhino/Enterovirus Not detected Normal NOT DETECTED [facility] Comment on above: Performed By: #### C BC #### [facility] [address] [place] [address] Dr. Avni Aguillon RP2 Header 1 RESPIRATORY PANEL: VIRUSES Normal [facility] Comment on above: Performed By: #### C BC #### [facility] [address] [place] [address] Dr. Avni RAMIREZ Header 2 RESPIRATORY PANEL: BACTERIA Normal [facility] Comment on above: Performed By: #### C BC #### [facility] [address] [place] [address] Dr. Avni Aguillon RSV Not detected Normal NOT DETECTED [facility] Comment on above: Performed By: #### C BC #### [facility] [address] [place] [address] Dr. Avni Aguillon SARS-CoV-2 (COVID-19) RNA DANILO+probe Ql (Unsp spec) Detected Critically abnormal NOT DETECTED [facility] Comment on above: Performed By: #### C BC #### [facility] [address] [address] [address] Avni Aguillon TROPONIN, HIGH SENSITIVITYon 12-27-2021 HSTROP 12.5 pg/mL Normal 4.0-76.1 [facility] Comment on above: Result Comment: CUT- OFF POINTS HAVE BEEN ESTABLISHED BASED ON THE FOURTH UNIVERSAL DEFINITIONS OF MYOCARDIAL INFARCTION. THE UPPER REFERENCE LIMIT (URL) OF TROPONIN, DEFINED THE 99TH PERCENTILE OF cTnI DISTRIBUTION IN A REFERENCE POPULATION, HAS BEEN CONFIRMED THE DECISION THRESHOLD FOR UT DIAGNOSIS. Performed By: #### S PUTCX #### [facility] [address] [address] [address] Avni Aguillon XR CHEST 1 Von [...] LILIA HERNANDEZ Date: 2021-12-27 05:28 Normal [facility] BNPon 12-16-2021 Natriuretic peptide B (Bld) [Mass/Vol] 62.0 pg/mL Normal <=1,800.0 [facility] Comment on above: Performed By: #### C BC #### [facility] [address] [place], [place] [address] Dr. Avni Aguillon CARDIAC NELL ADMITon 022 CK [Catalytic activity/Vol] 80 U/L Normal 39-308 [facility] Comment on above: Performed By: #### C BC #### [facility] [address] [place], [place] [address] Dr. Avni Aguillon CK.MB [Mass/Vol] 2.95 ng/mL Normal <=3.60 [facility] Comment on above: Performed By: #### C BC #### [facility] [address] [place] [address] Dr. Avni Aguillon HSTROP 9.4 pg/mL Normal 4.0-76.1 [facility] Comment on above: Result Comment: CUT- OFF POINTS HAVE BEEN ESTABLISHED BASED ON THE FOURTH UNIVERSAL DEFINITIONS OF MYOCARDIAL INFARCTION. THE UPPER REFERENCE LIMIT (URL) OF TROPONIN, DEFINED THE 99TH PERCENTILE OF cTnI DISTRIBUTION IN A REFERENCE POPULATION, HAS BEEN CONFIRMED THE DECISION THRESHOLD FOR UT DIAGNOSIS. Performed By: #### C BC #### [facility] [address] [place] [address] Dr. Avni Aguillon MORGAN 82 ng/mL Normal 16-96 [facility] Comment on above: Performed By: #### C BC #### [facility] [address] [place] [address] Dr. Avni Aguillon CBC AUTO DIFFon 12-16-2021 BASO # 0.1 103/ul Normal 0.0-0.1 [facility] Comment on above: Performed By: #### P OCGLUC #### [facility] [address] [place] [address] Dr. Avni Aguillon Basophils/100 WBC (Bld) 1.0 % Normal 0.2-2.0 [facility] Comment on above: Performed By: #### P OCGLUC #### [facility] [address] [place] [address] Dr. Avni Aguillon EO # 0.3 103/ul Normal 0.0-0.7 [facility] Comment on above: Performed By: #### P OCGLUC #### [facility] [address] [place] [address] Dr. Avni Aguillon Eosinophils/100 WBC (Bld) 3.5 % Normal 0.9-7.0 [facility] Comment on above: Performed By: #### P OCGLUC #### [facility] [address] [place] [address] Dr. Avni Aguillon Erythrocyte distribution width (RBC) [Ratio] 13.4 % Normal 11.0-15.0 [facility] Comment on above: Performed By: #### P OCGLUC #### [facility] [address] [address] [address] Avni Aguillon Hematocrit (Bld) [Volume fraction] 40.2 % Critically low 42.0-54.0 [facility] Comment on above: Performed By: #### P OCGLUC #### [facility] [address] [place] [address] Dr. Avni Aguillon Hemoglobin (Bld) [Mass/Vol] 13.4 g/dL Critically low 14.0-18.0 [facility] Comment on above: Performed By: #### P OCGLUC #### [facility] [address] [place] [address] Dr. Avni Aguillon IG # 0.02 10e3/ul Normal 0.00-0.03 [facility] Comment on above: Performed By: #### P OCGLUC #### [facility] [address] [place] [address] Dr. Avni Aguillon IG % 0.2 % Normal 0.0-0.5 [facility] Comment on above: Performed By: #### P OCGLUC #### [facility] [address] [place] [address] Dr. Avni Aguillon LYMPH # 1.0 103/ul Critically low 1.2-3.8 [facility] Comment on above: Performed By: #### P OCGLUC #### [facility] [address] [place] [address] Dr. Avni Aguillon Lymphocytes/100 WBC (Bld) 11.3 % Critically low 20.5-60.0 [facility] Comment on above: Performed By: #### P OCGLUC #### [facility] [address] [place] [address] Dr. Avni Aguillon MANUAL DIFF REQ NO Normal [facility] Comment on above: Performed By: #### P OCGLUC #### [facility] [address] [place] [address] Dr. Avni Aguillon MCH (RBC) [Entitic mass] 32.1 pg Normal 25.9-34.0 [facility] Comment on above: Performed By: #### P OCGLUC #### [facility] [address] [address] [address] Avni Aguillon MCHC (RBC) [Mass/Vol] 33.3 g/dL Normal 29.9-35.2 [facility] Comment on above: Performed By: #### P OCGLUC #### [facility] [address] [address] [address] Avni Aguillon MCV (RBC) [Entitic vol] 96.2 fL Critically high 80.0-94.0 [facility] Comment on above: Performed By: #### P OCGLUC #### [facility] [address] [place] [address] Dr. Avni Aguillon MONO # 0.7 103/ul Normal 0.3-0.8 [facility] Comment on above: Performed By: #### P OCGLUC #### [facility] [address] [place] [address] Dr. Avni Aguillon Monocytes/100 WBC (Bld) 7.9 % Normal 1.7-12.0 [facility] Comment on above: Performed By: #### P OCGLUC #### [facility] [address] [place] [address] Dr. Avni Aguillon NEUT # 6.4 103/ul Normal 1.4-6.5 [facility] Comment on above: Performed By: #### P OCGLUC #### [facility] [address] [place] [address] Dr. Avni Aguillon Neutrophils/100 WBC (Bld) 76.1 % Critically high 43.0-75.0 [facility] Comment on above: Performed By: #### P OCGLUC #### [facility] [address] [place] [address] Dr. Avni Aguillon Platelet mean volume (Bld) [Entitic vol] 9.9 fL Normal 9.5-13.5 [facility] Comment on above: Performed By: #### P OCGLUC #### [facility] [address] [place] [address] Dr. Avni Aguillon PLT 296 103/ul Normal 150-450 [facility] Comment on above: Performed By: #### P OCGLUC #### [facility] [address] [place], [place] [address] Dr. Avni Aguillon RBC 4.18 106/ul Critically low 4.70-6.10 [facility] Comment on above: Performed By: #### P OCGLUC #### [facility] [address] [place], [place] [address] Dr. Avni Aguillon WBC 8.4 103/ul Normal 4.0-11.0 [facility] Comment on above: Performed By: #### P OCGLUC #### [facility] [address] [place], [place] [address] Dr. Avni Aguillon CTA CHEST WO W [...] upper lobe with comparison dating back to 2019, indeterminate but likely post inflammatory sequela. 3. [...] NURIA GUILLEN Date: 2021-12-16 11:04 Normal [facility] CULTURE BLOODon 12-16-2021 Microscopic examination of blood, culture Culture Observations: NO GROWTH AT 5 DAYS. Normal [facility] Comment on above: Performed By: #### C VDTBH #### [facility] [address] [address] [address] Avni Aguillon Microscopic examination of blood, culture Culture Observations: NO GROWTH AT 5 DAYS. Normal [facility] Comment on above: Performed By: #### B [id number] #### [facility] [address] [address] [address] Avni Aguillon Covid-19 PCR ([facility])on SARS-CoV-2 (COVID-19) RNA DANILO+probe Ql (Unsp spec) Detected Critically abnormal NOT DETECTED [facility] Comment on above: Result Comment: This test is not yet approved or cleared by the [place] FDA. When there are no FDA-approved or cleared tests available, and other criteria are met, FDA can make tests available under an emergency access mechanism called an Emergency Use Authorization (EUA). The EUA for this test is supported by the [place] of Health and Human Service's declaration that [...] used). Performed By: #### C VDTBH #### [facility] [address] [address] [address] Avni Aguillon LACTATE/LACTIC ACIDon 2021 Lactate [Moles/Vol] 1.3 mmol/L Normal 0.4-1.9 [facility] Comment on above: Performed By: #### C GREG #### [facility] [address] [place] [address] Dr. Avni Aguillon PROF 14(COMP METB)on 022 Albumin [Mass/Vol] 3.5 g/dL Normal 3.4-5.0 [facility] Comment on above: Performed By: #### C GREG #### [facility] [address] [place] [address] Dr. Avni Augillon Albumin/Globulin [Mass ratio] 1.0 {ratio} Normal [facility] Comment on above: Performed By: #### C GREG #### [facility] [address] [place] [address] Dr. Avni Aguillon ALP [Catalytic activity/Vol] 88 U/L Normal 46-116 [facility] Comment on above: Performed By: #### C GREG #### [facility] [address] [place] [address] Dr. Avni Aguillon ALT [Catalytic activity/Vol] 25 U/L Normal 16-63 [facility] Comment on above: Performed By: #### C GREG #### [facility] [address] [place] [address] Dr. Avni Aguillon Anion gap [Moles/Vol] 8.8 mmol/L Normal [facility] Comment on above: Performed By: #### C GREG #### [facility] [address] [place] [address] Dr. Avni Aguillon AST [Catalytic activity/Vol] 22 U/L Normal 15-37 [facility] Comment on above: Performed By: #### C GREG #### [facility] [address] [place] [address] Dr. Avni Aguillon Bilirubin [Mass/Vol] 0.8 mg/dL Normal 0.2-1.0 [facility] Comment on above: Performed By: #### C GREG #### [facility] [address] [place] [address] Dr. Avni Aguillon Calcium [Mass/Vol] 8.5 mg/dL Normal 8.5-10.1 [facility] Comment on above: Performed By: #### C GREG #### [facility] [address] [address] [address] Avni Aguillon Chloride [Moles/Vol] 101 mmol/L Normal 98-107 [facility] Comment on above: Performed By: #### C GREG #### [facility] [address] [place] [address] Dr. Avni Aguillon CO2 [Moles/Vol] 27.6 mmol/L Normal 21.0-32.0 [facility] Comment on above: Performed By: #### C GREG #### [facility] [address] [place] [address] Dr. Avni Aguillon Creatinine [Mass/Vol] 0.94 mg/dL Normal 0.70-1.30 [facility] Comment on above: Performed By: #### C GREG #### [facility] [address] [place] [address] Dr. Avni Aguillon EGFR-AF MEXICAN >60 Normal >=60 [facility] Comment on above: Performed By: #### C GREG #### [facility] [address] [place] [address] Dr. Avni Aguillon EGFR-NON AF MEXICAN >60 Normal >=60 [facility] Comment on above: Performed By: #### C BCRAUL #### [facility] [address] [place] [address] Dr. Avni Aguillon Globulin (S) [Mass/Vol] 3.4 g/dL Normal [facility] Comment on above: Performed By: #### C BCRAUL #### [facility] [address] [place] [address] Dr. Avni Aguillon Glucose [Mass/Vol] 133 mg/dL Critically high 74-106 [facility] Comment on above: Performed By: #### C GREG #### [facility] [address] [place] [address] Dr. Avni Aguillon Potassium [Moles/Vol] 3.4 mmol/L Critically low 3.5-5.1 [facility] Comment on above: Performed By: #### C GREG #### [facility] [address] [place] [address] Dr. Avni Aguillon Protein [Mass/Vol] 6.9 g/dL Normal 6.4-8.2 [facility] Comment on above: Performed By: #### C GREG #### [facility] [address] [place] [address] Dr. Avni Aguillon Sodium [Moles/Vol] 134 mmol/L Critically low 136-145 [facility] Comment on above: Performed By: #### C GREG #### [facility] [address] [place] [address] Dr. Avni Aguillon Urea nitrogen [Mass/Vol] 18.0 mg/dL Normal 7.0-18.0 [facility] Comment on above: Performed By: #### Macey GARZA #### [facility] [address] [place] [address] Dr. Avni Aguillon Urea nitrogen/Creatinine [Mass ratio] 19.1 mg/mg Normal [facility] Comment on above: Performed By: #### C GREG #### [facility] [address] [place] [address] Dr. Avni Aguillon PROTIMEon 12-16-2021 INR Coag (PPP) [Relative time] 1.01 {INR} Normal [facility] Comment on above: Performed By: #### C ANDREA #### [facility] [address] [place] [address] Dr. Avni Aguillon INR GUIDELINES SEE BELOW Normal [facility] Comment on above: Result Comment: SHELBIE RED INR: 2.0 - 3.0 CONDITIONS NOT LISTED BELOW 2.5 - 3.5 FOR PROSTHETIC HEART VALVE REPLACEMENT 2.5 - 3.5 RECURRENT THROMBOSIS Performed By: #### C ANDREA #### [facility] [address] [place] [address] Dr. Avni Aguillon PT Coag (PPP) [Time] 10.9 s Normal 9.0-11.6 [facility] Comment on above: Performed By: #### C ANDREA #### [facility] [address] [place] [address] Dr. Avni Aguillon PTTon 12-16-2021 aPTT Coag (Bld) [Time] 27.3 s Normal 22.3-36.2 [facility] Comment on above: Performed By: #### C VDTBH #### [facility] [address] [place] [address] Dr. Avni Aguillon XR CHEST 1 Von [...] CHANDA CHA Date: 2021-12-16 09:32 Normal [facility] BNPon 12-11-2021 Natriuretic peptide B (Bld) [Mass/Vol] 105.0 pg/mL Normal <=1,800.0 [facility] Comment on above: Performed By: #### B [employer] #### [facility] [address] [place] [address] Dr. Avni Aguillon CARDIAC NELL ADMITon 022 CK [Catalytic activity/Vol] 132 U/L Normal 39-308 [facility] Comment on above: Performed By: #### P OCGLUC #### [facility] [address] [place] [address] Dr. Avni Aguillon CK.MB [Mass/Vol] 4.16 ng/mL Critically high <=3.60 [facility] Comment on above: Performed By: #### P OCGLUC #### [facility] [address] [place] [address] Dr. Avni Aguillon HSTROP 8.8 pg/mL Normal 4.0-76.1 [facility] Comment on above: Result Comment: CUT- OFF POINTS HAVE BEEN ESTABLISHED BASED ON THE FOURTH UNIVERSAL DEFINITIONS OF MYOCARDIAL INFARCTION. THE UPPER REFERENCE LIMIT (URL) OF TROPONIN, DEFINED THE 99TH PERCENTILE OF cTnI DISTRIBUTION IN A REFERENCE POPULATION, HAS BEEN CONFIRMED THE DECISION THRESHOLD FOR UT DIAGNOSIS. Performed By: #### P OCGLUC #### [facility] [address] [place] [address] Dr. Avni Aguillon MORGAN 97 ng/mL Critically high 16-96 [facility] Comment on above: Performed By: #### P OCGLUC #### [facility] [address] [place] [address] Dr. Avni Aguillon CBC AUTO DIFFon 12-11-2021 BASO # 0.1 103/ul Normal 0.0-0.1 [facility] Comment on above: Performed By: #### B [employer] #### [facility] [address] [place] [address] Dr. Avni Aguillon Basophils/100 WBC (Bld) 1.1 % Normal 0.2-2.0 [facility] Comment on above: Performed By: #### B [employer] #### [facility] [address] [place] [address] Dr. Avni Aguillon EO # 0.3 103/ul Normal 0.0-0.7 [facility] Comment on above: Performed By: #### B [employer] #### [facility] [address] [place] [address] Dr. Avni Aguillon Eosinophils/100 WBC (Bld) 4.1 % Normal 0.9-7.0 [facility] Comment on above: Performed By: #### B [employer] #### [facility] [address] [place] [address] Dr. Avni Aguillon Erythrocyte distribution width (RBC) [Ratio] 13.7 % Normal 11.0-15.0 [facility] Comment on above: Performed By: #### B [employer] #### [facility] [address] [place] [address] Dr. Avni Aguillon Hematocrit (Bld) [Volume fraction] 38.7 % Critically low 42.0-54.0 [facility] Comment on above: Performed By: #### B [employer] #### [facility] [address] [place], [place] [address] Dr. Avni Aguillon Hemoglobin (Bld) [Mass/Vol] 13.0 g/dL Critically low 14.0-18.0 [facility] Comment on above: Performed By: #### B MERCHANT MILL UTILITY WORKER #### [facility] [address] [place] [address] Dr. Avni Aguillon IG # 0.02 10e3/ul Normal 0.00-0.03 [facility] Comment on above: Performed By: #### B [employer] UTILITY WORKER #### [facility] [address] [place] [address] Dr. Avni Aguillon IG % 0.3 % Normal 0.0-0.5 [facility] Comment on above: Performed By: #### B [employer] M[employer] UTILITY WORKER #### [facility] [address] [place] [address] Dr. Avni Aguillon LYMPH # 1.0 103/ul Critically low 1.2-3.8 [facility] Comment on above: Performed By: #### B [employer] UTILITY WORKER #### [facility] [address] [place] [address] Dr. Avni Aguillon Lymphocytes/100 WBC (Bld) 16.9 % Critically low 20.5-60.0 [facility] Comment on above: Performed By: #### B [employer] UTILITY WORKER #### [facility] [address] [place] [address] Dr. Avni Aguillon MANUAL DIFF REQ NO Normal [facility] Comment on above: Performed By: #### B [employer] M[employer] UTILITY WORKER #### [facility] [address] [place] [address] Dr. Avni Aguillon MCH (RBC) [Entitic mass] 32.6 pg Normal 25.9-34.0 [facility] Comment on above: Performed By: #### B MER[employer] M[employer] UTILITY WORKER #### [facility] [address] [place] [address] Dr. Avni Aguillon MCHC (RBC) [Mass/Vol] 33.6 g/dL Normal 29.9-35.2 [facility] Comment on above: Performed By: #### B [employer] UTILITY WORKER #### [facility] [address] [place] [address] Dr. Avni Aguillon MCV (RBC) [Entitic vol] 97.0 fL Critically high 80.0-94.0 [facility] Comment on above: Performed By: #### B [employer] M[employer] UTILITY WORKER #### [facility] [address] [place] [address] Dr. Avni Aguillon MONO # 0.6 103/ul Normal 0.3-0.8 [facility] Comment on above: Performed By: #### B [employer] UTILITY WORKER #### [facility] [address] [place] [address] Dr. Avni Aguillon Monocytes/100 WBC (Bld) 10.2 % Normal 1.7-12.0 [facility] Comment on above: Performed By: #### B MER[employer] M[employer] UTILITY WORKER #### [facility] [address] [place] [address] Dr. Avni Aguillon NEUT # 4.2 103/ul Normal 1.4-6.5 [facility] Comment on above: Performed By: #### B [employer] M[employer] UTILITY WORKER #### [facility] [address] [place] [address] Dr. Avni Aguillon Neutrophils/100 WBC (Bld) 67.4 % Normal 43.0-75.0 [facility] Comment on above: Performed By: #### B [employer] M[employer] UTILITY WORKER #### [facility] [address] [place] [address] Dr. Avni Aguillon Platelet mean volume (Bld) [Entitic vol] 9.7 fL Normal 9.5-13.5 [facility] Comment on above: Performed By: #### B [employer] M[employer] UTILITY WORKER #### [facility] [address] [place] [address] Dr. Avni Aguillon PLT 247 103/ul Normal 150-450 [facility] Comment on above: Performed By: #### B MERCHANT M[employer] UTILITY WORKER #### [facility] [address] [place] [address] Dr. Avni Aguillon RBC 3.99 106/ul Critically low 4.70-6.10 [facility] Comment on above: Performed By: #### B MER[employer] M[employer] UTILITY WORKER #### [facility] [address] [place] [address] Dr. Avni Aguillon WBC 6.2 103/ul Normal 4.0-11.0 [facility] Comment on above: Performed By: #### B MER[employer] M[employer] UTILITY WORKER #### [facility] [address] [place] [address] Dr. Avni Aguillon Covid-19 PCR ([facility])on 11-17 SARS-CoV-2 (COVID-19) RNA DANILO+probe Ql (Unsp spec) Not detected Normal NOT DETECTED [facility] Comment on above: Result Comment: When diagnostic [...] for this test is supported by the Furniture Mechanic of Health and Human Service's declaration that [...] used). Performed By: #### U RCX #### [facility] [address] [place] [address] Dr. Avni Aguillon PROF 14(COMP METB)on 022 Albumin [Mass/Vol] 3.9 g/dL Normal 3.4-5.0 [facility] Comment on above: Performed By: #### P OCGLUC #### [facility] [address] [place] [address] Dr. Avni Aguillon Albumin/Globulin [Mass ratio] 1.1 {ratio} Normal [facility] Comment on above: Performed By: #### P OCGLUC #### [facility] [address] [place] [address] Dr. Avni Aguillon ALP [Catalytic activity/Vol] 98 U/L Normal 46-116 [facility] Comment on above: Performed By: #### P OCGLUC #### [facility] [address] [place] [address] Dr. Avni Aguillon ALT [Catalytic activity/Vol] 28 U/L Normal 16-63 [facility] Comment on above: Performed By: #### P OCGLUC #### [facility] [address] [address] [address] Avni Aguillon Anion gap [Moles/Vol] 8.0 mmol/L Normal [facility] Comment on above: Performed By: #### P OCGLUC #### [facility] [address] [address] [address] Avni Aguillon AST [Catalytic activity/Vol] 25 U/L Normal 15-37 [facility] Comment on above: Performed By: #### P OCGLUC #### [facility] [address] [address] [address] Avni Aguillon Bilirubin [Mass/Vol] 1.1 mg/dL Critically high 0.2-1.0 [facility] Comment on above: Performed By: #### P OCGLUC #### [facility] [address] [address] [address] Avni Aguillon Calcium [Mass/Vol] 9.0 mg/dL Normal 8.5-10.1 [facility] Comment on above: Performed By: #### P OCGLUC #### [facility] [address] [address] [address] Avni Aguillon Chloride [Moles/Vol] 104 mmol/L Normal 98-107 [facility] Comment on above: Performed By: #### P OCGLUC #### [facility] [address] [address] [address] Avni Aguillon CO2 [Moles/Vol] 29.8 mmol/L Normal 21.0-32.0 [facility] Comment on above: Performed By: #### P OCGLUC #### [facility] [address] [address] [address] Avni Aguillon Creatinine [Mass/Vol] 1.00 mg/dL Normal 0.70-1.30 [facility] Comment on above: Performed By: #### P OCGLUC #### [facility] [address] [address] [address] Avni Aguillon EGFR-AF MEXICAN >60 Normal >=60 [facility] Comment on above: Performed By: #### P OCGLUC #### [facility] [address] [address] [address] Avni Aguillon EGFR-NON AF MEXICAN >60 Normal >=60 [facility] Comment on above: Performed By: #### P OCGLUC #### [facility] [address] [address] [address] Avni Aguillon Globulin (S) [Mass/Vol] 3.6 g/dL Normal [facility] Comment on above: Performed By: #### P OCGLUC #### [facility] [address] [address] [address] Avni Aguillon Glucose [Mass/Vol] 151 mg/dL Critically high 74-106 [facility] Comment on above: Performed By: #### P OCGLUC #### [facility] [address] [address] [address] Avni Aguillon Potassium [Moles/Vol] 3.8 mmol/L Normal 3.5-5.1 [facility] Comment on above: Performed By: #### P OCGLUC #### [facility] [address] [address] [address] Avni Aguillon Protein [Mass/Vol] 7.5 g/dL Normal 6.4-8.2 [facility] Comment on above: Performed By: #### P OCGLUC #### [facility] [address] [address] [address] Avni Aguillon Sodium [Moles/Vol] 138 mmol/L Normal 136-145 [facility] Comment on above: Performed By: #### P OCGLUC #### [facility] [address] [address] [address] Avni Aguillon Urea nitrogen [Mass/Vol] 15.0 mg/dL Normal 7.0-18.0 [facility] Comment on above: Performed By: #### P OCGLUC #### [facility] [address] [address] [address] Avni Aguillon Urea nitrogen/Creatinine [Mass ratio] 15.0 mg/mg Normal [facility] Comment on above: Performed By: #### P OCGLUC #### [facility] [address] [address] [address] Avni Aguillon XR CHEST 1 Von [...] by: JOSE MATTHEWS Date: 2021-12-11 10:53 Normal [facility] Vital Signs Date Time Vital Sign Value Performing Clinician Rin lee 06-29-2024 09:35-0400 Body height 170.18 cm [facility] 06-29-2024 09:35-0400 Body mass index (BMI) [Ratio] 24.3 kg/m2 [facility] 06-29-2024 09:35-0400 Body weight 70.42 kg [facility] 06-29-2024 09:35-0400 Diastolic blood pressure 76 mm[Hg] [facility] 06-29-2024 09:35-0400 Heart rate 68 /min [facility] 06-29-2024 09:35-0400 Respiratory rate 12 /min [facility] 06-29-2024 09:35-0400 Systolic blood pressure 122 mm[Hg] [facility] 05-27-2024 15:22-0400 Body height 170.18 cm [facility] 05-27-2024 15:22-0400 Body mass index (BMI) [Ratio] 24.3 kg/m2 [facility] 05-27-2024 15:22-0400 Body weight 70.53 kg [facility] 05-27-2024 15:22-0400 Diastolic blood pressure 72 mm[Hg] [facility] 05-27-2024 15:22-0400 Heart rate 73 /min [facility] 05-27-2024 15:22-0400 Respiratory rate 12 /min [facility] 05-27-2024 15:22-0400 Systolic blood pressure 147 mm[Hg] [facility] 03-06-2024 09:36-0500 Body height 170.18 cm [facility] 03-06-2024 09:36-0500 Body mass index (BMI) [Ratio] 24.5 kg/m2 [facility] 03-06-2024 09:36-0500 Body weight 70.93 kg [facility] 03-06-2024 09:36-0500 Diastolic blood pressure 89 mm[Hg] [facility] 03-06-2024 09:36-0500 Heart rate 59 /min [facility] 03-06-2024 09:36-0500 Respiratory rate 12 /min [facility] 03-06-2024 09:36-0500 Systolic blood pressure 139 mm[Hg] [facility] 11-05-2023 10:13-0400 Body height 170.18 cm [facility] 11-05-2023 10:13-0400 Body mass index (BMI) [Ratio] 23.8 kg/m2 [facility] 11-05-2023 10:13-0400 Body weight 69.17 kg [facility] 11-05-2023 10:13-0400 Diastolic blood pressure 72 mm[Hg] [facility] 11-05-2023 10:13-0400 Heart rate 56 /min [facility] 11-05-2023 10:13-0400 Respiratory rate 12 /min [facility] 11-05-2023 10:13-0400 Systolic blood pressure 148 mm[Hg] [facility] 07-04-2023 09:43-0400 Body height 170.18 cm [facility] 07-04-2023 09:43-0400 Body mass index (BMI) [Ratio] 23.7 kg/m2 [facility] 07-04-2023 09:43-0400 Body weight 68.66 kg [facility] 07-04-2023 09:43-0400 Diastolic blood pressure 69 mm[Hg] [facility] 07-04-2023 09:43-0400 Heart rate 87 /min [facility] 07-04-2023 09:43-0400 Respiratory rate 12 /min [facility] 07-04-2023 09:43-0400 Systolic blood pressure 121 mm[Hg] [facility] 11-08-2022 08:30-0400 Body height 170.18 cm [facility] Other [facility] [employer] Other 11-08-2022 08:30-0400 Body mass index (BMI) [Ratio] 24.12 kg/m2 [employer] Other [facility] [employer] Other 11-08-2022 08:30-0400 Body weight 69.85 kg [employer] [facility] Other [facility] [employer] Other 11-08-2022 08:30-0400 Diastolic blood pressure 67 mm[Hg] [facility] Other [employer] Other 11-08-2022 08:30-0400 Respiratory rate 12 /min [facility] Other [employer] Other 11-08-2022 08:30-0400 Systolic blood pressure 126 mm[Hg] [facility] Other [employer] Other 07-24-2022 11:30-0400 Body height 170.18 cm [facility] Other [employer] Other 07-24-2022 11:30-0400 Body mass index (BMI) [Ratio] 24.74 kg/m2 [facility] Other [employer] Other 07-24-2022 11:30-0400 Body weight 71.67 kg [facility] Other [employer] Other 07-24-2022 11:30-0400 Diastolic blood pressure 74 mm[Hg] [facility] Other [employer] Other 07-24-2022 11:30-0400 Respiratory rate 20 /min [facility] Other [employer] Other 07-24-2022 11:30-0400 Systolic blood pressure 118 mm[Hg] [facility] Other [employer] Other 06-26-2022 10:30-0400 Body height 170.18 cm [facility] Other [employer] Other 06-26-2022 10:30-0400 Body mass index (BMI) [Ratio] 24.49 kg/m2 [facility] Other [employer] Other 06-26-2022 10:30-0400 Body weight 70.94 kg [facility] Other [employer] Other 06-26-2022 10:30-0400 Diastolic blood pressure 65 mm[Hg] [facility] Other [employer] Other 06-26-2022 10:30-0400 Respiratory rate 12 /min [facility] Other [employer] Other 06-26-2022 10:30-0400 SaO2% (BldA) [Mass fraction] 95 % [employer] [facility] Other [employer] Other 06-26-2022 10:30-0400 Systolic blood pressure 123 mm[Hg] [facility] Other [employer] Other 05-02-2022 14:30-0500 Body height 170.18 cm Imad Asaad Other [employer] Other 05-02-2022 14:30-0500 Body mass index (BMI) [Ratio] 24.27 kg/m2 Imad Asaad Other [employer] Other 05-02-2022 14:30-0500 Body weight 70.31 kg Imad Asaad Other [employer] Other 05-02-2022 14:30-0500 Diastolic blood pressure 84 mm[Hg] Imad Asaad Other [employer] Other 05-02-2022 14:30-0500 Systolic blood pressure 157 mm[Hg] Imad Asaad Other [employer] Other 04-26-2022 11:30-0500 Body height 170.18 cm [facility] Other [employer] Other 04-26-2022 11:30-0500 Body mass index (BMI) [Ratio] 23.99 kg/m2 [facility] Other [employer] Other 04-26-2022 11:30-0500 Body weight 69.49 kg [facility] Other [employer] Other 04-26-2022 11:30-0500 Diastolic blood pressure 52 mm[Hg] [facility] Other [employer] Other 04-26-2022 11:30-0500 Respiratory rate 12 /min [employer] [facility] Other [employer] Other 04-26-2022 11:30-0500 Systolic blood pressure 112 mm[Hg] [facility] Other [employer] Other 04-03-2022 15:30-0500 Body height 170.18 cm [facility] Other [employer] Other 04-03-2022 15:30-0500 Body mass index (BMI) [Ratio] 24.12 kg/m2 [facility] Other [employer] Other 04-03-2022 15:30-0500 Body weight 69.85 kg [facility] Other [employer] Other 04-03-2022 15:30-0500 Diastolic blood pressure 70 mm[Hg] [facility] Other [employer] Other 04-03-2022 15:30-0500 Respiratory rate 12 /min [facility] Other [employer] Other 04-03-2022 15:30-0500 SaO2% (BldA) [Mass fraction] 96 % [facility] Other [employer] Other 04-03-2022 15:30-0500 Systolic blood pressure 130 mm[Hg] [facility] Other [employer] Other 03-07-2022 13:21-0500 Body temperature 97.7 [degF] Yuri Welsh MD Work Phone: [employer] 03-07-2022 13:21-0500 Diastolic blood pressure 62 mm[Hg] Yuri Welsh MD Work Phone: [employer] 03-07-2022 13:21-0500 Heart rate 96 /min Yuri Welsh MD Work Phone: [employer] 03-07-2022 13:21-0500 Respiratory rate 26 /min Yuri Welsh MD Work Phone: [facility] 03-07-2022 13:21-0500 SaO2% (BldA) [Mass fraction] 95 % Yuri Welsh MD Work Phone: [facility] 03-07-2022 13:21-0500 Systolic blood pressure 113 mm[Hg] Yuri Welsh MD Work Phone: [facility] 03-07-2022 06:00-0500 Body weight 68.7 kg Yuri Welsh MD Work Phone: [facility] Encounters Encounter Date Encounter Type Care Provider Facility Start: 06-29-2024 End: 06-29-2024 [facility] Work Phone: Start: 06-29-2024 End: 06-29-2024 Patient encounter procedure [facility] Physician [facility] Work Phone: Start: 05-27-2024 End: 05-27-2024 ambulatory [facility] Work Phone: Start: 05-27-2024 End: 05-27-2024 Patient encounter procedure [facility] Physician [facility] Work Phone: Start: 03-16-2024 Non-patient / Non-visit [facility] Physician [facility] Work Phone: Start: 03-12-2024 Non-patient / Non-visit [facility] Physician [facility] Work Phone: Start: 03-06-2024 End: 03-06-2024 Patient encounter procedure [facility] Physician [facility] Work Phone: Start: 03-05-2024 Patient encounter procedure [facility] Start: 11-05-2023 End: 11-05-2023 ambulatory [facility] Work Phone: Start: 11-05-2023 End: 11-05-2023 Patient encounter procedure [facility] Work Phone: Start: 07-04-2023 End: 07-04-2023 ambulatory [facility] Work Phone: Start: 07-04-2023 End: 07-04-2023 Patient encounter procedure [facility] Work Phone: Start: 04-04-2023 End: 04-04-2023 ambulatory Mega Travis Other [employer] Other Start: 04-04-2023 Telephone encounter [facility] Start: 01-29-2023 End: 01-29-2023 ambulatory Mega Travis Other [employer] Other Start: 01-29-2023 Telephone encounter Mega [facility] Start: 11-08-2022 End: 11-08-2022 ambulatory Mega Travis Other [employer] Other Start: 11-08-2022 Office outpatient visit 25 minutes [facility] Start: 07-25-2022 End: 07-25-2022 ambulatory Mega Travis Other [employer] Other Start: 07-25-2022 Telephone encounter Mega [facility] Start: 07-24-2022 End: 07-24-2022 ambulatory Mega Travis Other [employer] Other Start: 07-24-2022 Office outpatient visit 25 minutes Mega Travis [facility] Start: 07-23-2022 End: 07-24-[address] MEGA TRAVIS Facility: Start: 07-05-2022 End: 07-05-2022 ambulatory Mega Angy Other [employer] Other Start: 07-05-2022 Telephone encounter [facility] Start: 06-26-2022 End: 06-26-2022 ambulatory Mega An[facility] Other [employer] Other Start: 06-26-2022 Office outpatient visit 25 minutes Mega [facility] Start: 06-21-2022 End: 06-21-2022 ambulatory Mega Travis Other [employer] Other Start: 06-21-2022 Telephone encounter Mega [facility] Start: 06-17-2022 End: 06-17-2022 ambulatory Mega Travis Other [employer] Other Start: 06-17-2022 Telephone encounter Mega [facility] Start: 05-10-2022 End: 05-10-2022 ambulatory Mega Travis Facility:[facility] Start: 05-10-2022 Telephone encounter Mega Travis [facility] Start: 05-08-2022 End: 05-08-2022 ambulatory Mega Travis Other [employer] Other Start: 05-08-2022 Telephone encounter Mega Travis [facility] Start: 05-02-2022 End: 05-02-2022 ambulatory Imad Asaad Other [employer] Other Start: 05-02-2022 Office consultation new/estab patient 60 min Imad Asaad [facility] Start: 04-26-2022 End: 04-26-2022 ambulatory Mega Travis Other [employer] Other Start: 04-26-2022 Office outpatient visit 25 minutes Mega Travis [facility] Start: 04-04-2022 End: 04-04-2022 ambulatory Mega Travis Other [employer] Other Start: 04-04-2022 Telephone encounter Mega Travis [facility] Start: 04-03-2022 End: 04-03-2022 ambulatory Mega Travis Other [employer] Other Start: 04-03-2022 Transitional care manage srvc 7 day discharge Mega Travis [facility] Start: 04-02-2022 End: 04-02-2022 ambulatory Mega Travis Other [facility] Other Start: 04-02-2022 Telephone encounter Mega Travis [facility] Start: 03-29-2022 End: 03-30-2022 Evaluation and management of inpatient MELVIN MAE . Facility:[facility] Start: 03-07-2022 End: 03-07-2022 Evaluation and management of inpatient [facility] Start: 03-06-2022 End: 03-07-2022 Evaluation and management [...] 02-24-2016 End: 02-25-2016 Patient encounter DEFAULT PHYSICIAN Facility:[facility] Procedures Date Procedure Procedure Detail Performing Clinician Start: 03-29-2022 Assistance with Respiratory Ventilation, Less than 24 Consecutive Hours, Continuous Positive Airway Pressure MELVIN MAE . 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 Work Phone: Start: 03-07-2022 Glucose blood reagen t strip Jamarcus Shrestha Work Phone: Start: 03-07-2022 Glucose blood reagen [...] Activity Detail Author Start: 07-04-2023 Patient referral [facility] Work Phone: Start: 03-07-2022 End: 03-07-2022 Esophagogastroduodenoscopy transoral diagnostic EGD ESOPHAGOGASTRODUODENOSCOPY Esophageal stricture 03/07/2022 11:06 AM [facility] Start: 10-16-2021 Influenza vaccination Flu vaccine (#1) [facility] Start: 12-15-2007 Pneumococcal 65+ years Vaccine (1 - PCV) Pneumococcal 65+ years Vaccine (1 - PCV) [facility] Start: 1992 Shingles vaccine (1 of 2) Shingles vaccine (1 of 2) [facility] Start: 1961 DTaP/Tdap/Td vaccine (1 - Tdap) DTaP/Tdap/Td vaccine (1 - Tdap) [facility] Start: 1960 Hepatitis C screening Hepatitis C screen [facility] Start: 1954 Depression Screen Depression Screen [facility] Start: 1952 Lipid panel Lipids [facility] Start: 06-14-1943 COVID-19 Vaccine (#1) COVID-19 Vaccine (#1) [facility] End: 03-07-2022 Blood Bank Specimen Blood Bank Specimen Blood Ba nk Routine Once for 1 Occurrences starting 03/07/2022 until 03/07/2022 [employer] Phone: Comment on above: Once for 1 Occurrences starting 03/07/20 until 03/07/2022 BLOOD BANK SPECIMEN BLOOD BANK S PECIMEN Blood Bank Routine 03/07/2022 2:13 AM EST [employer] Phone: End: 03-06-2022 Blood Occult Stool Screen #1 Blood Occult Stool Screen #1 Lab Routine One Time for 1 Occurrences starting 03/06/2022 until 03/06/2022 [employer] Phone: Comment on above: One Time for 1 Occurrences starting 02/16 until 03/06/2022 Comprehensive metabo lic 2000 panel - Serum or Plasma [facility] CT CHEST WO CONTRAST CT CHEST WO CONTRAST Imaging Routine 03/07/2022 8:36 AM EST [employer] Phone: Glucose [Mass/volume ] in Serum or Plasma [employer] Phone: Comment on above: As Needed until discontinued starting Now Then Every 4hr u ntil discontinued starting 03/06/2022 End: 03-06-2022 Initiate RT Protocol Initiate RT Protocol Respiratory Care Routine Continuous until discontinued starting 03/06/2022 [employer] Phone: Comment on above: Continuous until discontinued starting 1 05/07/2021 Intermittent pulse oximetry Puls e Oximetry Spot Check Respiratory Care Routine As Needed until discontinued starting 03/06/2022 [employer] Phone: Comment on above: As Needed until discontinued starting 12 / Oxygen therapy [[facility] [place] Data Set] Initiate Oxygen Therapy Protocol Respiratory Care Routine As Needed until discontinued starting 03/06/2022 [facility] Work Phone: Comment on above: As Needed until discontinued starting Patient referral [facility] Work Phone: Respiratory care [place] luation only Respiratory care evaluation only Respiratory Care Routine As Needed until discontinued starting 03/06/2022 [employer] Work Phone: Comment on above: As Needed until discontinued starting [facility] Immunizations Immunization Date Immunization Notes Care Provider Fa cili 03-06-2024 influenza, high dose seasonal, preservative-free [facility] 11-08-2022 Prevnar 20 Mega Travis Other [facility] 02-07-2022 influenza virus vaccine, split virus (incl. purified surface antigen) Mega [facility] Other [employer] Other 02-07-2022 influenza virus vaccine, unspecified formulation [facility] 04-19-2020 COVID-19 Vaccine Pfi zer - Documentation Purposes Only [facility] Other [facility] 12-28-2015 diphtheria, tetanus toxoids and acellular pertussis vaccine, unspecified formulation [facility] Other [facility] 12-22-2013 tetanus and diphther ia toxoids, adsorbed, preservative free, for adult use (5 Lf of tetanus toxoid and 2 Lf of diphtheria toxoid) [facility] Other [facility] 12-27-2012 tetanus and diphther ia toxoids, adsorbed, preservative free, for adult use (5 Lf of tetanus toxoid and 2 Lf of diphtheria toxoid) Mega Travis Other [facility] 12-26-2012 tetanus and diphther ia toxoids, adsorbed, preservative free, for adult use (5 Lf of tetanus toxoid and 2 Lf of diphtheria toxoid) Mega Travsi Other [facility] Payers Date Payer Category Payer Self-pay 1957 Medicare [id number] 1959 Private Health Insurance [facility] [id number] 1942 Unknown [id number] 2.16. [id number] 1942 Unknown [id number] 2.16.84 [id number] 1942 Unknown [id number] 2.16.84 [id number] 1942 Unknown [id number] 2.16.84 [id number] 1942 Unknown [id number] 2.16.84 [id number] 1942 Unknown [id number] 2.16.84 [id number] 1942 Unknown [id number] 2.16.84 [id number] 1942 Unknown [id number] 2.16.84 [id number] 1942 Unknown [id number] 2.16.84 [id number] 1942 Unknown [id number] 2.16.84 [id number] Unknown Unknown [id number] 2.16.8 [id number] Social History Date Type Detail Facility Start: 03-07-2022 End: 05-10-2022 Tobacco smoking status NMIS Ex-smoker [facility] [employer] Work Phone: End: 03-18-2011 History of tobacco use Current smoker [employer] Phone: End: 03-18-2011 History of tobacco use Cigarette Smoker [employer] Phone: Start: 1940 Sex Assigned At Not on file [employer] Phone: Start: 02-24-2022 End: 03-07-2022 Exposure to SARS-CoV-2 (event) Not sure [facility] [employer] Phone: Sex Assigned At Sex Assigned At Bir th [facility] Other Start: 1940 Sex Assigned At Male F [facility] Start: 05-27-2024 End: 06-29-2024 Sex Male (finding) [facility] Medical Equipment Procedure Code Equipment Code Equipment Origin al Text Equipment Identifier Dates Start: 04-04-2023 Blood Sugar Diagnostic (Contour Next Test Strips) strip Start: 11-01-2023 Blood Sugar Diagnostic (Contour Next Test Strips) strip Start: 11-01-2023 End: 11-01-2023 Blood Sugar Diagnostic (Contour Next Test Strips) strip Start: 11-01-2023 Blood Sugar Diagnostic (Contour Next Test Strips) strip Start: 11-01-2023 End: 11-01-2023 Blood Sugar Diagnostic (Contour Next Test Strips) strip Start: 11-01-2023 Blood Sugar Diagnostic (Contour Next Test Strips) strip Start: 11-01-2023 End: 11-01-2023 Clinical Notes 05-03-2020 to 05-27-2024 Note Date & Type Note Facility 05-27-2024 Evaluation note Diagnosis Onset Date Resolution Burning mouth syndrome acute [facility] 2024 3:13pm Chronic bronchitis acute May 27, 2024 3:13pm Dyshidrotic eczema noneactive May 27, 2024 3:13pm Anemia acute June 29 9:23am ASHD (arteriosclerotic heart disease) acute June 29, 2024 9:23am Bronchiectasis acute June 9:23am Cerebral atherosclerosis acute June 29, 2024 9:23am Elevated cholesterol acute Apri l 2024 9:23am GERD (gastroesophageal reflux disease) acute June 29, 2024 9:23am Hypertension acute June 29, 2024 9:23am MCI (mild cognitive impairment) acute June 29, 2024 9:23am MARY (obstructive sleep apnea) acute June 29, 2024 9:23am Type 2 diabetes mellitus with hyperglycemia acute June 29, 2 025 9:23am [facility] Work Phone: 1(285) 602-235412-20-2024 Evaluation note* Diagnosis Onset Date Resolution Status Admit Date ASHD (arteriosclerotic heart disease) acute March 06, 2 024 9:24am Bronchiectasis acute February 162023 9:24am Cerebral atherosclerosis acute March 06, 2024 9:24am Elevated cholesterol acute Dece mb2023 9:24am GERD (gastroesophageal reflu x disease) acute March 06, 024 9:24am Hypertension acute February 9:24am MCI (mild cognitive impairment) acut e March 06, 2024 9:24am Medicare annual wellness vis it, subsequent acute March 06, 2 024 9:24am MARY (obstructive sleep apnea) acute March 06, 2024 9:24am Type 2 diabetes mellitus wit h hyperglycemia acute March 06, 2 024 9:24am [facility] Work Phone: 1(864) 368-810101-18-2024 Evaluation note* Encounter Date Diagnosis Assessment Notes Treatment Notes Treatment Clinical Notes Mar, Controlled type 2 diabetes mellitus with hyperglycemia, without long-term current use of insulin (ICD-10 - E11.65) [facility] Other 08-24-2023 Evaluation note* Encounter Date Diagnosis [...] use, the patient reduces the risk for UT, CVA, HTN, cardiac dysrhythmias and sudden cardiac [...] sleeping well and follows directions w/o aggitation [employer] Other 05-10-2023 Evaluation note* Encounter Date Diagnosis Assessment Notes Treatment Notes Treatment Clinical Notes July, Controlled type 2 diabetes mellitus with hyperglycemia, without long-term current use of insulin (ICD-10 - E11.65) [employer] Other 05-09-2023 Evaluation note* Encounter Date Diagnosis [...] use, the patient reduces the risk for UT, CVA, HTN, cardiac dysrhythmias and sudden cardiac [...] mood disturbance, and anxiety (ICD-10 - F02.80) July, Venous stasis dermatitis of both lower extremities (ICD-10 - I87.2) Avoid salt and elevate lower extremities, support stockings, inspect legs and feet daily for blisters and ulcerations. Switch to Steroid ointment and continued moisturizers July, Other Avoid salt and elevate lower extremities, support stockings, inspect legs and feet daily for blisters and ulcerations. [employer] Other 04-20-2023 Evaluation note* Encounter Date Diagnosis Assessment Notes Treatment Notes Treatment Clinical Notes Jun, Bronchiectasis without complication (ICD-10 - J47.9) [employer] Other 04-11-2023 Evaluation note* Encounter Date Diagnosis [...] use, the patient reduces the risk for UT, CVA, HTN, cardiac dysrhythmias and sudden cardiac deaths.The patient is also aware of the association between MARY and morning headaches, daytime somnolence, fatigue and obesity, which also has been improved with continued use.The patient is compliant with treatment, wearing the equipment every night for greater than 4 hours.The patient is instructed to continue use of the CPAP for MRAY treatment. Jun, Bronchiectasis without complication (ICD-10 - [...] and feet daily for blisters and ulcerations. [employer] Other 04-06-2023 Evaluation note* Encounter Date Diagnosis Assessment Notes Treatment Notes Treatment Clinical Notes Jun, Lung nodule (ICD-10 - R91.1) Yearly LDCT w/ MWE, CT: spiculated b/l base, 4.4cm JESSICA nodule - 03/2019, PET/CT: negative - 04/2019, CT: 4.3cm JESSICA - 12/2020, CT: 4.3cm JESSICA - 12/2021 [employer] Other 04-06-2023 Evaluation note* Encounter Date Diagnosis Assessment Notes Treatment Notes Treatment Clinical Notes Jun, Lung nodule (ICD-10 - R91.1) Yearly LDCT w/ MWE CT: spiculated b/l base, 4.4cm JESSICA nodule - 03/2019 PET/CT: negative - 04/2019 CT: 4.3cm JESSICA - 12/2020 CT: 4.3cm JESSICA - 12/[address]: negative - 04/2019 CT: 4.3cm JESSICA - 04/2020 CT: 4.3cm JESSICA - 04/2021 [employer] Other 04-02-2023 Evaluation note* Encounter Date Diagnosis Assessment Notes Treatment Notes Treatment Clinical Notes Jun, Lung nodule (ICD-10 - R91.1) Yearly LDCT w/ MWE ([facility] j[facility]) [employer] Other 02-21-2023 Evaluation note* Encounter Date Diagnosis Assessment Notes Treatment Notes Treatment Clinical Notes Apr, Controlled type 2 diabetes mellitus with hyperglycemia, without long-term current use of insulin (ICD-10 - E11.65) [employer] Other 02-15-2023 Evaluation note* Encounter Date Diagnosis Assessment Notes Treatment Notes Treatment Clinical Notes Apr, GERD (gastroesophageal reflux disease) (ICD-10 - K21.9) Apr, Esophageal stricture (ICD-10 - K22.2) PATIENT HAD AN EGD DONE IN FEBRUARY AND WAS DIALATED IN [place], THEY INSTRUCTED HIM TO HAVE ANOTHER EGD W/ DIL IN A FEW MONTHS TO HAVE IT STRETCHED FURTHER. PATIENT HAVING DYSPHAGIA WITH SOLID FOODS. PATIENT TO SIGN RELEASE FROM RECORDS FROM [facility]. PROCEED WITH EGD W/DIL- STOP PLAVIX FOR 5 DAYS. [employer] Other 02-09-2023 Evaluation note* Encounter Date Diagnosis [...] J41.1) Mucinex as needed, push fluids. COntinue YAYA/JIMMIE HHN bid along w/ ICS. YAYA/JIMMIE as needed for cough. COntinue flutter as much as possible. Check oxygen saturations at night once using CPAP routinely Apr, MARY (obstructive sleep apnea) (ICD-10 - G47.33) This patient is aware of the benefits associated with MARY: With continued use, the patient reduces the risk for UT, CVA, HTN, cardiac dysrhythmias and sudden cardiac [...] Diet and exercise with continued statin therapy. [employer] Other 01-17-2023 Evaluation note* Encounter Date Diagnosis [...] use, the patient reduces the risk for UT, CVA, HTN, cardiac dysrhythmias and sudden cardiac [...] mood disturbance, and anxiety (ICD-10 - F02.80) [employer] Other 12-21-2022 History of Present illness Narrative* [...] 03/07/2022 2:20 PM EST Speech Language Pathology [facility] Speech Language Pathology Date: 03/07/2022 Patient [...] if necessary Completed by: BEATRIZ PRIDE, M.A. [facility] * Jamarcus Shrestha DO - 03/07/2022 1:15 PM EST Images from the original note were not included. [facility] Office: [phone] Miller Elder DO, Jamarcus Shrestha DO, Raymond Gaspar DO, Meir Whitmore DO, Juan Jose Nash MD, Laurel العراقي MD, Liz Walker MD, Carole Peterson MD, Ajit Erickson MD, Geo Arzola MD, Baljinder Gomez DO, Kat Haq MD, Gustavo Morrow DO, Liliane Benitez MD, Jonas Malone MD, Tanner Elder DO, Jossie Schafer MD, Yuri Welsh MD, Jewel Fournier DO, Aminah Padgett MD, Zamzam Plummer MD, Christine Rodriguez MD, Fawn Elias MD, Anjel Milligan DO, Dayton Talley MD, Enrique Omalley MD, Fatimah Antonio CNP, Ashia Hope CNP, Irena Curtis CNP, Ariel Ardon CNP, Maranda Whalen DNP, Maru Roblero CNP, Yolanda Alcantar, FUEL RETROFITTING TECHNICIAN, Ashlee Ordaz, FUEL RETROFITTING TECHNICIAN, Ivory Jain, FUEL RETROFITTING TECHNICIAN, Trista Little, FUEL RETROFITTING TECHNICIAN, Greg Hawkins PA-C, Kena Cotto, ROLANDO, Abby Cobian, ROMEO, Analia Rodríguez CNP IN-PATIENT SERVICE [facility] Progress Note 03/07/2022 1:37 PM Name: Tammy Millard Acct: [id number] Room: [address] [place] [address] Day: 1 Admit Date: 03/06/2022 10:33 PM PCP: Mega Travis DO Code Status: Full Code Subjective: C/C: Dysphagia Esophageal stricture Interval History Status: Postop EGD Feels good Doing okay with diet Hopes to go home Data Base Updates: WBC12.9 High k/uL RBC3.28 Low m/uL Wnnqgkhpbv49.[address] scan revealed: Perihilar predominant pleural-parenchymal [...] reports having a nasopharyngeal laryngoscopy done at [facility] -Imaging/Diagnostics:? -Patient has plans for surgical intervention as per notes ,surgery unable to perform it at [facility] and being transferred. -Reports inability to swallow solids and liquids without pain. Started as Solids and now liquids intermittently. No neuro deficits. 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 Will continue to monitor. * Dayami Cervantes RN - 03/07/2022 12:20 PM EST Patient transferred back to [facility] via bed. in waiting room. * Dayami Cervantes RN - 03/07/2022 12:12 PM EST Report called to Cesar RAMIREZ. * BEATRIZ Monson - 03/07/2022 8:30 AM EST Speech Language Pathology [facility] Speech Language Pathology Date: 03/07/2022 Patient Name: Tammy Millard Date of : 1940 AGE: 81 y.o. Patient Not Available for Speech Therapy Due to: [] Testing [] Hemodialysis [] Cancelled by RN [] Surgery [] Intubation/Sedation/Pain Medication [] Medical instability [x] Other: RN clarified- ST ordered for swallowing. Pt NPO at this time for procedure Next scheduled treatment: 03/08/22 Completed by: BEATRIZ Monson, M.S. [facility] documented in this encounterBON [employer] Phone: 1(692) 393-873412-21-2022 NotePossible chronic interstitial lung disease. Follow-up noncontrast chest CT recommended for further evaluation preop. [facility] [id number] NotePatient Outreach (COVAMN) TAMMY MILLARD ([id number]) 1940 M Date Time Provider Department 05/03/20 BELTRAN MCCARTHY During your visit today, we recorded the following information about you: Allergies As of Date: 05/03/2020 (Not on File) Date Reviewed: Never Reviewed Order(s):SARS-COVID VACCINE 1ST DOSE APPT [[id number]] Order #: [id number] FUTURE Problem List As Of Date: 05/03/2020 (None) Letter Text Encounter Status:Closed by GLGPRUDENCIO on 05/06/20[facility] Evaluation note* Diagnosis Esophageal stricture- Primary [...] use of insulin (HCC) 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 documented in this encounter [facility] [employer] [facility] Work Phone: evaluation noteNo [facility] Other Evaluation note* Diagnosis Onset Date Resolution Status ASHD (arteriosclerotic heart disease) acute Bronchiectasis acute Cerebral atherosclerosis acu te Elevated cholesterol acute GERD (gastroesophageal reflux disease) acute Hypertension acute MCI (mild cognitive impairment) acute MARY (obstructive sleep apnea) acute Type 2 diabetes mellitus with hyperglycemia acute [facility] Work Phone: History general Narrative - Reported* [...] Hospitalization History see surgical history Hospitalization History [facility] for esophageal dilation 01/2022 [facility] Other Hospital Discharge instructionsAmbulatory Orders* Referral to Gastroenterology Location: None Selected [facility] Work Phone: Summary Purpose Family History Relationship Condition Age at Onset Recorded Date/T jessenia family member Coronary artery disease Unknown father Unknown Advance Directives Latest Code Status on File Code Status Date Activated Date Inactivated Comments Full Code 03/06/2022 11:03 PM Advance Directive Response Recorded Date/ Time Advance Directives No August 10 12:31pm Reason for Referral Specialty Diagnoses / Procedures Referred By Contac t Referred To Contact Pulmonology Diagnoses Granulomatous lung disease (HCC) Pulmonary nodule Bronchiectasis without complication (HCC) Jamarcus Shrestha, DO [address] [place] [address] Dawood Guerrier DO [address] [address] Referral ID Status Reason Start Date Expiration Date V isits Requested Visits Authorized [id number] Open Specialty Services Required 03/07/2022 03/07/2023 1 1 Scheduling Instructions [facility] - [facility] - Dawood Guerrier DO [address] [place] [address] Comments For more efficient patient care with the Rivet Machine Operator, consider ordering a chest X-ray and PFT if clinically appropriate. Chief Complaint and Reason for Visit Chief Complaint 4 month follow up Reason for Visit ASHD (arteriosclerot ic heart disease) Bronchiectasis Cerebral atherosclerosis Elevated cholesterol GERD (gastroesophageal reflux disease) Hypertension MCI (mild cognitive impairment) MARY (obstructive sleep apnea) Type 2 diabetes mellitus with hyperglycemia Chief Complaint Admit Date Wellness March 06, 2024 9:24am CC Adult Risk Stratification March 122023 11:05am rash on chest/legs May 27, 2024 3:1 3pm Reason for Visit Admit Date ASHD (arteriosclerotic heart disease) De cember 2023 9:24am Bronchiectasis March 06, 2024 9:24am Cerebral atherosclerosis March 06, 2024 9:24am Elevated cholesterol March 06, 2024 9:24am GERD (gastroesophageal reflux disease) D ec2023 9:24am Hypertension March 06, 2024 9:24am MCI (mild cognitive impairment) March 06, 2024 9:24am Medicare annual wellness visit, subseque nt March 06, 2024 9:24am MARY (obstructive sleep apnea) February 162023 9:24am Type 2 diabetes mellitus with hyperglyce deisy March 06, 2024 9:24am Chief Complaint Admit Date rash on chest/legs May 27, 2024 3:1 3pm 4 month f/u June 29, 2024 9:2 3am Reason for Visit Admit Date 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, 2024 3:13pm Chronic bronchitis May 27, 2024 3:1 3pm Dyshidrotic eczema May 27, 2024 3:1 3pm Anemia June 29, 2024 9:2 3am ASHD (arteriosclerotic heart disease) Ap ril 2024 9:23am Bronchiectasis June 29, 2024 9:2 3am Cerebral atherosclerosis June 29 9:23am Elevated cholesterol June 29, 2024 9: 23am GERD (gastroesophageal reflux disease) A pril 2024 9:23am Hypertension June 29, 2024 9:2 3am MCI (mild cognitive impairment) June 292024 9:23am MARY (obstructive sleep apnea) June 9:23am Type 2 diabetes mellitus with hyperglyce deisy June 29, 2024 9:23am Additional Source Comments (unrecognized sect ion and content) No Status Records FoundNo Status Records FoundNo Status Records FoundNo Status Records FoundNo Status Records Found INFORMATION SOURCE (unrecogn ized section and content) DATE CREATED AUTHOR 10/03/2017 [facility] DATE CREATED AUTHOR AUTHOR'S ORGANIZ ATION 05/01/2021 [facility] DATE CREATED AUTHOR AUTHOR'S ORGANIZ ATION 03/10/2022 [facility] DATE CREATED AUTHOR AUTHOR'S ORGANIZ ATION 05/18/2022 [facility] DATE CREATED AUTHOR AUTHOR'S ORGANIZ ATION [...] on Sat03/09/22 at 0900, Until Discontinued 0946 ([facility] Hold - Provider: Nannette Autohold - Reason: Unreviewed Transfer Orders)1250 ([facility] Unhold - Provider: Maria Isabel Bradley, JAMES) enoxaparin (LOVENOX) injection 40 mg 40 mg, SubCUTAneous, DAILY, First dose on Sat03/07/22 at 0900, Until Discontinued, Indication of Use: Prophylaxis-DVT/PE 08 (Given - Provid er: Cesar Mayberry RN)0946 ([facility] Hold - Provider: Nannette Autohold - Reason: Unreviewed Transfer Orders)1250 ([facility] Unhold - Provider: Maria Isabel Bradley, JAMES) [...] RN - Reason: Order parameters not met)0946 ([facility] Hold - Provider: Nannette Autohold - Reason: Unreviewed Transfer Orders)1200 (Automatically Held - Provider: Nannette Autohold)1250 ([facility] Unhold - Provider: Maria Isabel Bradley RN)1700 [...] Nannette Autohold - Reason: Unreviewed Transfer Orders)1250 ([facility] Unhold - Provider: Maria Isabel Bradley RN)2100 [...] Orders)1130 (Automatically Held - Provider: Nannette Autohold)1250 ([facility] Unhold - Provider: Maria Isabel Bradley RN)2330 [...] accepted: Okay for Pharmacy to Substitute 0946 ([facility] Hold - Provider: Nannette Autohold - Reason: Unreviewed Transfer Orders)1250 ([facility] Unhold - Provider: Maria Isabel Bradley RN) [...] Salvador RN - Reason: IV Fluid Infusing)0946 ([facility] Hold - Provider: Nannette Autohold - Reason: Unreviewed Transfer Orders)1250 ([facility] Unhold - Provider: Maria Isabel Bradley RN)1301 [...] Other)1050 (New Bag - Provider: Saira Sommers EXCELSIOR MACHINE FEEDER - BOILER TUBE REAMER)1106 (NoRateChange - Provider: Saira Sommers APRN - BOILER TUBE REAMER)1126 (Anesthesia Volume Adjustment - Provider: Irena Saab APRN - BOILER TUBE REAMER)1250 (Unheld by provider - Provider: Rodrick Robles [...] less into rate field of order. 0946 ([facility] Hold - Pro vider: [facility] Autohold - Reason: Unreviewed Transfer Orders)1250 ([facility] Unhold - Provider: Maria Isabel Bradley RN) acetaminophen (TYLENOL) suppository 650 mg(Linked Group 1) 650 mg, Rectal, EVERY 6 HOURS PRN, Starting on Sat03/06/22 at 2303, Until Discontinued, Pain Mild (1-3), Fever, For temp greater than 100.4 F (38 C), Administer if oral route cannot be used. 0946 ([facility] Hold - Pro vider: [facility] Autohold - Reason: Unreviewed Transfer Orders)1250 ([facility] Unhold - Provider: Maria Isabel Bradley RN) acetaminophen (TYLENOL) tablet 650 mg(Linked Group 1) 650 mg, Oral, EVERY 6 HOURS PRN, Starting on Sat03/06/22 at 2303, Until Discontinued, Pain Mild (1-3), Fever, For temp greater than 100.4 F (38 C), Maximum dose of acetaminophen is 4000 mg from all sources in 24 hours. 0946 ([facility] Hold - Pro vider: [facility] Autoh[employer] - Reason: Unreviewed Transfer Orders)1250 ([facility] Unhold - Provider: Maria Isabel Bradley RN) albuterol (PROVENTIL) nebulizer solution 2.5 mg 2.5 mg, Nebulization, As Directed - RT (PRN), Starting on Sat03/06/22 at 2303, Until Discontinued, Wheezing, Initiate RT Bronchodilator Protocol: Yes - Inpatient Protocol 0156 (Given - Provid er: June Tad PRODUCT SUPPORT SPECIALIST)0946 ([facility] Hold - Provider: Nannette Autohold - Reason: Unreviewed Transfer Orders)1250 ([facility] Unhold - Provider: Maria Isabel Bradley RN) [...] 60 minutes, discontinue dextrose 10% infusion. 0946 ([facility] Hold - Pro vider: [facility] Autohold - Reason: Unreviewed Transfer Orders)1250 ([facility] Unhold - Provider: Maria Isabel Bradley RN) [...] at 100 mL/hour and notify provider. 0946 ([facility] Hold - Pro vider: [facility] Aut[employer] - Reason: Unreviewed Transfer Orders)1250 ([facility] Unhold - Provider: Maria Isabel Bradley RN) [...] at 100 mL/hour and notify provider. 0946 ([facility] Hold - Pro vider: [facility] Autoh[employer] - Reason: Unreviewed Transfer Orders)1250 ([facility] Unhold - Provider: Maria Isabel Bradley RN) [...] minutes x 2 and notify provider. 0946 ([facility] Hold - Pro vider: [facility] Aut[employer] - Reason: Unreviewed Transfer Orders)1250 ([facility] Unhold - Provider: Maria Isabel Bradley RN) [...] LESS THAN 70 mg/dL, notify provider. 0946 ([facility] Hold - Pro vider: [facility] Autohold - Reason: Unreviewed Transfer Orders)1250 ([facility] Unhold - Provider: Maria Isabel Bradley RN) [...] with CrCl less than 30 mL/min. 0946 ([facility] Hold - Pro vider: [facility] [employer] - Reason: Unreviewed Transfer Orders)1250 ([facility] Unhold - Provider: Maria Isabel Bradley RN) ondansetron (ZOFRAN) injection 4 mg(Linked Group 3) 4 mg, IntraVENous, EVERY 6 HOURS PRN, Starting on Sat03/06/22 at 2303, Until Discontinued, Nausea, Vomiting, Administer if oral route cannot be used. 0946 ([facility] Hold - Pro vider: [facility] [employer] - Reason: Unreviewed Transfer Orders)1250 ([facility] Unhold - Provider: Maria Isabel Brdaley RN) ondansetron (ZOFRAN-ODT) disintegrating tablet 4 mg(Linked Group 3) 4 mg, Oral, EVERY 8 HOURS PRN, Starting on Sat03/06/22 at 2303, Until Discontinued, Nausea, Vomiting 46 ([facility] Hold - Pro vider: [facility] [employer] - Reason: Unreviewed Transfer Orders)1250 ([facility] Unhold - Provider: Maria Isabel Bradley RN) polyethylene glycol (GLYCOLAX) packet 17 g 17 g, Oral, DAILY PRN, Starting on Sat03/06/22 at 2303, Until Discontinued, Constipation, First line therapy for constipation 46 ([facility] Hold - Pro vider: [facility] Autoh[employer] - Reason: Unreviewed Transfer Orders)1250 ([facility] Unhold - Provider: Maria Isabel Bradley RN) [...] further dilute if GI adverse effects occur. 46 ([facility] Hold - Pro vider: [facility] [employer] - Reason: Unreviewed Transfer Orders)1250 ([facility] Unhold - Provider: Maria Isabel Bradley RN) [...] with CrCl less than 30 mL/min. 0946 ([facility] Hold - Pro vider: [facility] [employer] - Reason: Unreviewed Transfer Orders)1250 ([facility] Unhold - Provider: Maria Isabel Bradley RN) [...] with CrCl less than 30 mL/min. 0946 ([facility] Hold - Pro vider: [facility] [employer] - Reason: Unreviewed Transfer Orders)1250 ([facility] Unhold - Provider: Maria Isabel Bradely RN) sodium chloride flush 0.9 % injection 10 mL 10 mL, IntraVENous, PRN, Starting on Sat03/06/22 at 2303, Until Discontinued, Line Care, After every IV line use 0946 ([facility] Hold - Pro vider: [facility] [employer] - Reason: Unreviewed Transfer Orders)1250 ([facility] Unhold - Provider: Maria Isabel Bradley RN) [...]
Care Teams (unrecognized sec tion and content) Wire [employer] Helper Relationship Specialty Start Date End Date Mega Travis DO [address] [place] [id number] PCP - General Internal Medicine 03/07/22 Team Status: Active Member Role Status Gonzalo Travis DO Primary Care Provider Active Team Status: Inactive Member Role Status Gonzalo Travis DO Primary Care Provide r, Attending Provider Active Start: July 04, 2023 End: July 04, 2023 Team Status: Inactive Member Role Status Gonzalo Travis DO Primary Care Provide r, Attending Provider Active Start: November 05, 2023 End: November 05, 2023 Team Status: Inactive Member Role Status Gonzalo Travis DO Primary Care Provide r, Attending Provider Active Start: March 06, 2024 End: March 06, 2024 Team Status: Active Member Role Status Dates Mega Travis DO Primary Care Provide r, Attending Provider Active Start: March 12, 2024 Team Status: Active Member Role Status Gonzalo Travis DO Primary Care Provide r, Attending Provider Active Start: March 16, 2024 Team Status: Inactive Member Role Status Gonzalo Travis DO Primary Care Provide r, Attending Provider Active Start: May 27, 2024 End: March 12th, 2025 Team Status: Inactive Member Role Status Dates Mega Travis , DO Primary Care Provide r, Attending Provider Active Start: June 29, 2024 End: June 29, 2024 REASON FOR VISIT (unrecogniz ed section and [...] BE BASED ON THE PRIMARY CLINICAL RECORDS. [facility]. provides no warranty or guarantee of the accuracy or completeness of information in this document.
[2024-10-19 08:43] LABS: Hematocrit 37.8 % (42.0-54.0); Hemoglobin 12.9 g/dL (14.0-18.0); Immature Granulocytes Abs Auto 0.02 10^3/uL (0.00-0.03); Immature Granulocytes Pct Auto 0.4 % (0.0-0.5); Lymphocytes Absolute Auto 0.9 10^3/uL (1.2-3.8); Mean Corpuscular HGB Conc 34.1 g/dL (29.9-35.2); Mean Corpuscular Hemoglobin 32.3 pg (25.9-34.0); Mean Corpuscular Volume 94.7 fL (80.0-94.0); Platelet Count 284 10^3/uL (150-450); Red Blood Count 3.99 10^6/uL (4.70-6.10); White Blood Count 4.5 10^3/uL (4.0-11.0)
[2024-10-19 09:39] LABS: Iron 72.0 ug/dL (65.0-175.0); Percent Iron Saturation 29.0 %; Total Iron Binding Capacity 248.0 ug/dL (250.0-450.0)
[2024-10-19 10:25] LABS: Ferritin 249.0 ng/mL (26.0-388.0); Folate 19.50 ng/mL (8.60-58.90)
[2024-10-20 04:07] LABS: Vitamin B12 319 pg/mL (232-1245)
== END 2024-10-19 08:15 | disposition home or self-care (01) ==
LOC: LAB 08:17
PROVIDERS: PCP Internal Medicine; Visit Provider Internal Medicine
DX: D64.9 Anemia, unspecified (principal); E11.65 Type 2 diabetes mellitus with hyperglycemia
CPT/HCPCS: 36415; 82607; 82728; 82746; 83036; 83540; 83550; 85025